=== PATIENT | female | born 1970 | race Caucasian/White ===

== ENCOUNTER 2017-09-15 10:36 | Emergency (ER) | payer OTHER, SELFPAY ==
[2017-09-15 10:50] VITALS: BP 186/92; PULSE 70; RESP 20; TEMP 37.1; O2SAT 97; BMI 45.1
--- NOTE | 2017-09-15 11:01 | HMH.EDUTC ---
[facility] [place] Disposition Clinical Impression: General medical exam Disposition: Home, Self-Care Condition on Discharge: Good Additional Instructions: Follow up with physician on the list that accepts your insurance to have them evaluate and prescribe medication Return if needed If any signs of emergency go straight to ER Time of Disposition: 11:17 Medical Decision Making - Medical Records Medical records reviewed: Yes: I reviewed the patient's medical records. Vital Signs: 09/15/17 10:50 Temperature 98.7 F Temperature Source Temporal Artery Scan Pulse Rate [Right Radial] 70 Respiratory Rate 20 Blood Pressure [Right Arm] 186/92 Blood Pressure Mean [Right Arm] 123 Blood Pressure Source [Right Arm] Automatic Cuff Blood Pressure Position [Right Arm] Sitting 02 Sat by Pulse Oximetry 97 Oxygen Delivery Method Room Air - Donte Inquiry Pt receiving controlled substance: No Donte was queried for this patient: No - Reevaluation(s) Time: 11:12 Reevaluation #1: Patient educated and informed that she would have to find a family doctor to prescribe her medication and continue with refills, Patient educated that where she has not seen a physician in several months and been without her medication that she would need a complete evaluation and monitoring Patient assisted to get copy of card and given list of physicians that is accepting patients at this time [facility] [place] HPI - General Stated complaint: needs meds Mode of Arrival: Family Vehicle Source of Information: Patient Limitations: No Limitations Description of Symptoms (Recalled from Triage Doc. by RN): pt states she needs refills on her medication. naproxen, albuterol,dulera, combivent,zantac,amlodipine,and lisinopril. pcp is . HEENT Symptoms (Recalled from RN notes): No Resp Symptoms (Recalled from RN notes): No Skin Symptoms (Recalled from RN notes): No MS Symptoms (Recalled from RN notes): No Functional Status (Recalled from RN notes): na - History of Present Illness Provider Complaint: Patient state that she use to see Dr Avendaño but she had a change of insurance and she hasn't seen him since March and she thought she may be able to come here to get refills on her medication that was previously prescribed to her that she has not been taking - Related Data Home Medications Medication Instructions Recorded Confirmed Albuterol Sulfate [Albuterol HFA 1 puff INHALATION DAILY 09/15/17 09/15/17 Inhaler] Ipratropium/Albuterol Sulfate 1 puff INHALATION DAILY 09/15/17 09/15/17 [Combivent Respimat Inh] Mometasone/Formoterol [Dulera 100 1 puff INHALATION DAILY 09/15/17 09/15/17 Mcg/5 Mcg Inhaler] Naproxen [Naproxen] 500 mg PO DAILY 09/15/17 09/15/17 Allergies Allergy/AdvReac Type Severity Reaction Status Date / Time Penicillins [PENICILLINS] Allergy Intermediate I-HIVES Verified 09/15/17 10:55 VANILLA Allergy Unknown Uncoded 07/07/17 14:27 - Worker's Comp Is this a Worker's Comp case?: No [facility] History I have reviewed the patient's past medical history: Yes Medical History: Denies:: Cancer, Diabetes Mellitus Type 1, Diabetes Mellitus Type 2, MRSA Amputation: No Fractures: No - Social History Smoking Status: Current every day smoker Tobacco Type: cigarettes Alcohol Intake: never - Psychiatric History Expresses thoughts of harming self/others: None Suicide Plan Description: No Plan ROS Obtained: Yes All systems reviewed & no additional complaints Physical Exam - General General appearance: alert, in no apparent distress - Respiratory Respiratory exam: Present: normal lung sounds bilaterally. Absent: respiratory distress, wheezes - Cardiovascular Cardiovascular exam: Present: regular rate, normal rhythm. Absent: JVD - Neurological Exam Neurological exam: Present: alert, oriented X3
--- NOTE | 2017-09-15 11:08 | ED_ITS ---
[facility] [place] Disposition Clinical Impression: General medical exam Disposition: Home, Self-Care Condition on Discharge: Good Additional Instructions: Follow up with physician on the list that accepts your insurance to have them evaluate and prescribe medication Return if needed If any signs of emergency go straight to ER Time of Disposition: 11:17 Medical Decision Making - Medical Records Medical records reviewed: Yes: I reviewed the patient's medical records. Vital Signs: 09/15/17 10:50 Temperature 98.7 F Temperature Source Temporal Artery Scan Pulse Rate [Right Radial] 70 Respiratory Rate 20 Blood Pressure [Right Arm] 186/92 Blood Pressure Mean [Right Arm] 123 Blood Pressure Source [Right Arm] Automatic Cuff Blood Pressure Position [Right Arm] Sitting 02 Sat by Pulse Oximetry 97 Oxygen Delivery Method Room Air - Donte Inquiry Pt receiving controlled substance: No Donte was queried for this patient: No - Reevaluation(s) Time: 11:12 Reevaluation #1: Patient educated and informed that she would have to find a family doctor to prescribe her medication and continue with refills, Patient educated that where she has not seen a physician in several months and been without her medication that she would need a complete evaluation and monitoring Patient assisted to get copy of card and given list of physicians that is accepting patients at this time [facility] [place] HPI - General Stated complaint: needs meds Mode of Arrival: Family Vehicle Source of Information: Patient Limitations: No Limitations Description of Symptoms (Recalled from Triage Doc. by RN): pt states she needs refills on her medication. naproxen, albuterol,dulera, combivent,zantac, amlodipine,and lisinopril. pcp is . HEENT Symptoms (Recalled from RN notes): No Resp Symptoms (Recalled from RN notes): No Skin Symptoms (Recalled from RN notes): No MS Symptoms (Recalled from RN notes): No Functional Status (Recalled from RN notes): na - History of Present Illness Provider Complaint: Patient state that she use to see Dr Avendaño but she had a change of insurance and she hasn't seen him since March and she thought she may be able to come here to get refills on her medication that was previously prescribed to her that she has not been taking - Related Data Home Medications Medication Instructions Recorded Confirmed Albuterol Sulfate [Albuterol HFA 1 puff INHALATION DAILY 09/15/17 09/15/17 Inhaler] Ipratropium/Albuterol Sulfate 1 puff INHALATION DAILY 09/15/17 09/15/17 [Combivent Respimat Inh] Mometasone/Formoterol [Dulera 100 1 puff INHALATION DAILY 09/15/17 09/15/17 Mcg/5 Mcg Inhaler] Naproxen [Naproxen] 500 mg PO DAILY 09/15/17 09/15/17 Allergies Allergy/AdvReac Type Severity Reaction Status Date / Time Penicillins [PENICILLINS] Allergy Intermediate I-HIVES Verified 09/15/17 10:55 VANILLA Allergy Unknown Uncoded 07/07/17 14:27 - Worker's Comp Is this a Worker's Comp case?: No [facility] History I have reviewed the patient's past medical history: Yes Medical History: Denies:: Cancer, Diabetes Mellitus Type 1, Diabetes Mellitus Type 2, MRSA Amputation: No Fractures: No - Social History Smoking Status: Current every day smoker Tobacco Type: cigarettes Alcohol Intake: never - Psychiatric History
[2017-09-15 11:19] VITALS: BP 136/78; PULSE 90; RESP 20; TEMP 36.7; O2SAT 99
== END 2017-09-15 11:20 | disposition home or self-care (01) ==
PROVIDERS: Emergency Provider Nurse Practitioner; PCP Emergency Medicine
DX: Z76.0 Encounter for issue of repeat prescription (principal)
CPT/HCPCS: 99202

== ENCOUNTER → 2017-10-02 15:04 | Outpatient (CLI) | payer OTHER, SELFPAY ==
[2017-10-02 18:49] LABS: Basophils # 0.1 K/mm3 (0-0.2); Basophils % 0.8 % (0.1-2.0); Eosinophils # 0.2 K/mm3 (0.0-0.4); Eosinophils % 2.4 % (0.1-12.0); Hematocrit 41.3 % (37.0-47.0); Hemoglobin 12.8 g/dL (12.2-16.2); Lymphocytes # 2.1 K/mm3 (0.7-4.5); Lymphocytes % 20.4 K/mm3 (10-50); Mean Corpuscular HGB Conc 30.9 g/dL (31.8-35.4); Mean Corpuscular Hemoglobin 27.3 pg (27.0-31.2); Mean Corpuscular Volume 88.3 fl (81-99); Mean Platelet Volume 10.2 fl (7.4-10.4); Monocytes # 0.5 K/mm3 (0.1-1.0); Monocytes % 4.5 % (1.7-9.3); Neutrophils # 7.4 K/mm3 (1.8-7.8); Platelet Count 284 K/mm3 (142-424); Red Blood Count 4.67 M/mm3 (4.20-5.40); Red Cell Distribution Width 15.4 % (11.5-17.5); White Blood Count 10.3 K/mm3 (4.8-10.8)
[2017-10-02 19:04] LABS: Alanine Aminotransferase 27 U/L (12-78); Albumin Level 3.7 gm/dL (3.4-5.0); Albumin/Globulin Ratio 1.1 (1.1-1.8); Alkaline Phosphatase 74 U/L (46-116); Anion Gap 12.3 mEq/L (5-15); Aspartate Amino Transferase 14 U/L (15-37); Bilirubin,Total 0.1 mg/dL (0.2-1.0); Blood Urea Nitrogen 19 mg/dL (7-18); Calcium 8.9 mg/dL (8.5-10.1); Carbon Dioxide 29 mmol/L (21.0-32.0); Chloride 107 mmol/L (98-107); Chol/HDL Ratio 4.5 (1-3.5); Cholesterol 193 mg/dL (140-200); Creatinine,Serum 1.04 mg/dL (0.55-1.02); Estimated Glomerular Filt Rate 57 ml/min (>60); GFR (African American) 69 ML/MIN (>60); Globulin 3.4 gm/dl (1.3-3.2); Glucose 107 mg/dL (74-106); HDL Cholesterol 43 mg/dL (29-89); LDL Cholesterol 100 mg/dL (0-130); Potassium 4.3 mmoL/L (3.5-5.1); Sodium 144 mmol/L (136-145); Thyroid Stimulating Hormone 2.89 uIU/ml (0.358-3.740); Total Protein,Serum 7.1 gm/dL (6.4-8.2); Triglycerides 251 mg/dL (30-200); VLDL Cholesterol 50 mg/dL (0-40)
== END ==
PROVIDERS: Visit Provider Emergency Medicine
DX: R53.83 Other fatigue (principal); J40 Bronchitis, not specified as acute or chronic
CPT/HCPCS: 80053; 80061; 84439; 84443; 85025

== ENCOUNTER → 2017-10-06 08:36 | Outpatient (CLI) | payer OTHER, SELFPAY ==
--- NOTE | 2017-10-06 08:40 | XR_ITS ---
XR chest 2V HISTORY: ITS.REASON: Cough ORDERING PHYSICIAN: Elias Washington MD PATIENT AGE: 47 years COMPARISON: None available FINDINGS: The cardiomediastinal silhouette and pulmonary vascularity are within normal limits. There is patchy density right lung base laterally consistent with an area of atelectasis or infiltrate. Remaining lungs are clear. IMPRESSION: Atelectasis or infiltrate in the right lung base laterally
== END ==
PROVIDERS: PCP Emergency Medicine; Visit Provider Emergency Medicine
DX: R05 Cough (principal)
CPT/HCPCS: 71046

== ENCOUNTER → 2018-10-13 13:35 | Outpatient (CLI) | payer MEDICAID, SELFPAY ==
--- NOTE | 2018-10-13 13:37 | CA_ITS ---
PROCEDURE: 2-D M-mode and color Doppler study INDICATIONS FOR THE TEST: Chest pain COPD+ Heart Murmur Tobacco Smoking+ Palpitations Fatigue Syncope Edema+ Hypertension+Diabetes Mellitus Rheumatic Fever SOB+GREEN Obesity+Hyperlipidemia Family History HD Additional History hx pneumonia Limited windows r/t pt unable to lay on left side and pt body habitus PATIENT INFORMATION HEIGHT:64 WEIGHT:285 GENDER: Female B/P:174/74 2-D/M-MODE INTERPRETATION: 2-D MEASUREMENTS OBSERVED VALUES IN CMS Right Ventricular Dimension (RVDd) 3.1 Interventricular Septum (Thickness)(IVsd) 1.0 Left Ventricular Internal Dimensions(LVIDd) 5.7 Left Ventricular Posterior Wall (Thickness)(LVPWd) 0.8 Aortic Root 2.2 Aortic Cusp Separation 2.1 Left Atrial Dimensions (LAD) 3.8 2D 1. Left atrium is mildly enlarged, left ventricle is normal size, mild concentric left ventricular hypertrophy, visually estimated ejection fraction 55% with no regional wall motion abnormality. 2. The right atrium and right ventricle are mildly enlarged with normal contractility. 3. The aortic valve is minimally thickened and fibrosed. 4. The mitral and tricuspid valve leaflets are minimally thickened 5. The pulmonic valve is poorly visualized. 6. No significant pericardial effusion noted. DOPPLER INTERROGATION: Doppler interrogation of the aortic, mitral and tricuspid valvular presence of mild mitral and tricuspid regurgitation, tricuspid regurgitation jet velocity is inadequate for calculation of the right ventricular systolic pressure, grade 1 diastolic dysfunction seen with tissue Doppler evidence of raised left atrial pressure, inferior vena cava is mildly dilated with mild inspiratory collapse. CONCLUSION: 1. Mild biatrial enlargement, normal left ventricular size, mild concentric left ventricular hypertrophy, visually estimated ejection fraction 55% with no regional wall motion abnormality, grade 1 diastolic dysfunction seen with tissue Doppler evidence of raised left atrial pressure. 2. Mildly enlarged right ventricle with normal contractility. 3. Mild mitral and tricuspid regurgitation, tricuspid regurgitation jet velocity is inadequate for calculation of the right ventricular systolic pressure, inferior vena cava is mildly dilated with mild inspiratory collapse. 4. No significant pericardial effusion noted.
== END ==
PROVIDERS: PCP Family Medicine; Visit Provider Family Medicine
DX: R01.1 Cardiac murmur, unspecified (principal); I10 Essential (primary) hypertension
CPT/HCPCS: 93306

== ENCOUNTER 2019-08-27 03:09 | Inpatient (IN) ==
--- NOTE | 2019-08-27 03:20 | Emergency Department Note ---
ED Disposition Clinical Impression: New onset atrial fibrillation, COPD exacerbation Pneumonia, community acquired Qualifiers: Laterality: right Lung location: unspecified part of lung Qualified Code(s): J18.9 - Pneumonia, unspecified organism Disposition: Admitted as Observation Condition on Discharge: Fair Referrals: Siva Wan MD [Primary Care Provider] - - Critical Care Critical Care Time: No Attestation: On , the high probability of a clinically significant, sudden or life thre atening deterioration of the following system(s) required my full and direct attention, intervention and personal management. The time I documented below is in addition to time spent performing reported procedures but includes the following listed in this critical care notation. Medical Decision Making - Donte Inquiry Pt receiving controlled substance: No Vital Signs: 08/27/19 03:22 08/27/19 04:07 08/27/19 04:10 Temperature 98.0 F Temperature Source Oral Pulse Rate 116 H Pulse Rate [Right] 113 H 98 H Respiratory Rate 28 H 20 Blood Pressure [Right Arm] 182/118 H 179/108 H Blood Pressure Mean [Right Arm] 139 131 Blood Pressure Source [Right Arm] Automatic Cuff Blood Pressure Position [Right Arm] Sitting Sitting 02 Sat by Pulse Oximetry 94 L 96 Oxygen Delivery Method Room Air Nasal Cannula Oxygen Flow Rate (LPM) 2 - Lab Data Lab Results 08/27/19 03:29: Specimen Source Left radial, O2 % Room air, ABG pH 7.39, ABG pCO2 39.6, ABG pO2 67.2 L, ABG HCO3 23.4, ABG Total CO2 24.6, ABG O2 Saturation 93, ABG Base Excess -1.6, Raman Test Acceptable 08/27/19 03:30: WBC 10.8, RBC 4.74, Hgb 12.8, Hct 40.9, MCV 86.4, MCH 27.1, MCHC 31.3 L, RDW 16.6, Plt Count 264, MPV 9.8, Neut % (Auto) 80.6 H, Lymph % (Auto) 13.5, Davidson % (Auto) 3.3, Eos % (Auto) 1.9, Baso % (Auto) 0.7, Neut # (Auto) 8.7 H, Lymph # (Auto) 1.5, Davidson # (Auto) 0.4, Eos # (Auto) 0.2, Baso # (Auto) 0.1 08/27/19 03:30: D-Dimer 875 H* 08/27/19 03:30: Sodium 143, Potassium 4.0, Chloride 105, Carbon Dioxide 26, Anion Gap 16.0 H, BUN 22 H, Creatinine 1.48 H, Estimated Creat Clear 40, Estimated GFR 38 L, Est GFR ( Amer) 46 L, Glucose 281 H, Calcium 9.0, Total Bilirubin 0.3, AST 18, ALT 35, Alkaline Phosphatase 99, Troponin I 0.10 H, Total Protein 7.3, Albumin 3.4, Globulin 3.9 H, Albumin/Globulin Ratio 0.9 L 08/27/19 03:30: B-Natriuretic Peptide 213 H Result diagrams: 08/27/19 03:30 08/27/19 03:30 Orders (Tests/Meds): ED MEDICATIONS Generic Name Dose Route Start Last Admin Trade Name Freq PRN Reason Stop Dose Admin Sodium Chloride 250 mls @ 999 mls/hr 08/27/19 05:00 08/27/19 05:23 Sod Chlor 0.9% 1000ml Bag IV 08/27/19 05:15 999 mls/hr .Q16M THAD Administration Ceftriaxone Sodium 1 gm/ 50 mls @ 100 mls/hr 08/27/19 07:15 Sodium Chloride IV 09/10/19 07:14 Q24H THAD Protocol Azithromycin 500 mg/ Sodium 250 mls @ 250 mls/hr 08/27/19 07:15 Chloride IV 09/10/19 07:14 Q24H THAD Protocol Discontinued Medications Generic Name Dose Route Start Last Admin Trade Name Freq PRN Reason Stop Dose Admin Albuterol/Ipratropium 3 ml 08/27/19 03:43 08/27/19 04:04 Duoneb 3ml Neb IH 08/27/19 03:44 3 ml ONCE ONE Administration Ioversol 70 ml 08/27/19 06:22 08/27/19 06:23 Rad-Optiray 350 100ml Vial IV 08/27/19 06:23 70 ml ONCE ONE Administration Protocol Methylprednisolone Sodium Succinate 125 mg 08/27/19 03:43 08/27/19 04:11 Solu-Medrol 125mg/2ml Vial IV 08/27/19 03:44 125 mg ONCE ONE Administration Sodium Chloride 40 ml 08/27/19 06:22 08/27/19 06:23 Rad-Ns 50ml Vial IV 08/27/19 06:23 40 ml ONCE ONE Administration Sodium Chloride 10 ml 08/27/19 06:22 08/27/19 06:23 Rad-Saline Flush 10ml Syringe IV 08/27/19 06:23 10 ml ONCE ONE Administration ORDERS Category Date Time Status CTA Chest [CT angio chest] Stat Cat Scan 08/27/19 04:22 Taken Chest XR 2 view (NOT portable) [XR chest 2V] Stat Exams 08/27/19 03:31 Taken Troponin I Q3H Lab 08/27/19 06:30 Ordered Troponin I Q3H Lab 08/27/19 09:30 Ordered - Radiology Data #1 Image(s): Chest Image Reviewed: Yes I reviewed the patient's radiology image blunting/density at R CPA - CT Data CT Scan: Chest Time Received: 07:04 ([facility] fax) ED CT Reviewed: Yes: I have viewed the radiologist's interpretation Findings Narrative: No pulmonary emboli. Small right pleural effusion, patchy infiltrations in the right middle lobe and right lower lobe, groundglass opacity in the left lower lobe which may represent inflammatory/infectious process. Mild emphysematous changes. - ECG Data Tracing #1 EKG interpreted by George Guido MD: Rhythm: Atrial fibrillation Rate: 116 [place]: normal Ectopy: none Conduction: normal ST Segment Changes: none T Wave Changes: Nonspecific Q Waves: Septal No evidence of acute ischemia or injury - Physician Consults Physician Consulted: [facility] Time: 07:15 Reason -: Admission Comment/Response: Agrees to admit the patient to the hospital. We discussed the patient's clinical information, including history, exam, laboratory and radiology results and ED course. Per hospital procedure, I will write temporary bridge inpatient orders on the patient. Specific orders requested by the admitting physician: Continue Rocephin and Zithromax, cardiology consult, echocardiogram, continue nebulizers and steroids. No anticoagulation at this time. General Adult HPI - General Stated complaint: SOA Time Seen by Provider: 08/27/19 03:20 - History of Present Illness HPI narrative: Complains of shortness of breath for 1 week. She has orthopnea and dyspnea on exertion. Denies chest pain. Denies URI symptoms or cough. She has chronic swelling of her legs. She has an abrasion of her right lower leg that she thinks is looking infected and says that her right foot sometimes turns black. Denies fever. She has COPD and has a nebulizer and inhalers. She says the nebulizer is not helping her shortness of breath. She is not on oxygen at home. She feels she needs it. - Related Data Home Medications Medication Instructions Recorded Confirmed Amlodipine Besylate [Norvasc 5mg 5 mg PO DAILY 09/15/17 08/27/19 tablet] Ipratropium/Albuterol Sulfate 1 puff INHALATION DAILY 09/15/17 08/27/19 [Combivent Respimat Inh] Omeprazole [Omeprazole 40mg 40 mg PO DAILY 09/15/17 08/27/19 Capsule] lisinopriL [Lisinopril 40mg Tablet] 40 mg PO DAILY 09/15/17 08/27/19 Fluticasone/Vilanterol [Breo 1 inh INHALATION Q24H 07/15/18 08/27/19 Ellipta] Albuterol Sulfate [Albuterol 2.5 mg IH Q4-6H PRN 08/27/19 08/27/19 Sulfate 2.5mg/0.5ml Neb] Previous Rx's Medication Instructions Recorded albuterol sulfate 90 mcg/actuation 1 puff INHALATION DAILY #18 g 08/14/18 aerosol inhaler naproxen 500 mg tablet 500 mg PO BID 30 Days #60 tab 08/14/18 Allergies Allergy/AdvReac Type Severity Reaction Status Date / Time Penicillins [PENICILLINS] Allergy Intermediate I-HIVES Verified 08/27/19 03:27 VANILLA Allergy Unknown Uncoded 10/13/17 07:53 [facility] History - Hepatitis A Screen Attestation statement:: This patient has been screened for Hepatitis A risk factors. I have reviewed the patient's past medical history: Yes Medical History: Reports:: Chronic Obstructive Pulmonary Disease (COPD), Hypertension Denies:: Cancer, Coronary Artery Disease, Diabetes Mellitus Type 1, Diabetes Mellitus Type 2, MRSA Other Surgeries: Yes: Hysterectomy-Total, Other Amputation: No Fractures: No Comment: Bladder Tuck, Dental work - Social History Smoking Status: Current every day smoker Tobacco Type: cigarettes # Packs/Day (cigarettes): 10 Alcohol Intake: never Substance Use Type: denies use Occupational Status: disabled Housing: house Household Members: spouse, children Family Hx:: Stroke, Heart Attack, Diabetes, Cancer ROS Obtained: Yes All systems reviewed & no additional complaints - Constitutional Constitutional: Denies fever(s) - Cardiovascular Cardiovascular: Denies chest pain - Respiratory Respiratory: No cough, Yes dyspnea - Gastrointestinal Gastrointestingal: Denies: abdominal pain, vomiting - Integumentary/Breasts Skin/Breast: Reports as per HPI Physical Exam - General General appearance: alert Comment: Dyspneic. - Head Head exam: atraumatic, normocephalic - Eye Eye exam: Present: normal appearance, EOMI - ENT ENT exam: Present: mucous membranes moist - Neck Neck exam: Present: normal inspection, trachea midline - Chest Chest inspection: Present: normal inspection, symmetric chest wall rise - Respiratory Respiratory exam: Present: normal lung sounds bilaterally. Absent: respiratory distress - Cardiovascular Cardiovascular exam: Present: tachycardia, irregular rhythm - Abdominal Exam Abdominal exam: Present: soft, normal bowel sounds. Absent: distention - Neurological Exam Neurological exam: Present: alert, oriented X3 - Psychiatric Psychiatric exam: Present: normal affect, normal mood - Skin Skin exam: Present: warm, dry
[2019-08-27 03:54] LABS: Basophils # 0.1 K/mm3 (0-0.2); Basophils % 0.7 % (0.1-2.0); Eosinophils # 0.2 K/mm3 (0.0-0.4); Eosinophils % 1.9 % (0.1-12.0); Hematocrit 40.9 % (37.0-47.0); Hemoglobin 12.8 g/dL (12.2-16.2); Lymphocytes # 1.5 K/mm3 (0.7-4.5); Lymphocytes % 13.5 % (10-50); Mean Corpuscular HGB Conc 31.3 g/dL (31.8-35.4); Mean Corpuscular Volume 86.4 fl (81-99); Mean Platelet Volume 9.8 fl (7.4-10.4); Monocytes # 0.4 K/mm3 (0.1-1.0); Monocytes % 3.3 % (1.7-9.3); Neutrophils # 8.7 K/mm3 (1.8-7.8); Neutrophils % 80.6 % (37.0-80.0); Platelet Count 264 K/mm3 (142-424); Red Blood Count 4.74 M/mm3 (4.20-5.40); Red Cell Distribution Width 16.6 % (11.5-17.5); White Blood Count 10.8 K/mm3 (4.8-10.8)
[2019-08-27 03:56] LABS: ABG Base Excess -1.6 mmol/L (-2.4-2.3); ABG HCO3 23.4 mmhg (22.0-26.0); ABG Oxygen Saturation 93 % (90-100); ABG PCO2 39.6 mmhg (35.0-45.0); ABG PH 7.39 mmol/L (7.35-7.45); ABG PO2 67.2 mmhg (80-100); ABG TCO2 24.6 mmhg (23-27)
[2019-08-27 03:57] LABS: Allen's Test Acceptable; Oxygen ROOM AIR %
[2019-08-27 04:16] LABS: Albumin Level 3.4 gm/dL (3.4-5.0); Albumin/Globulin Ratio 0.9 (1.1-1.8); Bilirubin,Total 0.3 mg/dL (0.2-1.0); Globulin 3.9 gm/dl (1.3-3.2); Total Protein,Serum 7.3 gm/dL (6.4-8.2)
--- NOTE | 2019-08-27 11:50 | Electrocardiograph Report ---
APPROVED REPORT Exam: Resting ECG HR:116 bpm ECG Measurements Heart Rate 116 AXES QRSd 94 QRS 11 QT 268 T216 QTc 372 <Conclusion> Atrial fibrillation with rapid ventricular response Septal infarct, age undetermined Abnormal ECG Electronically signed by : Tej Fenton, 08/27/2019 11:49:48
--- NOTE | 2019-08-27 12:27 | History & Physical Report ---
*Admission Date: 08/27/19 *Chief complaint: Shortness of breath *History of present illness: Ms. Leahy is a very noncompliant 49-year-old white female with a history of severe COPD, tobacco abuse, and hypertension who presented to the emergency room during the night with acute shortness of breath. She states she has not felt well for several months but when questioned more carefully states she started with chest congestion and coughing about 2 weeks ago. 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 She was last seen in the office of [facility] in September 2018 after a 3 year absence at which time her blood pressure medication regimen was changed to lisinopril, Coreg and Lasix. She was given prescriptions for 3 months of medication. She had an echocardiogram at that time showing grade 1 diastolic dysfunction, biatrial enlargement and EF of 55%. She did not follow-up as scheduled but states she has continued taking her medications as prescribed although there is no record of these being filled through the office. She was worked up in the emergency room and found to have new onset of atrial fibrillation with rate running 100-115. She was hypertensive. O2 sats were satisfactory but she was clearly dyspneic at rest. Her d-dimer was elevated. Chest x-ray showed findings of congestive heart failure. CT scan of the lungs revealed no pulmonary embolus but suggestion of bibasilar pneumonia. She has been admitted for treatment of her pneumonia and cardiology consultation. Upon arrival to the floor she was more tachycardic in the range of 140-150. She has been started on Cardizem drip and her rate responded promptly into the 80s and 90s. She remains in atrial fibrillation. Subjectively, at the present time she feels some better with less shortness of breath. She complains of some right posterior pleuritic chest pain. She also states she has been coughing up blood off and on for the past couple of months. She reports ongoing swelling in her feet and legs and states that her feet sometimes turn blue. She complains of numbness below the knees. [facility] History Medical History: Reports:: Atrial Fibrillation, Chronic Obstructive Pulmonary Disease (COPD), Heart Murmur, Hypertension Denies:: Cancer, Coronary Artery Disease, Diabetes Mellitus Type 1, Diabetes Mellitus Type 2, MRSA *Have you ever received a pneumonia vaccine?: No *Have you received a flu vaccine this season?: No Other Medical History: Reports: Arthritis, Hoarseness, Sinus Problems Other Surgeries: Yes: Hysterectomy-Total, Hysterectomy-Partial, Other Amputation: No Fractures: No - *Social History Educational Level: Attended High School Smoking Status: Current every day smoker Tobacco Type: cigarettes # Packs/Day (cigarettes): 10 Alcohol Intake: never Substance Use Type: denies use *Occupational Status:: disabled Housing: house Household Members: significant other *Travel in the last 8 weeks: None Family Hx:: Asthma, Cancer, Coronary Artery Disease, Diabetes, Heart Attack, Hyperlipidemia, Hypertension, Kidney Disease, Stroke, Thyroid Disorder Review of Systems - Constitutional Reports fatigue, Reports lack of energy - Eyes Denies blurry vision, Denies change in vision - ENT Reports dry mouth, Reports headache(s), Denies bleeding gums, Denies facial pain - *Cardiovascular Reports shortness of breath with activity, Reports irregular heart rhythm, Reports leg swelling - *Respiratory Reports chest congestion, Reports cough, Reports shortness of breath, Reports coughing up blood - *Gastrointestinal Reports abdominal pain, Reports vomiting blood, Denies constipation, Denies incontinent of stools - *Genitourinary Denies difficulty urinating, Denies painful urination - *Musculoskeletal Reports joint pain - Integumentary/Breasts Denies hair loss, Denies change in skin color - *Neurologic Reports abnormal walking, Denies dizziness, Denies memory loss - Psychiatric Denies behavioral changes, Denies confusion, Denies depression - Endocrine Denies cold intolerance - Hematologic/Lymphatic Denies easy bruising - Allergic/Immunologic Denies itchy eyes Meds Home Medications Medication Instructions Recorded Confirmed Type Amlodipine Besylate [Norvasc 5mg 5 mg PO DAILY 09/15/17 08/27/19 History tablet] Ipratropium/Albuterol Sulfate 1 puff INHALATION DAILY 09/15/17 08/27/19 History [Combivent Respimat Inh] Omeprazole [Omeprazole 40mg 40 mg PO DAILY 09/15/17 08/27/19 History Capsule] lisinopriL [Lisinopril 40mg Tablet] 40 mg PO DAILY 09/15/17 08/27/19 History Fluticasone/Vilanterol [Breo 1 inh INHALATION Q24H 07/15/18 08/27/19 History Ellipta] albuterol sulfate 90 mcg/actuation 1 puff INHALATION DAILY #18 g 08/14/18 08/27/19 Rx aerosol inhaler naproxen 500 mg tablet 500 mg PO BID 30 Days #60 tab 08/14/18 08/27/19 Rx Albuterol Sulfate [Albuterol 2.5 mg IH Q4-6H PRN 08/27/19 08/27/19 History Sulfate 2.5mg/0.5ml Neb] Allergies Allergy/AdvReac Type Severity Reaction Status Date / Time Penicillins [PENICILLINS] Allergy Intermediate I-HIVES Verified 08/27/19 03:27 VANILLA Allergy Unknown Uncoded 10/13/17 07:53 Exam Vital signs and Labs for Last 24 Hours: Temp Pulse Resp BP Pulse Ox 98.2 F 93 H 20 141/94 H 95 08/27/19 07:41 08/27/19 11:30 08/27/19 11:30 08/27/19 11:30 08/27/19 11:30 Laboratory Results - last 24 hr 08/27/19 03:29: Specimen Source Left radial, O2 % Room air, ABG pH 7.39, ABG pCO2 39.6, ABG pO2 67.2 L, ABG HCO3 23.4, ABG Total CO2 24.6, ABG O2 Saturation 93, ABG Base Excess -1.6, Raman Test Acceptable 08/27/19 03:30: WBC 10.8, RBC 4.74, Hgb 12.8, Hct 40.9, MCV 86.4, MCH 27.1, MCHC 31.3 L, RDW 16.6, Plt Count 264, MPV 9.8, Neut % (Auto) 80.6 H, Lymph % (Auto) 13.5, Crisp % (Auto) 3.3, Eos % (Auto) 1.9, Baso % (Auto) 0.7, Neut # (Auto) 8.7 H, Lymph # (Auto) 1.5, Crisp # (Auto) 0.4, Eos # (Auto) 0.2, Baso # (Auto) 0.1 08/27/19 03:30: D-Dimer 875 H* 08/27/19 03:30: Sodium 143, Potassium 4.0, Chloride 105, Carbon Dioxide 26, Anion Gap 16.0 H, BUN 22 H, Creatinine 1.48 H, Estimated Creat Clear 40, Estimated GFR 38 L, Est GFR ( Amer) 46 L, Glucose 281 H, Calcium 9.0, Total Bilirubin 0.3, AST 18, ALT 35, Alkaline Phosphatase 99, Troponin I 0.10 H, Total Protein 7.3, Albumin 3.4, Globulin 3.9 H, Albumin/Globulin Ratio 0.9 L 08/27/19 03:30: B-Natriuretic Peptide 213 H 08/27/19 07:20: Troponin I 0.09 H 08/27/19 09:12: Troponin I 0.08 H I & O for Last 24 hours: Intake & Output 08/25/19 08/26/19 08/27/19 08/28/19 11:59 11:59 11:59 11:59 Intake Total 780 / 780 Balance 780 / 780 Weight 315 lb Narrative: She is sitting up in the chair eating lunch. She is alert, oriented, conversant. No respiratory distress. Color is normal. HEENT shows a cream to be atraumatic and normocephalic. Sclera conjunctive are clear. Mucous membranes are slightly dry. Neck is stocky and supple with no adenopathy, thyromegaly, or bruits. Chest with generally diminished breath sounds with bibasilar rales. Anterior wheezes. Heart is irregularly irregular with grade 1/6 systolic murmur. Abdomen obese soft and nondistended with no tenderness. Lower extremities show 2-3+ pretibial edema bilaterally. There is a superficial abrasion on the right lower leg with surrounding erythema and warmth. Assessment and Plan (1) Diastolic dysfunction Current visit: Yes Status: Acute Category: Medical Code(s): I51.89 - Other ill-defined heart diseases (2) Cellulitis Current visit: Yes Status: Acute Category: Medical Code(s): L03.90 - Cellulitis, unspecified (3) Obesity Current visit: Yes Status: Acute Category: Medical Code(s): E66.9 - Obesity, unspecified (4) Medical non-compliance Current visit: Yes Status: Acute Category: Medical Code(s): Z91.19 - Patient's noncompliance with other medical treatment and regimen (5) New onset atrial fibrillation Current visit: Yes Status: Acute Category: Medical Code(s): I48.91 - Unspecified atrial fibrillation (6) Pneumonia, community acquired Current visit: Yes Status: Acute Qualifiers: Laterality: right Lung location: unspecified part of lung Qualified Code(s): J18.9 - Pneumonia, unspecified organism Category: Medical Code(s): J18.9 - Pneumonia, unspecified organism (7) COPD (chronic obstructive pulmonary disease) Current visit: No Status: Chronic Qualifiers: COPD type: unspecified COPD Qualified Code(s): J44.9 - Chronic obstructive pulmonary disease, unspecified Category: Medical Code(s): J44.9 - Chronic obstructive pulmonary disease, unspecified - Assessment and plan all Dx Assessment and Plan for all problems:: She has been admitted to the stepdown unit for cardiac monitoring. She is currently on a Cardizem drip with a controlled rate. She remains in atrial fibrillation. Thyroid functions are pending. We will check an echocardiogram and get cardiology consult. Her initial troponin was elevated but successive readings are trending downward. Will diurese with Lasix. She has empirically been started on Rocephin and Zithromax for her pneumonia pending cultures.
[2019-08-27 12:58] LABS: Thyroid Stimulating Hormone 2.18 uIU/ml (0.358-3.740)
--- NOTE | 2019-08-27 13:40 | Pharmacy Consult Notes ---
[facility] Pharmacy VTE Monitoring - Patient Demographics Admission date: 08/27/19 Report Date: 08/27/19 Time: 13:40 Allergies/Adverse Reactions: Patient Allergies Penicillins [PENICILLINS] Allergy (Intermediate, Verified 08/27/19 03:27) I-HIVES VANILLA Allergy (Unknown, Uncoded 10/13/17 07:53) Height: 1.63 m Weight: 142.882 kg Patient Problems: Current Active Problems New onset atrial fibrillation (Acute) Pneumonia, community acquired (Acute) COPD exacerbation (Acute) - VTE Risk Labs: VTE Related Lab Results Hgb 12.8 g/dL (12.2-16.2) 08/27/19 03:30 Hct 40.9 % (37.0-47.0) 08/27/19 03:30 Plt Count 264 K/mm3 (142-424) 08/27/19 03:30 BUN 22 mg/dL (7-18) H 08/27/19 03:30 Creatinine 1.48 mg/dL (0.55-1.02) H 08/27/19 03:30 Estimated Creat Clear 40 mL/min (50-200) 08/27/19 03:30 Was VTE Risk Assessment Performed: Yes VTE Score: 7 VTE Risk Level: Moderate Risk - Prophylaxis VTE Prophylaxis Ordered?: Yes Types of VTE Prophylaxis: TEDS Knee High Location of Applied Device: Bilateral Lower Extremeties
[2019-08-28 06:10] LABS: Basophils % 0.1 % (0.1-2.0); Eosinophils # 0.2 K/mm3 (0.0-0.4); Eosinophils % 1.3 % (0.1-12.0); Hemoglobin 12.3 g/dL (12.2-16.2); Lymphocytes # 0.8 K/mm3 (0.7-4.5); Lymphocytes % 5.6 % (10-50); Mean Corpuscular HGB Conc 31.4 g/dL (31.8-35.4); Mean Corpuscular Volume 86.6 fl (81-99); Mean Platelet Volume 11.1 fl (7.4-10.4); Monocytes # 0.3 K/mm3 (0.1-1.0); Monocytes % 1.7 % (1.7-9.3); Neutrophils # 13.7 K/mm3 (1.8-7.8); Neutrophils % 91.4 % (37.0-80.0); Platelet Count 303 K/mm3 (142-424); Red Blood Count 4.51 M/mm3 (4.20-5.40); Red Cell Distribution Width 16.5 % (11.5-17.5)
[2019-08-28 06:28] LABS: Anion Gap 16.6 mEq/L (5-15); Calcium 8.8 mg/dL (8.5-10.1)
[2019-08-28 06:41] LABS: Hypochromasia 1+; Lymphocytes % 6 % (10-50); Neutrophils % 86 % (42-76); Total Cells Counted 100
--- NOTE | 2019-08-28 08:33 | Progress Note ---
Internal Medicine - PN: Subj *Date: 08/28/19 *Time: 08:32 Interval history: States she slept better last night than she has for several nights. She did however sleep sitting up in the recliner which is how she sleeps at home. Nursing staff did note heavy snoring and episodes of apnea. She has minimal cough. Blood sugar elevated this morning. No history of diabetes. May be related to steroids. Exam Vital signs and Labs for Last 24 Hours: Temp Pulse Resp BP Pulse Ox 97.7 F 89 20 153/81 H 94 L 08/28/19 08:00 08/28/19 06:19 08/28/19 06:00 08/28/19 06:00 08/28/19 06:19 Laboratory Results - last 24 hr 08/27/19 07:20: TSH 2.18, Thyroxine (T4) 10.4 08/27/19 09:12: Troponin I 0.08 H 08/28/19 05:30: WBC 15.0 H D, RBC 4.51, Hgb 12.3, Hct 39.0, MCV 86.6, MCH 27.2, MCHC 31.4 L, RDW 16.5, Plt Count 303, MPV 11.1 H, Neut % (Auto) 91.4 H, Lymph % (Auto) 5.6 L, [place] % (Auto) 1.7, Eos % (Auto) 1.3, Baso % (Auto) 0.1, Neut # (Auto) 13.7 H, Lymph # (Auto) 0.8, [place] # (Auto) 0.3, Eos # (Auto) 0.2, Baso # (Auto) 0.0, Total Counted 100, Neutrophils % (Manual) 86 H, Band Neutrophils % 8.0, Lymphocytes % (Manual) 6 L, Platelet Estimate Normal, Hypochromasia 1+ 08/28/19 05:30: Sodium 139, Potassium 4.6, Chloride 101, Carbon Dioxide 26, Anion Gap 16.6 H, BUN 32 H D, Creatinine 1.64 H, Estimated Creat Clear 36, Estimated GFR 33 L, Est GFR ( Amer) 40 L, Glucose 412 H*, Calcium 8.8 I & O for Last 24 hours: Intake & Output 08/25/19 08/26/19 08/27/19 08/28/19 11:59 11:59 11:59 11:59 Intake Total 780 / 780 2812 / 2812 Output Total 250 / 250 Balance 780 / 780 2562 / 2562 Weight 315 lb 314 lb 8.889 oz Narrative: She is sitting up in the chair, alert and oriented. No respiratory distress. Lungs with bibasilar crackles. No wheezes. Heart is irregularly irregular. Extremities show 2+ edema. Assessment and Plan (1) Diastolic dysfunction Current visit: Yes Status: Acute Category: Medical Code(s): I51.89 - Other ill-defined heart diseases (2) Cellulitis Current visit: Yes Status: Acute Category: Medical Code(s): L03.90 - Cellulitis, unspecified (3) Obesity Current visit: Yes Status: Acute Category: Medical Code(s): E66.9 - O besity, unspecified (4) Medical non-compliance Current visit: Yes Status: Acute Category: Medical Code(s): Z91.19 - Patient's noncompliance with other medical treatment and regimen (5) New onset atrial fibrillation Current visit: Yes Status: Acute Category: Medical Code(s): I48.91 - Unspecified atrial fibrillation (6) Pneumonia, community acquired Current visit: Yes Status: Acute Qualifiers: Laterality: right Lung location: unspecified part of lung Qualified Code(s): J18.9 - Pneumonia, unspecified organism Category: Medical Code(s): J18.9 - Pneumonia, unspecified organism (7) COPD (chronic obstructive pulmonary disease) Current visit: No Status: Chronic Qualifiers: COPD type: unspecified COPD Qualified Code(s): J44.9 - Chronic obstructive pulmonary disease, unspecified Category: Medical Code(s): J44.9 - Chronic obstructive pulmonary disease, unspecified (8) Obstructive sleep apnea Current visit: Yes Status: Acute Category: Medical Code(s): G47.33 - Obstructive sleep apnea (adult) (pediatric) (9) Hyperglycemia Current visit: Yes Status: Acute Category: Medical Code(s): R73.9 - Hyperglycemia, unspecified - Assessment and plan all Dx Assessment and Plan for all problems:: Remains in atrial fib with a controlled rate. Will switch to p.o. Cardizem and discontinue her drip today. She will be placed on sliding scale insulin with before meals and at bedtime blood sugar checks. Hyperglycemia may be related to her steroids which are being discontinued today but will check an A1c. Continue diuresis with IV Lasix. Cardiology consult pending.
[2019-08-29 04:47] LABS: Eosinophils # 0.3 K/mm3 (0.0-0.4); Eosinophils % 1.5 % (0.1-12.0); Hematocrit 37.4 % (37.0-47.0); Hemoglobin 12.1 g/dL (12.2-16.2); Lymphocytes # 1.3 K/mm3 (0.7-4.5); Lymphocytes % 6.6 % (10-50); Mean Corpuscular HGB Conc 32.3 g/dL (31.8-35.4); Mean Corpuscular Volume 85.5 fl (81-99); Mean Platelet Volume 9.3 fl (7.4-10.4); Monocytes # 0.7 K/mm3 (0.1-1.0); Monocytes % 3.3 % (1.7-9.3); Neutrophils # 17.1 K/mm3 (1.8-7.8); Neutrophils % 88.4 % (37.0-80.0); Platelet Count 278 K/mm3 (142-424); Red Blood Count 4.37 M/mm3 (4.20-5.40); Red Cell Distribution Width 16.5 % (11.5-17.5); White Blood Count 19.3 K/mm3 (4.8-10.8)
[2019-08-29 04:57] LABS: Anion Gap 16.5 mEq/L (5-15); Calcium 8.8 mg/dL (8.5-10.1)
[2019-08-29 05:11] LABS: Lymphocytes % 5 % (10-50); Monocytes % 1 % (2-9); Neutrophils % 89 % (42-76); Total Cells Counted 100
[2019-08-29 05:12] LABS: RBC Morphology Normal
--- NOTE | 2019-08-29 07:34 | Consult Report ---
History of Present Illness Consult date: 08/29/19 Requesting physician: Siva Wan Consult reason: shortness of breath Chief complaint: SOA, chest pain Additional Medical History:: 1. Hypertension A. Echo, 09/2018, 1. Mild biatrial enlargement, normal left ventricular size, mild concentric left ventricular hypertrophy, visually estimated ejection fraction 55% with no regional wall motion abnormality, grade 1 diastolic dysfunction seen with tissue Doppler evidence of raised left atrial pressure. 2. Mildly enlarged right ventricle with normal contractility. 3. Mild mitral and tricuspid regurgitation, tricuspid regurgitation jet velocity is inadequate for calculation of the right ventricular systolic pressure, inferior vena cava is mildly dilated with mild inspiratory collapse. 4. No significant pericardial effusion noted 2. Obesity 3. COPD A. Tobacco use starting at age 17 4. CKD, stage III with creatinine 1.3-1.6 and GFR 33-38, 08/2019 5. Chronic leg pain 6. LAINA 7. Hyperglycemia, 08/2019 History of present illness: Ms. Leahy is a very noncompliant 49-year-old white female with a history of severe COPD, tobacco abuse, and hypertension who presented to the emergency room during the night with acute shortness of breath. She states she has not felt well for several months but when questioned more carefully states she started with chest congestion and coughing about 2 weeks ago. 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 She was last seen in the office of [facility] in September 2018 after a 3 year absence at which time her blood pressure medication regimen was changed to lisinopril, Coreg and Lasix. She was given prescriptions for 3 months of medication. She had an echocardiogram at that time showing grade 1 diastolic dysfunction, biatrial enlargement and EF of 55%. She did not follow-up as scheduled but states she has continued taking her medications as prescribed although there is no record of these being filled through the office. She was worked up in the emergency room and found to have new onset of atrial fibrillation with rate running 100-115. She was hypertensive. O2 sats were satisfactory but she was clearly dyspneic at rest. Her d-dimer was elevated. Chest x-ray showed findings of congestive heart failure. CT scan of the lungs revealed no pulmonary embolus but suggestion of bibasilar pneumonia. She has been admitted for treatment of her pneumonia and cardiology consultation. Upon arrival to the floor she was more tachycardic in the range of 140-150. She has been started on Cardizem drip and her rate responded promptly into the 80s and 90s. She remains in atrial fibrillation. Subjectively, at the present time she feels some better with less shortness of breath. She complains of some right posterior pleuritic chest pain. She also states she has been coughing up blood off and on for the past couple of months. She reports ongoing swelling in her feet and legs and states that her feet sometimes turn blue. She complains of numbness below the knees. The above per Dr. Wan Cardiology consulted due to new onset A. fib with RVR and elevated troponins (0.10, 0.09, 0.08, respectively). Denies any history of CAD or workup in the past. Echo performed this AM with results pending at this time. Smoking started at age 17. Still with some SOA and cough but states she is better. Unable to lie flat due to SOA at this time. A. fib continues with rate in the 80-90 bpm range on cardizem. Xarelto has been started. EKG on admission is a. fib with RVR, septal infarct pattern and lateral ST segment depression. [facility] History Medical History: Reports:: Atrial Fibrillation, Chronic Obstructive Pulmonary Disease (COPD), Heart Murmur, Hypertension Denies:: Cancer, Coronary Artery Disease, Diabetes Mellitus Type 1, Diabetes Mellitus Type 2, MRSA *Have you ever received a pneumonia vaccine?: No *Have you received a flu vaccine this season?: No Other Medical History: Reports: Arthritis, Hoarseness, Sinus Problems Other Surgeries: Yes: Hysterectomy-Total, Hysterectomy-Partial, Other Amputation: No Fractures: No - *Social History Educational Level: Attended High School Smoking Status: Current every day smoker Tobacco Type: cigarettes # Packs/Day (cigarettes): 10 Alcohol Intake: never Substance Use Type: denies use *Occupational Status:: disabled Housing: house Household Members: significant other *Travel in the last 8 weeks: None Family Hx:: Asthma, Cancer, Coronary Artery Disease, Diabetes, Heart Attack, Hyperlipidemia, Hypertension, Kidney Disease, Stroke, Thyroid Disorder Meds Home Medications Medication Instructions Recorded Confirmed Type Amlodipine Besylate [Norvasc 5mg 5 mg PO DAILY 09/15/17 08/27/19 History tablet] Ipratropium/Albuterol Sulfate 1 puff INHALATION DAILY 09/15/17 08/27/19 History [Combivent Respimat Inh] Omeprazole [Omeprazole 40mg 40 mg PO DAILY 09/15/17 08/27/19 History Capsule] lisinopriL [Lisinopril 40mg Tablet] 40 mg PO DAILY 09/15/17 08/27/19 History Fluticasone/Vilanterol [Breo 1 inh INHALATION Q24H 07/15/18 08/27/19 History Ellipta] albuterol sulfate 90 mcg/actuation 1 puff INHALATION DAILY #18 g 08/14/18 08/27/19 Rx aerosol inhaler naproxen 500 mg tablet 500 mg PO BID 30 Days #60 tab 08/14/18 08/27/19 Rx Albuterol Sulfate [Albuterol 2.5 mg IH Q4-6H PRN 08/27/19 08/27/19 History Sulfate 2.5mg/0.5ml Neb] Allergies Allergy/AdvReac Type Severity Reaction Status Date / Time Penicillins [PENICILLINS] Allergy Intermediate I-HIVES Verified 08/27/19 03:27 VANILLA Allergy Unknown Uncoded 10/13/17 07:53 Review of Systems - Review of Systems Review of systems:: pertinent systems reviewed and negative unless documented below - *Cardiovascular Reports chest pain, Reports shortness of breath - *Respiratory Reports cough, Reports shortness of breath - *Gastrointestinal Denies abdominal pain, Denies nausea, Denies vomiting - *Genitourinary Denies blood in urine - *Musculoskeletal Reports joint pain, Reports back pain - *Neurologic Reports abnormal walking, Reports headache(s), Denies behavioral changes, Denies confusion, Denies dizziness, Denies memory loss Exam Vital signs and Labs for Last 24 Hours: Temp Pulse Resp BP Pulse Ox 98.6 F 82 16 148/81 H 98 08/29/19 04:00 08/29/19 06:09 08/29/19 06:00 08/29/19 06:00 08/29/19 06:09 Laboratory Results - last 24 hr 08/28/19 05:30: Hemoglobin A1c 7.7 H 08/28/19 11:44: POC Glucose 482 H* 08/28/19 16:39: POC Glucose 416 H* 08/28/19 20:14: POC Glucose 414 H* 08/29/19 04:40: WBC 19.3 H D, RBC 4.37, Hgb 12.1 L, Hct 37.4, MCV 85.5, MCH 27.6, MCHC 32.3, RDW 16.5, Plt Count 278, MPV 9.3, Neut % (Auto) 88.4 H, Lymph % (Auto) 6.6 L, [place] % (Auto) 3.3, Eos % (Auto) 1.5, Baso % (Auto) 0.0 L, Neut # (Auto) 17.1 H, Lymph # (Auto) 1.3, [place] # (Auto) 0.7, Eos # (Auto) 0.3, Baso # (Auto) 0.0, Total Counted 100, Neutrophils % (Manual) 89 H, Band Neutrophils % 5.0, Lymphocytes % (Manual) 5 L, Monocytes % (Manual) 1 L, Hypersegmented Neuts 1+, Platelet Estimate Normal, RBC Morphology Normal 08/29/19 04:40: Sodium 142, Potassium 4.5, Chloride 104, Carbon Dioxide 26, Anion Gap 16.5 H, BUN 39 H, Creatinine 1.66 H, Estimated Creat Clear 36, Estimated GFR 33 L, Est GFR ( Amer) 40 L, Glucose 278 H D, Calcium 8.8 08/29/19 05:24: POC Glucose 260 H I & O for Last 24 hours: Intake & Output 08/26/19 08/27/19 08/28/19 08/29/19 11:59 11:59 11:59 11:59 Intake Total 780 / 780 2812 / 2812 3270 / 3270 Output Total 250 / 250 1100 / 1100 Balance 780 / 780 2562 / 2562 2170 / 2170 Weight 315 lb 314 lb 8.889 oz 319 lb 7 oz Microbiology Reports for the Last 24 Hours: Microbiology 08/28/19 14:00 Sputum - Expectorated Sputum Gram Stain - Final - *Routine Neck Exam Present: supple. Absent: JVD, carotid bruit - *Routine Respiratory Exam Present: decreased breath sounds, wheezes. Absent: accessory muscle use, rales, rhonchi - *Routine Cardiovascular Exam Present: RRR, murmur. Absent: gallop, rubs - *Routine Abdominal Exam Present: soft. Absent: tenderness, distended, guarding - *Routine Extremities Exam Absent: edema, calf tenderness - *Routine Neurological Exam Present: alert, oriented X3, moving all extremities Assessment and Plan (1) Diastolic dysfunction Current visit: Yes Status: Acute Category: Medical Code(s): I51.89 - Other ill-defined heart diseases (2) Cellulitis Current visit: Yes Status: Acute Category: Medical Code(s): L03.90 - Cellulitis, unspecified (3) Obesity Current visit: Yes Status: Acute Category: Medical Code(s): E66.9 - Obesity, unspecified (4) Medical non-compliance Current visit: Yes Status: Acute Category: Medical Code(s): Z91.19 - Patient's noncompliance with other medical treatment and regimen (5) New onset atrial fibrillation Current visit: Yes Status: Acute Category: Medical Code(s): I48.91 - Unspecified atrial fibrillation (6) Pneumonia, community acquired Current visit: Yes Status: Acute Qualifiers: Laterality: right Lung location: unspecified part of lung Qualified Cod e(s): J18.9 - Pneumonia, unspecified organism Category: Medical Code(s): J18.9 - Pneumonia, unspecified organism (7) COPD (chronic obstructive pulmonary disease) Current visit: No Status: Chronic Qualifiers: COPD type: unspecified COPD Qualified Code(s): J44.9 - Chronic obstructive pulmonary disease, unspecified Category: Medical Code(s): J44.9 - Chronic obstructive pulmonary disease, unspecified (8) Obstructive sleep apnea Current visit: Yes Status: Acute Category: Medical Code(s): G47.33 - Obstructive sleep apnea (adult) (pediatric) (9) Hyperglycemia Current visit: Yes Status: Acute Category: Medical Code(s): R73.9 - Hyperglycemia, unspecified - Assessment and plan all Dx Assessment and Plan for all problems:: 1. Elevated troponins in a patient with new onset atrial fibrillation and possible bilateral pneumonia. Patient likely had type II non-ST elevation PR/ischemic strain. Echocardiogram (preliminary reading) shows mildly reduced ejection fraction of approximately 45% which is likely due to atrial fibrillation. Recommend continuing Cardizem and Xarelto therapy. Would not recommend stress testing in this patient with poor exercise capacity and COPD with wheezing on exam. Consider outpatient stress testing and/or cardiac catheterization in the future. 2. Chronic kidney disease, stable at this time. 3. Hyperglycemia with hemoglobin A1c of 7.7, concern for diabetes, further work-up per Dr. Wan 4. New onset atrial fibrillation likely related to COPD and pneumonia. Continue Cardizem but would increase to QID and if tolerated then switch to long-acting 240 mg daily. Based on the patient's kidney functions would reduce Xarelto to 15 mg daily. 5. Elevated d-dimer but CTA of the chest showed no evidence of pulmonary embolus. 6. Hypertension, continue lisinopril 20 mg daily and Cardizem as noted above. 7. ?Bilateral pneumonia, on antibiotic.
--- NOTE | 2019-08-29 08:47 | Progress Note ---
<Edith Sandra - Last Filed: 08/29/19 08:50> Internal Medicine - PN: Subj *Date: 08/29/19 *Time: 08:50 Interval history: Patient states she feels better today. She notes no shortness of breath or chest pain. She did sleep in the bed last night and did well. She is eating without difficulty. She is up to the bedside commode and otherwise stays in the chair or the bed. White blood cell count is elevated to 19.3 probably due to steroids. BUN and creatinine are 39/1.66. Electrolytes are normal. Blood sugars have been elevated. Patient has been seen by cardiology for new onset of atrial fibrillation With assessment of likely type II non-ST elevation SD/ischemic strain. Echocardiogram showing mild reduced ejection fraction of approximately 45% likely due to the atrial fibrillation. Cardiology recommends to continue Cardizem and Xarelto.They do not recommend stress test in this patient due to poor exercise capacity and COPD with wheezing on exam but to consider outpatient stress testing and/or cardiac catheterization in the future. Also recommend i ncreased Cardizem to 4 times daily and due to patient's kidney function to decrease Xarelto to 15 mg daily Exam Vital signs and Labs for Last 24 Hours: Temp Pulse Resp BP Pulse Ox 98.4 F 82 16 148/81 H 98 08/29/19 08:08 08/29/19 06:09 08/29/19 06:00 08/29/19 06:00 08/29/19 06:09 Laboratory Results - last 24 hr 08/28/19 05:30: Hemoglobin A1c 7.7 H 08/28/19 11:44: POC Glucose 482 H* 08/28/19 16:39: POC Glucose 416 H* 08/28/19 20:14: POC Glucose 414 H* 08/29/19 04:40: WBC 19.3 H D, RBC 4.37, Hgb 12.1 L, Hct 37.4, MCV 85.5, MCH 27.6, MCHC 32.3, RDW 16.5, Plt Count 278, MPV 9.3, Neut % (Auto) 88.4 H, Lymph % (Auto) 6.6 L, [place] % (Auto) 3.3, Eos % (Auto) 1.5, Baso % (Auto) 0.0 L, Neut # (Auto) 17.1 H, Lymph # (Auto) 1.3, [place] # (Auto) 0.7, Eos # (Auto) 0.3, Baso # (Auto) 0.0, Total Counted 100, Neutrophils % (Manual) 89 H, Band Neutrophils % 5.0, Lymphocytes % (Manual) 5 L, Monocytes % (Manual) 1 L, Hypersegmented Neuts 1+, Platelet Estimate Normal, RBC Morphology Normal 08/29/19 04:40: Sodium 142, Potassium 4.5, Chloride 104, Carbon Dioxide 26, Anion Gap 16.5 H, BUN 39 H, Creatinine 1.66 H, Estimated Creat Clear 36, Estimated GFR 33 L, Est GFR ( Amer) 40 L, Glucose 278 H D, Calcium 8.8 08/29/19 05:24: POC Glucose 260 H I & O for Last 24 hours: Intake & Output 08/26/19 08/27/19 08/28/19 08/29/19 11:59 11:59 11:59 11:59 Intake Total 780 / 780 2812 / 2812 3270 / 3270 Output Total 250 / 250 1100 / 1100 Balance 780 / 780 2562 / 2562 2170 / 2170 Weight 315 lb 314 lb 8.889 oz 319 lb 7 oz Microbiology Reports for the Last 24 Hours: Microbiology 08/28/19 14:00 Sputum - Expectorated Sputum Gram Stain - Final - Constitutional no acute distress Comments: Sitting in chair at bedside eating her breakfast - *Routine Respiratory Exam Present: CTA bilaterally (Diminished breath sounds posteriorly; no wheezing) - *Routine Cardiovascular Exam Present: irregular rhythm (Monitor showing atrial fib with a controlled ventricular response) - *Routine Abdominal Exam Present: soft, normoactive bowel sounds, obese. Absent: tenderness - *Routine Extremities Exam Present: edema (Bilateral legs are tight.) - *Routine Skin Exam Present: wounds (Right lower leg.) Assessment and Plan (1) Diastolic dysfunction Current visit: Yes Status: Acute Category: Medical Code(s): I51.89 - Other ill-defined heart diseases (2) Cellulitis Current visit: Yes Status: Acute Category: Medical Code(s): L03.90 - Cellulitis, unspecified (3) Obesity Current visit: Yes Status: Acute Category: Medical Code(s): E66.9 - Obesity, unspecified (4) Medical non-compliance Current visit: Yes Status: Acute Category: Medical Code(s): Z91.19 - Patient's noncompliance with other medical treatment and regimen (5) New onset atrial fibrillation Current visit: Yes Status: Acute Category: Medical Code(s): I48.91 - Unspecified atrial fibrillation (6) Pneumonia, community acquired Current visit: Yes Status: Acute Qualifiers: Laterality: right Lung location: unspecified part of lung Qualified Code(s): J18.9 - Pneumonia, unspecified organism Category: Medical Code(s): J18.9 - Pneumonia, unspecified organism (7) COPD (chronic obstructive pulmonary disease) Current visit: No Status: Chronic Qualifiers: COPD type: unspecified COPD Qualified Code(s): J44.9 - Chronic obstructive pulmonary disease, unspecified Category: Medical Code(s): J44.9 - Chronic obstructive pulmonary disease, unsp ecified (8) Obstructive sleep apnea Current visit: Yes Status: Acute Category: Medical Code(s): G47.33 - Obstructive sleep apnea (adult) (pediatric) (9) Hyperglycemia Current visit: Yes Status: Acute Category: Medical Code(s): R73.9 - Hyperglycemia, unspecified (10) Type 2 diabetes mellitus Current visit: Yes Status: Acute Category: Medical Code(s): E11.9 - Type 2 diabetes mellitus without complications - Assessment and plan all Dx Assessment and Plan for all problems:: Patient has been started on Januvia for new diagnosis of diabetes. Xarelto has been decreased to 15 mg daily and Cardizem has been increased to 4 times daily. She will have a repeat chest x-ray today. Otherwise we will continue antibiotics and duo nebs and diuresis. <Siva Wan - Last Filed: 08/29/19 13:52> Internal Medicine - PN: Subj *Date: 08/29/19 *Time: 13:50 Exam Vital signs and Labs for Last 24 Hours: Temp Pulse Resp BP Pulse Ox 97.9 F 102 H 18 137/67 97 08/29/19 12:00 08/29/19 12:00 08/29/19 12:00 08/29/19 12:00 08/29/19 12:00 Laboratory Results - last 24 hr 08/28/19 16:39: POC Glucose 416 H* 08/28/19 20:14: POC Glucose 414 H* 08/29/19 04:40: WBC 19.3 H D, RBC 4.37, Hgb 12.1 L, Hct 37.4, MCV 85.5, MCH 27.6, MCHC 32.3, RDW 16.5, Plt Count 278, MPV 9.3, Neut % (Auto) 88.4 H, Lymph % (Auto) 6.6 L, [place] % (Auto) 3.3, Eos % (Auto) 1.5, Baso % (Auto) 0.0 L, Neut # (Auto) 17.1 H, Lymph # (Auto) 1.3, [place] # (Auto) 0.7, Eos # (Auto) 0.3, Baso # (Auto) 0.0, Total Counted 100, Neutrophils % (Manual) 89 H, Band Neutrophils % 5.0, Lymphocytes % (Manual) 5 L, Monocytes % (Manual) 1 L, Hypersegmented Neuts 1+, Platelet Estimate Normal, RBC Morphology Normal 08/29/19 04:40: Sodium 142, Potassium 4.5, Chloride 104, Carbon Dioxide 26, Anion Gap 16.5 H, BUN 39 H, Creatinine 1.66 H, Estimated Creat Clear 36, Estimated GFR 33 L, Est GFR ( Amer) 40 L, Glucose 278 H D, Calcium 8.8 08/29/19 05:24: POC Glucose 260 H 08/29/19 11:03: POC Glucose 260 H I & O for Last 24 hours: Intake & Output 08/27/19 08/28/19 08/29/19 08/30/19 11:59 11:59 11:59 11:59 Intake Total 780 / 780 2812 / 2812 3750 / 3750 240 / 240 Output Total 250 / 250 1100 / 1100 Balance 780 / 780 2562 / 2562 2650 / 2650 240 / 240 Weight 315 lb 314 lb 8.889 oz 319 lb 7 oz Microbiology Reports for the Last 24 Hours: Microbiology 08/28/19 14:00 Sputum - Expectorated Sputum Gram Stain - Final 08/28/19 14:00 Sputum - Expectorated Sputum Sputum Culture - Preliminary Assessment and Plan (1) Diastolic dysfunction Current visit: Yes Status: Acute Category: Medical Code(s): I51.89 - Other ill-defined heart diseases (2) Cellulitis Current visit: Yes Status: Acute Category: Medical Code(s): L03.90 - Cellulitis, unspecified (3) Obesity Current visit: Yes Status: Acute Category: Medical Code(s): E66.9 - Obesity, unspecified (4) Medical non-compliance Current visit: Yes Status: Acute Category: Medical Code(s): Z91.19 - Patient's noncompliance with other medical treatment and regimen (5) New onset atrial fibrillation Current visit: Yes Status: Acute Category: Medical Code(s): I48.91 - Unspecified atrial fibrillation (6) Pneumonia, community acquired Current visit: Yes Status: Acute Qualifiers: Laterality: right Lung location: unspecified part of lung Qualified Code(s): J18.9 - Pneumonia, unspecified organism Category: Medical Code(s): J18.9 - Pneumonia, unspecified organism (7) COPD (chronic obstructive pulmonary disease) Current visit: No Status: Chronic Qualifiers: COPD type: unspecified COPD Qualified Code(s): J44.9 - Chronic obstructive pulmonary disease, unspecified Category: Medical Code(s): J44.9 - Chronic obstructive pulmonary disease, unspecified (8) Obstructive sleep apnea Current visit: Yes Status: Acute Category: Medical Code(s): G47.33 - Obstructive sleep apnea (adult) (pediatric) (9) Hyperglycemia Current visit: Yes Status: Acute Category: Medical Code(s): R73.9 - Hyperglycemia, unspecified (10) Type 2 diabetes mellitus Current visit: Yes Status: Acute Category: Medical Code(s): E11.9 - Type 2 diabetes mellitus without complications - Assessment and plan all Dx Assessment and Plan for all problems:: Patient seen and examined this morning. She was able to recline his sleep in the bed last night with less shortness of breath. He still has some cough. Wheezing has resolved. White count is further elevated today possibly due to the steroids but will repeat her chest x-ray. A1c is elevated confirming diagnosis of diabetes. She is being started on Januvia as noted. Discontinue IV fluids. Continue Lasix.
--- NOTE | 2019-08-29 16:30 | Electrocardiograph Report ---
APPROVED REPORT Exam: Resting ECG HR:94 bpm ECG Measurements Heart Rate 94 AXES QRSd 98 QRS 60 QT 346 T-83 QTc 432 <Conclusion> Atrial fibrillation Anteroseptal infarct, Old ST & T wave abnormality, consider inferolateral ischemia or digitalis effect Abnormal ECG Electronically signed by : Thang Ramirez, 08/29/2019 16:30:17
--- NOTE | 2019-08-29 21:23 | Cardiology Report ---
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: Lisa Borrego RVT Ht: 5 ft 4 in Wt: 314lbs BSA: 2.37 BP: 170/90 mmHg Indications: COPD, Shortness of Breath, Atrial Fibrillation, Obesity, Hypertension/HDD 2D Dimensions LVOT 1.91 cm (M/F) 1.5-2.5 M-Mode Dimensions RVDd 2.41 cm (0.9-2.6)LVDd 6.57 cm (3.5-5.7) LVDs 5.10 cm (3.5-5.7)IVSd 1.03 cm (0.6-1.1) PWd 0.94 cm (0.6-1.1)EF (Teich) 44.10% FS 22.40% EDV (Teich) 221.30 mL ESV (Teich) 123.80 mL Left Ventricle Left atrium is mildly enlarged, left ventricle is normal size, mild concentric left ventricular hypertrophy, visually estimated ejection fraction 55% with no regional wall motion abnormality, diastolic parameters are inconclusive. Endocardial surfaces are poorly visualized. Right Ventricle Right atrium and right ventricular mildly enlarged with normal contractility. Aortic Valve Aortic valve is minimally thickened and fibrosed, there is no aortic stenosis or aortic insufficiency. Mitral Valve Mitral valve is grossly normal, there is no mitral stenosis, there is mild mitral regurgitation. Tricuspid Valve Tricuspid valve is grossly normal, there is mild tricuspid regurgitation, calculated right ventricular systolic pressure is 60 mmHg. Pulmonic Valve Pulmonic valve is poorly visualized. Great Vessels Aortic root is normal size. Pericardium No significant pericardial effusion noted. Conclusion 1. Biatrial enlargement, normal left ventricular size, visually estimated ejection fraction 55% with no regional wall motion abnormality, diastolic parameters are inconclusive. 2. Mildly enlarged right ventricle with normal contractility. 3. Mild mitral and tricuspid regurgitation, calculated right ventricular systolic pressure is 60 mmHg. 4. No significant pericardial effusion noted. Electronically signed by : Ravi Wayne, 08/29/2019 21:22:38
[2019-08-30 06:13] LABS: Basophils # 0.1 K/mm3 (0-0.2); Basophils % 0.4 % (0.1-2.0); Eosinophils # 0.2 K/mm3 (0.0-0.4); Eosinophils % 1.2 % (0.1-12.0); Hematocrit 39.2 % (37.0-47.0); Hemoglobin 12.9 g/dL (12.2-16.2); Lymphocytes # 3.7 K/mm3 (0.7-4.5); Lymphocytes % 28.1 % (10-50); Mean Corpuscular Volume 86.8 fl (81-99); Mean Platelet Volume 8.6 fl (7.4-10.4); Monocytes # 0.7 K/mm3 (0.1-1.0); Monocytes % 5.1 % (1.7-9.3); Neutrophils # 8.7 K/mm3 (1.8-7.8); Neutrophils % 65.1 % (37.0-80.0); Platelet Count 279 K/mm3 (142-424); Red Blood Count 4.51 M/mm3 (4.20-5.40); Red Cell Distribution Width 16.4 % (11.5-17.5); White Blood Count 13.3 K/mm3 (4.8-10.8)
[2019-08-30 06:20] LABS: Anion Gap 10.3 mEq/L (5-15); Calcium 8.6 mg/dL (8.5-10.1)
--- NOTE | 2019-08-30 08:39 | Progress Note ---
<Edith Sandra - Last Filed: 08/30/19 08:35> Internal Medicine - PN: Subj *Date: 08/30/19 *Time: 08:35 Interval history: Patient states she is feeling better. She wonders when she can go home. She states her breathing is better and the cough is less. She is eating without difficulty. She states she is talk to the dietitian about her changes in diet. Bowels are moving. She is voiding QS. She remains in atrial fib. She denies chest pain. White blood cell count has decreased to 13.3. Blood chemistry show BUN of 38 and creatinine of 1.7. Blood sugars are better controlled. She has been started on Januvia and remains on sliding scale.Chest x-ray revealed improvement in CHF with small bilateral effusions and increasing bibasilar atelectasis. Echocardiogram revealed biatrial enlargement, normal left ventricular size, with Ejection fraction of 55%; mildly enlarged right ventricle with normal contractility; mild mitral and tricuspid regurgitation; No pericardial effusion. Exam Vital signs and Labs for Last 24 Hours: Temp Pulse Resp BP Pulse Ox 97.8 F 99 H 18 158/69 H 97 08/30/19 08:00 08/30/19 08:00 08/30/19 08:00 08/30/19 08:00 08/30/19 08:00 Laboratory Results - last 24 hr 08/29/19 11:03: POC Glucose 260 H 08/29/19 16:14: POC Glucose 335 H* 08/29/19 21:02: POC Glucose 283 H 08/30/19 05:40: WBC 13.3 H D, RBC 4.51, Hgb 12.9, Hct 39.2, MCV 86.8, MCH 28.6, MCHC 33.0, RDW 16.4, Plt Count 279, MPV 8.6, Neut % (Auto) 65.1, Lymph % (Auto) 28.1, [place] % (Auto) 5.1, Eos % (Auto) 1.2, Baso % (Auto) 0.4, Neut # (Auto) 8.7 H, Lymph # (Auto) 3.7, [place] # (Auto) 0.7, Eos # (Auto) 0.2, Baso # (Auto) 0.1 08/30/19 05:40: Sodium 145, Potassium 4.3, Chloride 106, Carbon Dioxide 33 H D, Anion Gap 10.3, BUN 38 H, Creatinine 1.77 H, Estimated Creat Clear 34, Estimated GFR 31 L, Est GFR ( Amer) 37 L, Glucose 161 H, Calcium 8.6 08/30/19 06:05: POC Glucose 152 H I & O for Last 24 hours: Intake & Output 08/27/19 08/28/19 08/29/19 08/30/19 11:59 11:59 11:59 11:59 Intake Total 780 / 780 2812 / 2812 3750 / 3750 1625 / 1625 Output Total 250 / 250 1100 / 1100 2150 / 2150 Balance 780 / 780 2562 / 2562 2650 / 2650 -525 / -525 Weight 315 lb 314 lb 8.889 oz 319 lb 7 oz 319 lb Microbiology Reports for the Last 24 Hours: Microbiology 08/28/19 14:00 Sputum - Expectorated Sputum Gram Stain - Final 08/28/19 14:00 Sputum - Expectorated Sputum Sputum Culture - Final Normal Respiratory Indira - Constitutional no acute distress Comments: Sitting up in recliner in her room and has completed breakfast. - *Routine Respiratory Exam Present: CTA bilaterally (Anteriorly and posteriorly) - *Routine Cardiovascular Exam Present: irregular rhythm (Monitor showing atrial fib with controlled ventricular response) - *Routine Abdominal Exam Present: soft, normoactive bowel sounds, obese. Absent: tenderness - *Routine Extremities Exam Present: edema (Bilateral leg edema. Legs are tight.) - *Routine Skin Exam Present: erythema (Improved of right lower extremity) - *Routine Neurological Exam Present: alert, oriented X3 Assessment and Plan (1) Diastolic dysfunction Status: Acute Category: Medical Code(s): I51.89 - Other ill-defined heart diseases (2) Cellulitis Status: Acute Category: Medical Code(s): L03.90 - Cellulitis, unspecified (3) Obesity Status: Acute Category: Medical Code(s): E66.9 - Obesity, unspecified (4) Medical non-compliance Status: Acute Category: Medical Code(s): Z91.19 - Patient's noncompliance with other medical treatment and regimen (5) New onset atrial fibrillation Status: Acute Category: Medical Code(s): I48.91 - Unspecified atrial fibrillation (6) Pneumonia, community acquired Status: Acute Qualifiers: Laterality: right Lung location: unspecified part of lung Qualified Code(s): J18.9 - Pneumonia, unspecified organism Category: Medical Code(s): J18.9 - Pneumonia, unspecified organism (7) COPD (chronic obstructive pulmonary disease) Status: Chronic Qualifiers: COPD type: unspecified COPD Qualified Code(s): J44.9 - Chronic obstructive pulmonary disease, unspecified Category: Medical Code(s): J44.9 - Chronic obstructive pulmonary disease, unspecified (8) Obstructive sleep apnea Status: Acute Category: Medical Code(s): G47.33 - Obstructive sleep apnea (adult) (pediatric) (9) Hyperglycemia Status: Acute Category: Medical Code(s): R73.9 - Hyperglycemia, unspecified (10) Type 2 diabetes mellitus Status: Acute Category: Medical Code(s): E11.9 - Type 2 diabetes mellitus without complications - Assessment and plan all Dx Assessment and Plan for all problems:: Wean from oxygen. Continue with antibiotics and duo nebs. Possibly home soon. <Siva Wan - Last Filed: 08/30/19 17:09> Internal Medicine - PN: Subj *Date: 08/30/19 *Time: 17:06 Exam Vital signs and Labs for Last 24 Hours: Temp Pulse Resp BP Pulse Ox 97.6 F 70 20 159/88 H 98 08/30/19 12:00 08/30/19 12:00 08/30/19 12:00 08/30/19 12:00 08/30/19 12:00 Laboratory Results - last 24 hr 08/29/19 21:02: POC Glucose 283 H 08/30/19 05:40: WBC 13.3 H D, RBC 4.51, Hgb 12.9, Hct 39.2, MCV 86.8, MCH 28.6, MCHC 33.0, RDW 16.4, Plt Count 279, MPV 8.6, Neut % (Auto) 65.1, Lymph % (Auto) 28.1, [place] % (Auto) 5.1, Eos % (Auto) 1.2, Baso % (Auto) 0.4, Neut # (Auto) 8.7 H, Lymph # (Auto) 3.7, [place] # (Auto) 0.7, Eos # (Auto) 0.2, Baso # (Auto) 0.1 08/30/19 05:40: Sodium 145, Potassium 4.3, Chloride 106, Carbon Dioxide 33 H D, Anion Gap 10.3, BUN 38 H, Creatinine 1.77 H, Estimated Creat Clear 34, Estimated GFR 31 L, Est GFR ( Amer) 37 L, Glucose 161 H, Calcium 8.6 08/30/19 06:05: POC Glucose 152 H 08/30/19 10:57: POC Glucose 209 H I & O for Last 24 hours: Intake & Output 08/28/19 08/29/19 08/30/19 08/31/19 11:59 11:59 11:59 11:59 Intake Total 2812 / 2812 3750 / 3750 1625 / 1625 Output Total 250 / 250 1100 / 1100 2150 / 2150 Balance 2562 / 2562 2650 / 2650 -525 / -525 Weight 314 lb 8.889 oz 319 lb 7 oz 319 lb Microbiology Reports for the Last 24 Hours: Microbiology 08/28/19 14:00 Sputum - Expectorated Sputum Gram Stain - Final 08/28/19 14:00 Sputum - Expectorated Sputum Sputum Culture - Final Normal Respiratory Indira Assessment and Plan (1) Diastolic dysfunction Status: Acute Category: Medical Code(s): I51.89 - Other ill-defined heart diseases (2) Cellulitis Status: Acute Category: Medical Code(s): L03.90 - Cellulitis, unspecified (3) Obesity Status: Acute Category: Medical Code(s): E66.9 - Obesity, unspecified (4) Medical non-compliance Status: Acute Category: Medical Code(s): Z91.19 - Patient's noncompliance with other medical treatment and regimen (5) New onset atrial fibrillation Status: Acute Category: Medical Code(s): I48.91 - Unspecified atrial fibrillation (6) Pneumonia, community acquired Status: Acute Qualifiers: Laterality: right Lung location: unspecified part of lung Qualified Code(s): J18.9 - Pneumonia, unspecified organism Category: Medical Code(s): J18.9 - Pneumonia, unspecified organism (7) COPD (chronic obstructive pulmonary disease) Status: Chronic Qualifiers: COPD type: unspecified COPD Qualified Code(s): J44.9 - Chronic obstructive pulmonary disease, unspecified Category: Medical Code(s): J44.9 - Chronic obstructive pulmonary disease, unspecified (8) Obstructive sleep apnea Status: Acute Category: Medical Code(s): G47.33 - Obstructive sleep apnea (adult) (pediatric) (9) Hyperglycemia Status: Acute Category: Medical Code(s): R73.9 - Hyperglycemia, unspecified (10) Type 2 diabetes mellitus Status: Acute Category: Medical Code(s): E11.9 - Type 2 diabetes mellitus without complications - Assessment and plan all Dx Assessment and Plan for all problems:: Patient seen and examined this morning. She looks and feels much better and is eager to go home. She is still on 1 L of nasal oxygen and maintaining good O2 saturations. Will wean to room air today and if successful, plan to discharge home later today.
--- NOTE | 2019-08-30 09:16 | Progress Note ---
Subjective Date: 08/30/19 Time: 09:13 Principal diagnosis: A. fib, NSTEMI Interval history: 49-year-old white female in bedside chair in no acute distress. States she is breathing better and was able to sleep in the bed last evening without difficulty. Exam Vital signs and Labs for Last 24 Hours: Temp Pulse Resp BP Pulse Ox 97.8 F 99 H 18 158/69 H 97 08/30/19 08:00 08/30/19 08:00 08/30/19 08:00 08/30/19 08:00 08/30/19 08:00 Laboratory Results - last 24 hr 08/29/19 11:03: POC Glucose 260 H 08/29/19 16:14: POC Glucose 335 H* 08/29/19 21:02: POC Glucose 283 H 08/30/19 05:40: WBC 13.3 H D, RBC 4.51, Hgb 12.9, Hct 39.2, MCV 86.8, MCH 28.6, MCHC 33.0, RDW 16.4, Plt Count 279, MPV 8.6, Neut % (Auto) 65.1, Lymph % (Auto) 28.1, [place] % (Auto) 5.1, Eos % (Auto) 1.2, Baso % (Auto) 0.4, Neut # (Auto) 8.7 H, Lymph # (Auto) 3.7, [place] # (Auto) 0.7, Eos # (Auto) 0.2, Baso # (Auto) 0.1 08/30/19 05:40: Sodium 145, Potassium 4.3, Chloride 106, Carbon Dioxide 33 H D, Anion Gap 10.3, BUN 38 H, Creatinine 1.77 H, Estimated Creat Clear 34, Estimated GFR 31 L, Est GFR ( Amer) 37 L, Glucose 161 H, Calcium 8.6 08/30/19 06:05: POC Glucose 152 H I & O for Last 24 hours: Intake & Output 08/27/19 08/28/19 08/29/19 08/30/19 11:59 11:59 11:59 11:59 Intake Total 780 / 780 2812 / 2812 3750 / 3750 1625 / 1625 Output Total 250 / 250 1100 / 1100 2150 / 2150 Balance 780 / 780 2562 / 2562 2650 / 2650 -525 / -525 Weight 315 lb 314 lb 8.889 oz 319 lb 7 oz 319 lb Microbiology Reports for the Last 24 Hours: Microbiology 08/28/19 14:00 Sputum - Expectorated Sputum Gram Stain - Final 08/28/19 14:00 Sputum - Expectorated Sputum Sputum Culture - Final Normal Respiratory Indira - *Routine Respiratory Exam Present: CTA bilaterally. Absent: accessory muscle use, rales, rhonchi, wheezes - *Routine Cardiovascular Exam Present: RRR. Absent: murmur, gallop, rubs - *Routine Extremities Exam Present: edema. Absent: calf tenderness - *Routine Neurological Exam Present: alert, oriented X3, moving all extremities Progress Note: A&P (1) Diastolic dysfunction Status: Acute Current Visit: Yes (2) Cellulitis Status: Acute Current Visit: Yes (3) Obesity Status: Acute Current Visit: Yes (4) Medical non-compliance Status: Acute Current Visit: Yes (5) New onset atrial fibrillation Status: Acute Current Visit: Yes (6) Pneumonia, community acquired Status: Acute Current Visit: Yes (7) COPD (chronic obstructive pulmonary disease) Status: Chronic Current Visit: No (8) Obstructive sleep apnea Status: Acute Current Visit: Yes (9) Hyperglycemia Status: Acute Current Visit: Yes (10) Type 2 diabetes mellitus Status: Acute Current Visit: Yes Assessment and Plan for All Diagnoses:: 1. Switch Cardizem to CD 240 mg daily and continue Xarelto therapy 2. Further work-up of coronary artery disease and out as an outpatient when patient's pulmonary status has improved. 3. Continue diuretic therapy for diastolic dysfunction with elevated right ventricular systolic pressure noted on echocardiogram 4. Patient has obstructive sleep apnea but compliance with therapy will be problematic 5. Okay for discharge from cardiology standpoint with follow-up in our office in 1 to 2 weeks.
--- NOTE | 2019-09-04 20:52 | Discharge Summary ---
General - General Admission date:: 08/27/19 <Siva Wan - 09/16/19 08:56> 08/27/19 <Abby De La Fuente - 09/04/19 21:04> Discharge date: 08/30/19 <SudhakarAbby - 09/04/19 21:04> HPI HPI: Ms. Leahy is a very noncompliant 49-year-old white female with a history of severe COPD, tobacco abuse, and hypertension who presented to the emergency room with acute shortness of breath. She stated she had not felt well for several months but when questioned more carefully stated she started with chest congestion and coughing about 2 weeks prior to admission. For 3 days prior to admission, she had been progressively getting more short of breath until she finally came to the emergency room. She was last seen in the office of [facility] in September 2018 after a 3 year absence at which time her blood pressure medication regimen was changed to lisinopril, Coreg and Lasix. She was given prescriptions for 3 months of medication. She had an echocardiogram at that time showing grade 1 diastolic dysfunction, biatrial enlargement and EF of 55%. She did not follow-up as scheduled but stated she had continued taking her medications as prescribed although there is no record of these being filled through the office. She was worked up in the emergency room and found to have new onset of atrial fibrillation with rate running 100-115. She was hypertensive. O2 sats were satisfactory but she was clearly dyspneic at rest. Her d-dimer was elevated. Chest x-ray showed findings of congestive heart failure. CT scan of the lungs revealed no pulmonary embolus but suggestion of bibasilar pneumonia. She has been admitted for treatment of her pneumonia and cardiology consultation. <Abby De La Fuente - 09/04/19 21:04> Hospital Course Hospital Course: Upon arrival to the floor, she was more tachycardic in the range of 140-150. She was started on a Cardizem drip and her rate responded promptly into the 80s and 90s. She remained in atrial fibrillation. She complained of some right posterior pleuritic chest pain. She also stated she had been coughing up blood off and on for the past couple of months. She had had ongoing swelling in her feet and legs and stated that her feet sometimes turned blue. She complained of numbness below the knees. The patient remained in atrial fib on a Cardizem drip with a controlled rate. An echo was ordered and cardiology was consulted. Her initial troponin was elevated, but successive readings trended downward. She was diuresed with Lasix and empirically started on Rocephin and Zithromax for pneumonia. The patient did begin resting better, but the nursing staff noted heavy snoring and episodes of apnea. Her blood sugar was elevated, therefore she was started on sliding scale insulin. She was able to be switched to p.o. Cardizem and her drip was discontinued. Cardiology did see the patient and felt she likely had a type II non-STEMI/ischemic strain. Her echo showed an ejection fraction of 55. They recommended continuing her on Cardizem and Xarelto. They felt she should have an outpatient cardiac stress test and/or cardiac catheterization in the future. Her shortness of breath and chest pain resolved. She was started on Januvia for new onset of diabetes as she continued to have elevated glucose levels. She was continued on antibiotics, nebs, and Lasix for diuresis. Cardiology felt she could be discharged on Cardizem, Xarelto, and Lasix. They wanted to follow-up with her on an outpatient basis. She was discharged on antibiotics for pneumonia. Of note, her sputum culture did return with normal respiratory richie after discharge. <Abby De La Fuente - 09/04/19 21:04> Objective Vital signs: Temp Pulse Resp BP Pulse Ox 97.6 F 70 20 159/88 H 98 08/30/19 12:00 08/30/19 12:00 08/30/19 12:00 08/30/19 12:00 08/30/19 12:00 <Siva Wan - 09/16/19 08:56> Temp Pulse Resp BP Pulse Ox 97.6 F 70 20 159/88 H 98 08/30/19 12:00 08/30/19 12:00 08/30/19 12:00 08/30/19 12:00 08/30/19 12:00 <Abby De La Fuente - 09/04/19 21:04> Narrative: - Constitutional no acute distress Comments: Sitting up in recliner in her room and has completed breakfast. - *Routine Respiratory Exam Present: CTA bilaterally (Anteriorly and posteriorly) - *Routine Cardiovascular Exam Present: irregular rhythm (Monitor showing atrial fib with controlled ventricular response) - *Routine Abdominal Exam Present: soft, normoactive bowel sounds, obese. Absent: tenderness - *Routine Extremities Exam Present: edema (Bilateral leg edema. Legs are tight.) - *Routine Skin Exam Present: erythema (Improved of right lower extremity) - *Routine Neurological Exam Present: alert, oriented X3 <Abby De La Fuente - 09/04/19 21:04> DS: Diagnosis - Discharge Diagnosis (1) Diastolic dysfunction Status: Acute (2) Cellulitis Status: Acute (3) Obesity Status: Acute (4) Medical non-compliance Status: Acute (5) New onset atrial fibrillation Status: Acute (6) Pneumonia, community acquired Status: Acute (7) COPD (chronic obstructive pulmonary disease) Status: Chronic (8) Obstructive sleep apnea Status: Acute (9) Hyperglycemia Status: Acute (10) Type 2 diabetes mellitus Status: Acute <Abby De La Fuente - 09/04/19 20:48> (1) Diastolic dysfunction Status: Acute (2) Cellulitis Status: Acute (3) Obesity Status: Acute (4) Medical non-compliance Status: Acute (5) New onset atrial fibrillation Status: Acute (6) Pneumonia, community acquired Status: Acute (7) COPD (chronic obstructive pulmonary disease) Status: Chronic (8) Obstructive sleep apnea Status: Acute (9) Hyperglycemia Status: Acute (10) Type 2 diabetes mellitus Status: Acute <Siva Wan - 09/16/19 08:56> Discharge Plan - Patient Discharge Instructions ACTIVITY: Continue current activity <Abby De La Fuente - 09/04/19 21:04> DIET: diabetic diet, low fat, low cholesterol <Abby De La Fuente 09/04/19 21:04> Patient Instructions: DI for Chronic Obstructive Pulmonary Disease, DI for Pneumonia -- Adult, DI for Atrial Fibrillation <Siva Wan - 09/16/19 08:56> Forms: <Siva Wan - 09/16/19 08:56> - Follow up Plan Follow up with: Siva Wan MD [Primary Care Provider] - 1 week Nikolai Childress PA [Physician Hospital Medical Assistant] - 1 week <Siva Wan - 09/16/19 08:56> Disposition: Home, Self-Care <Siva Wan - 09/16/19 08:56> Home Medications: Home Medications Medication Instructions Recorded Confirmed Type Ipratropium/Albuterol Sulfate 1 puff INHALATION DAILY 09/15/17 08/27/19 History [Combivent Respimat Inh] Omeprazole [Omeprazole 40mg 40 mg PO DAILY 09/15/17 08/27/19 History Capsule] lisinopriL [Lisinopril 40mg Tablet] 40 mg PO DAILY 09/15/17 08/27/19 History Fluticasone/Vilanterol [Breo 1 inh INHALATION Q24H 07/15/18 08/27/19 History Ellipta 200-25 Mcg INH] albuterol sulfate 90 mcg/actuation 1 puff INHALATION DAILY #18 g 08/14/18 Rx aerosol inhaler Albuterol Sulfate [Albuterol 2.5 mg IH Q4-6H PRN 08/27/19 08/27/19 History Sulfate 2.5mg/0.5ml Neb] Atorvastatin Calcium [Lipitor 40mg 40 mg PO HS #30 tab 08/30/19 Rx Tablet] Rivaroxaban [Xarelto 15mg tablet] 15 mg PO QPMWM #30 tab 08/30/19 Rx Sitagliptin Phosphate [Januvia 50 mg PO DAILYDM #30 tab 08/30/19 Rx 50mg Tablet] cefUROXime axetil [Ceftin 500mg 500 mg PO BID #10 tab 08/30/19 Rx Tab (GEQ)] dilTIAZem HCL [Cardizem ER 240mg 240 mg PO DAILY #30 cap.er.24h 08/30/19 Rx Capsule] <Siva Wan - 09/16/19 08:56> Prescriptions/Medication Reconciliation: New cefUROXime axetil [Ceftin 500mg Tab (GEQ)] 500 mg PO BID #10 tab Rivaroxaban [Xarelto 15mg tablet] 15 mg PO QPMWM #30 tab dilTIAZem HCL [Cardizem ER 240mg Capsule] 240 mg PO DAILY #30 cap.er.24h Sitagliptin Phosphate [Januvia 50mg Tablet] 50 mg PO DAILYDM #30 tab Atorvastatin Calcium [Lipitor 40mg Tablet] 40 mg PO HS #30 tab Continued albuterol sulfate 90 mcg/actuation aerosol inhaler 1 puff INHALATION DAILY #18 g Ipratropium/Albuterol Sulfate [Combivent Respimat Inh] 1 puff INHALATION DAILY Omeprazole [Omeprazole 40mg Capsule] 40 mg PO DAILY Fluticasone/Vilanterol [Breo Ellipta 200-25 Mcg INH] 1 inh INHALATION Q24H lisinopriL [Lisinopril 40mg Tablet] 40 mg PO DAILY Albuterol Sulfate [Albuterol Sulfate 2.5mg/0.5ml Neb] 2.5 mg IH Q4-6H PRN PRN Reason: Shortness Of Breath Or Wheezing Discontinued naproxen 500 mg tablet 500 mg PO BID 30 Days #60 tab Amlodipine Besylate [Norvasc 5mg tablet] 5 mg PO DAILY <Siva Wan - 09/16/19 08:56> - Problem Reconciliation Problems Reviewed?: Yes <Siva Wan - 09/16/19 08:56> Yes <Abby De La Fuente - 09/04/19 21:04> - Additional Information Additional Information: Patient seen and examined. Concur with assessment and plan for discharge. <Siva Wan - 09/16/19 08:56>
== END 2019-08-30 14:30 | disposition home or self-care (01) | DRG 280 ==
LOC: 2ND 03:09 → ER 03:09 → OBSVTOIN 08:09 → 2ND 08:10
PROVIDERS: ADMIT Internal Medicine Adolescent Medicine; ATTEND Family Medicine
DX: Z79.51 Long term (current) use of inhaled steroids; Z88.8 Allergy status to other drugs, medicaments and biological substances; I50.30 Unspecified diastolic (congestive) heart failure; Z72.0 Tobacco use; Z68.43 Body mass index [BMI] 50.0-59.9, adult; Z79.84 Long term (current) use of oral hypoglycemic drugs; I13.0 Hypertensive heart and chronic kidney disease with heart failure and stage 1 through stage 4 chronic kidney disease, or unspecified chronic kidney disease; I21.A1 Myocardial infarction type 2; J18.9 Pneumonia, unspecified organism; E11.22 Type 2 diabetes mellitus with diabetic chronic kidney disease; J44.9 Chronic obstructive pulmonary disease, unspecified; E66.01 Morbid (severe) obesity due to excess calories; Z79.899 Other long term (current) drug therapy; E11.65 Type 2 diabetes mellitus with hyperglycemia; Z91.14 Patient's other noncompliance with medication regimen; N18.3 Chronic kidney disease, stage 3 (moderate); Z88.0 Allergy status to penicillin; I48.91 Unspecified atrial fibrillation
CPT/HCPCS: 36415; 71020; 71046; 71275; 80048; 80053; 82803; 82962; 83036; 83880; 84436; 84443; 84484; 85007; 85025; 85378; 87070; 87205; 93005; 93306; 94640; 94761; 96365; 96367; 96375; 99284; J0456; Q9967

== ENCOUNTER 2019-11-01 11:27 | Inpatient (IN) | payer OTHER, SELFPAY ==
[2019-11-01 11:41] VITALS: BP 180/110; PULSE 117; RESP 24; TEMP 36.4; O2SAT 97; BMI 52.0
--- NOTE | 2019-11-01 12:13 | PC.NURSE ---
RN aware of elevated manual bp
--- NOTE | 2019-11-01 12:28 | XR_ITS ---
PROCEDURE: XR CHEST 2V CLINICAL HISTORY: CHF Congestive heart failure COMPARISON: CXR1VP XR chest portable from 07/15/2018 XR CHEST 2V from 08/27/2019 CT ANGIO CHEST from 08/27/2019 XR CHEST 2V from 08/29/2019 FINDINGS: There is cardiomegaly with pulmonary venous congestion and bibasilar edema consistent with CHF. There are small bilateral pleural effusions. The CHF and effusions are slightly worse compared to the previous exam No acute bony abnormalities. IMPRESSION: CHF with bilateral effusions and bibasilar airspace disease which may be due to combination of atelectasis and edema versus underlying infiltrate. The findings are slightly worse Dictated by: Raman Guerrier MD 11/01/2019 17:04 Electronically signed by Raman Guerrier MD in [place] 11/01/2019 17:04
--- NOTE | 2019-11-01 12:29 | ECG_ITS ---
APPROVED REPORT Exam: Resting ECG HR:115 bpm ECG Measurements Heart Rate 115 AXES QRSd 96 QRS 62 QT 322 T -79 QTc 445 <Conclusion> Atrial fibrillation with rapid ventricular response Old poor r wave progression NSSTTW changes Abnormal ECG Electronically signed by : Tej Fenton, 11/02/2019 06:30:38
--- NOTE | 2019-11-01 12:36 | P.CONPHA_ITS ---
[facility] Pharmacy VTE Monitoring - Patient Demographics Admission date: 11/01/19 Report Date: 11/01/19 Time: 12:36 Allergies/Adverse Reactions: Patient Allergies Penicillins [PENICILLINS] Allergy (Intermediate, Verified 09/29/19 09:10) I-HIVES VANILLA Allergy (Unknown, Uncoded 09/29/19 09:10) Height: 1.63 m Weight: 137.552 kg - VTE Risk Clinical Trial Participant: No - Prophylaxis VTE Prophylaxis Ordered?: Yes Types of VTE Prophylaxis: TEDS Knee High
[2019-11-01 13:00] LABS: Chloride 103 mmol/L (98-107); Potassium 4.5 mmoL/L (3.5-5.1); Sodium 141 mmol/L (136-145)
[2019-11-01 13:01] LABS: Basophils # 0.1 K/mm3 (0-0.2); Basophils % 0.8 % (0.1-2.0); Eosinophils # 0.2 K/mm3 (0.0-0.4); Hematocrit 42.5 % (37.0-47.0); Hemoglobin 12.8 g/dL (12.2-16.2); Lymphocytes # 1.8 K/mm3 (0.7-4.5); Lymphocytes % 17.3 % (10-50); Mean Corpuscular HGB Conc 30.2 g/dL (31.8-35.4); Mean Corpuscular Volume 86.3 fl (81-99); Mean Platelet Volume 9.5 fl (7.4-10.4); Monocytes # 0.4 K/mm3 (0.1-1.0); Monocytes % 3.6 % (1.7-9.3); Neutrophils # 7.8 K/mm3 (1.8-7.8); Neutrophils % 76.3 % (37.0-80.0); Platelet Count 365 K/mm3 (142-424); Red Blood Count 4.93 M/mm3 (4.20-5.40); Red Cell Distribution Width 16.4 % (11.5-17.5); White Blood Count 10.2 K/mm3 (4.8-10.8)
[2019-11-01 13:02] LABS: Alanine Aminotransferase 26 U/L (12-78); Aspartate Amino Transferase 28 U/L (14-36); Blood Urea Nitrogen 21 mg/dl (7-17); Creatinine Clearance Estimated 54 mL/min (50-200); Estimated Glomerular Filt Rate 53 ml/min (>60); GFR (African American) 64 ML/MIN (>60)
[2019-11-01 13:03] LABS: Albumin/Globulin Ratio 1.2 (1.1-1.8); Alkaline Phosphatase 91 U/L (38-126); Anion Gap 14.5 mEq/L (5-15); Bilirubin,Total 0.6 mg/dl (0.2-1.3); Calcium 9.3 mg/dl (8.4-10.2); Carbon Dioxide 28 mmol/L (22.0-30.0); Creatine Kinase 131 U/L (30-135); Globulin 3.4 g/dL (1.3-3.2); Glucose 170 mg/dl (74-100); Total Protein,Serum 7.4 g/dl (6.3-8.2)
[2019-11-01 13:12] LABS: CKMB Relative Index 2.4 U/L (0-4.0); Creatine Kinase MB 3.1 ng/ml (0.0-2.03)
[2019-11-01 13:13] LABS: NT Pro Brain Natriuretic Pep. 2520 pg/mL (0-125)
--- NOTE | 2019-11-01 13:14 | HMH.CNCARD ---
History of Present Illness Consult date: 11/01/19 Requesting physician: Siva Wan Consult reason: congestive heart failure Chief complaint: SOA Additional Medical History:: 1. Hypertension A. Echo, 08/2019, 1. Biatrial enlargement, normal left ventricular size, visually estimated ejection fraction 55% with no regional wall motion abnormality, diastolic parameters are inconclusive. 2. Mildly enlarged right ventricle with normal contractility. 3. Mild mitral and tricuspid regurgitation, calculated right ventricular systolic pressure is 60 mmHg. 4. No significant pericardial effusion noted. 2. Obesity 3. COPD A. Tobacco use starting at age 17 B. Pneumonia, 08/2019 C. elevated D-dimer, 08/2019, negative CTA for pulmonary embolus 4. CKD, stage III with creatinine 1.3-1.6 and GFR 33-38, 08/2019 5. Chronic leg pain 6. LAINA 7. DM, type 2 8. Medication non-compliance History of present illness: 49-year-old white female admitted by Dr. Wan for congestive heart failure exacerbation. Patient states she stopped taking all of her medications approximately 9 to 10 days ago due to severe agitation and frustration to the point that she did not even want to be around anyone including her grandchildren. The only medicines she continued to take were her arthritis medicine and her loratadine. She relates she has become progressively more short of breath with activity to the point that she feels like she can pass out after walking just a few feet. She does note some worsening lower extremity edema but states overall she has lost weight. She is unable to lay down to sleep due to smothering sensation. Cardiology consulted for further evaluation and recommendations. [facility] History Medical History: Reports:: Atrial Fibrillation, Congestive Heart Failure, Chronic Obstructive Pulmonary Disease (COPD), Diabetes Mellitus Type 2, Gastroesophageal Reflux Disease(GERD), Heart Murmur, Hypertension, Myocardial Infarction Denies:: Cancer, Coronary Artery Disease, Diabetes Mellitus Type 1, MRSA *Have you ever received a pneumonia vaccine?: No *Have you received a flu vaccine this season?: No Other Medical History: Reports: Arthritis, Hoarseness, Sinus Problems Other Surgeries: Yes: Hysterectomy-Total, Hysterectomy-Partial, Other Amputation: No Fractures: No - *Social History Smoking Status: Former smoker Tobacco Type: cigarettes # Packs/Day (cigarettes): 1 #Yrs smoked (if former smoker): 30 Alcohol Intake: never Substance Use Type: denies use *Occupational Status:: disabled Housing: house Household Members: significant other, children *Travel in the last 8 weeks: None Family Hx:: Asthma, Cancer, Coronary Artery Disease, Diabetes, Hyperlipidemia, Hypertension, Kidney Disease, Stroke, Thyroid Disorder Meds Home Medications Medication Instructions Recorded Confirmed Type Ipratropium/Albuterol Sulfate 1 puff INHALATION QID 09/15/17 11/01/19 History [Combivent Respimat Inh] Omeprazole [Omeprazole 40mg 40 mg PO DAILY 09/15/17 11/01/19 History Capsule] lisinopriL [Lisinopril 40mg Tablet] 40 mg PO DAILY 09/15/17 11/01/19 History Fluticasone/Vilanterol [Breo 1 inh INHALATION Q24H 07/15/18 11/01/19 History Ellipta 200-25 Mcg INH] nitroglycerin 0.4 mg sublingual 0.4 mg SUBLINGUAL Q5M 09/29/19 11/01/19 History tablet Acetaminophen [Extra Strength 1,000 mg PO DAILY PRN 11/01/19 11/01/19 History Non-Aspirin] Albuterol Sulfate [Albuterol HFA 2 puff INHALATION QID 11/01/19 11/01/19 History Inhaler] Atorvastatin Calcium [Atorvastatin 40 mg PO HS 11/01/19 11/01/19 History 40mg Tab] Loratadine [Allergy] 10 mg PO DAILY 11/01/19 11/01/19 History Metoprolol Succinate [Metoprolol 50 mg PO DAILY 11/01/19 11/01/19 History Succinate 50mg Tablet*] Naproxen Sodium [Naproxen 220mg 220 mg PO DAILY PRN 11/01/19 11/01/19 History Tab] Rivaroxaban [Xarelto 15mg tablet] 15 mg PO DAILY
[2019-11-01 13:16] LABS: Troponin I 0.04 ng/ml (0.00-0.034)
--- NOTE | 2019-11-01 13:25 | HMH.PHAINT ---
MEDICATION RECONCILIATION COMPLETE. OBTAINED MEDICATION LIST FROM PROVIDER AND CROSS REFERENCED WITH PHARMACY FILL HISTORY. SPOKE WITH PATIENT TO CLARIFY WHAT SHE WAS TAKING. PATIENT STATES SHE STOPPED ZYRTEC DUE TO IT MAKING HER NOT FEEL RIGHT AND SWITCHED TO LORATADINE. PATIENT ALSO STATES SHE TAKES NAPROXEN AND TWO EXTRA STRENGTH TYLENOL DAILY NEEDED. UPDATED MEDICATION LIST TO REFLECT MY RECS.
[2019-11-01 14:12] LABS: D-Dimer 717 ng/mL (0-400)
--- NOTE | 2019-11-01 14:46 | PC.NURSE ---
Pt up to chair. Reports pain at ulceration sites on right leg and right great toe, especially when areas are touched. Reports increased shortness of breath with any exertion.
--- NOTE | 2019-11-01 14:53 | HMH.HP ---
*Admission Date: 11/01/19 <Edith Sandra 11/01/19 15:18> *Chief complaint: Shortness of breath <Liyah Sandrahy 11/01/19 15:18> *History of present illness: Ms. Leahy is a 49-year-old female with a history of Hypertension, COPD, obesity, stage III CKD, chronic leg pain and atrial fibrillation who presented to the office of [facility] to see Dr. Wan this a.m. Patient states she stopped taking her medications approximately 9 to 10 days ago due to severe agitation, frustration, and depression. She states she did not want to be around anyone which included her grandchildren. The only medicines she continued to take were her arthritis medicine and loratadine. She became progressively more short of breath with activity to the point that she felt like she would pass out with just walking a few feet. She was having to wear her oxygen at home at night and intermittently throughout the day. She states her shortness of breath has been ongoing since her release from [facility] 08/2019 at which time she had pneumonia and new onset of atrial fib. She also noted increase in bilateral leg edema. She was having to sleep sitting up. She denied having any chest pain but then describes having occasional tightness in her chest with deep inspiration. She has had a cough that is sometimes productive of yellow sputum. She continues not to smoke. At the time of this exam patient is sitting up in the recliner. She is dyspneic with talking. She continues to deny chest pain. <JocyEdith 11/01/19 15:32> [facility] History Medical History: Reports:: Atrial Fibrillation, Congestive Heart Failure, Chronic Obstructive Pulmonary Disease (COPD), Depression, Diabetes Mellitus Type 2, Gastroesophageal Reflux Disease(GERD), Heart Murmur, Hypertension, Myocardial Infarction Denies:: Cancer, Coronary Artery Disease, Diabetes Mellitus Type 1, MRSA <Edith Sandra 11/01/19 15:18> *Have you ever received a pneumonia vaccine?: No <Edith Sandra 11/01/19 15:18> *Have you received a flu vaccine this season?: No <Edith Sandra 11/01/19 15:18> Other Medical History: Reports: Arthritis, Hoarseness, Sinus Problems <Edith Sandra 11/01/19 15:18> Other Surgeries: Yes: Hysterectomy-Total, Other <SandraEdith 11/01/19 15:18> Amputation: No <SandraEdith 11/01/19 15:18> Fractures: No <SandraEdith 11/01/19 15:18> - *Social History Smoking Status: Former smoker <SandraEdith salazar 11/01/19 15:18> Tobacco Type: cigarettes <SandraEdith 11/01/19 15:18> # Packs/Day (cigarettes): 1 <SandraEdith 11/01/19 15:18> #Yrs smoked (if former smoker): 30 <Sandra,Edith 11/01/19 15:18> Alcohol Intake: never <SandraEdith salazar 11/01/19 15:18> Substance Use Type: denies use <Sandra,Edith 11/01/19 15:18> *Occupational Status:: disabled <Edith Sandra 11/01/19 15:18> Housing: house <Sandra,Edith 11/01/19 15:18> Household Members: significant other, children <SandraEdith 11/01/19 15:18> *Travel in the last 8 weeks: None <SandraEdith salazar 11/01/19 15:18> Family Hx:: Asthma, Cancer, Coronary Artery Disease, Diabetes, Hyperlipidemia, Hypertension, Kidney Disease, Stroke, Thyroid Disorder <Edith Sandra 11/01/19 15:18> Review of Systems - Constitutional Denies chills, Denies headache(s) <Edith Sandra 11/01/19 15:18> - Eyes Denies change in vision <Edith Sandra 11/01/19 15:18> - ENT Reports post nasal drip, Denies ear pain, Denies headache(s), Denies sore throat <Edith Sandra 11/01/19 15:18> - *Cardiovascular Reports chest pain, Reports shortness of breath, Reports irregular heart rhythm, Reports leg swelling, Reports leg sores <Edith Sandra 11/01/19 15:18> - *Respiratory Reports change in phlegm color, Reports chest congestion, Reports cough, Reports shortness of breath, Denies coughing up blood <Edith Sandra - 11/01/19 15:18> - *Gastrointestinal Denies abdominal pain, Denies constipa
[2019-11-01 16:00] VITALS: BP 101/58; PULSE 100; RESP 16; TEMP 37.2; O2SAT 100
[2019-11-01 16:10] LABS: POC Glucose,Bedside 137 (70-110)
[2019-11-01 18:01] VITALS: PULSE 100; PULSE 98; O2SAT 96
[2019-11-01 19:37] VITALS: BP 160/94; PULSE 96; RESP 18; TEMP 36.8; O2SAT 96
[2019-11-01 22:08] LABS: POC Glucose,Bedside 148 (70-110)
[2019-11-01 23:44] VITALS: PULSE 90
[2019-11-01 23:47] VITALS: BP 159/88; PULSE 87; RESP 18; TEMP 36.7; O2SAT 95
[2019-11-02] VITALS (12 sets, daily range): BP systolic 142–157; BP diastolic 72–89; PULSE 75–110; RESP 16–20; TEMP 36.6–37.3; O2SAT 93–96; BMI 49.8; BMI 49.6
[2019-11-02 05:23] LABS: POC Glucose,Bedside 160 (70-110)
--- NOTE | 2019-11-02 05:40 | PC.NURSE ---
A&OX4. PT UP WITH STANDBY ASSIST IN ROOM. PT REPORTS BEING SOA WITH AMBULATION IN ROOM. PT TOLERATING 2LNC THIS SHIFT. THIS NURSE HELPED PT SHOWER, PT TOLERATED WELL. PT TOLERATED SNACK THIS SHIFT. PT HAS REDDENED AREAS UNDER BREASTS AND ABD FOLDS. AREAS KEPT DRY AND POWDER APPLIED. +2 PITTING EDEMA AND REDNESS PRESENT TO BLE. ULCER PRESENT TO FRONT AND BACK OF R LEG, COVERED WITH GAUZE. PT C/O ABD CRAMPING TWICE WHICH SHE REQUESTED TYLENOL. UPON ASSESSMENT, PT RESTING IN BED. PT GOT UP TO SLEEP IN CHAIR MULTIPLE TIMES THIS SHIFT. NO OTHER COMPLAINTS THUS FAR. PT HAS SLEPT MAJORITY OF NIGHT. VSS WILL CONTINUE TO MONITOR.
--- NOTE | 2019-11-02 08:18 | HMH.ACPN2 ---
<Abby De La Fuente - Last Filed: 11/02/19 08:18> Internal Medicine - PN: Subj *Date: 11/02/19 *Time: 08:18 Interval history: Patient states she is feeling quite a bit better today. Her shortness of breath has improved and she was actually able to lay flat and sleep last night. She states her leg edema has improved. She states she is able to cough up some sputum. She is having some upper abdominal cramping this morning. She was able to eat her breakfast. Exam Vital signs and Labs for Last 24 Hours: Temp Pulse Resp BP Pulse Ox 97.8 F 93 H 20 148/85 H 94 L 11/02/19 03:44 11/02/19 06:00 11/02/19 03:44 11/02/19 03:44 11/02/19 06:00 Laboratory Results - last 24 hr 11/01/19 12:08: WBC 10.2, RBC 4.93, Hgb 12.8, Hct 42.5, MCV 86.3, MCH 26.0 L, MCHC 30.2 L, RDW 16.4, Plt Count 365, MPV 9.5, Neut % (Auto) 76.3, Lymph % (Auto) 17.3, [place] % (Auto) 3.6, Eos % (Auto) 2.0, Baso % (Auto) 0.8, Neut # (Auto) 7.8, Lymph # (Auto) 1.8, [place] # (Auto) 0.4, Eos # (Auto) 0.2, Baso # (Auto) 0.1 11/01/19 12:08: D-Dimer 717 H* 11/01/19 12:08: Sodium 141, Potassium 4.5, Chloride 103, Carbon Dioxide 28, Anion Gap 14.5, BUN 21 H, Creatinine 1.10 H, Estimated Creat Clear 54, Estimated GFR 53 L, Est GFR ( Amer) 64, Glucose 170 H, Calcium 9.3, Total Bilirubin 0.6, AST 28, ALT 26, Alkaline Phosphatase 91, Total Creatine Kinase 131, CK-MB (CK-2) 3.1 H, CK-MB (CK-2) Rel Index 2.4, Troponin I 0.04 H, NT-Pro-B Natriuret Pep 2520 H, Total Protein 7.4, Albumin 4.0, Globulin 3.4 H, Albumin/Globulin Ratio 1.2 11/01/19 12:08: Uric Acid 6.0 11/01/19 16:03: POC Glucose 137 H 11/01/19 21:58: POC Glucose 148 H 11/02/19 05:14: POC Glucose 160 H I & O for Last 24 hours: Intake & Output 10/30/19 10/31/19 11/01/19 11/02/19 11:59 11:59 11:59 11:59 Intake Total 480 / 480 Output Total 4400 / 4400 Balance -3920 / -3920 Weight 303 lb 4 oz 292 lb 1 oz - Constitutional no acute distress - *Routine Respiratory Exam Present: decreased breath sounds, CTA bilaterally - *Routine Cardiovascular Exam Present: irregularly irregular - *Routine Abdominal Exam Present: soft, normoactive bowel sounds, tenderness (epigastric area) - *Routine Extremities Exam Present: edema (2+ pretibial edema bilaterally). Absent: cyanosis, clubbing - *Routine Neurological Exam Present: alert, oriented X3 Assessment and Plan (1) CHF (congestive heart failure) Status: Acute Category: Medical Code(s): I50.9 - Heart failure, unspecified (2) Diastolic dysfunction Status: Acute Category: Medical Code(s): I51.89 - Other ill-defined heart diseases (5) Medical non-compliance Status: Acute Category: Medical Code(s): Z91.19 - Patient's noncompliance with other medical treatment and regimen (6) Afib Status: Chronic Qualifiers: Atrial fibrillation type: unspecified chronic Qualified Code(s): I48.20 - Chronic atrial fibrillation, unspecified Category: Medical Code(s): I48.91 - Unspecified atrial fibrillation (7) COPD (chronic obstructive pulmonary disease) Status: Chronic Qualifiers: COPD type: unspecified COPD Qualified Code(s): J44.9 - Chronic obstructive pulmonary disease, unspecified Category: Medical Code(s): J44.9 - Chronic obstructive pulmonary disease, unspecified (8) HTN (hypertension) Status: Chronic Qualifiers: Hypertension type: essential hypertension Qualified Code(s): I10 - Essential (primary) hypertension Category: Medical Code(s): I10 - Essential (primary) hypertension (9) Obesity Status: Chronic Qualifiers: Obesity type: due to excess calories Obesity classification: adult class 3 (BMI >= 40) Serious obesity comorbidity presence: with serious comorbidity Body mass index: BMI 50.0-59.9 Qualified Code(s): E66.01 - Morbid (severe) obesity due to excess calories; Z68.43 - Body mass index (BMI) 50.0-59.9, adult Category: Medical Code(s): E66.9 - Obesity, u
[2019-11-02 09:26] LABS: MANUAL DIFFERENTIAL MANUAL DIFFERENTIAL (MANUAL DIFF)
[2019-11-02 09:31] LABS: Basophils # 0.1 K/mm3 (0-0.2); Eosinophils # 0.3 K/mm3 (0.0-0.4); Eosinophils % 2.8 % (0.1-12.0); Hematocrit 42.1 % (37.0-47.0); Lymphocytes # 1.3 K/mm3 (0.7-4.5); Mean Corpuscular HGB Conc 30.9 g/dL (31.8-35.4); Mean Corpuscular Hemoglobin 26.5 pg (27.0-31.2); Mean Corpuscular Volume 85.7 fl (81-99); Monocytes # 0.4 K/mm3 (0.1-1.0); Monocytes % 4.1 % (1.7-9.3); Neutrophils # 7.2 K/mm3 (1.8-7.8); Neutrophils % 78.1 % (37.0-80.0); Platelet Count 319 K/mm3 (142-424); Red Blood Count 4.91 M/mm3 (4.20-5.40); Red Cell Distribution Width 16.4 % (11.5-17.5); White Blood Count 9.2 K/mm3 (4.8-10.8)
[2019-11-02 09:33] LABS: Chloride 102 mmol/L (98-107); Sodium 140 mmol/L (136-145)
[2019-11-02 09:36] LABS: Alanine Aminotransferase 27 U/L (12-78); Albumin Level 3.8 g/dl (3.5-5.0); Albumin/Globulin Ratio 1.2 (1.1-1.8); Alkaline Phosphatase 81 U/L (38-126); Aspartate Amino Transferase 26 U/L (14-36); Bilirubin,Total 0.5 mg/dl (0.2-1.3); Blood Urea Nitrogen 19 mg/dl (7-17); Calcium 9.1 mg/dl (8.4-10.2); Carbon Dioxide 29 mmol/L (22.0-30.0); Creatinine Clearance Estimated 54 mL/min (50-200); Estimated Glomerular Filt Rate 53 ml/min (>60); GFR (African American) 64 ML/MIN (>60); Globulin 3.1 g/dL (1.3-3.2); Glucose 262 mg/dl (74-100); Total Protein,Serum 6.9 g/dl (6.3-8.2)
[2019-11-02 09:46] LABS: NT Pro Brain Natriuretic Pep. 1500 pg/mL (0-125)
[2019-11-02 09:50] LABS: Eosinophils % 2 % (0-3); Hypochromasia 1+; Lymphocytes % 11 % (10-50); Monocytes % 4 % (2-9); Neutrophils % 83 % (42-76); Total Cells Counted 100
[2019-11-02 09:51] LABS: Platelet Estimate Slight Decrease
--- NOTE | 2019-11-02 10:11 | HMH.PNCARD ---
Subjective Date: 11/02/19 Time: 10:00 Principal diagnosis: chf, afib, nonstemi Interval history: This is a 49-year-old white female who presented to the emergency department with complaints of shortness of breath. The patient states that her shortness of breath started to worsen approximately 9 to 10 days ago. She states that she stopped taking her medications because of severe agitation, frustration and depression. The patient states that her shortness of breath got so severe that she was unable to walk just a few feet. She has been wearing oxygen at night and intermittently throughout the day, but despite her oxygen use her shortness of breath just continued to worsen. She was admitted in August for shortness of breath, pneumonia and new onset atrial fibrillation. At that time she also had an elevated troponin but her ischemic evaluation was put on hold until she improved from her pneumonia. The patient has come back into the hospital again with a bumped troponin and shortness of breath as well as tightness in her chest. The patient states that she feels really tight and full across her entire chest. She states that this does not radiate. It is associated with shortness of breath. She states that she has no nausea or diaphoresis. She states that she does have some abdominal cramping. She states that this occurs intermittently. It can be severe. Nothing worsens or improves the symptoms. She states that this is been ongoing for quite some time. In addition to her shortness of breath she has had severe bilateral lower extremity edema. She states this morning her shortness of breath and bilateral lower extremity edema were much better. They are still present. She also has associated orthopnea. She states the chest tightness is still present. She still is dyspneic when talking. She is down 11 pounds today with diuresis overnight. We will continue diuresis today. Exam Vital signs and Labs for Last 24 Hours: Temp Pulse Resp BP Pulse Ox 98.1 F 95 H 17 154/72 H 94 L 11/02/19 08:00 11/02/19 09:28 11/02/19 08:00 11/02/19 08:00 11/02/19 08:00 Laboratory Results - last 24 hr 11/01/19 12:08: WBC 10.2, RBC 4.93, Hgb 12.8, Hct 42.5, MCV 86.3, MCH 26.0 L, MCHC 30.2 L, RDW 16.4, Plt Count 365, MPV 9.5, Neut % (Auto) 76.3, Lymph % (Auto) 17.3, [place] % (Auto) 3.6, Eos % (Auto) 2.0, Baso % (Auto) 0.8, Neut # (Auto) 7.8, Lymph # (Auto) 1.8, [place] # (Auto) 0.4, Eos # (Auto) 0.2, Baso # (Auto) 0.1 11/01/19 12:08: D-Dimer 717 H* 11/01/19 12:08: Sodium 141, Potassium 4.5, Chloride 103, Carbon Dioxide 28, Anion Gap 14.5, BUN 21 H, Creatinine 1.10 H, Estimated Creat Clear 54, Estimated GFR 53 L, Est GFR ( Amer) 64, Glucose 170 H, Calcium 9.3, Total Bilirubin 0.6, AST 28, ALT 26, Alkaline Phosphatase 91, Total Creatine Kinase 131, CK-MB (CK-2) 3.1 H, CK-MB (CK-2) Rel Index 2.4, Troponin I 0.04 H, NT-Pro-B Natriuret Pep 2520 H, Total Protein 7.4, Albumin 4.0, Globulin 3.4 H, Albumin/Globulin Ratio 1.2 11/01/19 12:08: Uric Acid 6.0 11/01/19 16:03: POC Glucose 137 H 11/01/19 21:58: POC Glucose 148 H 11/02/19 05:14: POC Glucose 160 H 11/02/19 09:18: WBC 9.2, RBC 4.91, Hgb 13.0, Hct 42.1, MCV 85.7, MCH 26.5 L, MCHC 30.9 L, RDW 16.4, Plt Count 319, Neut % (Auto) 78.1, Lymph % (Auto) 14.0, [place] % (Auto) 4.1, Eos % (Auto) 2.8, Baso % (Auto) 1.0, Neut # (Auto) 7.2, Lymph # (Auto) 1.3, [place] # (Auto) 0.4, Eos # (Auto) 0.3, Baso # (Auto) 0.1, Total Counted 100, Neutrophils % (Manual) 83 H, Lymphocytes % (Manual) 11, Monocytes % (Manual) 4, Eosinophils % (Manual) 2, Platelet Estimate Slight decrease, Hypochromasia 1+ 11/02/19 09:18: Sodium 140, Potassium 4.0, Chloride 102, Carbon Dioxide 29, Anion Gap 13.0, BUN 19 H, Creatinine 1.10 H, Estimated Creat Clear 54, Estimated GFR 53 L, Est GFR ( Amer) 64, Glucose 262 H D, Calcium 9.1, Total Bilirubin 0.5, AST 26, ALT 27, Alkaline Phosphatase 81, NT-Pro-B Natriuret Pep 1500 H, Total Protein 6.9, Albumin 3.8, Glob
[2019-11-02 11:06] LABS: POC Glucose,Bedside 262 (70-110)
--- NOTE | 2019-11-02 14:04 | PC.NURSE ---
Spoke with JW Treadwell in re to pt c/o of abd, chest and right kidney area cramping / burning sensation. Denies pain- states its just a cramping feeling and like someone is twisitng insides. Abby did order to increase protonix 40 mg now and then bid. Also ordered a u/a. Pt has been diuresing well this shift and getting up to bsc. Edema noted to BLE 4 t and us taut. Have encouraged elevation of BLE. Lungs cta, afib on tele. CB in reach. Have educated on diabetic diet as pt stated Oh, so they have me down for having diabetes? . Education given on management and diet. VSS.
--- NOTE | 2019-11-02 15:00 | DIET.NUTRFU ---
Nutritional assessment completed. Pt at high nutritional risk dt comorbidities and limited adherence to nutritional related recommendations. In depth diet education given on DM, CHF, CKD, and obesity. Pt also highly encouraged to come to OP counseling upon dc for further counseling.
[2019-11-02 15:17] LABS: Microscopic, Urine URINE MICROSCOPIC (MICROSCOPIC)
[2019-11-02 15:19] LABS: Appearance,Urine CLEAR (Clear); Bilirubin,Urine Negative (Negative); Blood, Urine TRACE-I (Negative); Color,Urine YELLOW (Yellow); Glucose,Urine (UA) Negative (Negative); Ketones,Urine Negative (Negative); Leukocyte Esterase,Urine Negative (Negative); Nitrate,Urine Negative (Negative); Protein,Urine 2+ (Negative); Urobilinogen,Urine 0.2 EU/dl (0.2)
[2019-11-02 15:42] LABS: Bacteria,Urine Trace /lpf; WBC,Urine Occasional #/hpf (0-3)
[2019-11-02 15:51] LABS: POC Glucose,Bedside 151 (70-110)
--- NOTE | 2019-11-02 19:13 | PC.NURSE ---
report given to nicolle
[2019-11-02 19:24] LABS: Chloride 100 mmol/L (98-107); Potassium 3.7 mmoL/L (3.5-5.1); Sodium 140 mmol/L (136-145)
[2019-11-02 19:27] LABS: Anion Gap 11.7 mEq/L (5-15); Blood Urea Nitrogen 19 mg/dl (7-17); Carbon Dioxide 32 mmol/L (22.0-30.0); Creatinine Clearance Estimated 42 mL/min (50-200); Estimated Glomerular Filt Rate 40 ml/min (>60); GFR (African American) 49 ML/MIN (>60)
[2019-11-02 19:28] LABS: Calcium 9.4 mg/dl (8.4-10.2); Glucose 167 mg/dl (74-100)
--- NOTE | 2019-11-02 20:10 | PC.NURSE ---
Pt continued to c/o of cramps in abd, chest, R kidney and R hand and was very anxious stating she wanted to go home where she could take some ibprofen to help her feel better. This nurse explained ibprofen might not be best at this time with underlying conditions. This nurse also educated pt and on scheduled heart cath in am and importance of that. Also, pt stated lasix was making her cramp. Education given as well for need for lasix. Have given prn tylenol and warm blankets this shift and made JW Treadwell aware of pts c/o's. Pt did also stated increasing protonix had helped some. Although, as pt was still c/o I did notify Dr. Dueñas nurse practitioner adult and he ordered 1 mg morphine x 1 IV and serax 15 mg po tid and to give first dose now. He also ordered a BMP. Noted. Meds were given as ordered per sep at 1900. Pt is now calm and resting in bed and states she is sorry for getting so upset earlier. Pt has had output urinary of 2650 ml. VSS, Report given to Kevin Villarreal RN. VSS
[2019-11-02 21:49] LABS: POC Glucose,Bedside 198 (70-110)
[2019-11-03] VITALS (11 sets, daily range): BP systolic 116–156; BP diastolic 78–98; PULSE 70–120; RESP 16–20; TEMP 36.6–36.8; O2SAT 94–98
--- NOTE | 2019-11-03 00:09 | PC.NURSE ---
PT ARRIVED TO FLOOR VIA STRETCHER FROM ED DEPARTMENT @ [phone]
--- NOTE | 2019-11-03 05:18 | PC.NURSE ---
Addendum entered by Lidia Villarreal RN 11/03/19 06:21: TOLERATED 2 LNC WELL WITH NO COMPLAINTS OF SOA. Original Note: A&O X4. NO ACUTE CHANGES NOTED THIS SHIFT. PT RESTED WITH EYES CLOSED THE ENTIRE SHIFT WITH NO COMPLAINTS OF PAIN OR CRAMPING WHEN ASKED BY THIS RN. BILATERAL LUNGS NOTED CLEAR T/O UPON AUSCULTATION. +3 NON-PITTING EDEMA NOTED TO BLE. ADEQUATE URINE OUTPUT NOTED, 700 ML OUT. VSS. REMAINS SAFE. CALL LIGHT WITHIN REACH. WILL CONTINUE TO MONITOR.
[2019-11-03 05:57] LABS: POC Glucose,Bedside 168 (70-110)
[2019-11-03 06:23] LABS: Chol/HDL Ratio 4.5 (1-3.5); Cholesterol 157 mg/dl (140-200); HDL Cholesterol 35 mg/dl (40-60); Triglycerides 175 mg/dl (30-150); VLDL Cholesterol 35 mg/dL (0-40)
[2019-11-03 06:24] LABS: Anion Gap 8.6 mEq/L (5-15); Blood Urea Nitrogen 20 mg/dl (7-17); Carbon Dioxide 33 mmol/L (22.0-30.0); Chloride 101 mmol/L (98-107); Creatinine Clearance Estimated 50 mL/min (50-200); Estimated Glomerular Filt Rate 48 ml/min (>60); GFR (African American) 58 ML/MIN (>60); Glucose 158 mg/dl (74-100); Potassium 3.6 mmoL/L (3.5-5.1); Sodium 139 mmol/L (136-145)
[2019-11-03 06:34] LABS: Direct LDL Cholesterol 98.49 mg/dL (100-129)
--- NOTE | 2019-11-03 08:27 | HMH.ACPN2 ---
<Abby De La Fuente - Last Filed: 11/03/19 08:27> Internal Medicine - PN: Subj *Date: 11/03/19 *Time: 08:27 Interval history: Patient states she is feeling a little bit better this morning. She did start cramping everywhere last night and was given a small dose of morphine and was started on Serax. She has not complained of any cramping this morning and seems to be doing better. She was able to sleep last night laying flat. Cardiology has seen the patient and she is scheduled for a heart cath today. Nursing does states she needs some nystatin ordered for yeast in the skin folds. Exam Vital signs and Labs for Last 24 Hours: Temp Pulse Resp BP Pulse Ox 98.1 F 100 H 17 128/83 96 11/03/19 08:00 11/03/19 08:00 11/03/19 08:00 11/03/19 08:00 11/03/19 08:00 Laboratory Results - last 24 hr 11/02/19 09:18: WBC 9.2, RBC 4.91, Hgb 13.0, Hct 42.1, MCV 85.7, MCH 26.5 L, MCHC 30.9 L, RDW 16.4, Plt Count 319, Neut % (Auto) 78.1, Lymph % (Auto) 14.0, [place] % (Auto) 4.1, Eos % (Auto) 2.8, Baso % (Auto) 1.0, Neut # (Auto) 7.2, Lymph # (Auto) 1.3, [place] # (Auto) 0.4, Eos # (Auto) 0.3, Baso # (Auto) 0.1, Total Counted 100, Neutrophils % (Manual) 83 H, Lymphocytes % (Manual) 11, Monocytes % (Manual) 4, Eosinophils % (Manual) 2, Platelet Estimate Slight decrease, Hypochromasia 1+ 11/02/19 09:18: Sodium 140, Potassium 4.0, Chloride 102, Carbon Dioxide 29, Anion Gap 13.0, BUN 19 H, Creatinine 1.10 H, Estimated Creat Clear 54, Estimated GFR 53 L, Est GFR ( Amer) 64, Glucose 262 H D, Calcium 9.1, Total Bilirubin 0.5, AST 26, ALT 27, Alkaline Phosphatase 81, NT-Pro-B Natriuret Pep 1500 H, Total Protein 6.9, Albumin 3.8, Globulin 3.1, Albumin/Globulin Ratio 1.2 11/02/19 10:53: POC Glucose 262 H 11/02/19 15:00: Urine Color Yellow, Urine Appearance Clear, Urine pH 6.0, Ur Specific [place] 1.020, Urine Protein 2+, Urine Glucose (UA) Negative, Urine Ketones Negative, Urine Blood Trace-i, Urine Nitrate Negative, Urine Bilirubin Negative, Urine Urobilinogen 0.2, Ur Leukocyte Esterase Negative, Urine WBC Occasional, Ur Squamous Epith Cells 3-5, Urine Bacteria Trace 11/02/19 15:28: POC Glucose 151 H 11/02/19 19:05: Sodium 140, Potassium 3.7, Chloride 100, Carbon Dioxide 32 H, Anion Gap 11.7, BUN 19 H, Creatinine 1.40 H D, Estimated Creat Clear 42, Estimated GFR 40 L, Est GFR ( Amer) 49 L D, Glucose 167 H D, Calcium 9.4 11/02/19 20:55: POC Glucose 198 H 11/03/19 05:01: POC Glucose 168 H 11/03/19 06:04: Sodium 139, Potassium 3.6, Chloride 101, Carbon Dioxide 33 H, Anion Gap 8.6, BUN 20 H, Creatinine 1.20 H, Estimated Creat Clear 50, Estimated GFR 48 L, Est GFR ( Amer) 58 L, Glucose 158 H, Calcium 9.0 11/03/19 06:04: Triglycerides 175 H, Cholesterol 157, LDL Cholesterol Direct 98.49 L, VLDL Cholesterol 35, HDL Cholesterol 35 L, Cholesterol/HDL Ratio 4.5 H I & O for Last 24 hours: Intake & Output 10/31/19 11/01/19 11/02/19 11/03/19 11:59 11:59 11:59 11:59 Intake Total 960 / 960 1390 / 1390 Output Total 4950 / 4950 4500 / 4500 Balance -3990 / -3990 -3110 / -3110 Weight 303 lb 4 oz 292 lb 1 oz 291 lb 0.163 oz - Constitutional no acute distress - *Routine Respiratory Exam Present: decreased breath sounds, CTA bilaterally - *Routine Cardiovascular Exam Present: irregularly irregular - *Routine Abdominal Exam Present: soft, normoactive bowel sounds. Absent: tenderness - *Routine Extremities Exam Present: edema (2+ bilateral LE edema). Absent: cyanosis, clubbing - *Routine Skin Exam Present: wounds (two skin abrasions on the RLE with minimal surrounding erythema) - *Routine Neurological Exam Present: alert, oriented X3 Assessment and Plan (1) Elevated troponin Current visit: Yes Status: Acute Category: Medical Code(s): R79.89 - Other specified abnormal findings of blood chemistry (2) Angina pectoris Current visit: Yes Status: Acute Category: Medical Code(s): I20.9 - Angina pectoris, unspecified (3) CH
--- NOTE | 2019-11-03 10:15 | HMH.PNCARD ---
Subjective Date: 11/03/19 Time: 10:05 Principal diagnosis: chf, afib, nonstemi Interval history: This is a 49-year-old white female who was admitted to the hospital for worsening shortness of breath, lower extremity edema and chest tightness. The symptoms started approximately 9 to 10 days prior to her being admitted. The patient had stopped taking all of her medications due to agitation, frustration and depression. She states that her shortness of breath got severe and that is when she decided to come into the hospital. The patient has been being diuresed with IV Lasix. She had a -2980 fluid balance overnight. She states her shortness of breath and bilateral lower extremity edema have improved. She is still having some chest tightness intermittently and she has had a bump troponin on her last 2 hospital admissions. The patient was scheduled to undergo left cardiac catheterization today but this is been postponed until tomorrow due to her Xarelto usage. Her Xarelto is now on hold and she will proceed with her left cardiac catheterization tomorrow. She is also having a right cardiac catheterization at the same time as her left cardiac catheterization to evaluate her intracardial pressures due to suspected pulmonary hypertension and her acute on chronic diastolic congestive heart failure. The patient is still experiencing orthopnea and she is still a little dyspneic when she is talking. The patient's weight is down 12 pounds from the time she was admitted to the hospital. Exam Vital signs and Labs for Last 24 Hours: Temp Pulse Resp BP Pulse Ox 98.1 F 100 H 17 128/83 96 11/03/19 08:00 11/03/19 08:15 11/03/19 08:00 11/03/19 08:00 11/03/19 08:00 Laboratory Results - last 24 hr 11/02/19 10:53: POC Glucose 262 H 11/02/19 15:00: Urine Color Yellow, Urine Appearance Clear, Urine pH 6.0, Ur Specific [place] 1.020, Urine Protein 2+, Urine Glucose (UA) Negative, Urine Ketones Negative, Urine Blood Trace-i, Urine Nitrate Negative, Urine Bilirubin Negative, Urine Urobilinogen 0.2, Ur Leukocyte Esterase Negative, Urine WBC Occasional, Ur Squamous Epith Cells 3-5, Urine Bacteria Trace 11/02/19 15:28: POC Glucose 151 H 11/02/19 19:05: Sodium 140, Potassium 3.7, Chloride 100, Carbon Dioxide 32 H, Anion Gap 11.7, BUN 19 H, Creatinine 1.40 H D, Estimated Creat Clear 42, Estimated GFR 40 L, Est GFR ( Amer) 49 L D, Glucose 167 H D, Calcium 9.4 11/02/19 20:55: POC Glucose 198 H 11/03/19 05:01: POC Glucose 168 H 11/03/19 06:04: Sodium 139, Potassium 3.6, Chloride 101, Carbon Dioxide 33 H, Anion Gap 8.6, BUN 20 H, Creatinine 1.20 H, Estimated Creat Clear 50, Estimated GFR 48 L, Est GFR ( Amer) 58 L, Glucose 158 H, Calcium 9.0 11/03/19 06:04: Triglycerides 175 H, Cholesterol 157, LDL Cholesterol Direct 98.49 L, VLDL Cholesterol 35, HDL Cholesterol 35 L, Cholesterol/HDL Ratio 4.5 H I & O for Last 24 hours: Intake & Output 10/31/19 11/01/19 11/02/19 11/03/19 23:59 23:59 23:59 23:59 Intake Total 480 / 480 1370 / 1850 500 / 500 Output Total 4400 / 4400 4350 / 4350 700 / 700 Balance -3920 / -3920 -2980 / -2500 -200 / -200 Weight 303 lb 4 oz 291 lb 0.163 oz Narrative: Telemetry is A. fib with a rate of 103. - Constitutional no acute distress, morbidly obese - *Routine HEENT Exam Head: Present: normocephalic, atraumatic Eye: Present: EOMI, PERRL ENT: Present: mucous membranes moist - *Routine Neck Exam Present: supple, full ROM, normal carotid upstroke. Absent: JVD, carotid bruit, lymphadenopathy - *Routine Respiratory Exam Present: decreased breath sounds, wheezes - *Routine Cardiovascular Exam Present: Normal S1, Normal S2, tachycardia, irregularly irregular. Absent: murmur - *Routine Abdominal Exam Present: soft, normoactive bowel sounds. Absent: tenderness, distended - *Routine Extremities Exam Present: edema (1+ bilateral lower extremity edema), full ROM, pulses intact, normal capillary refill. Absent: cya
--- NOTE | 2019-11-03 13:03 | PC.NURSE ---
patient has been very drowsy this shift. she is easy to arouse but falls back to sleep. will hold oxazepam this dose unless change noted
--- NOTE | 2019-11-03 17:31 | PC.NURSE ---
patient has done well this shift. it is noted to have some swelling in legs but has started to come down. has responded well to lasix. patient states lasix makes her cramps but with oxazepam on board feels she is doing better. did sleep most of morning so afternoon dose held of oxazepam. patient will get a night time dose. heart rate has been doing well staying under 100s and maintaining mostly 80-90s. has had a good appetite. in better spirits this shift. vitals stable will continue to monitor.
[2019-11-03 20:17] LABS: POC Glucose,Bedside 135 (70-110)
[2019-11-04] VITALS (22 sets, daily range): BP systolic 110–165; BP diastolic 58–93; PULSE 60–94; RESP 16–20; TEMP 36.4–36.8; O2SAT 91–98; BMI 49.1
--- NOTE | 2019-11-04 | IR_ITS ---
APPROVED REPORT Patient Location: Inpatient Workers Compensation Examiner: BABAK May RT (R) PROCEDURES Right heart catheterization Left heart catheterization Left ventriculogram Selective coronary angiogram INDICATION Angina pectoris, Pulmonary hypertension, Congestive heart failure Informed consent was obtained prior to the procedure. COMPLICATIONS none Estimated Blood Loss: less than 10 mls TECHNIQUE One percent lidocaine was used to anesthetize the right anterior aspect of the right wrist. The right radial artery was accessed via the Seldinger technique and a 6 [place]i hydrophilic sheath was placed in the right radial artery. Following this one percent lidocaine was used to anesthetize the right anterior aspect of the right neck. The right internal jugular vein was accessed via the Seldinger technique and a 7 [place] sheath was placed in the right internal jugular vein. Following this an arterial cocktail was administered using 5000U heparin, 2.5 mg verapamil, 1mg Lidocaine and 800mcg nitroglycerin into the right radial sheath. A trap catheter was used to perform left heart catheterization left ventriculogram and selective coronary angiography while a Mikado-Dudley catheter was used to perform right heart catheterization. Saturations were obtained in the pulmonary artery and right atrium. At the end of the procedure the arterial sheath was removed good hemostasis was achieved using Traclet band. Patient was transferred to the postop holding area in stable condition for venous sheath removal. ANGIOGRAPHIC RESULTS The left main artery Normal The left anterior descending artery Is proximally normal and has a mid vessel 30% stenosis The circumflex artery Nondominant normal The right coronary artery Large dominant with mild 10% diffuse luminal irregularities The JOHANSEN ventriculogram reveals Preserved at 50 The left ventricular end-diastolic pressure Severely elevated at 40 mmHg Right atrial pressure 25 mmHg Pulmonary artery pressure 60/40 mmHg Pulmonary occlusion pressure 40 mmHg IMPRESSION Mild qhy-hgtz-wuunerbr coronary artery disease Preserved ejection fraction Severe pulmonary hypertension secondary to severe left-sided diastolic heart failure Biventricular failure as evidenced by severely elevated left-sided and right-sided filling pressures PLAN 1. Loop diuretics combined with Aldactone 2. Fluid restriction 3. Salt restriction 4. Weight loss exercise 5. Consideration for cardio Mem if patient's heart failure becomes difficult to treat 6. Risk factor modification Electronically signed by : Jai Gilmore, 11/04/2019 11:24:59
[2019-11-04 00:56] LABS: POC Glucose,Bedside 221 (70-110)
[2019-11-04 00:56] LABS: POC Glucose,Bedside 129 (70-110)
--- NOTE | 2019-11-04 05:23 | PC.NURSE ---
A&O X4. NO ACUTE CHANGES NOTED THIS SHIFT. PT RESTED WELL WITH EYES CLOSED. NO C/O PAIN OR SOA THIS SHIFT. TOLERATED 2 LNC WELL WITH NO COMPLAINTS. 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 RE-DSG BLE DUE TO DRAINAGE, NOTED CLEAR SEEPING THROUGH SKIN. ADEQUATE URINE OUTPUT NOTED THIS SHIFT. GREATER THAN 2,000 OUT. URINE NOTED CLEAR, BRIGHT YELLOW WITH NORMAL ODOR. PT HAD SHOWER THIS AM, TOLERATED WELL. REFUSED TEDS. VSS. REMAINS SAFE. CALL LIGHT WITHIN REACH. WILL CONTINUE TO MONITOR.
[2019-11-04 06:36] LABS: Chloride 100 mmol/L (98-107)
[2019-11-04 06:37] LABS: Potassium 3.9 mmoL/L (3.5-5.1); Sodium 137 mmol/L (136-145)
[2019-11-04 06:38] LABS: POC Glucose,Bedside 132 (70-110)
[2019-11-04 06:39] LABS: Blood Urea Nitrogen 21 mg/dl (7-17); Creatinine Clearance Estimated 50 mL/min (50-200); Estimated Glomerular Filt Rate 48 ml/min (>60); GFR (African American) 58 ML/MIN (>60)
[2019-11-04 06:40] LABS: Anion Gap 5.9 mEq/L (5-15); Calcium 8.9 mg/dl (8.4-10.2); Carbon Dioxide 35 mmol/L (22.0-30.0); Glucose 140 mg/dl (74-100)
--- NOTE | 2019-11-04 07:26 | HMH.PNCARD ---
Subjective Date: 11/04/19 Time: 07:26 Principal diagnosis: chf, afib, nonstemi Interval history: 49 yo white female in bedside chair in no acute distress. Shortness of breath continues to improve. She has now had a 10-11 L negative urine output. She is scheduled to undergo a right and left heart catheterization today Exam Vital signs and Labs for Last 24 Hours: Temp Pulse Resp BP Pulse Ox 98.1 F 84 18 130/65 96 11/04/19 03:07 11/04/19 06:58 11/04/19 03:07 11/04/19 03:07 11/04/19 06:58 Laboratory Results - last 24 hr 11/03/19 10:46: POC Glucose 221 H 11/03/19 16:30: POC Glucose 129 H 11/03/19 20:08: POC Glucose 135 H 11/04/19 05:50: POC Glucose 132 H 11/04/19 06:18: Sodium 137, Potassium 3.9, Chloride 100, Carbon Dioxide 35 H, Anion Gap 5.9, BUN 21 H, Creatinine 1.20 H, Estimated Creat Clear 50, Estimated GFR 48 L, Est GFR ( Amer) 58 L, Glucose 140 H, Calcium 8.9 I & O for Last 24 hours: Intake & Output 11/01/19 11/02/19 11/03/19 11/04/19 11:59 11:59 11:59 11:59 Intake Total 960 / 960 1390 / 1390 1010 / 1010 Output Total 4950 / 4950 4500 / 4500 4850 / 4850 Balance -3990 / -3990 -3110 / -3110 -3840 / -3840 Weight 303 lb 4 oz 292 lb 1 oz 291 lb 0.163 oz 288 lb 1 oz - *Routine Respiratory Exam Present: CTA bilaterally. Absent: accessory muscle use, rales, rhonchi, wheezes - *Routine Cardiovascular Exam Present: RRR, irregularly irregular. Absent: murmur, gallop, rubs - *Routine Abdominal Exam Present: soft. Absent: tenderness, distended, guarding - *Routine Extremities Exam Absent: calf tenderness - *Routine Neurological Exam Present: alert, oriented X3, moving all extremities Progress Note: A&P (1) CHF (congestive heart failure) Status: Acute Current Visit: Yes (2) Diastolic dysfunction Status: Acute Current Visit: No (3) Elevated troponin Status: Acute Current Visit: Yes (4) Angina pectoris Status: Acute Current Visit: Yes (5) Medical non-compliance Status: Acute Current Visit: No (6) Afib Status: Chronic Current Visit: No (7) COPD (chronic obstructive pulmonary disease) Status: Chronic Current Visit: No (8) HTN (hypertension) Status: Chronic Current Visit: No (9) Obesity Status: Chronic Current Visit: No (10) Type 2 diabetes mellitus Status: Chronic Current Visit: No (11) Acute paronychia of toe Status: Acute Current Visit: Yes (12) Cellulitis Status: Acute Current Visit: No (13) Pulmonary hypertension Status: Suspected Current Visit: Yes (14) Intertrigo Status: Acute Current Visit: Yes Assessment and Plan for All Diagnoses:: 1. Suspected coronary artery disease, plans for left heart catheterization today 2. Pulmonary hypertension, plans for right heart catheterization today 3. Hypertension, improved on reinstituting medical therapy 4. Tachycardia improved with the addition of beta-lay. We will continue to monitor for depression 5. Atrial fibrillation, anticoagulation held in anticipation of cardiac catheterization today 6. Congestive heart failure, patient has responded well to IV diuretics plus Aldactone. Medication compliance has been stressed with the patient. Further recommendations to follow pending above results
--- NOTE | 2019-11-04 08:33 | HMH.ACPN2 ---
<Abby De La Fuente - Last Filed: 11/04/19 08:33> Internal Medicine - PN: Subj *Date: 11/04/19 *Time: 08:33 Interval history: Patient states she is feeling better today. Her shortness of breath continues to improve. She slept well last night and is n.p.o. this morning for heart cath. She did not have this yesterday due to the need to hold her Xarelto. Exam Vital signs and Labs for Last 24 Hours: Temp Pulse Resp BP Pulse Ox 98.2 F 75 18 114/64 98 11/04/19 07:30 11/04/19 07:30 11/04/19 07:30 11/04/19 07:30 11/04/19 07:30 Laboratory Results - last 24 hr 11/03/19 10:46: POC Glucose 221 H 11/03/19 16:30: POC Glucose 129 H 11/03/19 20:08: POC Glucose 135 H 11/04/19 05:50: POC Glucose 132 H 11/04/19 06:18: Sodium 137, Potassium 3.9, Chloride 100, Carbon Dioxide 35 H, Anion Gap 5.9, BUN 21 H, Creatinine 1.20 H, Estimated Creat Clear 50, Estimated GFR 48 L, Est GFR ( Amer) 58 L, Glucose 140 H, Calcium 8.9 I & O for Last 24 hours: Intake & Output 11/01/19 11/02/19 11/03/19 11/04/19 11:59 11:59 11:59 11:59 Intake Total 960 / 960 1390 / 1390 1010 / 1010 Output Total 4950 / 4950 4500 / 4500 5150 / 5150 Balance -3990 / -3990 -3110 / -3110 -4140 / -4140 Weight 303 lb 4 oz 292 lb 1 oz 291 lb 0.163 oz 288 lb 1 oz - Constitutional no acute distress - *Routine Respiratory Exam Present: CTA bilaterally - *Routine Cardiovascular Exam Present: irregularly irregular - *Routine Abdominal Exam Present: soft, normoactive bowel sounds. Absent: tenderness - *Routine Extremities Exam Present: edema (bilateral lower extremity edema, improving slightly) - *Routine Neurological Exam Present: alert, oriented X3 Assessment and Plan (1) CHF (congestive heart failure) Current visit: Yes Status: Acute Category: Medical Code(s): I50.9 - Heart failure, unspecified (2) Diastolic dysfunction Current visit: No Status: Acute Category: Medical Code(s): I51.89 - Other ill-defined heart diseases (3) Elevated troponin Current visit: Yes Status: Acute Category: Medical Code(s): R79.89 - Other specified abnormal findings of blood chemistry (4) Angina pectoris Current visit: Yes Status: Acute Category: Medical Code(s): I20.9 - Angina pectoris, unspecified (5) Medical non-compliance Current visit: No Status: Acute Category: Medical Code(s): Z91.19 - Patient's noncompliance with other medical treatment and regimen (6) Afib Current visit: No Status: Chronic Qualifiers: Atrial fibrillation type: unspecified chronic Qualified Code(s): I48.20 - Chronic atrial fibrillation, unspecified Category: Medical Code(s): I48.91 - Unspecified atrial fibrillation (7) COPD (chronic obstructive pulmonary disease) Current visit: No Status: Chronic Qualifiers: COPD type: unspecified COPD Qualified Code(s): J44.9 - Chronic obstructive pulmonary disease, unspecified Category: Medical Code(s): J44.9 - Chronic obstructive pulmonary disease, unspecified (8) HTN (hypertension) Current visit: No Status: Chronic Qualifiers: Hypertension type: essential hypertension Qualified Code(s): I10 - Essential (primary) hypertension Category: Medical Code(s): I10 - Essential (primary) hypertension (9) Obesity Current visit: No Status: Chronic Qualifiers: Obesity type: due to excess calories Obesity classification: adult class 3 (BMI >= 40) Serious obesity comorbidity presence: with serious comorbidity Body mass index: BMI 50.0-59.9 Qualified Code(s): E66.01 - Morbid (severe) obesity due to excess calories; Z68.43 - Body mass index (BMI) 50.0-59.9, adult Category: Medical Code(s): E66.9 - Obesity, unspecified (10) Type 2 diabetes mellitus Current visit: No Status: Chronic Qualifiers: Diabetes mellitus assisted insulin use: with rn long term care use Diabetes mellitus complication status: without complication Qualified Code
--- NOTE | 2019-11-04 09:24 | HMH.ACPN ---
Internal Medicine - PN: Subj *Date: 11/04/19 *Time: 09:24 Exam Vital signs and Labs for Last 24 Hours: Temp Pulse Resp BP Pulse Ox 98.2 F 75 18 114/64 98 11/04/19 07:30 11/04/19 07:30 11/04/19 07:30 11/04/19 07:30 11/04/19 07:30 Laboratory Results - last 24 hr 11/03/19 10:46: POC Glucose 221 H 11/03/19 16:30: POC Glucose 129 H 11/03/19 20:08: POC Glucose 135 H 11/04/19 05:50: POC Glucose 132 H 11/04/19 06:18: Sodium 137, Potassium 3.9, Chloride 100, Carbon Dioxide 35 H, Anion Gap 5.9, BUN 21 H, Creatinine 1.20 H, Estimated Creat Clear 50, Estimated GFR 48 L, Est GFR ( Amer) 58 L, Glucose 140 H, Calcium 8.9 I & O for Last 24 hours: Intake & Output 11/01/19 11/02/19 11/03/19 11/04/19 23:59 23:59 23:59 23:59 Intake Total 480 / 480 1370 / 1850 1270 / 1510 240 / 240 Output Total 4400 / 4400 4350 / 4350 4750 / 5250 1100 / 1100 Balance -3920 / -3920 -2980 / -2500 -3480 / -3740 -860 / -860 Weight 137.552 kg 132 kg 130.663 kg Assessment and Plan (1) CHF (congestive heart failure) Current visit: Yes Status: Acute Category: Medical Code(s): I50.9 - Heart failure, unspecified (2) Diastolic dysfunction Current visit: No Status: Acute Category: Medical Code(s): I51.89 - Other ill-defined heart diseases (3) Elevated troponin Current visit: Yes Status: Acute Category: Medical Code(s): R79.89 - Other specified abnormal findings of blood chemistry (4) Angina pectoris Current visit: Yes Status: Acute Category: Medical Code(s): I20.9 - Angina pectoris, unspecified (5) Medical non-compliance Current visit: No Status: Acute Category: Medical Code(s): Z91.19 - Patient's noncompliance with other medical treatment and regimen (6) Afib Current visit: No Status: Chronic Qualifiers: Atrial fibrillation type: unspecified chronic Qualified Code(s): I48.20 - Chronic atrial fibrillation, unspecified Category: Medical Code(s): I48.91 - Unspecified atrial fibrillation (7) COPD (chronic obstructive pulmonary disease) Current visit: No Status: Chronic Qualifiers: COPD type: unspecified COPD Qualified Code(s): J44.9 - Chronic obstructive pulmonary disease, unspecified Category: Medical Code(s): J44.9 - Chronic obstructive pulmonary disease, unspecified (8) HTN (hypertension) Current visit: No Status: Chronic Qualifiers: Hypertension type: essential hypertension Qualified Code(s): I10 - Essential (primary) hypertension Category: Medical Code(s): I10 - Essential (primary) hypertension (9) Obesity Current visit: No Status: Chronic Qualifiers: Obesity type: due to excess calories Obesity classification: adult class 3 (BMI >= 40) Serious obesity comorbidity presence: with serious comorbidity Body mass index: BMI 50.0-59.9 Qualified Code(s): E66.01 - Morbid (severe) obesity due to excess calories; Z68.43 - Body mass index (BMI) 50.0-59.9, adult Category: Medical Code(s): E66.9 - Obesity, unspecified (10) Type 2 diabetes mellitus Current visit: No Status: Chronic Qualifiers: Diabetes mellitus long term care administrator insulin use: with long term care administrator use Diabetes mellitus complication status: without complication Qualified Code(s): E11.9 - Type 2 diabetes mellitus without complications; Z79.4 - salvage determiner (current) use of insulin Category: Medical Code(s): E11.9 - Type 2 diabetes mellitus without complications (11) Acute paronychia of toe Current visit: Yes Status: Acute Category: Medical Code(s): L03.039 - Cellulitis of unspecified toe (12) Cellulitis Current visit: No Status: Acute Category: Medical Code(s): L03.90 - Cellulitis, unspecified (13) Pulmonary hypertension Current visit: Yes Status: Suspected Category: Medical Code(s): I27.20 - Pulmonary hypertension, unspecified (14) Intertrigo Current visit: Yes Status: Acute Category: Medical Code(s): L30.4 - Erythe
[2019-11-04 12:38] LABS: CATHL Arterial O2 SAT 66.5 % (90-100); CATHL Venous O2 SAT 68.4 % (75-80)
--- NOTE | 2019-11-04 16:03 | DIET.NUTRFU ---
BG and renal labs both show mild improvement, edema 3+ continues, weight down 7kg/14# t/o stay.
--- NOTE | 2019-11-04 16:16 | HMH.DCSUM ---
General - General Admission date:: 11/01/19 <Siva Wan - 11/17/19 16:52> 11/01/19 <Abby De La Fuente - 11/04/19 16:25> Discharge date: 11/04/19 <Abby De La Fuente - 11/04/19 16:25> HPI HPI: Ms. Leahy is a 49-year-old female with a history of Hypertension, COPD, obesity, stage III CKD, chronic leg pain and atrial fibrillation who presented to the office of [facility] to see Dr. Wan this a.m. Patient states she stopped taking her medications approximately 9 to 10 days ago due to severe agitation, frustration, and depression. She states she did not want to be around anyone which included her grandchildren. The only medicines she continued to take were her arthritis medicine and loratadine. She became progressively more short of breath with activity to the point that she felt like she would pass out with just walking a few feet. She was having to wear her oxygen at home at night and intermittently throughout the day. She states her shortness of breath has been ongoing since her release from [facility] 08/2019 at which time she had pneumonia and new onset of atrial fib. She also noted increase in bilateral leg edema. She was having to sleep sitting up. She denied having any chest pain but then describes having occasional tightness in her chest with deep inspiration. She has had a cough that is sometimes productive of yellow sputum. She continues not to smoke. <Abby De La Fuente - 11/04/19 16:25> Hospital Course Hospital Course: The patient had a chest x-ray showing CHF with bilateral effusions she was admitted and started on duo nebs and Lasix. Cardiology was consulted and they resumed her calcium channel lay and DARIA therapy. She also had a paronychia of the right great toe and was started on Rocephin for cellulitis. She was placed on telemetry as well. The patient's troponin was elevated as was her BNP. Cardiology felt she would need a stress test versus a heart cath once her CHF and A. fib were controlled. The patient felt much better after diuresis and her shortness of breath improved. She was actually able to lay flat to sleep. She continued with some lower extremity edema. She lost almost 10 pounds in the first day. Cardiology felt she would need a heart cath. They did suspect pulmonary hypertension with an elevated right ventricular systolic pressure and continued acute exacerbations of her diastolic congestive heart failure. They therefore wanted to perform a right heart catheterization as well. The patient was in agreement, but her Xarelto had to be held before she could be cathed. The patient began having some abdominal cramping and cramping up into her chest. She was given a small dose of morphine and started on some Serax and this seemed to help. The patient was continued on Lasix and Aldactone was added as well. She continued to lose weight and her shortness of breath improved. She was able to have a heart cath on 11/04/2019 and it showed mild [id number]-ayapnnvp coronary artery disease with a preserved ejection fraction. She did have severe pulmonary hypertension secondary to severe left-sided diastolic heart failure. She had biventricular failure as evidenced by severely elevated left-sided and right-sided filling pressures. Cardiology recommended loop diuretics combined with Aldactone, fluid restriction, salt restriction, and weight loss exercise. They felt she was ready to be discharged home and would need to follow-up in their office in 1 week. <Abby De La Fuente - 11/04/19 16:25> Objective Vital signs: Temp Pulse Resp BP Pulse Ox 97.8 F 94 H 20 127/77 94 L 11/04/19 16:00 11/04/19 16:00 11/04/19 16:00 11/04/19 16:00 11/04/19 16:00 <Siva Wan - 11/17/19 16:52> Temp Pulse Resp BP Pulse Ox 97.8 F 94 H 20 127/77 94 L 11/04/19 16:00 11/04/19 16:00 11/04/19 16:00 11/04/19 16:00 11/04/19 16:00 <Cr
[2019-11-05 07:57] LABS: POC Glucose,Bedside 191 (70-110)
--- NOTE | 2019-11-07 09:10 | SW/DCPLANNER ---
Addendum entered by Sarai Moore 11/07/19 11:37: Madeline from [facility] has called back and stated that patient information has been received and reviewed. Madeline stated that services will begin this week for this patient. Original Note: I have received a order for home health services: nursing home, medication management and compliance monitoring. I spoke with patient via phone this morning and she is agreeable to services. Patient information and order has been faxed to [facility]. I will follow up with Arnold once patient information is reviewed.
== END 2019-11-04 18:15 | disposition home health service (06) | DRG 286 ==
PROVIDERS: Family Medicine; Internal Medicine; Nurse Practitioner Family; Physician Assistant; Admitting Provider Family Medicine; PCP Family Medicine; Visit Provider Family Medicine
PROC: 4A023N8 Measurement of Cardiac Sampling and Pressure, Bilateral, Percutaneous Approach (ICD-10-PCS; principal; 2019-11-04 09:00)
DX: I13.0 Hypertensive heart and chronic kidney disease with heart failure and stage 1 through stage 4 chronic kidney disease, or unspecified chronic kidney disease (principal); I50.33 Acute on chronic diastolic (congestive) heart failure; I48.20 Chronic atrial fibrillation, unspecified; Z68.41 Body mass index [BMI] 40.0-44.9, adult; L30.4 Erythema intertrigo; E11.22 Type 2 diabetes mellitus with diabetic chronic kidney disease; N18.3 Chronic kidney disease, stage 3 (moderate); Z87.891 Personal history of nicotine dependence; Z79.4 Long term (current) use of insulin; E66.01 Morbid (severe) obesity due to excess calories; J44.9 Chronic obstructive pulmonary disease, unspecified; Z91.128 Patient's intentional underdosing of medication regimen for other reason; I25.2 Old myocardial infarction; I27.29 Other secondary pulmonary hypertension; Z88.8 Allergy status to other drugs, medicaments and biological substances; Z88.0 Allergy status to penicillin
CPT/HCPCS: 36415; 71046; 80048; 80053; 80061; 81001; 82550; 82553; 82810; 82962; 83880; 84484; 84550; 85007; 85014; 85018; 85025; 85048; 85049; 85378; 93005; 93460; 94640; 94761; 99152; C1725; C1760; C1769; C1894; J1644; Q9967

== ENCOUNTER 2019-12-23 19:38 | Emergency (ER) | payer OTHER, SELFPAY ==
[2019-12-23 19:58] VITALS: BP 155/81; PULSE 122; RESP 22; TEMP 36.6; O2SAT 96; BMI 48.9
[2019-12-23 20:11] LABS: UTC Strep Screen (Rapid) Negative (Negative)
--- NOTE | 2019-12-23 20:22 | HMH.EDUTC ---
[facility] [place] Clinical Impression: Sore throat Pharyngitis Qualifiers: Pharyngitis/tonsillitis etiology: unspecified etiology Qualified Code(s): J02.9 - Acute pharyngitis, unspecified Disposition: Home, Self-Care Condition on Discharge: Good Instructions: Sore Throat Additional Instructions: Drink plenty of fluids. Take tylenol or ibuprofen for pain or fever. Take the medications as directed. Follow up with your regular doctor. GO TO THE ER FOR ANY WORSENING SYMPTOMS Prescriptions: predniSONE [Deltasone 10mg tablet] 10 mg PO BID 3 Days #6 tab Transmission Status: Received by Kanari Azithromycin [Z-Wade 250mg Tab*] 250 mg PO UD DOSE PK #6 tab Transmission Status: Received by Kanari Referrals: Siva Wan MD [Primary Care Provider] - Time of Disposition: 20:41 Medical Decision Making - Medical Records Medical records reviewed: No: I reviewed the patient's medical records. - Donte Inquiry Pt receiving controlled substance: No Vital Signs: 12/23/19 19:58 12/23/19 20:35 Temperature 97.9 F 97.9 F Temperature Source Oral Pulse Rate 122 H Pulse Rate [Right Brachial] 122 H Respiratory Rate 22 22 Blood Pressure 155/81 H Blood Pressure [Right Arm] 155/81 H Blood Pressure Mean [Right Arm] 105 Blood Pressure Source [Right Arm] Automatic Cuff Blood Pressure Position [Right Arm] Sitting 02 Sat by Pulse Oximetry 96 Oxygen Delivery Method Room Air - Lab Data Lab Results 12/23/19 19:55: Strep Scn Rapid Clinic Negative Orders (Tests/Meds): ORDERS Category Date Time Status Strep Screen Confirmation Stat Micro 12/23/19 19:55 Received [facility] [place] - General Stated complaint: Throat swelling Time Seen by Provider: 12/23/19 20:23 Mode of Arrival: Ambulatory Source of Information: Patient Limitations: No Limitations Description of Symptoms (Recalled from Triage Doc. by RN): PATIENT C/O THROAT PAIN WITH SWALLOWING X 2 WEEKS. NO SOA OR DISTRESS NOTED. NO OTHER SYMPTOMS NOTED HEENT Symptoms (Recalled from RN notes): Yes Resp Symptoms (Recalled from RN notes): No Skin Symptoms (Recalled from RN notes): No MS Symptoms (Recalled from RN notes): No Functional Status (Recalled from RN notes): WNL - History of Present Illness Provider Complaint: She c/o sore throat and throat irritation. She states that her throat has been sore for about a week, but it got worse 2 days ago. She denies any fever or chills or cough. - Related Data Home Medications Medication Instructions Recorded Confirmed Ipratropium/Albuterol Sulfate 1 puff INHALATION QID 09/15/17 11/01/19 [Combivent Respimat Inh] Omeprazole [Omeprazole 40mg 40 mg PO DAILY 09/15/17 11/01/19 Capsule] Fluticasone/Vilanterol [Breo 1 inh INHALATION Q24H 07/15/18 11/01/19 Ellipta 200-25 Mcg INH] nitroglycerin 0.4 mg sublingual 0.4 mg SUBLINGUAL Q5M 09/29/19 11/01/19 tablet Acetaminophen [Extra Strength 1,000 mg PO DAILY PRN 11/01/19 11/01/19 Non-Aspirin] Albuterol Sulfate [Ventolin HFA 2 puff INHALATION QID 11/01/19 11/01/19 Inhaler] Atorvastatin Calcium [Atorvastatin 40 mg PO HS 11/01/19 11/01/19 40mg Tab] Loratadine [Allergy] 10 mg PO DAILY 11/01/19 11/01/19 Sitagliptin Phosphate [Januvia 50 mg PO DAILY 11/01/19 11/01/19 50mg Tablet] Previous Rx's Medication Instructions Recorded Cyclobenzaprine HCl 5 mg PO TIDP PRN #30 tab 11/04/19 [Cyclobenzaprine 5mg Tab] Furosemide [Lasix 40mg tab] 40 mg PO BID #60 tab 11/04/19 Metoprolol Succinate [Metoprolol 50 mg PO DAILY #30 tab 11/04/19 Succinate 50mg Tablet*] Rivaroxaban [Xarelto 15mg tablet] 15 mg PO DAILY #30 tab 11/04/19 Spironolactone [Aldactone 25mg 25 mg PO BID #60 tab 11/04/19 Tab] dilTIAZem HCl [Diltiazem 240mg 240 mg PO DAILY #30 c24 11/04/19 24Hr ER Cap] lisinopriL [Lisinopril 40mg Tablet] 40 mg PO DAILY #30 tab 11/04/19 Azithromycin [Z-Wade 250mg Tab*] 250 mg PO UD DO
[2019-12-23 20:35] VITALS: BP 155/81; PULSE 122; RESP 22; TEMP 36.6; O2SAT 96
== END 2019-12-23 20:45 | disposition home or self-care (01) ==
PROVIDERS: Emergency Provider Nurse Practitioner Family; PCP Family Medicine
DX: J02.9 Acute pharyngitis, unspecified (principal); K21.9 Gastro-esophageal reflux disease without esophagitis; E11.9 Type 2 diabetes mellitus without complications; J44.9 Chronic obstructive pulmonary disease, unspecified; F33.1 Major depressive disorder, recurrent, moderate; I48.91 Unspecified atrial fibrillation; I25.2 Old myocardial infarction; I10 Essential (primary) hypertension; F17.210 Nicotine dependence, cigarettes, uncomplicated; Z88.0 Allergy status to penicillin; Z79.899 Other long term (current) drug therapy
CPT/HCPCS: 87880; 99201

== ENCOUNTER 2019-12-25 16:55 | Emergency (ER) | payer OTHER, SELFPAY ==
[2019-12-25 17:09] VITALS: BP 132/66; PULSE 79; RESP 20; TEMP 36.8; O2SAT 97; BMI 48.9
--- NOTE | 2019-12-25 17:37 | HMH.EDGENADL ---
ED Disposition Clinical Impression: Pharyngitis Qualifiers: Pharyngitis/tonsillitis etiology: unspecified etiology Qualified Code(s): J02.9 - Acute pharyngitis, unspecified Disposition: Home, Self-Care Condition on Discharge: Good Instructions: DI for Viral Pharyngitis Referrals: Siva Wan MD [Primary Care Provider] - 3 days - Critical Care Critical Care Time: No Attestation: On 12/25/19, the high probability of a clinically significant, sudden or life threatening deterioration of the following system(s) required my full and direct attention, intervention and personal management. The time I documented below is in addition to time spent performing reported procedures but includes the following listed in this critical care notation. Medical Decision Making - Medical Records Medical records reviewed: Yes: I reviewed the patient's medical records. - Donte Inquiry Pt receiving controlled substance: No Vital Signs: 12/25/19 17:09 Temperature 98.3 F Temperature Source Oral Pulse Rate [Right Radial] 79 Respiratory Rate 20 Blood Pressure [Right Arm] 132/66 Blood Pressure Mean [Right Arm] 88 Blood Pressure Source [Right Arm] Automatic Cuff Blood Pressure Position [Right Arm] Sitting 02 Sat by Pulse Oximetry 97 Oxygen Delivery Method Room Air Medical Decision Narrative: Patient with pharyngitis. Strep was negative. Currently receiving steroids. There are no signs of peritonsillar abscess. Her lung exam is clear and she has appropriate oxygen saturations on room air. She denies any shortness of breath and is PERC negative. Because she is afebrile, appropriate oxygenation and has a clear lung exam, I have low suspicion for emergently significant pneumonia. No signs of acute CHF exacerbation. No neck masses. Appropriate for outpatient follow-up with her primary care provider within the next several days. Encouraged good hydration. Patient states she is tolerating water well. I encouraged smooth liquids such as Ensure shakes as well. General Adult HPI - General Chief complaint: Weakness Stated complaint: Sore throat, wants to sleep all the time Time Seen by Provider: 12/25/19 17:37 Mode of Arrival: Wheelchair Source of Information: Patient Limitations: No Limitations Description of Symptoms (Recalled from ER Triage Doc. by RN): Pt c/o generalized weakness, dizziness, sore throat and cough for approx 7-8 days. Pt denies fevers or SOA. - History of Present Illness HPI narrative: This is a 49-year-old female with a past medical history significant for hypertension, CHF, afib, morbid obesity who presents to the emergency department for 7 to 8 days of dry cough and sore throat. She had a negative strep test 2 days ago, was prescribed a Z-Wade and steroids. She has been taking these with no relief of symptoms. She is tolerating water without difficulty. No vomiting, chest pain, abdominal pain, SOA. - Related Data Home Medications Medication Instructions Recorded Confirmed Ipratropium/Albuterol Sulfate 1 puff INHALATION QID 09/15/17 11/01/19 [Combivent Respimat Inh] Omeprazole [Omeprazole 40mg 40 mg PO DAILY 09/15/17 11/01/19 Capsule] Fluticasone/Vilanterol [Breo 1 inh INHALATION Q24H 07/15/18 11/01/19 Ellipta 200-25 Mcg INH] nitroglycerin 0.4 mg sublingual 0.4 mg SUBLINGUAL Q5M 09/29/19 11/01/19 tablet Acetaminophen [Extra Strength 1,000 mg PO DAILY PRN 11/01/19 11/01/19 Non-Aspirin] Albuterol Sulfate [Ventolin HFA 2 puff INHALATION QID 11/01/19 11/01/19 Inhaler] Atorvastatin Calcium [Atorvastatin 40 mg PO HS 11/01/19 11/01/19 40mg Tab] Loratadine [Allergy] 10 mg PO DAILY 11/01/19 11/01/19 Sitagliptin Phosphate [Januvia 50 mg PO DAILY 11/01/19 11/01/19 50mg Tablet] Previous Rx's Medication Instructions Recorded Cyclobenzaprine HCl 5 mg PO TIDP PRN #30 tab 11/04/19 [Cyclobenzaprine 5mg Tab] Furosemide [Lasix 40mg tab] 40 mg PO BID
[2019-12-25 18:00] VITALS: BP 102/76; PULSE 91; RESP 20; TEMP 36.8; O2SAT 96
== END 2019-12-25 18:03 | disposition home or self-care (01) ==
PROVIDERS: Emergency Provider Emergency Medicine; PCP Family Medicine
DX: J02.9 Acute pharyngitis, unspecified (principal); I48.91 Unspecified atrial fibrillation; E66.01 Morbid (severe) obesity due to excess calories; Z68.42 Body mass index [BMI] 45.0-49.9, adult; E11.9 Type 2 diabetes mellitus without complications; K21.9 Gastro-esophageal reflux disease without esophagitis; I10 Essential (primary) hypertension; F17.210 Nicotine dependence, cigarettes, uncomplicated; Z90.79 Acquired absence of other genital organ(s); Z88.0 Allergy status to penicillin
CPT/HCPCS: 99281

== ENCOUNTER 2019-12-29 14:55 | Observation (INO) | payer OTHER, SELFPAY ==
[2019-12-29 15:18] VITALS: BP 129/65; PULSE 70; RESP 18; TEMP 36.8; O2SAT 95; BMI 46.5
[2019-12-29 15:52] LABS: Basophils # 0.1 K/mm3 (0-0.2); Basophils % 0.8 % (0.1-2.0); Eosinophils # 0.3 K/mm3 (0.0-0.4); Eosinophils % 1.9 % (0.1-12.0); Hematocrit 42.3 % (37.0-47.0); Hemoglobin 14.4 g/dL (12.2-16.2); Lymphocytes # 2.5 K/mm3 (0.7-4.5); Lymphocytes % 19.8 % (10-50); Mean Corpuscular HGB Conc 34.1 g/dL (31.8-35.4); Mean Corpuscular Hemoglobin 27.9 pg (27.0-31.2); Mean Corpuscular Volume 81.8 fl (81-99); Monocytes # 0.4 K/mm3 (0.1-1.0); Neutrophils # 9.5 K/mm3 (1.8-7.8); Neutrophils % 74.4 % (37.0-80.0); Platelet Count 345 K/mm3 (142-424); Red Blood Count 5.18 M/mm3 (4.20-5.40); Red Cell Distribution Width 17.1 % (11.5-17.5); White Blood Count 12.7 K/mm3 (4.8-10.8)
[2019-12-29 15:56] LABS: Chloride 94 mmol/L (98-107); Sodium 126 mmol/L (136-145)
[2019-12-29 15:59] LABS: Alanine Aminotransferase 21 U/L (12-78); Albumin Level 4.2 g/dl (3.5-5.0); Albumin/Globulin Ratio 1.1 (1.1-1.8); Alkaline Phosphatase 151 U/L (38-126); Aspartate Amino Transferase 29 U/L (14-36); Bilirubin,Total 0.7 mg/dl (0.2-1.3); Blood Urea Nitrogen 38 mg/dl (7-17); Carbon Dioxide 20 mmol/L (22.0-30.0); Creatinine Clearance Estimated 31 mL/min (50-200); Estimated Glomerular Filt Rate 28 ml/min (>60); GFR (African American) 34 ML/MIN (>60); Globulin 3.8 g/dL (1.3-3.2)
[2019-12-29 16:00] LABS: Calcium 10.1 mg/dl (8.4-10.2)
[2019-12-29 16:03] LABS: Glucose 572 mg/dl (74-100)
--- NOTE | 2019-12-29 16:05 | P.CONPHA_ITS ---
[facility] Pharmacy VTE Monitoring - Patient Demographics Admission date: 12/29/19 Report Date: 12/29/19 Time: 16:05 Allergies/Adverse Reactions: Patient Allergies Penicillins [PENICILLINS] Allergy (Intermediate, Verified 09/29/19 09:10) I-HIVES VANILLA Allergy (Unknown, Uncoded 09/29/19 09:10) Height: 1.63 m Weight: 123.094 kg - VTE Risk Labs: VTE Related Lab Results Hgb 14.4 g/dL (12.2-16.2) 12/29/19 15:30 Hct 42.3 % (37.0-47.0) 12/29/19 15:30 Plt Count 345 K/mm3 (142-424) 12/29/19 15:30 BUN 38 mg/dl (7-17) H 12/29/19 15:30 Creatinine 1.90 mg/dl (0.52-1.04) H 12/29/19 15:30 Estimated Creat Clear 31 mL/min (50-200) 12/29/19 15:30 VTE Score: 9 VTE Risk Level: Moderate Risk - Prophylaxis VTE Prophylaxis Ordered?: Yes Types of VTE Prophylaxis: TEDS Knee High Location of Applied Device: Bilateral Lower Extremeties
[2019-12-29 16:06] LABS: Acetone, Serum (Rapid) Small (None Detect)
[2019-12-29 16:20] LABS: ABG Base Excess -6.7 mmol/L (-2.4-2.3); ABG HCO3 18.3 mmhg (22.0-26.0); ABG Oxygen Saturation 96 % (90-100); ABG PCO2 31.2 mmhg (35.0-45.0); ABG PH 7.39 mmol/L (7.35-7.45); ABG PO2 79.5 mmhg (80-100); ABG TCO2 19.3 mmhg (23-27)
[2019-12-29 16:31] LABS: Allen's Test ACCEPTABLE; Oxygen RA %; Source Right Radial
--- NOTE | 2019-12-29 16:47 | HMH.HP ---
*Admission Date: 12/29/19 <Abby De La Fuente - 12/29/19 17:03> *Chief complaint: paresthesias, sore throat, polydipsia, rash <Abby De La Fuente 12/29/19 17:03> *History of present illness: Ms. Leahy is a 49-year-old female with a history of ASCVD, diabetes, hypertension, CHF, and atrial fibrillation who was just recently discharged from [facility] after an admission for CHF. She states when she was discharged home she had no diabetes medication. Over the last few weeks she has had excessive thirst and has had numbness and tingling in her head and her face. Her vision has been blurry. She states she has had a very sore throat and was seen in the urgent care center. She had a rapid strep test as well as a throat culture and both were negative. She states she was told she probably had strep and was started on Zithromax and prednisone. After she began taking these medications, her symptoms worsened and she also began getting a rash in her vaginal area that spread down onto her legs. She was then seen in the emergency room a few days later and she states she was told she probably scratched her throat on a [place] from [employer] and would need to follow-up with her primary care physician. No labs were done at that visit. The patient presented to the office today and her sugar was found to be over 500. She has a severe yeast infection and has had blood in her stool for the past 3 days. She was admitted for further evaluation and treatment to rule out DKA. <Abby De La Fuente - 12/29/19 17:03> [facility] History I have reviewed the patient's past medical history: Yes <Abby De La Fuente 12/29/19 17:03> Medical History: Reports:: Arrhythmia, Atrial Fibrillation, Congestive Heart Failure, Chronic Obstructive Pulmonary Disease (COPD), Depression, Diabetes Mellitus Type 1, Diabetes Mellitus Type 2, Gastroesophageal Reflux Disease(GERD), Heart Murmur, Hyperlipidemia, Hypertension, Myocardial Infarction Denies:: Cancer, Coronary Artery Disease, MRSA <Abby De La Fuente 12/29/19 17:03> *Have you ever received a pneumonia vaccine?: No <Abby De La Fuente 12/29/19 17:03> *Have you received a flu vaccine this season?: No <Abby De La Fuente 12/29/19 17:03> Other Medical History: Reports: Arthritis, Hoarseness, Sinus Problems <Hima De La Fuentea 12/29/19 17:03> Other Surgeries: Yes: Cardiac Catheterization, Hysterectomy-Total, Hysterectomy-Partial, Other <Abby De La Fuente 12/29/19 17:03> Amputation: No <SudhakarAbby 12/29/19 17:03> Fractures: No [facility]03> - *Social History Smoking Status: Current every day smoker <Hima De La Fuentea 12/29/19 17:03> Tobacco Type: cigarettes <[facility] 12/29/19 17:03> # Packs/Day (cigarettes): 1 <[facility] 12/29/19 17:03> #Yrs smoked (if former smoker): 30 <SduhakarAbby 12/29/19 17:03> Alcohol Intake: never <[facility] 12/29/19 17:03> Substance Use Type: denies use <[facility] 12/29/19 17:03> *Occupational Status:: other <[facility] 12/29/19 17:03> Housing: house <[facility] 12/29/19 17:03> Household Members: significant other, children <SudhakarAbby 12/29/19 17:03> *Travel in the last 8 weeks: None <Hima De La Fuentea 12/29/19 17:03> - Psychiatric History Pschychiatric History:: Reports:: Depression <[facility] 12/29/19 17:03> Family Hx:: Diabetes, Hyperlipidemia, Hypertension <[facility] 12/29/19 17:03> Review of Systems - Constitutional Reports weakness, Denies chills, Denies fever(s) <Hima De La Fuentea 12/29/19 17:03> - Eyes Reports blurry vision, Denies double vision <Abby De La Fuente 12/29/19 17:03> - ENT Reports pain with swallowing, Reports sore throat, Denies nasal congestion <Abby De La Fuente 12/29/19 17:03> - *Cardiovascular Reports shortness of breath, Reports lightheadedness, Denies chest pain, Denies rapid, pounding, or irregular heartbeat <Abby De La Fuente - 12/29/19 17:03> - *Respiratory Denies chest congestion, Den
--- NOTE | 2019-12-29 16:54 | XR_ITS ---
PROCEDURE: XR CHEST 2V CLINICAL HISTORY: copd,chf COPD, CHF, cough, smoker COMPARISON: XR CHEST 2V from 08/27/2019 CT ANGIO CHEST from 08/27/2019 XR CHEST 2V from 08/29/2019 XR CHEST 2V from 11/01/2019 FINDINGS: Normal heart size. There is prominence of the superior mediastinum in the right paratracheal region. This however has a similar appearance compared to previous exams. There was some mild adenopathy in this region on previous CT scan. Pulmonary arteries are also somewhat prominent. The lungs are clear without infiltrates, suspicious nodules, or pleural effusions. No acute bony abnormalities. IMPRESSION: Mild prominence of the mediastinum as before. Previously noted pleural effusions and bibasilar airspace disease has resolved. Dictated by: Raman Guerrier MD 12/29/2019 18:43 Electronically signed by Raman Guerrier MD in [place] 12/29/2019 18:43
--- NOTE | 2019-12-29 16:56 | PC.NURSE ---
pharmacy paged at this time
--- NOTE | 2019-12-29 17:10 | PC.NURSE ---
spoke with isaac ceron, stated ok to give 400mg iv first dose but our omni only carries 200mg/100ml bag. he stated it was ok to hang on bag after the other for pt to receive appropriate dosing. he stated to run each bag over an hour. read back for verification and verified with md Wan as well. order faxed to pharmacy.
--- NOTE | 2019-12-29 17:22 | PC.NURSE ---
received a critical notification of glucose of 572 at 1600. called [facility] and spoke with Abby De La Fuente. also notified that pt had a small amount of serum acetone detected at 1608. order for UA was obtained as well. no other new orders at this time
--- NOTE | 2019-12-29 18:00 | PC.NURSE ---
spoke with isaac ceron, stated ok to give 400mg iv first dose but our omni only carries 200mg/100ml bag. he stated it was ok to hang on bag after the other for pt to receive appropriate dosing. read back for verification and verified with md Wan as well. order faxed to pharmacy
--- NOTE | 2019-12-29 18:18 | PC.NURSE ---
isaac ceron paged in regarding to rate of diflucan. he called back and stated to run it at 100ml/hr for an hour each bag. NOT 200ml/hr.
[2019-12-29 18:33] LABS: Microscopic, Urine URINE MICROSCOPIC (MICROSCOPIC)
[2019-12-29 18:40] LABS: Appearance,Urine CLEAR (Clear); Bilirubin,Urine Negative (Negative); Blood, Urine 1+ (Negative); Color,Urine YELLOW (Yellow); Glucose,Urine (UA) 3+ (Negative); Ketones,Urine TRACE (Negative); Leukocyte Esterase,Urine Negative (Negative); Nitrate,Urine Negative (Negative); PH,Urine 5.5 (5.0-8.5); Protein,Urine 2+ (Negative); Specific Gravity, Urine 1.015 (1.005-1.030); Urobilinogen,Urine 0.2 EU/dl (0.2)
[2019-12-29 19:11] LABS: Bacteria,Urine Trace /lpf; RBC,Urine Occasional #/hpf (0-3)
[2019-12-29 19:20] VITALS: BP 122/56; PULSE 98; RESP 18; TEMP 37.1; O2SAT 97
[2019-12-29 19:34] LABS: Occult Blood,Stool Positive (Negative)
[2019-12-29 21:34] LABS: Glucose,Random 707 mg/dL (74-100)
[2019-12-30] VITALS (18 sets, daily range): BP systolic 80–135; BP diastolic 40–86; PULSE 69–90; RESP 16–20; TEMP 36.6–37.2; O2SAT 94–100; BMI 47.1; BMI 47.0
[2019-12-30 01:04] LABS: Glucose,Random 439 mg/dL (74-100)
--- NOTE | 2019-12-30 02:14 | PC.NURSE ---
Pt up to chair at this time, stating she is having cramps in several muscles, warm blankets applied to legs and torso. Blood sugars have decreased with good response to insulin. 2100 glucose 707 per lab, humalog 20units and lantus 20units given per Dr. Gonzalez. 0100 glucose 439 per lab, humalog [address] Gonzalez.
[2019-12-30 06:10] LABS: POC Glucose,Bedside 278 (70-110)
[2019-12-30 06:33] LABS: Basophils # 0.1 K/mm3 (0-0.2); Basophils % 1.1 % (0.1-2.0); Eosinophils # 0.3 K/mm3 (0.0-0.4); Eosinophils % 2.9 % (0.1-12.0); Hematocrit 39.4 % (37.0-47.0); Hemoglobin 13.6 g/dL (12.2-16.2); Lymphocytes # 2.8 K/mm3 (0.7-4.5); Mean Corpuscular HGB Conc 34.5 g/dL (31.8-35.4); Mean Corpuscular Volume 81.1 fl (81-99); Mean Platelet Volume 8.8 fl (7.4-10.4); Monocytes # 0.5 K/mm3 (0.1-1.0); Monocytes % 4.6 % (1.7-9.3); Neutrophils # 6.3 K/mm3 (1.8-7.8); Neutrophils % 63.3 % (37.0-80.0); Platelet Count 261 K/mm3 (142-424); Red Blood Count 4.86 M/mm3 (4.20-5.40); Red Cell Distribution Width 16.9 % (11.5-17.5); White Blood Count 9.9 K/mm3 (4.8-10.8)
[2019-12-30 06:35] LABS: Chloride 102 mmol/L (98-107); Sodium 131 mmol/L (136-145)
[2019-12-30 06:36] LABS: Potassium 4.1 mmoL/L (3.5-5.1)
[2019-12-30 06:38] LABS: Alanine Aminotransferase 18 U/L (12-78); Albumin Level 3.7 g/dl (3.5-5.0); Albumin/Globulin Ratio 1.1 (1.1-1.8); Alkaline Phosphatase 112 U/L (38-126); Anion Gap 12.1 mEq/L (5-15); Aspartate Amino Transferase 30 U/L (14-36); Bilirubin,Total 0.5 mg/dl (0.2-1.3); Blood Urea Nitrogen 35 mg/dl (7-17); Carbon Dioxide 21 mmol/L (22.0-30.0); Creatinine Clearance Estimated 37 mL/min (50-200); Estimated Glomerular Filt Rate 34 ml/min (>60); GFR (African American) 42 ML/MIN (>60); Globulin 3.4 g/dL (1.3-3.2); Glucose 271 mg/dl (74-100); Total Protein,Serum 7.1 g/dl (6.3-8.2)
[2019-12-30 06:52] LABS: Calcium 8.8 mg/dl (8.4-10.2)
--- NOTE | 2019-12-30 08:07 | HMH.ACPN2 ---
<Abby De La Fuente - Last Filed: 12/30/19 08:07> Internal Medicine - PN: Subj *Date: 12/30/19 *Time: 08:07 Interval history: Patient states she is feeling much better this morning. Her glucose is down in the 200s. Her abdominal pain has improved. Her yeast infection has improved as well. She is still having blood in her stool. She states her throat does feel better today. She has not had her swallowing eval as of yet. Exam Vital signs and Labs for Last 24 Hours: Temp Pulse Resp BP Pulse Ox 97.8 F 79 18 125/67 94 L 12/30/19 04:00 12/30/19 04:00 12/30/19 04:00 12/30/19 04:00 12/30/19 04:00 Laboratory Results - last 24 hr 12/29/19 15:09: Specimen Source Right radial, O2 % Ra, ABG pH 7.39, ABG pCO2 31.2 L, ABG pO2 79.5 L, ABG HCO3 18.3 L, ABG Total CO2 19.3 L, ABG O2 Saturation 96, ABG Base Excess -6.7 L, Raman Test Acceptable 12/29/19 15:30: WBC 12.7 H, RBC 5.18, Hgb 14.4, Hct 42.3, MCV 81.8, MCH 27.9, MCHC 34.1, RDW 17.1, Plt Count 345, MPV 10.0, Neut % (Auto) 74.4, Lymph % (Auto) 19.8, [place] % (Auto) 3.0, Eos % (Auto) 1.9, Baso % (Auto) 0.8, Neut # (Auto) 9.5 H, Lymph # (Auto) 2.5, [place] # (Auto) 0.4, Eos # (Auto) 0.3, Baso # (Auto) 0.1 12/29/19 15:30: Sodium 126 L, Potassium 5.0, Chloride 94 L, Carbon Dioxide 20 L, Anion Gap 17.0 H, BUN 38 H, Creatinine 1.90 H, Estimated Creat Clear 31, Estimated GFR 28 L, Est GFR ( Amer) 34 L, Glucose 572 H*, Calcium 10.1, Total Bilirubin 0.7, AST 29, ALT 21, Alkaline Phosphatase 151 H, Total Protein 8.0, Albumin 4.2, Globulin 3.8 H, Albumin/Globulin Ratio 1.1 12/29/19 15:30: Acetone Level Small 12/29/19 18:29: Stool Occult Blood Positive A 12/29/19 18:29: Urine Color Yellow, Urine Appearance Clear, Urine pH 5.5, Ur Specific [place] 1.015, Urine Protein 2+, Urine Glucose (UA) 3+, Urine Ketones Trace, Urine Blood 1+, Urine Nitrate Negative, Urine Bilirubin Negative, Urine Urobilinogen 0.2, Ur Leukocyte Esterase Negative, Urine RBC Occasional, Urine WBC 3-5, Ur Squamous Epith Cells 5-10, Urine Bacteria Trace 12/29/19 21:04: Random Glucose 707 H* 12/30/19 00:40: Random Glucose 439 H* D 12/30/19 05:50: WBC 9.9, RBC 4.86, Hgb 13.6, Hct 39.4, MCV 81.1, MCH 28.0, MCHC 34.5, RDW 16.9, Plt Count 261, MPV 8.8, Neut % (Auto) 63.3, Lymph % (Auto) 28.0, [place] % (Auto) 4.6, Eos % (Auto) 2.9, Baso % (Auto) 1.1, Neut # (Auto) 6.3, Lymph # (Auto) 2.8, [place] # (Auto) 0.5, Eos # (Auto) 0.3, Baso # (Auto) 0.1 12/30/19 05:50: Sodium 131 L, Potassium 4.1, Chloride 102, Carbon Dioxide 21 L, Anion Gap 12.1, BUN 35 H, Creatinine 1.60 H, Estimated Creat Clear 37, Estimated GFR 34 L, Est GFR ( Amer) 42 L D, Glucose 271 H D, Calcium 8.8 D, Total Bilirubin 0.5, AST 30, ALT 18, Alkaline Phosphatase 112, Total Protein 7.1, Albumin 3.7 D, Globulin 3.4 H, Albumin/Globulin Ratio 1.1 12/30/19 06:01: POC Glucose 278 H I & O for Last 24 hours: Intake & Output 12/27/19 12/28/19 12/29/19 12/30/19 11:59 11:59 11:59 11:59 Intake Total 949 / 949 Output Total 2099 / 2100 Balance -1151 / -1151 Weight 276 lb - Constitutional no acute distress - *Routine Respiratory Exam Present: CTA bilaterally - *Routine Cardiovascular Exam Present: RRR - *Routine Abdominal Exam Present: soft, normoactive bowel sounds. Absent: tenderness - *Routine Extremities Exam Present: edema (trace pretibial edema bilaterally). Absent: cyanosis, clubbing - *Routine Skin Exam Present: warm. Absent: rash Comments: yeast infection is much improved - *Routine Neurological Exam Present: alert, oriented X3 Assessment and Plan (1) Uncontrolled type 2 DM with hyperosmolar nonketotic hyperglycemia Current visit: Yes Status: Acute Category: Medical Code(s): E11.00 - Type 2 diabetes mellitus with hyperosmolarity without nonketotic hyperglycemic-hyperosmolar coma ([facility]) (2) Diabetic acetonemia Current visit: Yes Status: Acute Category: Medical Code(s): E10.10 - Type 1 diabetes mellitus with ketoaci
[2019-12-30 08:55] LABS: POC Glucose,Bedside 526 (70-110)
[2019-12-30 08:55] LABS: POC Glucose,Bedside > 600 (70-110)
--- NOTE | 2019-12-30 09:48 | DIET.NUTRFU ---
Nutritional assessment and diet education completed. Pt with limited adherence to nutrition related recommendations, limited ability to manage self care, and altered GI function of unknown etiology at this time- GI consult today. BG has stabilized with insulin. Will continue to monitor and provide further diet education as needed.
[2019-12-30 11:21] LABS: POC Glucose,Bedside 356 (70-110)
--- NOTE | 2019-12-30 13:40 | HMH.ANESCL ---
[facility] Anesthesia Checklist - Patient Identification Patient Identification: Arm Band - Structural Data Admitted From: Inpatient Planned Operative Procedure/s: egd Consent for Planned Operative Procedure(s) Verified: Yes Verified Documents: Surgical Consent, History and Physical - NPO Status Verified Time NPO: 00:00 - Additional verifications Anesthesia Reactions: No - Airway Assessment C-Spine Mobility Assessed: Yes (mp3) TMJ Mobility Assessed: Yes Dentition: Edentulous - Neurological Assessment Level of Consciousness: Awake, Alert - Anesthesia Plan Anesthesia Risk discussed: Yes Anesthesia Plan: Verified ASA Class: III Anesthesia Type: [facility] History I have reviewed the patient's past medical history: Yes Medical History: Reports:: Arrhythmia, Atrial Fibrillation, Congestive Heart Failure, Chronic Obstructive Pulmonary Disease (COPD), Depression, Diabetes Mellitus Type 1, Diabetes Mellitus Type 2, Gastroesophageal Reflux Disease(GERD), Heart Murmur, Hyperlipidemia, Hypertension, Myocardial Infarction Denies:: Cancer, Coronary Artery Disease, MRSA *Have you ever received a pneumonia vaccine?: No *Have you received a flu vaccine this season?: No Other Medical History: Reports: Arthritis, Hoarseness, Sinus Problems Anesthesia experience/problems:: nac Other Surgeries: Yes: Cardiac Catheterization, Hysterectomy-Total, Hysterectomy-Partial, Other Amputation: No Fractures: No - *Social History Smoking Status: Current every day smoker Tobacco Type: cigarettes # Packs/Day (cigarettes): 1 #Yrs smoked (if former smoker): 30 Alcohol Intake: never Substance Use Type: denies use *Occupational Status:: other Housing: house Household Members: significant other, children *Travel in the last 8 weeks: None - Psychiatric History Pschychiatric History:: Reports:: Depression Family Hx:: Diabetes, Hyperlipidemia, Hypertension
[2019-12-30 13:41] LABS: POC Glucose,Bedside 292 (70-110)
--- NOTE | 2019-12-30 14:32 | HMH.PROC ---
[facility] Procedure Note Procedure Note:: Upper Endoscopy Procedure Report: Esophagogastroduodenoscopy with cold biopsies and TTS balloon dilation Endoscopost: Kaleb Cyr II, MD Referring Physician: Lopez Wan MD Date of Procedure: December 30, 2019 Equipment: Olympus GIF 180 standard upper endoscope Sedation: MAC sedation Indications: Mrs. Leahy is a 49-year-old female who has had dysphagia over the last 3 or 4 days after eating at [employer] She had a very spicy meal that was also served very hot temperature. She felt this may have injured her throat and she was having some globus sensation but this has gradually resolved. She reports no heartburn, bloating or belching. The patient also has had some bright red rectal bleeding of clots. She has not had any prior EGD or colonoscopy. The patient was admitted with hyperglycemia, hyponatremia and is an insulin requiring diabetic. She was acetone positive. Her hemoglobin 14.4 and hematocrit 42.3 were normal. She had a mildly elevated alkaline phosphatase of 151. Procedure: Prior to the procedure, a history and physical exam was performed, and patient's medications and allergies were reviewed. The risks, benefits and alternatives of the sedation and procedure were discussed with the patient. All questions were answered and informed consent was obtained. The patient was brought to the procedure room. Patient identification and proposed procedure were verified by the physician and the nurse. The patient was placed in a left lateral decubitus position and the scope was passed under direct vision. Throughout the procedure, the patient's blood pressure, pulse, and oxygen saturations were monitored continuously. The upper GI endoscopy was accomplished without difficulty. The patient tolerated the procedure well. Findings: The scope was passed directly into the upper esophagus and advanced to the third portion of the duodenum. The post bulbar duodenum and duodenal bulb were normal with normal mucosa and conniventes. The scope was withdrawn through a normal duodenal bulb and pylorus into the stomach. There was bile reflux and some retained digested food content suggestive of gastric dysmotility. There was some linear reactive gastropathy of the antrum and body of the stomach. The remainder of the antrum, body and fundus of the stomach were grossly normal. Upon retroflexion there was no hiatal hernia. 2 biopsies were taken in the antrum and along the lesser curvature for histology to rule out gastritis and/or H pylori. The scope was then withdrawn into the esophagus. There was a serrated Z line but no evidence of reflux esophagitis or Marmolejo's. There was no evidence of a Schatzki's ring. There were tertiary contractions and evidence of moderate esophageal dysmotility. The entire esophagus was dilated to 60 Syriac/20 mm with a TTS hydrostatic balloon. There was some resistance at the cricopharyngeus. The remainder of the esophageal mucosa was normal. Impression: 1. Nonerosive GERD with mild esophageal dysmotility and mild cricopharyngeal spasm status post dilation to 20 mm 2. Mild gastric dysmotility with bile reflux and mild linear reactive gastropathy Plan: The patient is fairly asymptomatic at this point. She has been on omeprazole. I would not add anything further. I will follow-up the biopsies. Based upon her age and rectal bleeding, I would recommend outpatient diagnostic colonoscopy. My office will arrange this with her.
--- NOTE | 2019-12-30 19:11 | PC.NURSE ---
report given to chepe
--- NOTE | 2019-12-30 19:35 | PC.NURSE ---
PT IS SITTING UP IN CHAIR. NO COMPLAINTS OF DISCOMFORT. PT HAS NOT HAD ANY ISSUES WITH SWALLOWING THIS SHIFT. PT WAS ABLE TO TAKE ALL OF HER MEDICATIONS W/O DIFFICULTY. REDNESS NOTED TO ABDOMINAL FOLD. PT HAS AMBULATED TO THE BATHROOM WITH 1 ASSIST. LUNG SOUNDS DIMINISHED. BOWEL SOUNDS NORMAL. EATING AND DRINKING WELL. VSS. WILL CONTINUE TO MONITOR.
[2019-12-30 20:39] LABS: POC Glucose,Bedside 278 (70-110)
[2019-12-30 20:39] LABS: POC Glucose,Bedside 346 (70-110)
[2019-12-31] VITALS: BP 115/57; PULSE 76; RESP 18; TEMP 36.8; O2SAT 98
--- NOTE | 2019-12-31 02:27 | PC.NURSE ---
Pt was sitting up to chair at the beginning of the shift and took herself to bed and has rested well t/o the night. Pt BS at 2100 was 346, 12 units of Humalog and 24 units of Lantus were given per SEP. Bedtime snack was given at 2129. IV site on left AC was leaking, Brendon Mei RN inserted a 20 in the Right AC and d/c the previous one. Bilateral lung sounds are clear, but diminished. Bowel sounds are active in all 4 quadrants. Redness noted at abdominal folds. VSS. Call light within reach, along with all other safety measures. No complaints at this time, will continue to monitor for any changes.
[2019-12-31 04:00] VITALS: BP 102/54; PULSE 71; RESP 20; TEMP 36.5; O2SAT 96
[2019-12-31 05:00] VITALS: BMI 47.6
[2019-12-31 05:59] LABS: Anion Gap 12.6 mEq/L (5-15); Blood Urea Nitrogen 26 mg/dl (7-17); Calcium 8.5 mg/dl (8.4-10.2); Carbon Dioxide 24 mmol/L (22.0-30.0); Chloride 102 mmol/L (98-107); Creatinine Clearance Estimated 35 mL/min (50-200); Estimated Glomerular Filt Rate 32 ml/min (>60); GFR (African American) 39 ML/MIN (>60); Glucose 325 mg/dl (74-100); Potassium 4.6 mmoL/L (3.5-5.1); Sodium 134 mmol/L (136-145)
[2019-12-31 06:11] LABS: POC Glucose,Bedside 348 (70-110)
[2019-12-31 08:00] VITALS: BP 125/54; PULSE 66; RESP 18; TEMP 36.6; O2SAT 98
--- NOTE | 2019-12-31 08:35 | HMH.ACPN2 ---
Internal Medicine - PN: Subj *Date: 12/31/19 *Time: 09:39 Interval history: States she is feeling better this morning. She denies sore throat. She states she is swallowing easier after the EGD and dilatation yesterday. Please refer to Dr. Cyr note for details. She reports no further rectal bleeding. Denies abdominal pain. Nurses have instructed her on giving her insulin injections. She feels comfortable with this. Blood sugars have improved but not well controlled. Exam Vital signs and Labs for Last 24 Hours: Temp Pulse Resp BP Pulse Ox 97.7 F 71 20 102/54 L 96 12/31/19 04:00 12/31/19 04:00 12/31/19 04:00 12/31/19 04:00 12/31/19 04:00 Laboratory Results - last 24 hr 12/29/19 20:51: POC Glucose > 600 H* 12/30/19 00:23: POC Glucose 526 H* 12/30/19 10:59: POC Glucose 356 H* 12/30/19 13:32: POC Glucose 292 H 12/30/19 15:54: POC Glucose 278 H 12/30/19 20:28: POC Glucose 346 H* 12/31/19 05:30: Sodium 134 L, Potassium 4.6, Chloride 102, Carbon Dioxide 24, Anion Gap 12.6, BUN 26 H D, Creatinine 1.70 H, Estimated Creat Clear 35, Estimated GFR 32 L, Est GFR ( Amer) 39 L, Glucose 325 H, Calcium 8.5 12/31/19 06:01: POC Glucose 348 H* I & O for Last 24 hours: Intake & Output 12/28/19 12/29/19 12/30/19 12/31/19 11:59 11:59 11:59 11:59 Intake Total 1429 / 1429 1220 / 1220 Output Total 2300 / 2300 2600 / 2600 Balance -871 / -871 -1380 / -1380 Weight 275 lb 9.245 oz 279 lb 2 oz Narrative: She is sitting up in the chair, alert and oriented. No respiratory distress. Lungs are clear to auscultation. Heart tones are distant but regular. Abdomen is obese, soft, nondistended with no tenderness. Extremities no edema. Assessment and Plan (1) Uncontrolled type 2 DM with hyperosmolar nonketotic hyperglycemia Current visit: Yes Status: Acute Category: Medical Code(s): E11.00 - Type 2 diabetes mellitus with hyperosmolarity without nonketotic hyperglycemic-hyperosmolar coma (NKHHC) (2) Diabetic acetonemia Current visit: Yes Status: Acute Category: Medical Code(s): E10.10 - Type 1 diabetes mellitus with ketoacidosis without coma (3) Yeast infection Current visit: Yes Status: Acute Category: Medical Code(s): B37.9 - Candidiasis, unspecified (4) Dysphagia Current visit: Yes Status: Acute Category: Medical Code(s): R13.10 - Dysphagia, unspecified (5) Hyponatremia Current visit: Yes Status: Acute Category: Medical Code(s): E87.1 - Hypo-osmolality and hyponatremia (6) Blood in stool Current visit: Yes Status: Acute Category: Medical Code(s): K92.1 - Melena (7) CHF (congestive heart failure) Current visit: No Status: Chronic Category: Medical Code(s): I50.9 - Heart failure, unspecified (8) Diastolic dysfunction Current visit: No Status: Chronic Category: Medical Code(s): I51.89 - Other ill-defined heart diseases (9) Obstructive sleep apnea Current visit: No Status: Chronic Category: Medical Code(s): G47.33 - Obstructive sleep apnea (adult) (pediatric) (10) COPD (chronic obstructive pulmonary disease) Current visit: No Status: Chronic Qualifiers: COPD type: unspecified COPD Qualified Code(s): J44.9 - Chronic obstructive pulmonary disease, unspecified Category: Medical Code(s): J44.9 - Chronic obstructive pulmonary disease, unspecified (11) HTN (hypertension) Current visit: No Status: Chronic Qualifiers: Hypertension type: essential hypertension Qualified Code(s): I10 - Essential (primary) hypertension Category: Medical Code(s): I10 - Essential (primary) hypertension (12) Obesity Current visit: No Status: Chronic Qualifiers: Obesity type: due to excess calories Obesity classification: adult class 3 (BMI >= 40) Serious obesity comorbidity presence: with serious comorbidity Body mass index: BMI 50.0-59.9 Qualified Code(s): E66.01 - Morbid (severe) obesity due to
--- NOTE | 2020-01-04 14:40 | HMH.DCSUM ---
General - General Admission date:: 12/29/19 <Siva Wan - 01/10/20 08:09> 12/29/19 <Abby De La Fuente - 01/04/20 14:47> Discharge date: 12/31/19 <Abby De La Fuente - 01/04/20 14:47> HPI HPI: Ms. Leahy is a 49-year-old female with a history of ASCVD, diabetes, hypertension, CHF, and atrial fibrillation who was just recently discharged from [facility] after an admission for CHF. She states when she was discharged home she had no diabetes medication. Over the last few weeks she has had excessive thirst and has had numbness and tingling in her head and her face. Her vision has been blurry. She states she has had a very sore throat and was seen in the urgent care center. She had a rapid strep test as well as a throat culture and both were negative. She states she was told she probably had strep and was started on Zithromax and prednisone. After she began taking these medications, her symptoms worsened and she also began getting a rash in her vaginal area that spread down onto her legs. She was then seen in the emergency room a few days later and she states she was told she probably scratched her throat on a [employer] from [employer] and would need to follow-up with her primary care physician. No labs were done at that visit. The patient presented to the office today and her sugar was found to be over 500. She has a severe yeast infection and has had blood in her stool for the past 3 days. She was admitted for further evaluation and treatment to rule out DKA. <Abby De La Fuente - 01/04/20 14:47> Hospital Course Hospital Course: Patient was admitted to rule out DKA. She was not acidotic, but her blood was positive for acetone and her glucose was 572. She was hyponatremic and had renal insufficiency and her white blood cell count was slightly elevated. She was started on sliding scale insulin and IV fluids. Dr. Cyr was consulted for the dysphagia and blood in her stool and a swallowing evaluation was ordered. She was given 400 mg of IV Diflucan for her yeast infection and 200 mg IV daily was ordered thereafter. She had a chest x-ray showing some mild prominence of the mediastinum, but it was otherwise negative. She was also started on Lantus as her blood sugars continue to elevate. By 12/30/2019, her glucose was down in the 200s. Her abdominal pain had improved as had the yeast infection. She continued to have blood in her stool. She stated her throat pain had completely resolved, therefore she did not require swallowing evaluation. Her white blood cell count normalized. She did have a stool that was positive for blood. Dr. Cyr saw the patient and performed an EGD with cold biopsies and TTS balloon dilation. He found nonerosive GERD with mild esophageal dysmotility and mild cricopharyngeal spasm. This was dilated to 20 mm. She also had mild gastric dysmotility with bile reflux and mild linear reactive gastropathy. He felt since she was already on omeprazole, he would not add anything further, but would follow-up with the patient on her biopsies. Based on her age and rectal bleeding, he recommended an outpatient diagnostic colonoscopy. The patient was kept overnight and was swallowing much easier after the EGD and dilatation. She had no further rectal bleeding and her abdominal pain completely resolved. She was instructed on giving herself insulin injections and felt comfortable with this. She was stable to be discharged home and was advised to check her blood sugar at least twice a day and bring a diary with her to her follow-up visit. Her H&H was stable but she will follow-up with Dr. Cyr on an outpatient basis for a colonoscopy. <Abby De La Fuente - 01/04/20 14:47> Objective Vital signs: Temp Pulse Resp BP Pulse Ox 97.9 F 66 18 125/54 L 98 12/31/19 08:00 12/31/19 08:00 12/31/19 08:00 12/31/19 08:00 12/31/19 08:00 <Siva Wan - 01/10/20 08:09> T
== END 2019-12-31 09:35 | disposition home or self-care (01) ==
PROVIDERS: Internal Medicine Gastroenterology; Physician Assistant; Admitting Provider Family Medicine; PCP Family Medicine; Visit Provider Family Medicine
PROC: 0DJ08ZZ Inspection of Upper Intestinal Tract, Via Natural or Artificial Opening Endoscopic (ICD-10-PCS; CPT 43235; principal; 2019-12-30 12:30)
DX: K21.9 Gastro-esophageal reflux disease without esophagitis (principal); R13.10 Dysphagia, unspecified; E11.00 Type 2 diabetes mellitus with hyperosmolarity without nonketotic hyperglycemic-hyperosmolar coma (NKHHC); Z79.4 Long term (current) use of insulin; Z79.899 Other long term (current) drug therapy; Z88.0 Allergy status to penicillin; E66.01 Morbid (severe) obesity due to excess calories; Z68.42 Body mass index [BMI] 45.0-49.9, adult; I11.0 Hypertensive heart disease with heart failure; I50.30 Unspecified diastolic (congestive) heart failure; I48.20 Chronic atrial fibrillation, unspecified; K44.9 Diaphragmatic hernia without obstruction or gangrene; K22.2 Esophageal obstruction
CPT/HCPCS: 43239; 43249; 36415; 71046; 80048; 80053; 81001; 82009; 82272; 82803; 82947; 82962; 85025; 87040; 87086; 88305; 88342; C1726; G0328; G0378; J2704

== ENCOUNTER 2020-04-30 14:49 | Emergency (ER) | payer OTHER, SELFPAY ==
[2020-04-30 16:28] LABS: UTC Strep Screen (Rapid) Negative (Negative)
[2020-04-30 16:34] VITALS: BP 105/72; PULSE 81; RESP 20; TEMP 36.9; O2SAT 99; BMI 42.5
--- NOTE | 2020-04-30 16:45 | HMH.EDUTC ---
[facility] Clinical Impression: URI (upper respiratory infection) Qualifiers: URI type: unspecified URI Qualified Code(s): J06.9 - Acute upper respiratory infection, unspecified Sinusitis Qualifiers: Sinusitis location: unspecified location Chronicity: unspecified Qualified Code(s): J32.9 - Chronic sinusitis, unspecified Disposition: Home, Self-Care Condition on Discharge: Good Instructions: Sinusitis, Sinus Headache, DI for Sinusitis, Sore Throat, DI for Cough -- Adult Additional Instructions: *Monitor Temp, Over the counter Motrin or Tylenol as directed/as needed Tylenol every 4 hours and Motrin every 6 hours (as long as your family doctor has told you that you can take it) for fever or pain. and straight to ER if unable to lower temp less than 101.0 after medication given *Warm salt water gargles may help to soothe the throat *Throat Lozenges *Warm fluids like tea with honey may help to soothe the throat *Sleep elevated *Humidifier/Vaporizer *Flonase 2 sprays in each nostril daily but be aware that it may take 2-3 days before you notice improvement Your throat swab was sent for culture. Those results are typically sent to your primary care. Be sure to follow up in 2-3 days with your family doctor/primary care physician if no improvement so they can review those result and treat if necessary. If you don?t have a primary care doctor, I recommend you get one but in the mean time, you will have to return to a walk in clinic Follow up IMMEDIATELY for new or worsening symptoms or no Noticeable improvement over the next 48-72 hours. 911 for difficulty breathing or swallowing Prescriptions: predniSONE [Deltasone 10mg tablet] 10 mg PO BID 5 Days #10 tab Transmission Status: Pending to Clinic [facility] Azithromycin [Z-Wade 250mg Tab] 250 mg PO DIRECTED #6 tab Transmission Status: Pending to Clinic [facility] Referrals: Siva Wan MD [Primary Care Provider] - As needed Time of Disposition: 16:52 Medical Decision Making - Donte Inquiry Pt receiving controlled substance: No Donte was queried for this patient: No Vital Signs: 04/30/20 16:34 Temperature 98.4 F Temperature Source Oral Pulse Rate [Right Brachial] 81 Respiratory Rate 20 Blood Pressure [Right Arm] 105/72 L Blood Pressure Mean [Right Arm] 83 Blood Pressure Source [Right Arm] Automatic Cuff Blood Pressure Position [Right Arm] Sitting 02 Sat by Pulse Oximetry 99 Oxygen Delivery Method Room Air - Lab Data Lab results reviewed: Yes: I reviewed the patient's lab results. Lab Results 04/30/20 16:21: Strep Scn Rapid Clinic Negative Orders (Tests/Meds): ORDERS Category Date Time Status Strep Screen Confirmation Stat Micro 04/30/20 16:21 Received Medical Decision Narrative: Patient states that she has taken azithromycin and prednisone in the past without reactions or complicatioins [facility] [place] - General Stated complaint: cough,SOA Time Seen by Provider: 04/30/20 16:45 Mode of Arrival: Ambulatory Source of Information: Patient Limitations: No Limitations Description of Symptoms (Recalled from Triage Doc. by RN): PATIENT C/O SORE THROAT AND COUGH X2 DAYS HEENT Symptoms (Recalled from RN notes): Yes Resp Symptoms (Recalled from RN notes): Yes Skin Symptoms (Recalled from RN notes): No MS Symptoms (Recalled from RN notes): No Functional Status (Recalled from RN notes): WNL - History of Present Illness Provider Complaint: Patient states that she has been having sore throat and cough for 2 days and feels like it is trying to move into her chest States that she noticed today it was feeling worse and she gets pneumonia and wanted to come in and get checked before it got too bad - Related Data Home Medications Medication Instructions Recorded Confirmed Ipratropium/Albuterol Sulfate 1 puff INHALATION QID 09/15/17 12/29/19 [Combivent Respimat Inh] Omeprazole [Omeprazole 40mg 40 mg PO DAILY
[2020-04-30 16:53] VITALS: BP 105/72; PULSE 81; RESP 20; TEMP 36.9; O2SAT 99
== END 2020-04-30 17:00 | disposition home or self-care (01) ==
PROVIDERS: Emergency Provider Nurse Practitioner; PCP Family Medicine
DX: J06.9 Acute upper respiratory infection, unspecified (principal); J32.9 Chronic sinusitis, unspecified; Z88.0 Allergy status to penicillin; I48.20 Chronic atrial fibrillation, unspecified; J44.9 Chronic obstructive pulmonary disease, unspecified; F33.1 Major depressive disorder, recurrent, moderate; E11.9 Type 2 diabetes mellitus without complications; K21.9 Gastro-esophageal reflux disease without esophagitis; I10 Essential (primary) hypertension; E78.5 Hyperlipidemia, unspecified; I25.2 Old myocardial infarction; F17.210 Nicotine dependence, cigarettes, uncomplicated; Z79.899 Other long term (current) drug therapy
CPT/HCPCS: 87880; 99201

== ENCOUNTER → 2020-07-30 12:46 | Outpatient (CLI) | payer OTHER, SELFPAY ==
--- NOTE | 2020-07-30 13:02 | XR_ITS ---
PROCEDURE: XR CHEST PORTABLE CLINICAL HISTORY: COVID TESTING Cough and shortness of breath COMPARISON: CT CT ANGIO CHEST from 08/27/2019 DX XR CHEST 2V from 08/29/2019 CR XR CHEST 2V from 11/01/2019 CR XR CHEST 2V from 12/29/2019 FINDINGS: The cardiomediastinal silhouette and pulmonary vascularity are within normal limits. The lungs are clear without infiltrates, suspicious nodules, or pleural effusions. No acute bony abnormalities. IMPRESSION: No acute findings. Dictated by: Raman Guerrier MD 07/30/2020 14:26 Raman Guerrier MD in [place] 07/30/2020 14:26
[2020-07-30 14:38] LABS: Basophils # 0.1 K/mm3 (0-0.2); Basophils % 1.2 % (0.1-2.0); Eosinophils # 0.2 K/mm3 (0.0-0.4); Eosinophils % 2.2 % (0.1-12.0); Hematocrit 48.2 % (37.0-47.0); Hemoglobin 15.1 g/dL (12.2-16.2); Lymphocytes # 1.9 K/mm3 (0.7-4.5); Lymphocytes % 24.1 % (10-50); Mean Corpuscular HGB Conc 31.4 g/dL (31.8-35.4); Mean Corpuscular Hemoglobin 29.8 pg (27.0-31.2); Mean Corpuscular Volume 95.1 fl (81-99); Mean Platelet Volume 10.8 fl (7.4-10.4); Monocytes # 0.4 K/mm3 (0.1-1.0); Monocytes % 4.8 % (1.7-9.3); Neutrophils # 5.4 K/mm3 (1.8-7.8); Neutrophils % 67.6 % (37.0-80.0); Platelet Count 334 K/mm3 (142-424); Red Blood Count 5.07 M/mm3 (4.20-5.40)
== END ==
PROVIDERS: PCP Family Medicine; Visit Provider Nurse Practitioner
DX: Z11.52 Encounter for screening for COVID-19 (principal)
CPT/HCPCS: 36415; 71045; 85025; 87275; 87276; U0003

== ENCOUNTER 2020-08-10 15:12 | Inpatient (IN) | payer OTHER, SELFPAY ==
[2020-08-10] VITALS (10 sets, daily range): BP systolic 130–190; BP diastolic 74–107; PULSE 62–120; RESP 16–22; TEMP 36.8–37.1; O2SAT 90–98; BMI 43.6; BMI 41.3
--- NOTE | 2020-08-10 15:21 | HMH.EDGENADL ---
ED Disposition Clinical Impression: Hyperosmolar hyperglycemic state (HHS) Disposition: Admitted As Inpatient Condition on Discharge: Good Referrals: Siva Wan MD [Primary Care Provider] - - Critical Care Critical Care Time: No Attestation: On , the high probability of a clinically significant, sudden or life threatening deterioration of the following system(s) required my full and direct attention, intervention and personal management. The time I documented below is in addition to time spent performing reported procedures but includes the following listed in this critical care notation. Medical Decision Making - Medical Records Medical records reviewed: Yes: I reviewed the patient's medical records. - Donte Inquiry Pt receiving controlled substance: No Vital Signs: 08/10/20 15:14 08/10/20 16:27 Temperature 98.7 F Temperature Source Oral Pulse Rate [Left Radial] 62 92 H Respiratory Rate 18 22 Blood Pressure [Right Arm] 162/96 H 155/102 H Blood Pressure Mean [Right Arm] 118 119 Blood Pressure Source [Right Arm] Automatic Cuff Blood Pressure Position [Right Arm] Sitting 02 Sat by Pulse Oximetry 95 95 Oxygen Delivery Method Room Air - Lab Data Lab Results 08/10/20 15:45: WBC 13.3 H, RBC 5.76 H, Hgb 16.9 H, Hct 51.7 H, MCV 89.7, MCH 29.4, MCHC 32.8, RDW 14.7, Plt Count 421, MPV 9.5, Neut % (Auto) 84.7 H, Lymph % (Auto) 11.1, Gordon % (Auto) 3.2, Eos % (Auto) 0.8, Baso % (Auto) 0.3, Neut # (Auto) 11.3 H, Lymph # (Auto) 1.5, Gordon # (Auto) 0.4, Eos # (Auto) 0.1, Baso # (Auto) 0.0 08/10/20 15:45: Sodium 123 L, Potassium 4.4, Chloride 85 L, Carbon Dioxide 24, Anion Gap 18.4 H, BUN 44 H, Creatinine 1.50 H, Estimated Creat Clear 39, Estimated GFR 37 L, Est GFR ( Amer) 45 L, Glucose , Calcium 10.2, Total Bilirubin 0.7, AST 21, ALT 28, Alkaline Phosphatase 190 H, Troponin I < 0.01, Total Protein 8.2, Albumin 4.4, Globulin 3.8 H, Albumin/Globulin Ratio 1.2 08/10/20 15:45: Urine Color Yellow, Urine Appearance Clear, Urine pH 6.0, Ur Specific [place] <= 1.005, Urine Protein 1+, Urine Glucose (UA) 3+, Urine Ketones Negative, Urine Blood 1+, Urine Nitrate Negative, Urine Bilirubin Negative, Urine Urobilinogen 0.2, Ur Leukocyte Esterase Negative, Urine RBC 10-20, Urine WBC Occasional, Ur Squamous Epith Cells 10-20, Urine Bacteria Trace, Urine Yeast 1+ 08/10/20 15:45: Urine HCG, Qual Negative 08/10/20 15:45: Phosphorus 5.3 H, Magnesium 2.5 H 08/10/20 15:45: Lactate 2.5 H 08/10/20 16:35: VBG pH 7.37, VBG pCO2 35.5, VBG pO2 64.0 H, VBG HCO3 20.2 L, VBG Total CO2 21.3 L, VBG O2 Saturation 92.5 H, VBG Base Excess -5.0 L Result diagrams: 08/10/20 15:45 08/10/20 15:45 Orders (Tests/Meds): ED MEDICATIONS Generic Name Dose Route Start Last Admin Trade Name Freq PRN Reason Stop Dose Admin Azithromycin 500 mg/ Sodium 250 mls @ 250 mls/hr 08/10/20 16:45 Chloride IV 08/24/20 16:44 Q24H THAD Protocol Ceftriaxone Sodium 1 gm/ 50 mls @ 100 mls/hr 08/10/20 16:45 08/10/20 18:02 Sodium Chloride IV 08/24/20 16:44 100 mls/hr Q24H THAD Administration Protocol Sodium Chloride 1,000 mls @ 999 mls/hr 08/10/20 16:45 08/10/20 18:02 Sod Chlor 0.9% 1000ml Bag IV 08/10/20 17:45 999 mls/hr .Q1H1M THAD Administration Sodium Chloride 1,000 mls @ 150 mls/hr 08/10/20 17:30 Sod Chlor 0.9% 1000ml Bag IV 09/09/20 17:29 .Q6H40M THAD Insulin Human Regular 100 unit 101 mls @ 11.636 mls/hr 08/10/20 17:30 / Sodium Chloride IV 09/09/20 17:29 .Q8H41M THAD Protocol 0.1 UNITS/KG/HR Discontinued Medications Generic Name Dose Route Start Last Admin Trade Name Freq PRN Reason Stop Dose Admin Lactated Ringer's 1,000 mls @ 999 mls/hr 08/10/20 16:15 08/10/20 16:07 Lactated Ringer's 1000 Ml Bag IV 08/10/20 17:15 999 mls/hr .Q1H1M THAD Administration ORDERS Category Date Time Status Basic Metabolic Panel Q12H Lab 08/11/20 06:00 Ordered Basic Metab
--- NOTE | 2020-08-10 15:26 | XR_ITS ---
PROCEDURE: XR CHEST PORTABLE CLINICAL HISTORY: cough COMPARISON: CT CT ANGIO CHEST from 08/27/2019 CR XR CHEST 2V from 11/01/2019 CR XR CHEST 2V from 12/29/2019 CR XR CHEST PORTABLE from 07/30/2020 FINDINGS: The cardiomediastinal silhouette and pulmonary vascularity are within normal limits. The lungs are clear without infiltrates, suspicious nodules, or pleural effusions. No acute bony abnormalities. IMPRESSION: No acute findings. Dictated by: Raman Guerrier MD 08/10/2020 16:02 Raman Guerrier MD in [facility] 08/10/2020 16:02
[2020-08-10 16:01] LABS: Microscopic, Urine URINE MICROSCOPIC (MICROSCOPIC)
[2020-08-10 16:02] LABS: Appearance,Urine CLEAR (Clear); Bilirubin,Urine Negative (Negative); Blood, Urine 1+ (Negative); Color,Urine YELLOW (Yellow); Glucose,Urine (UA) 3+ (Negative); Ketones,Urine Negative (Negative); Leukocyte Esterase,Urine Negative (Negative); Nitrate,Urine Negative (Negative); Protein,Urine 1+ (Negative); Specific Gravity, Urine <= 1.005 (1.005-1.030); Urobilinogen,Urine 0.2 EU/dl (0.2)
[2020-08-10 16:04] LABS: Urine Pregnancy, HCG Qual. Negative (Negative)
[2020-08-10 16:08] LABS: Basophils % 0.3 % (0.1-2.0); Eosinophils # 0.1 K/mm3 (0.0-0.4); Eosinophils % 0.8 % (0.1-12.0); Hematocrit 51.7 % (37.0-47.0); Hemoglobin 16.9 g/dL (12.2-16.2); Lymphocytes # 1.5 K/mm3 (0.7-4.5); Lymphocytes % 11.1 % (10-50); Mean Corpuscular HGB Conc 32.8 g/dL (31.8-35.4); Mean Corpuscular Hemoglobin 29.4 pg (27.0-31.2); Mean Corpuscular Volume 89.7 fl (81-99); Mean Platelet Volume 9.5 fl (7.4-10.4); Monocytes # 0.4 K/mm3 (0.1-1.0); Monocytes % 3.2 % (1.7-9.3); Neutrophils # 11.3 K/mm3 (1.8-7.8); Neutrophils % 84.7 % (37.0-80.0); Platelet Count 421 K/mm3 (142-424); Red Blood Count 5.76 M/mm3 (4.20-5.40); Red Cell Distribution Width 14.7 % (11.5-17.5); White Blood Count 13.3 K/mm3 (4.8-10.8)
[2020-08-10 16:16] LABS: Bacteria,Urine Trace /lpf; Chloride 85 mmol/L (98-107); Potassium 4.4 mmoL/L (3.5-5.1); Sodium 123 mmol/L (136-145); WBC,Urine Occasional #/hpf (0-3); Yeast,Urine 1+ /lpf
[2020-08-10 16:19] LABS: Alanine Aminotransferase 28 U/L (12-78); Albumin Level 4.4 g/dl (3.5-5.0); Albumin/Globulin Ratio 1.2 (1.1-1.8); Alkaline Phosphatase 190 U/L (38-126); Anion Gap 18.4 mEq/L (5-15); Aspartate Amino Transferase 21 U/L (14-36); Bilirubin,Total 0.7 mg/dl (0.2-1.3); Blood Urea Nitrogen 44 mg/dl (7-17); Calcium 10.2 mg/dl (8.4-10.2); Carbon Dioxide 24 mmol/L (22.0-30.0); Creatinine Clearance Estimated 39 mL/min (50-200); Estimated Glomerular Filt Rate 37 ml/min (>60); GFR (African American) 45 ML/MIN (>60); Globulin 3.8 g/dL (1.3-3.2); Total Protein,Serum 8.2 g/dl (6.3-8.2)
[2020-08-10 16:36] LABS: Troponin I < 0.01 ng/ml (0.00-0.034)
--- NOTE | 2020-08-10 16:37 | PC.NURSE ---
MD aware of BS of 850.
[2020-08-10 16:51] LABS: Magnesium 2.5 mg/dl (1.6-2.3); Phosphorous 5.3 mg/dl (2.5-4.5)
[2020-08-10 16:54] LABS: Adenovirus,PCR Not Detected (NotDetected); Bordetella Pertussis Not Detected (NotDetected); Chlamydophila Pneumoniae, PCR Not Detected (NotDetected); Coronavirus 19, PCR Not Detected (NotDetected); Coronavirus 229E Not Detected (NotDetected); Coronavirus NL63 Not Detected (NotDetected); Coronavirus OC43 Not Detected (NotDetected); Coronovirus HKU1,PCR Not Detected (NotDetected); Human Metapneumovirus Not Detected (NotDetected); Influenza A, PCR Not Detected (NotDetected); Influenza AH1, 2009 Not Detected (NotDetected); Influenza AH1, PCR Not Detected (NotDetected); Influenza AH3,PCR Not Detected (NotDetected); Influenza B, PCR Not Detected (NotDetected); Mycoplasma Pneumoniae, PCR Not Detected (NotDetected); Parainfluenza 1, PCR Not Detected (NotDetected); Parainfluenza 2, PCR Not Detected (NotDetected); Parainfluenza 3, PCR Not Detected (NotDetected); Parainfluenza 4, PCR Not Detected (NotDetected); Respiratory Syncytial Virus Not Detected (NotDetected); Rhinovirus/Enterovirus Not Detected (NotDetected)
[2020-08-10 17:08] LABS: VBG HCO3 20.2 mmol/L (23-30); VBG Oxygen Saturation 92.5 % (50-70); VBG PCO2 35.5 mmol/L (35-51); VBG PH 7.37 mmol/L (7.31-7.41); VBG Total CO2 21.3 mmol/L (23-27)
[2020-08-10 17:16] LABS: Lactic Acid 2.5 mmol/L (0.7-2.1)
[2020-08-10 18:55] LABS: Chloride 90 mmol/L (98-107)
[2020-08-10 18:56] LABS: Potassium 4.2 mmoL/L (3.5-5.1); Sodium 126 mmol/L (136-145)
--- NOTE | 2020-08-10 18:56 | PC.NURSE ---
report given to Dieter Aguilar RN
[2020-08-10 18:59] LABS: Anion Gap 17.2 mEq/L (5-15); Blood Urea Nitrogen 41 mg/dl (7-17); Calcium 9.7 mg/dl (8.4-10.2); Carbon Dioxide 23 mmol/L (22.0-30.0); Creatinine Clearance Estimated 45 mL/min (50-200); Estimated Glomerular Filt Rate 44 ml/min (>60); GFR (African American) 53 ML/MIN (>60)
[2020-08-10 19:07] LABS: Glucose 659 mg/dl (74-100)
--- NOTE | 2020-08-10 19:10 | PC.NURSE ---
Critical glucose order called from lab and reported to physician
--- NOTE | 2020-08-10 19:12 | PC.NURSE ---
Pt's room air sat at rest = 95%.
[2020-08-10 19:19] LABS: Troponin I < 0.01 ng/ml (0.00-0.034)
--- NOTE | 2020-08-10 19:44 | PC.NURSE ---
Called Tyler in Pharmacy and insulin gtt to be reduced to 5 units/hr and use NS w/ 20 MEQ of K+ for maintenance fluid
--- NOTE | 2020-08-10 20:17 | PC.NURSE ---
patient to floor via wheelchair/
[2020-08-10 21:07] LABS: Reflex Lactic Add Lactic Reflex
[2020-08-10 21:30] LABS: Anion Gap 12.4 mEq/L (5-15); Blood Urea Nitrogen 36 mg/dl (7-17); Calcium 9.5 mg/dl (8.4-10.2); Carbon Dioxide 25 mmol/L (22.0-30.0); Chloride 96 mmol/L (98-107); Creatinine Clearance Estimated 45 mL/min (50-200); Estimated Glomerular Filt Rate 44 ml/min (>60); GFR (African American) 53 ML/MIN (>60); Potassium 3.4 mmoL/L (3.5-5.1); Sodium 130 mmol/L (136-145)
[2020-08-10 21:40] LABS: Glucose 359 mg/dl (74-100); Lactic Acid Follow Up (RFLX 1) 2.2 mmol/L (0.7-2.1)
[2020-08-10 23:00] LABS: POC Glucose,Bedside 368 (70-110)
[2020-08-10 23:00] LABS: POC Glucose,Bedside 323 (70-110)
[2020-08-10 23:00] LABS: POC Glucose,Bedside 273 (70-110)
[2020-08-10 23:06] LABS: Reflex Lactic (2 hrs) Add Lactic Reflex
[2020-08-10 23:26] LABS: Lactic Acid Follow up (RFLX 2) 1.3 mmol/L (0.7-2.1)
[2020-08-11] VITALS (8 sets, daily range): BP systolic 116–179; BP diastolic 58–105; PULSE 68–110; RESP 18–21; TEMP 36.8–36.9; O2SAT 92–98
--- NOTE | 2020-08-11 00:34 | PC.NURSE ---
notified @ 0 that pt HR was maintaining 110s. Pt stated she hadn't taken PO diltiazem today> pt takes 240 mg Diltiazem. also notified of current glucose of 273. Insulin gtt infusing @ 2 units/hr. New orders plced and carried out. Diltiazem 90 mg PO Q 8 hrs. DC insulin gtt. Lantus solostar 40 units HS. ACHS humalog medium intensity SS. Diabetic 1800 calorie diet. Pt Fingerstick was obtained again prior to administration of lantus resulting 323. Pt has had soup, crackers, water and diet soda. She is currently resting in bed at this time. Will continue to monitor.
[2020-08-11 00:48] LABS: POC Glucose,Bedside 323 (70-110)
[2020-08-11 06:24] LABS: POC Glucose,Bedside 304 (70-110)
[2020-08-11 06:32] LABS: POC Glucose,Bedside 544 (70-110)
--- NOTE | 2020-08-11 09:26 | HMH.HP ---
*Admission Date: 08/10/20 *Chief complaint: cough and high sugar *History of present illness: Angeles is a 50-year-old white female with a history of insulin-dependent diabetes, hypertension, hyperlipidemia, chronic atrial fibrillation, and COPD. She was assessed via telehealth visit on 07/30/2020 and treated for acute bronchitis with Zithromax and dexamethasone. Her Covid test was negative. I had a follow-up telehealth visit with her yesterday with persistent complaints of cough and fatigue. Additionally she complained of no taste or smell and reported that her blood sugars were too high for her meter to read at home and she was having excessive thirst and polyuria. I directed her to the emergency room. She was evaluated in the ER and found to have hyperglycemia but was not acidotic. Her chest x-ray was unremarkable. She did have an elevated white blood cell count. Covid serologies were negative. She was admitted last evening and initially started on an insulin drip which has since been discontinued. Her blood sugars have improved but still running high. At the time of my exam this morning she is feeling somewhat better and asks about going home. She is tolerating her diet. She still has some cough and shortness of breath at baseline. [facility] History Medical History: Reports:: Atrial Fibrillation, Congestive Heart Failure, Chronic Obstructive Pulmonary Disease (COPD), Depression, Diabetes Mellitus Type 2, Gastroesophageal Reflux Disease(GERD), Heart Murmur, Hyperlipidemia, Hypertension, Myocardial Infarction Denies:: Cancer, Coronary Artery Disease, MRSA *Have you ever received a pneumonia vaccine?: No *Have you received a flu vaccine this season?: No Other Medical History: Reports: Arthritis, Hoarseness, Sinus Problems, Other (Severe pulmonary hypertension) Other Surgeries: Yes: Cardiac Catheterization, Hysterectomy-Partial Amputation: No Fractures: No - *Social History Smoking Status: Current every day smoker Tobacco Type: cigarettes # Packs/Day (cigarettes): 1 #Yrs smoked (if former smoker): 30 Alcohol Intake: never Substance Use Type: denies use *Occupational Status:: disabled Housing: house Household Members: significant other, children *Travel in the last 8 weeks: None - Psychiatric History Pschychiatric History:: Reports:: Depression Family Hx:: Diabetes, Heart Attack, Hyperlipidemia, Hypertension, Kidney Disease, Stroke Review of Systems - Constitutional Reports fatigue, Reports malaise, Denies weight loss - Eyes Reports blurry vision - ENT Reports dizziness, Reports dry mouth, Reports hoarseness - *Cardiovascular Reports shortness of breath, Denies chest pain, Denies rapid, pounding, or irregular heartbeat, Denies fainting - *Respiratory Reports cough - *Gastrointestinal Denies abdominal pain, Denies change in bowel habits, Denies vomiting - *Genitourinary Reports urinary incontinence, Denies abnormal vaginal bleeding - *Musculoskeletal Reports joint pain - Integumentary/Breasts Denies hair loss, Denies unusual bruising - *Neurologic Denies confusion, Denies seizure-like activity - Psychiatric Reports depression - Endocrine Denies excessive sweating - Hematologic/Lymphatic Denies easy bruising - Allergic/Immunologic Reports seasonal runny nose Meds Home Medications Medication Instructions Recorded Confirmed Type Ipratropium/Albuterol Sulfate 1 puff INHALATION QID 09/15/17 08/10/20 History [Combivent Respimat Inh] Omeprazole [Omeprazole 40mg 40 mg PO DAILY 09/15/17 08/10/20 History Capsule] Fluticasone/Vilanterol [Breo 1 inh INHALATION DAILY 07/15/18 08/10/20 History Ellipta 200-25 Mcg INH] Acetaminophen [Extra Strength 1,000 mg PO DAILY PRN 11/01/19 08/10/20 History Non-Aspirin] Albuterol Sulfate [Ventolin HFA 2 puff INHALATION QID 11/01/19 08/10/20 History Inhaler] Loratadine [Allergy] 10 mg PO DAILY 11/01/19 08/10/20 History Cyclobenzaprine HC
[2020-08-11 11:24] LABS: POC Glucose,Bedside 361 (70-110)
--- NOTE | 2020-08-11 12:27 | HMH.PHAINT ---
MEDICATION RECONCILIATION COMPLETED ON PATIENT USING EXTERNAL FILL HISTORY FROM PHARMACY. -MONICA SANTOS, YORDAND
--- NOTE | 2020-08-11 12:27 | HMH.PHAVTE ---
[facility] Pharmacy VTE Monitoring - Patient Demographics Admission date: 08/10/20 Report Date: 08/11/20 Time: 12:27 Allergies/Adverse Reactions: Patient Allergies Penicillins [PENICILLINS] Allergy (Intermediate, Verified 09/29/19 09:10) I-HIVES VANILLA Allergy (Unknown, Uncoded 09/29/19 09:10) Height: 1.63 m Weight: 109.372 kg Patient Problems: Current Active Problems Diastolic dysfunction (Chronic) Obstructive sleep apnea (Chronic) Pulmonary hypertension (Chronic) Hyponatremia (Acute) Uncontrolled type 2 DM with hyperosmolar nonketotic hyperglycemia (Acute) Chronic renal insufficiency, stage III (moderate) (Acute) Chronic atrial fibrillation (Acute) Hyperosmolar hyperglycemic state (HHS) (Acute) Acute bronchitis (Acute) Hypokalemia (Acute) Tobacco user (Chronic) HTN (hypertension) (Chronic) - VTE Risk Labs: VTE Related Lab Results Hgb 16.9 g/dL (12.2-16.2) H 08/10/20 15:45 Hct 51.7 % (37.0-47.0) H 08/10/20 15:45 Plt Count 421 K/mm3 (142-424) 08/10/20 15:45 BUN 36 mg/dl (7-17) H 08/10/20 21:00 Creatinine 1.30 mg/dl (0.52-1.04) H 08/10/20 21:00 Estimated Creat Clear 45 mL/min (50-200) 08/10/20 21:00 Was VTE Risk Assessment Performed: Yes VTE Risk Level: Moderate Risk - Prophylaxis VTE Prophylaxis Ordered?: Yes Types of VTE Prophylaxis: Pharmacological Pharmacologic Type: Other (XARELTO)
[2020-08-11 16:57] LABS: POC Glucose,Bedside 366 (70-110)
--- NOTE | 2020-08-11 18:30 | PC.NURSE ---
no acute changes. pt has sat in chair most of shift. no complaints voiced. vss. will cont. to monitor.
[2020-08-11 22:40] LABS: POC Glucose,Bedside 327 (70-110)
[2020-08-12] VITALS: BP 127/69; PULSE 70; PULSE 87; RESP 17; TEMP 36.8; O2SAT 98
[2020-08-12 04:00] VITALS: BP 146/74; PULSE 80; PULSE 87; RESP 21; TEMP 36.7; O2SAT 97
[2020-08-12 04:56] VITALS: BMI 42.2
[2020-08-12 06:17] LABS: Basophils # 0.1 K/mm3 (0-0.2); Basophils % 0.7 % (0.1-2.0); Eosinophils # 0.3 K/mm3 (0.0-0.4); Eosinophils % 2.3 % (0.1-12.0); Hematocrit 47.4 % (37.0-47.0); Hemoglobin 15.6 g/dL (12.2-16.2); Lymphocytes # 3.4 K/mm3 (0.7-4.5); Lymphocytes % 29.1 % (10-50); Mean Corpuscular HGB Conc 32.9 g/dL (31.8-35.4); Mean Corpuscular Hemoglobin 28.9 pg (27.0-31.2); Mean Corpuscular Volume 87.8 fl (81-99); Mean Platelet Volume 8.8 fl (7.4-10.4); Monocytes # 0.4 K/mm3 (0.1-1.0); Monocytes % 3.4 % (1.7-9.3); Neutrophils # 7.5 K/mm3 (1.8-7.8); Neutrophils % 64.5 % (37.0-80.0); Platelet Count 256 K/mm3 (142-424); Red Cell Distribution Width 14.8 % (11.5-17.5); White Blood Count 11.6 K/mm3 (4.8-10.8)
[2020-08-12 06:34] LABS: Chloride 106 mmol/L (98-107); Potassium 4.1 mmoL/L (3.5-5.1); Sodium 134 mmol/L (136-145)
[2020-08-12 06:37] LABS: Anion Gap 9.1 mEq/L (5-15); Blood Urea Nitrogen 21 mg/dl (7-17); Carbon Dioxide 23 mmol/L (22.0-30.0); Creatinine Clearance Estimated 53 mL/min (50-200); Estimated Glomerular Filt Rate 53 ml/min (>60); GFR (African American) 64 ML/MIN (>60); Glucose 239 mg/dl (74-100)
[2020-08-12 06:38] LABS: Calcium 8.3 mg/dl (8.4-10.2)
[2020-08-12 07:06] LABS: POC Glucose,Bedside 223 (70-110)
[2020-08-12 08:00] VITALS: BP 141/79; PULSE 81; RESP 20; TEMP 36.8; O2SAT 98
--- NOTE | 2020-08-12 08:35 | HMH.ACPN2 ---
Internal Medicine - PN: Subj *Date: 08/12/20 *Time: 08:35 Interval history: She rested well last night and feels good this morning. She is eager to go home. She denies shortness of breath or cough. Blood sugars have improved but still running a bit high. Exam Vital signs and Labs for Last 24 Hours: Temp Pulse Resp BP Pulse Ox 98.1 F 87 21 146/74 H 97 08/12/20 04:00 08/12/20 04:00 08/12/20 04:00 08/12/20 04:00 08/12/20 04:00 Laboratory Results - last 24 hr 08/11/20 11:18: POC Glucose 361 H* 08/11/20 16:50: POC Glucose 366 H* 08/11/20 21:09: POC Glucose 327 H* 08/12/20 05:40: WBC 11.6 H, RBC 5.40, Hgb 15.6, Hct 47.4 H, MCV 87.8, MCH 28.9, MCHC 32.9, RDW 14.8, Plt Count 256 D, MPV 8.8, Neut % (Auto) 64.5, Lymph % (Auto) 29.1, [place] % (Auto) 3.4, Eos % (Auto) 2.3, Baso % (Auto) 0.7, Neut # (Auto) 7.5, Lymph # (Auto) 3.4, [place] # (Auto) 0.4, Eos # (Auto) 0.3, Baso # (Auto) 0.1 08/12/20 05:40: Sodium 134 L, Potassium 4.1 D, Chloride 106, Carbon Dioxide 23, Anion Gap 9.1, BUN 21 H D, Creatinine 1.10 H, Estimated Creat Clear 53, Estimated GFR 53 L, Est GFR ( Amer) 64 D, Glucose 239 H, Calcium 8.3 L D 08/12/20 06:54: POC Glucose 223 H I & O for Last 24 hours: Intake & Output 08/09/20 08/10/20 08/11/20 08/12/20 11:59 11:59 11:59 11:59 Intake Total 2780 / 2780 1560 / 1560 Output Total 602 / 602 Balance 2780 / 2780 958 / 958 Weight 241 lb 2 oz 247 lb 5 oz Microbiology Reports for the Last 24 Hours: Microbiology 08/10/20 15:45 Urine,Clean Catch Urine Culture - Final Multiple organisms, suggests contamination. Narrative: She is up in the chair. Alert and in no distress. Color is normal. Chest with coarse breath sounds but no rales or wheezes. Heart is irregularly irregular. Abdomen is soft, obese, nondistended and nontender. Extremities with no edema. Assessment and Plan (1) Uncontrolled type 2 DM with hyperosmolar nonketotic hyperglycemia Status: Acute Category: Medical Code(s): E11.00 - Type 2 diabetes mellitus with hyperosmolarity without nonketotic hyperglycemic-hyperosmolar coma (NKHHC) (2) Acute bronchitis Status: Acute Category: Medical Code(s): J20.9 - Acute bronchitis, unspecified (3) Hyponatremia Status: Acute Category: Medical Code(s): E87.1 - Hypo-osmolality and hyponatremia (4) Chronic atrial fibrillation Status: Acute Category: Medical Code(s): I48.20 - Chronic atrial fibrillation, unspecified (5) Diastolic dysfunction Status: Chronic Category: Medical Code(s): I51.89 - Other ill-defined heart diseases (6) HTN (hypertension) Status: Chronic Qualifiers: Hypertension type: essential hypertension Qualified Code(s): I10 - Essential (primary) hypertension Category: Medical Code(s): I10 - Essential (primary) hypertension (7) Obstructive sleep apnea Status: Chronic Category: Medical Code(s): G47.33 - Obstructive sleep apnea (adult) (pediatric) (8) Pulmonary hypertension Status: Chronic Category: Medical Code(s): I27.20 - Pulmonary hypertension, unspecified (9) Tobacco user Status: Chronic Category: Social Hx Code(s): Z72.0 - Tobacco use (10) Chronic renal insufficiency, stage III (moderate) Status: Acute Category: Medical Code(s): N18.3 - Chronic kidney disease, stage 3 (moderate) (11) Hypokalemia Status: Acute Category: Medical Code(s): E87.6 - Hypokalemia - Assessment and plan all Dx Assessment and Plan for all problems:: She is improved and stable for discharge. She will be switched to Novolin 70/30, 30 units twice daily at discharge. Continue Ceftin 500 twice daily for an additional week. Monitor blood sugar at home and follow-up in office in 2 weeks for recheck.
[2020-08-13 08:55] LABS: POC Glucose,Bedside > 600 (70-110)
--- NOTE | 2020-08-13 11:51 | HMH.DCSUM ---
General - General Admission date:: 08/10/20 <Siva Wan - 08/20/20 16:26> 08/10/20 <SudhakarAbby - 08/13/20 11:54> Discharge date: 08/12/20 <SudhakarAbby - 08/13/20 11:54> HPI HPI: Angeles is a 50-year-old white female with a history of insulin-dependent diabetes, hypertension, hyperlipidemia, chronic atrial fibrillation, and COPD. She was assessed via telehealth visit on 07/30/2020 and treated for acute bronchitis with Zithromax and dexamethasone. Her Covid test was negative. I had a follow-up telehealth visit with her yesterday with persistent complaints of cough and fatigue. Additionally she complained of no taste or smell and reported that her blood sugars were too high for her meter to read at home and she was having excessive thirst and polyuria. I directed her to the emergency room. She was evaluated in the ER and found to have hyperglycemia but was not acidotic. Her chest x-ray was unremarkable. She did have an elevated white blood cell count. Covid serologies were negative. She was admitted last evening and initially started on an insulin drip which has since been discontinued. Her blood sugars have improved but still running high. At the time of my exam this morning she is feeling somewhat better and asks about going home. She is tolerating her diet. She still has some cough and shortness of breath at baseline. <Abby De La Fuente - 08/13/20 11:54> Hospital Course Hospital Course: The patient was admitted and started on an IV insulin drip. Her sugars improved and her drip was discontinued. Her electrolytes improved with replacement. She was started on sliding scale insulin and empirically started on IV antibiotics for treatment of her bronchitis. Her white blood cell count improved. By 08/12/2020, she felt good and was eager to go home. She denied any shortness of breath or cough and her blood sugars had improved. Her urine culture showed mixed organisms suggesting contamination. She was switched to Novolin 70/30, 30 units twice daily at discharge and a prescription was sent for Ceftin 500 mg twice daily to take for an additional week. She will monitor her blood sugar at home and follow-up in the office in 2 weeks for recheck. <Abby De La Fuente - 08/13/20 11:54> Objective Vital signs: Temp Pulse Resp BP Pulse Ox 98.2 F 81 20 141/79 H 98 08/12/20 08:00 08/12/20 08:00 08/12/20 08:00 08/12/20 08:00 08/12/20 08:00 <Siva Wan - 08/20/20 16:26> Temp Pulse Resp BP Pulse Ox 98.2 F 81 20 141/79 H 98 08/12/20 08:00 08/12/20 08:00 08/12/20 08:00 08/12/20 08:00 08/12/20 08:00 <Abby De La Fuente - 08/13/20 11:54> Narrative: She is up in the chair. Alert and in no distress. Color is normal. Chest with coarse breath sounds but no rales or wheezes. Heart is irregularly irregular. Abdomen is soft, obese, nondistended and nontender. Extremities with no edema. <Abby De La Fuente - 08/13/20 11:54> Results Labs on day of discharge: Labs from last 24 hours 08/10/20 15:41 POC Glucose > 600 H* Preliminary micro results at discharge 08/10/20 15:45 Blood Culture - Preliminary Blood NO GROWTH AFTER 48 HOURS 08/10/20 15:45 Blood Culture - Preliminary Blood NO GROWTH AFTER 48 HOURS <Abby De La Fuente - 08/13/20 11:54> DS: Diagnosis - Discharge Diagnosis (1) Uncontrolled type 2 DM with hyperosmolar nonketotic hyperglycemia Status: Acute (2) Acute bronchitis Status: Acute (3) Hyponatremia Status: Acute (4) Chronic atrial fibrillation Status: Acute (5) Diastolic dysfunction Status: Chronic (6) HTN (hypertension) Status: Chronic (7) Obstructive sleep apnea Status: Chronic (8) Pulmonary hypertension Status: Chronic (9) Tobacco user Status: Chronic (10) Chronic renal insufficiency, stage III (moderate) Status: Acute (11) Hypokalemia Status: Acute <Ольга De La Fuente
[2020-08-13 13:03] LABS: Glucose 850 mg/dl (74-100)
== END 2020-08-12 10:35 | disposition home or self-care (01) | DRG 638 ==
LOC: ER 18:09 → 2ND 19:37
PROVIDERS: Admitting Provider Family Medicine; Emergency Provider Emergency Medicine; PCP Family Medicine; Visit Provider Family Medicine
DX: E11.00 Type 2 diabetes mellitus with hyperosmolarity without nonketotic hyperglycemic-hyperosmolar coma (NKHHC) (principal); I48.20 Chronic atrial fibrillation, unspecified; I13.0 Hypertensive heart and chronic kidney disease with heart failure and stage 1 through stage 4 chronic kidney disease, or unspecified chronic kidney disease; I50.30 Unspecified diastolic (congestive) heart failure; N18.30 Chronic kidney disease, stage 3 unspecified; I25.2 Old myocardial infarction; I27.20 Pulmonary hypertension, unspecified; Z72.0 Tobacco use; J20.9 Acute bronchitis, unspecified; E87.6 Hypokalemia; G47.33 Obstructive sleep apnea (adult) (pediatric); Z88.0 Allergy status to penicillin; Z88.8 Allergy status to other drugs, medicaments and biological substances; Z79.01 Long term (current) use of anticoagulants; Z79.51 Long term (current) use of inhaled steroids; Z79.4 Long term (current) use of insulin; Z79.899 Other long term (current) drug therapy
CPT/HCPCS: 36415; 71045; 80048; 80053; 81001; 81025; 82803; 82962; 83605; 83735; 83930; 84100; 84484; 85025; 87040; 87086; 87581; 87633; 87798; 96366; 96367; 96374; 99284; J0456; U0003

== ENCOUNTER 2021-04-17 11:21 | Emergency (ER) | payer OTHER, SELFPAY ==
[2021-04-17] VITALS (8 sets, daily range): BP systolic 100–122; BP diastolic 49–70; PULSE 74–127; RESP 16–26; TEMP 36.7–36.8; O2SAT 95–98; BMI 41.1; BMI 49.9; BMI 32.8
[2021-04-17 12:00] LABS: POC Glucose,Bedside 485 (70-110)
--- NOTE | 2021-04-17 12:03 | ECG_ITS ---
APPROVED REPORT Exam: Resting ECG HR:122 bpm ECG Measurements Heart Rate 122 AXES QRSd 98 QRS 9 QT 318 T 236 QTc 453 Conclusion Atrial fibrillation with rapid ventricular response with premature ventricular or aberrantly conducted complexes Septal infarct, age undetermined ST & T wave abnormality, consider inferolateral ischemia or digitalis effect Abnormal ECG Electronically signed by : Tej Fenton MD 04/17/2021 21:08:09
--- NOTE | 2021-04-17 12:06 | XR_ITS ---
PROCEDURE: XR CHEST PORTABLE CLINICAL HISTORY: soa Shortness of air and chest tightness COMPARISON: CT CT ANGIO CHEST from 08/27/2019 CR XR CHEST 2V from 12/29/2019 CR XR CHEST PORTABLE from 07/30/2020 CR XR CHEST PORTABLE from 08/10/2020 FINDINGS: The cardiomediastinal silhouette and pulmonary vascularity are within normal limits. There is increased density in the left lower lung zone which persists on 2 different images. This may be due to soft tissue overlap from the breast. Cannot exclude underlying pneumonia. Upright PA and lateral chest may provide further evaluation. No acute bony abnormalities. IMPRESSION: Increased density left lower lobe possibly due to overlying breast tissue. Cannot exclude pneumonia in this region. Follow-up suggested Dictated by: Raman Guerrier MD 04/17/2021 12:35 Raman Guerrier MD in [place] 04/17/2021 12:35
[2021-04-17 12:32] LABS: Basophils # 0.1 K/mm3 (0-0.2); Basophils % 0.6 % (0.1-2.0); Eosinophils # 0.1 K/mm3 (0.0-0.4); Eosinophils % 0.8 % (0.1-12.0); Hematocrit 44.8 % (37.0-47.0); Hemoglobin 14.5 g/dL (12.2-16.2); Lymphocytes # 1.3 K/mm3 (0.7-4.5); Lymphocytes % 7.8 % (10-50); Mean Corpuscular HGB Conc 32.3 g/dL (31.8-35.4); Mean Corpuscular Hemoglobin 28.9 pg (27.0-31.2); Mean Corpuscular Volume 89.6 fl (81-99); Mean Platelet Volume 8.8 fl (7.4-10.4); Monocytes # 0.6 K/mm3 (0.1-1.0); Monocytes % 3.6 % (1.7-9.3); Neutrophils # 15.1 K/mm3 (1.8-7.8); Neutrophils % 87.3 % (37.0-80.0); Platelet Count 307 K/mm3 (142-424); Red Cell Distribution Width 13.9 % (11.5-17.5); White Blood Count 17.3 K/mm3 (4.8-10.8)
[2021-04-17 12:36] LABS: MANUAL DIFFERENTIAL MANUAL DIFFERENTIAL (MANUAL DIFF)
[2021-04-17 12:38] LABS: Alanine Aminotransferase 17 U/L (12-78); Albumin Level 3.9 g/dl (3.5-5.0); Albumin/Globulin Ratio 1.1 (1.1-1.8); Alkaline Phosphatase 128 U/L (38-126); Anion Gap 16.4 mEq/L (5-15); Aspartate Amino Transferase 18 U/L (14-36); Bilirubin,Total 0.8 mg/dl (0.2-1.3); Blood Urea Nitrogen 15 mg/dl (7-17); Calcium 9.4 mg/dl (8.4-10.2); Carbon Dioxide 21 mmol/L (22.0-30.0); Chloride 97 mmol/L (98-107); Creatinine Clearance Estimated 92 mL/min (50-200); Estimated Glomerular Filt Rate 53 ml/min (>60); GFR (African American) 64 ML/MIN (>60); Globulin 3.6 g/dL (1.3-3.2); Magnesium 1.9 mg/dl (1.6-2.3); Potassium 4.4 mmoL/L (3.5-5.1); Sodium 130 mmol/L (136-145); Total Protein,Serum 7.5 g/dl (6.3-8.2)
[2021-04-17 12:51] LABS: Glucose 516 mg/dl (74-100); Troponin I < 0.01 ng/ml (0.00-0.034)
--- NOTE | 2021-04-17 13:04 | PC.NURSE ---
MARY Silverio took critical BS. Reported to MD. Repeated and verified it with lab personnel
[2021-04-17 13:07] LABS: Lymphocytes % 9 % (10-50); Monocytes % 6 % (2-9); Neutrophils % 85 % (42-76); Platelet Estimate Normal; RBC Morphology Normal; Total Cells Counted 100
[2021-04-17 13:09] LABS: Thyroid Stimulating Hormone 1.19 uIU/mL (0.465-4.68)
--- NOTE | 2021-04-17 13:14 | HMH.EDGENADL ---
ED Disposition Clinical Impression: Abscess, Chronic atrial fibrillation Disposition: Home, Self-Care Condition on Discharge: Good Additional Instructions: Return the emergency department for worsening difficulty breathing or any other concerns within 8 hours otherwise follow-up with your primary care physician. If the abscessed area continues to worsen take antibiotics by return to emergency room for possible repeat drainage Referrals: Siva Wan MD [Primary Care Provider] - - Critical Care Critical Care Time: No Attestation: On 04/17/21, the high probability of a clinically significant, sudden or life threatening deterioration of the following system(s) required my full and direct attention, intervention and personal management. The time I documented below is in addition to time spent performing reported procedures but includes the following listed in this critical care notation. Medical Decision Making - Medical Records Medical records reviewed: Yes: I reviewed the patient's medical records. - Donte Inquiry Pt receiving controlled substance: No Vital Signs: 04/17/21 11:22 04/17/21 11:29 04/17/21 11:43 Temperature 98.2 F 98.1 F 98.1 F Temperature Source Oral Oral Oral Pulse Rate Pulse Rate [Right] 127 H 74 118 H Respiratory Rate 16 16 20 Blood Pressure Blood Pressure [Right Arm] 120/70 105/70 L Blood Pressure Mean Blood Pressure Mean [Right Arm] 86 81 Blood Pressure Source [Right Arm] Automatic Cuff Automatic Cuff Blood Pressure Position [Right Arm] Sitting Supine 02 Sat by Pulse Oximetry 98 98 98 Oxygen Delivery Method Room Air Room Air Room Air Oxygen Flow Rate (LPM) 04/17/21 12:44 04/17/21 13:00 04/17/21 13:30 Temperature Temperature Source Pulse Rate 105 H 103 H 103 H Pulse Rate [Right] Respiratory Rate 26 H 16 18 Blood Pressure 120/63 117/54 L 100/49 L Blood Pressure [Right Arm] Blood Pressure Mean 70 63 66 Blood Pressure Mean [Right Arm] Blood Pressure Source [Right Arm] Blood Pressure Position [Right Arm] 02 Sat by Pulse Oximetry 96 95 96 Oxygen Delivery Method Nasal Cannula Nasal Cannula Oxygen Flow Rate (LPM) 2 2 04/17/21 13:45 Temperature Temperature Source Pulse Rate 102 H Pulse Rate [Right] Respiratory Rate Blood Pressure Blood Pressure [Right Arm] Blood Pressure Mean Blood Pressure Mean [Right Arm] Blood Pressure Source [Right Arm] Blood Pressure Position [Right Arm] 02 Sat by Pulse Oximetry Oxygen Delivery Method Oxygen Flow Rate (LPM) - Lab Data Lab Results 04/17/21 11:53: POC Glucose 485 H* 04/17/21 12:23: WBC 17.3 H, RBC 5.00, Hgb 14.5, Hct 44.8, MCV 89.6, MCH 28.9, MCHC 32.3, RDW 13.9, Plt Count 307, MPV 8.8, Neut % (Auto) 87.3 H, Lymph % (Auto) 7.8 L, [place] % (Auto) 3.6, Eos % (Auto) 0.8, Baso % (Auto) 0.6, Neut # (Auto) 15.1 H, Lymph # (Auto) 1.3, [place] # (Auto) 0.6, Eos # (Auto) 0.1, Baso # (Auto) 0.1, Total Counted 100, Neutrophils % (Manual) 85 H, Lymphocytes % (Manual) 9 L, Monocytes % (Manual) 6, Platelet Estimate Normal, RBC Morphology Normal 04/17/21 12:23: Sodium 130 L, Potassium 4.4, Chloride 97 L, Carbon Dioxide 21 L, Anion Gap 16.4 H, BUN 15, Creatinine 1.10 H, Estimated Creat Clear 92, Estimated GFR 53 L, Est GFR ( Amer) 64, Glucose 516 H*, Calcium 9.4, Magnesium 1.9, Total Bilirubin 0.8, AST 18, ALT 17, Alkaline Phosphatase 128 H, Troponin I < 0.01, Total Protein 7.5, Albumin 3.9, Globulin 3.6 H, Albumin/Globulin Ratio 1.1, TSH 1.19 Result diagrams: 04/17/21 12:23 04/17/21 12:23 Orders (Tests/Meds): ED MEDICATIONS Generic Name Dose Route Start Last Admin Trade Name Freq PRN Reason Stop Dose Admin Albuterol/Ipratropium 3 ml 04/17/21 13:30 04/17/21 13:45 Ipratropium/Albuterol 3 Ml Neb IH 05/17/21 13:29 3 ml Q1H THAD Administration Discontinued Medications Generic Name Dose Route Start Last Admin Trade Name Freq PRN Reason Stop Dose Admin Acetaminophen
--- NOTE | 2021-04-17 14:05 | PC.NURSE ---
pt up to restroom
== END 2021-04-17 15:10 | disposition home or self-care (01) ==
LOC: UTC 11:35 → ER 12:02
PROVIDERS: Nurse Practitioner Family; Emergency Provider Emergency Medicine; PCP Family Medicine
DX: L02.31 Cutaneous abscess of buttock (principal); I48.20 Chronic atrial fibrillation, unspecified; N76.0 Acute vaginitis; K21.9 Gastro-esophageal reflux disease without esophagitis; J44.9 Chronic obstructive pulmonary disease, unspecified; I25.2 Old myocardial infarction; F17.210 Nicotine dependence, cigarettes, uncomplicated; Z88.0 Allergy status to penicillin; Z79.899 Other long term (current) drug therapy
CPT/HCPCS: 10060; 71045; 80053; 82962; 83735; 84443; 84484; 85007; 85025; 93005; 96374; 99283

== ENCOUNTER 2021-04-19 22:59 | Inpatient (IN) | payer OTHER, SELFPAY ==
[2021-04-19 23:00] VITALS: BP 107/65; PULSE 85; RESP 16; TEMP 37.5; O2SAT 96; BMI 39.1
[2021-04-19 23:50] LABS: Basophils # 0.1 K/mm3 (0-0.2); Basophils % 0.8 % (0.1-2.0); Eosinophils # 0.1 K/mm3 (0.0-0.4); Eosinophils % 0.6 % (0.1-12.0); Hematocrit 45.5 % (37.0-47.0); Hemoglobin 14.7 g/dL (12.2-16.2); Lymphocytes # 1.6 K/mm3 (0.7-4.5); Lymphocytes % 11.3 % (10-50); Mean Corpuscular HGB Conc 32.3 g/dL (31.8-35.4); Mean Corpuscular Hemoglobin 29.4 pg (27.0-31.2); Mean Platelet Volume 8.8 fl (7.4-10.4); Monocytes # 0.8 K/mm3 (0.1-1.0); Monocytes % 5.4 % (1.7-9.3); Neutrophils # 11.3 K/mm3 (1.8-7.8); Neutrophils % 81.8 % (37.0-80.0); Platelet Count 368 K/mm3 (142-424); Red Cell Distribution Width 14.3 % (11.5-17.5); White Blood Count 13.9 K/mm3 (4.8-10.8)
[2021-04-19 23:59] LABS: Alanine Aminotransferase 16 U/L (12-78); Albumin Level 3.8 g/dl (3.5-5.0); Alkaline Phosphatase 137 U/L (38-126); Anion Gap 18.2 mEq/L (5-15); Aspartate Amino Transferase 17 U/L (14-36); Bilirubin,Total 0.5 mg/dl (0.2-1.3); Blood Urea Nitrogen 15 mg/dl (7-17); Calcium 9.5 mg/dl (8.4-10.2); Carbon Dioxide 20 mmol/L (22.0-30.0); Chloride 96 mmol/L (98-107); Creatinine Clearance Estimated 100 mL/min (50-200); Estimated Glomerular Filt Rate 53 ml/min (>60); GFR (African American) 64 ML/MIN (>60); Globulin 3.9 g/dL (1.3-3.2); Potassium 4.2 mmoL/L (3.5-5.1); Sodium 130 mmol/L (136-145); Total Protein,Serum 7.7 g/dl (6.3-8.2)
[2021-04-20] VITALS (24 sets, daily range): BP systolic 96–157; BP diastolic 54–82; PULSE 76–131; RESP 12–20; TEMP 36.8–38.1; O2SAT 92–100; BMI 393034.6
[2021-04-20] LABS: Lactic Acid 1.3 mmol/L (0.7-2.1)
[2021-04-20 00:01] LABS: Glucose 494 mg/dl (74-100)
[2021-04-20 00:18] LABS: Procalcitonin 0.267 ng/mL (0.0-2.0)
[2021-04-20 00:23] LABS: Erythrocyte Sedimentation Rate 34 mm/hr (0-20)
--- NOTE | 2021-04-20 00:40 | HMH.EDSKAF ---
ED Disposition Clinical Impression: Diastolic dysfunction, SIRS (systemic inflammatory response syndrome) Abscess of skin or subcutaneous tissue Qualifiers: Site of cutaneous abscess: buttock Qualified Code(s): L02.31 - Cutaneous abscess of buttock Diabetes mellitus Qualifiers: Diabetes mellitus type: type 1 Diabetes mellitus complication status: with other specified complication Qualified Code(s): E10.69 - Type 1 diabetes mellitus with other specified complication Disposition: Admitted As Inpatient Condition on Discharge: Good - Critical Care Critical Care Time: No Attestation: On 04/19/21, the high probability of a clinically significant, sudden or life threatening deterioration of the following system(s) required my full and direct attention, intervention and personal management. The time I documented below is in addition to time spent performing reported procedures but includes the following listed in this critical care notation. Medical Decision Making - Medical Records Medical records reviewed: Yes: I reviewed the patient's medical records. - Donte Inquiry Pt receiving controlled substance: No Vital Signs: 04/19/21 23:00 Temperature 99.5 F Temperature Source Oral Pulse Rate [Right] 85 Respiratory Rate 16 Blood Pressure [Right Arm] 107/65 L Blood Pressure Mean [Right Arm] 79 02 Sat by Pulse Oximetry 96 - Lab Data Lab results reviewed: Yes: I reviewed the patient's lab results. Lab Results 04/19/21 23:40: WBC 13.9 H, RBC 5.00, Hgb 14.7, Hct 45.5, MCV 91.0, MCH 29.4, MCHC 32.3, RDW 14.3, Plt Count 368, MPV 8.8, Neut % (Auto) 81.8 H, Lymph % (Auto) 11.3, [place] % (Auto) 5.4, Eos % (Auto) 0.6, Baso % (Auto) 0.8, Neut # (Auto) 11.3 H, Lymph # (Auto) 1.6, [place] # (Auto) 0.8, Eos # (Auto) 0.1, Baso # (Auto) 0.1, ESR 34 H 04/19/21 23:40: Sodium 130 L, Potassium 4.2, Chloride 96 L, Carbon Dioxide 20 L, Anion Gap 18.2 H, BUN 15, Creatinine 1.10 H, Estimated Creat Clear 100, Estimated GFR 53 L, Est GFR ( Amer) 64, Glucose 494 H*, Calcium 9.5, Total Bilirubin 0.5, AST 17, ALT 16, Alkaline Phosphatase 137 H, C-Reactive Protein 239.0 H, Total Protein 7.7, Albumin 3.8, Globulin 3.9 H, Albumin/Globulin Ratio 1.0 L, Procalcitonin 0.267 04/19/21 23:40: Lactate 1.3 04/19/21 23:40: Acetone Level None detected 04/20/21 01:03: SARS-CoV-2 (PCR) Not detected, Influenza A Untype (PCR) Not detected, Influenza Type B (PCR) Not detected Result diagrams: 04/19/21 23:40 04/19/21 23:40 Orders (Tests/Meds): ED MEDICATIONS Generic Name Dose Route Start Last Admin Trade Name Freq PRN Reason Stop Dose Admin Sodium Chloride 1,000 mls @ 999 mls/hr 04/19/21 23:45 04/19/21 23:57 Sod Chlor 0.9% 1000ml Bag IV 04/20/21 00:45 999 mls/hr .Q1H1M THAD Administration Vancomycin HCl 2,000 mg/ 250 mls @ 125 mls/hr 04/20/21 01:15 04/20/21 01:14 Sodium Chloride IV 04/20/21 03:14 125 mls/hr ONCE ONE Administration Discontinued Medications Generic Name Dose Route Start Last Admin Trade Name Freq PRN Reason Stop Dose Admin Ketorolac Tromethamine 30 mg 04/19/21 23:51 04/19/21 23:57 Ketorolac 30mg/Ml Vial IV 04/19/21 23:52 30 mg ONCE ONE Administration ORDERS Category Date Time Status Blood Culture Stat Micro 04/19/21 23:40 Received - Physician Consults Physician Consulted: shalom Reason -: Admission Medical Decision Narrative: has abscess and sirs and failed outpt treatment and will need to be admitted and surg consult Skin/Abscess/FB HPI - General Chief complaint: Skin/Abscess/Foreign Body Stated complaint: Bug on butt Time Seen by Provider: 04/20/21 00:00 Mode of Arrival: Ambulatory Source of Information: Patient, Medical Record Limitations: No Limitations Description of Symptoms (Recalled from ER Triage Doc. by RN): pt c/o left buttock abcess that showed up 4 days ago - History of Present Illness HPI narrative: pt with pain and drainage from gluteal area - was se
[2021-04-20 00:56] LABS: Acetone, Serum (Rapid) None Detected (None Detect)
--- NOTE | 2021-04-20 01:01 | PC.NURSE ---
[place] on phone with dr rausch
[2021-04-20 01:19] LABS: Coronavirus 19, PCR Not Detected (NotDetected); Influenza A, PCR Not Detected (NotDetected); Influenza B, PCR Not Detected (NotDetected)
--- NOTE | 2021-04-20 02:12 | PC.NURSE ---
pt currently boarding in ER due to no beds available. pt resting voiced no c/o, call light within reach
--- NOTE | 2021-04-20 03:24 | PC.NURSE ---
pt resting. call light within reach
--- NOTE | 2021-04-20 04:20 | PC.NURSE ---
pt sleeping VSS normal, call light withong reach
--- NOTE | 2021-04-20 05:20 | PC.NURSE ---
pt ambulated to BR @ this time. pt voiced no c/o call light within reach
[2021-04-20 06:13] LABS: POC Glucose,Bedside 334 (70-110)
--- NOTE | 2021-04-20 06:15 | PC.NURSE ---
AM labs obtained @ this time. med surg [employer] freight [employer] notified of senior management consultant surgery consult
[2021-04-20 06:18] LABS: Basophils # 0.1 K/mm3 (0-0.2); Basophils % 0.9 % (0.1-2.0); Eosinophils # 0.2 K/mm3 (0.0-0.4); Eosinophils % 1.3 % (0.1-12.0); Hematocrit 42.3 % (37.0-47.0); Hemoglobin 13.8 g/dL (12.2-16.2); Lymphocytes % 15.2 % (10-50); Mean Corpuscular HGB Conc 32.5 g/dL (31.8-35.4); Mean Corpuscular Volume 89.3 fl (81-99); Mean Platelet Volume 8.5 fl (7.4-10.4); Monocytes # 0.8 K/mm3 (0.1-1.0); Monocytes % 6.2 % (1.7-9.3); Neutrophils # 10.2 K/mm3 (1.8-7.8); Neutrophils % 76.5 % (37.0-80.0); Platelet Count 321 K/mm3 (142-424); Red Blood Count 4.74 M/mm3 (4.20-5.40); Red Cell Distribution Width 14.4 % (11.5-17.5); White Blood Count 13.4 K/mm3 (4.8-10.8)
[2021-04-20 06:31] LABS: Anion Gap 11.6 mEq/L (5-15); Blood Urea Nitrogen 16 mg/dl (7-17); Calcium 8.8 mg/dl (8.4-10.2); Carbon Dioxide 23 mmol/L (22.0-30.0); Chloride 102 mmol/L (98-107); Creatinine Clearance Estimated 110 mL/min (50-200); Estimated Glomerular Filt Rate 59 ml/min (>60); GFR (African American) 71 ML/MIN (>60); Glucose 340 mg/dl (74-100); Potassium 3.6 mmoL/L (3.5-5.1); Sodium 133 mmol/L (136-145)
--- NOTE | 2021-04-20 07:40 | PC.NURSE ---
Dr. Bennett notified on consult
--- NOTE | 2021-04-20 07:56 | PC.NURSE ---
Notified resp need for duoneb
--- NOTE | 2021-04-20 08:00 | PC.NURSE ---
Received report from MARY Cifuentes. Pt remains NPO at this due to surgery consult. No needs at this time.
--- NOTE | 2021-04-20 08:05 | HMH.PHACONS ---
- Pharmacy Consult Date: 04/20/21 Time: 08:05 Referring provider: ALFONSO Reason for Consult:: VANCOMYCIN DOSING CONSULT Allergies and ADEs:: Allergies Allergy/AdvReac Type Severity Reaction Status Date / Time Penicillins [PENICILLINS] Allergy Intermediate I-HIVES Verified 09/29/19 09:10 VANILLA Allergy Unknown Uncoded 09/29/19 09:10 Home Medications:: Home Medications Medication Instructions Recorded Confirmed Type Ipratropium/Albuterol Sulfate 1 puff IH QID 09/15/17 04/20/21 History [Combivent Respimat Inh] Omeprazole [Omeprazole 40mg 40 mg PO DAILY 09/15/17 04/20/21 History Capsule] Fluticasone/Vilanterol [Breo 1 puff IH DAILY 07/15/18 04/20/21 History Ellipta 200-25 Mcg INH] Acetaminophen [Extra Strength 1,000 mg PO DAILYP PRN 11/01/19 04/20/21 History Non-Aspirin] Albuterol Sulfate [Ventolin HFA 2 puff IH Q6HP PRN 11/01/19 04/20/21 History Inhaler] Furosemide [Lasix 40mg tablet] 40 mg PO BID 12/29/19 04/20/21 History Metoprolol Succinate [Metoprolol 50 mg PO DAILY 12/29/19 04/20/21 History Succinate 50mg Tablet*] Rivaroxaban [Xarelto 15mg tablet] 15 mg PO QPMWM 12/29/19 04/20/21 History Spironolactone [Aldactone 25mg 25 mg PO BID 12/29/19 04/20/21 History Tab] dilTIAZem HCl [Diltiazem 240mg 240 mg PO DAILY 12/29/19 04/20/21 History 24Hr ER Cap] Insulin Glargine,Hum.rec.anlog 40 unit SQ HS 08/10/20 04/20/21 History [Lantus Solostar 100 Units/mL 3mL flexpen] Cetirizine HCl 10 mg PO DAILY 08/11/20 04/20/21 History Cyclobenzaprine HCl 5 mg PO HS 08/11/20 04/20/21 History [Cyclobenzaprine 5mg Tab*] Losartan Potassium [Cozaar 100mg 100 mg PO DAILY 08/11/20 04/20/21 History Tablets] Doxycycline Monohydrate 100 mg PO BID 04/20/21 04/20/21 History Insulin NPH Hum/Reg Insulin Hm 30 unit SQ BID 04/20/21 04/20/21 History [Novolin 70-30 Flexpen] Height: 1.63 m Weight: 103.419 kg Laboratory Results:: Laboratory Results - last 24 hr 04/19/21 23:40: WBC 13.9 H, RBC 5.00, Hgb 14.7, Hct 45.5, MCV 91.0, MCH 29.4, MCHC 32.3, RDW 14.3, Plt Count 368, MPV 8.8, Neut % (Auto) 81.8 H, Lymph % (Auto) 11.3, Potter % (Auto) 5.4, Eos % (Auto) 0.6, Baso % (Auto) 0.8, Neut # (Auto) 11.3 H, Lymph # (Auto) 1.6, Potter # (Auto) 0.8, Eos # (Auto) 0.1, Baso # (Auto) 0.1, ESR 34 H 04/19/21 23:40: Sodium 130 L, Potassium 4.2, Chloride 96 L, Carbon Dioxide 20 L, Anion Gap 18.2 H, BUN 15, Creatinine 1.10 H, Estimated Creat Clear 100, Estimated GFR 53 L, Est GFR ( Amer) 64, Glucose 494 H*, Calcium 9.5, Total Bilirubin 0.5, AST 17, ALT 16, Alkaline Phosphatase 137 H, C-Reactive Protein 239.0 H, Total Protein 7.7, Albumin 3.8, Globulin 3.9 H, Albumin/Globulin Ratio 1.0 L, Procalcitonin 0.267 04/19/21 23:40: Lactate 1.3 04/19/21 23:40: Acetone Level None detected 04/20/21 01:03: SARS-CoV-2 (PCR) Not detected, Influenza A Untype (PCR) Not detected, Influenza Type B (PCR) Not detected 04/20/21 06:07: POC Glucose 334 H* 04/20/21 06:08: WBC 13.4 H, RBC 4.74, Hgb 13.8, Hct 42.3, MCV 89.3, MCH 29.0, MCHC 32.5, RDW 14.4, Plt Count 321, MPV 8.5, Neut % (Auto) 76.5, Lymph % (Auto) 15.2, Potter % (Auto) 6.2, Eos % (Auto) 1.3, Baso % (Auto) 0.9, Neut # (Auto) 10.2 H, Lymph # (Auto) 2.0, Potter # (Auto) 0.8, Eos # (Auto) 0.2, Baso # (Auto) 0.1 04/20/21 06:08: Sodium 133 L, Potassium 3.6, Chloride 102, Carbon Dioxide 23, Anion Gap 11.6, BUN 16, Creatinine 1.00, Estimated Creat Clear 110, Estimated GFR 59, Est GFR ( Amer) 71, Glucose 340 H D, Calcium 8.8, Magnesium 2.0 Medical History: Reports:: Arrhythmia, Atrial Fibrillation, Congestive Heart Failure, Chronic Obstructive Pulmonary Disease (COPD), Depression, Diabetes Mellitus Type 1, Diabetes Mellitus Type 2, Gastroesophageal Reflux Disease(GERD), Heart Murmur, Hyperlipidemia, Hypertension, Myocardial Infarction Denies:: Cancer, Coronary Artery Disease, MRSA Assessment and Plan - Assessment and plan all Dx Assessment and Plan for all problems::
--- NOTE | 2021-04-20 08:55 | HMH.GSCON ---
*Admission Date: 04/19/21 *Reason for consult:: Gluteal abscess *History of present illness: Patient is a 51-year-old female with history of insulin-dependent diabetes, hypertension, hyperlipidemia, chronic atrial fibrillation on Xarelto, COPD. She had developed a skin abscess on the buttock several days ago. This progressed and she presented to the emergency department on Thursday04/17/2021. Evaluation at that time included blood work and chest x-ray. She was found to have elevated white blood cell count (17,000) and blood sugar (516). There was a question of left lower lobe pneumonia on chest x-ray. She did undergo limited incision and drainage of the area on the right by the ER physician and managed as an outpatient. However she had progression of soft tissue infection and presented back to the emergency department yesterday evening on 04/19/2021. She states that she has tenderness in the left. She was admitted for inpatient management. Review of Systems - Review of Systems Review of systems:: pertinent systems reviewed and negative unless documented below - *Neurologic Denies headache(s), Denies seizure-like activity [facility] History Medical History: Reports:: Arrhythmia, Atrial Fibrillation, Congestive Heart Failure, Chronic Obstructive Pulmonary Disease (COPD), Depression, Diabetes Mellitus Type 1, Diabetes Mellitus Type 2, Gastroesophageal Reflux Disease(GERD), Heart Murmur, Hyperlipidemia, Hypertension, Myocardial Infarction Denies:: Cancer, Coronary Artery Disease, MRSA *Have you ever received a pneumonia vaccine?: No *Have you received a flu vaccine this season?: No Other Medical History: Reports: Arthritis, Hoarseness, Sinus Problems, Other (Severe pulmonary hypertension) Other Surgeries: Yes: Cardiac Catheterization, Coronary Stent, Hysterectomy-Total, Hysterectomy-Partial, Other Amputation: No Fractures: No - *Social History Smoking Status: Current every day smoker Tobacco Type: cigarettes # Packs/Day (cigarettes): 1 #Yrs smoked (if former smoker): 30 Alcohol Intake: never Substance Use Type: denies use *Occupational Status:: unemployed Housing: house Household Members: significant other, children *Travel in the last 8 weeks: None - Psychiatric History Pschychiatric History:: Reports:: Depression Family Hx:: Diabetes, Heart Attack, Hyperlipidemia, Hypertension, Kidney Disease, Stroke Meds Home Medications Medication Instructions Recorded Confirmed Type Ipratropium/Albuterol Sulfate 1 puff IH QID 09/15/17 04/20/21 History [Combivent Respimat Inh] Omeprazole [Omeprazole 40mg 40 mg PO DAILY 09/15/17 04/20/21 History Capsule] Fluticasone/Vilanterol [Breo 1 puff IH DAILY 07/15/18 04/20/21 History Ellipta 200-25 Mcg INH] Acetaminophen [Extra Strength 1,000 mg PO DAILYP PRN 11/01/19 04/20/21 History Non-Aspirin] Albuterol Sulfate [Ventolin HFA 2 puff IH Q6HP PRN 11/01/19 04/20/21 History Inhaler] Furosemide [Lasix 40mg tablet] 40 mg PO BID 12/29/19 04/20/21 History Metoprolol Succinate [Metoprolol 50 mg PO DAILY 12/29/19 04/20/21 History Succinate 50mg Tablet*] Rivaroxaban [Xarelto 15mg tablet] 15 mg PO QPMWM 12/29/19 04/20/21 History Spironolactone [Aldactone 25mg 25 mg PO BID 12/29/19 04/20/21 History Tab] dilTIAZem HCl [Diltiazem 240mg 240 mg PO DAILY 12/29/19 04/20/21 History 24Hr ER Cap] Insulin Glargine,Hum.rec.anlog 40 unit SQ HS 08/10/20 04/20/21 History [Lantus Solostar 100 Units/mL 3mL flexpen] Cetirizine HCl 10 mg PO DAILY 08/11/20 04/20/21 History Cyclobenzaprine HCl 5 mg PO HS 08/11/20 04/20/21 History [Cyclobenzaprine 5mg Tab*] Losartan Potassium [Cozaar 100mg 100 mg PO DAILY 08/11/20 04/20/21 History Tablets] Doxycycline Monohydrate 100 mg PO BID 04/20/21 04/20/21 History Insulin NPH Hum/Reg Insulin Hm 30 unit SQ BID 04/20/21 04/20/21 History [Novolin 70-30 Flexpen] Allergies Allergy/AdvReac Type Severity Reaction Status D
--- NOTE | 2021-04-20 09:01 | PC.NURSE ---
Called report to [facility]. Advises someone would be down to get pt.
--- NOTE | 2021-04-20 09:17 | PC.NURSE ---
pt arrived to the floor at this time
--- NOTE | 2021-04-20 10:10 | PC.NURSE ---
Pt leaving floor at this time for surgery
--- NOTE | 2021-04-20 10:46 | HMH.OPNOTE ---
Date of procedure: 04/20/21 Pre-op Diagnosis:: Perirectal abscess Post-op Diagnosis:: Same Procedure performed:: Incision and drainage of complex perirectal abscess Surgeon:: Enrique Bennett MD FORM GRADER OPERATOR:: Andrade Magana Anesthesia: LMA Estimated blood loss (mL): 10 Clinical Note:: Patient is a 51-year-old female with history of insulin-dependent diabetes, hypertension, hyperlipidemia, chronic atrial fibrillation on Xarelto, COPD, nonflow limiting coronary artery disease with preserved ejection fraction, pulmonary hypertension. She had developed a skin abscess on the buttock several days ago. She attributes this to purchasing a couple of used wheelchairs and she states that when she sat in 1 she fell to pinch and wonders if she was bitten by something. This progressed and she presented to the emergency department on Thursday04/17/2021. Evaluation at that time included blood work and chest x-ray. She was found to have elevated white blood cell count (17,000) and blood sugar (516). There was a question of left lower lobe pneumonia on chest x-ray. She did undergo limited incision and drainage of the area on the right by the ER physician and managed as an outpatient. However she had progression of soft tissue infection and presented back to the emergency department yesterday evening on 04/19/2021. She states that she has tenderness in the left. She was admitted for inpatient management. Surgical consultation was obtained this morning. Patient was seen and examined. She had what appeared to be perirectal abscess. Plan was made for incision and drainage. Operative findings:: Consistent with complex left anterior lateral perirectal abscess. There was a large amount of thick brown-greenish pus Operative note:: Patient was taken to the operating room. She was positioned supine position. General anesthesia was induced via LMA. She was then repositioned in lithotomy position. The area was prepped and draped in the standard surgical fashion. She had an area of induration and mild fluctuance in the left anterior lateral perianal location. Limited incision was made. There was some bloody pus which exuded from the wound. It was opened somewhat more and a very large amount of thick brown-greenish pus exuded from the wound. Aerobic and anaerobic cultures were sent. The wound was probed. There was some tracking and undermining posteriorly towards the gluteal area. The incision was opened somewhat more to allow for complete evacuation of the large abscess cavity. Any loculations were broken free and necrotic material within the abscess cavity was removed. Wound was thoroughly irrigated with saline. Hemostasis was achieved with electrocautery. Local anesthetic was infiltrated. Wound was packed with a saline moistened Kerlix gauze and covered with clean dry sterile dressing. Condition: stable Disposition: PACU Specimens:: Culture sent Complications:: None immediately apparent
--- NOTE | 2021-04-20 11:01 | HMH.ANESCL ---
[facility] Anesthesia Checklist - Structural Data Admitted From: Inpatient Planned Operative Procedure/s: i/d francesca rectal abcess Consent for Planned Operative Procedure(s) Verified: Yes - Additional verifications Anesthesia Reactions: No - Airway Assessment C-Spine Mobility Assessed: Yes TMJ Mobility Assessed: Yes Dentition: Edentulous - Neurological Assessment Level of Consciousness: Awake, Alert, Appropriate - Anesthesia Plan Anesthesia Risk discussed: Yes Anesthesia Plan: Verified ASA Class: III Anesthesia Type: General [facility] History I have reviewed the patient's past medical history: Yes Medical History: Reports:: Arrhythmia, Atrial Fibrillation, Congestive Heart Failure, Chronic Obstructive Pulmonary Disease (COPD), Depression, Diabetes Mellitus Type 1, Diabetes Mellitus Type 2, Gastroesophageal Reflux Disease(GERD), Heart Murmur, Hyperlipidemia, Hypertension, Myocardial Infarction Denies:: Cancer, Coronary Artery Disease, MRSA *Have you ever received a pneumonia vaccine?: No *Have you received a flu vaccine this season?: No Other Medical History: Reports: Arthritis, Hoarseness, Sinus Problems, Other (Severe pulmonary hypertension) Anesthesia experience/problems:: none Other Surgeries: Yes: Cardiac Catheterization, Coronary Stent, Hysterectomy-Total, Hysterectomy-Partial, Other Amputation: No Fractures: No - *Social History Smoking Status: Current every day smoker Tobacco Type: cigarettes # Packs/Day (cigarettes): 1 #Yrs smoked (if former smoker): 30 Alcohol Intake: never Substance Use Type: denies use *Occupational Status:: unemployed Housing: house Household Members: significant other, children *Travel in the last 8 weeks: None - Psychiatric History Pschychiatric History:: Reports:: Depression Family Hx:: Diabetes, Heart Attack, Hyperlipidemia, Hypertension, Kidney Disease, Stroke
--- NOTE | 2021-04-20 11:03 | P.PN_ITS ---
[facility] Anesthesia Record Part I Intake, IV Amount: 900 Estimated blood loss (mL): 0 Urine output (mL): 0 Blood Pressure: 96/56 SaO2: 94 Pulse Rate: 120 Respiratory Rate: 12 Temperature: 99.1 F Patient is:: Drowsy, Stable Stable to PACU at:: 10:55
--- NOTE | 2021-04-20 13:26 | HMH.HP ---
*Admission Date: 04/19/21 *Chief complaint: Perirectal abscess *History of present illness: Cassie is a 51-year-old white female with poorly controlled diabetes, hypertension, hyperlipidemia, severe pulmonary hypertension, congestive heart failure, chronic atrial fibrillation. States she was bitten on the buttocks by an insect 4-5 days ago and this became infected. She presented to the emergency room on 04/17/2021 and underwent incision and drainage of the lesion on the right buttock. At that time a chest x-ray also suggested possible early lower lobe infiltrate and she was discharged home on doxycycline. She returned to the emergency room last evening because of increasing pain in the left buttock area. She was reevaluated and found to have a large abscess of the buttock. She has been admitted for surgical consultation. Dr. Bennett saw the patient early this morning and took her directly from the ER to the OR and she has undergone incision and drainage of a large perirectal abscess. I am now seeing her postoperatively after she has arrived on the floor. She is awake and alert and states she feels better. There is less discomfort in the buttock area now. On reviewing her ER notes, her blood sugar is elevated. She does admit to noncompliance with her medication and diet. [facility] History Medical History: Reports:: Arrhythmia, Atrial Fibrillation, Congestive Heart Failure, Chronic Obstructive Pulmonary Disease (COPD), Depression, Diabetes Mellitus Type 2, Gastroesophageal Reflux Disease(GERD), Heart Murmur, Hyperlipidemia, Hypertension Denies:: Cancer, Coronary Artery Disease, MRSA *Have you ever received a pneumonia vaccine?: No *Have you received a flu vaccine this season?: No Other Medical History: Reports: Arthritis, Hoarseness, Sinus Problems, Other (Severe pulmonary hypertension) Anesthesia experience/problems:: none Other Surgeries: Yes: Cardiac Catheterization, Hysterectomy-Partial, Other (EGD with esophageal dilatation) Amputation: No Fractures: No - *Social History Smoking Status: Current every day smoker Tobacco Type: cigarettes # Packs/Day (cigarettes): 1 #Yrs smoked (if former smoker): 30 Alcohol Intake: never Substance Use Type: denies use *Occupational Status:: disabled Housing: house Household Members: significant other, children *Travel in the last 8 weeks: None - Psychiatric History Pschychiatric History:: Reports:: Depression Family Hx:: Cancer, Diabetes, Heart Attack Review of Systems - Constitutional Reports fatigue, Reports lack of energy, Reports weight loss - Eyes Reports blurry vision - ENT Reports dry mouth, Reports hoarseness, Denies difficulty swallowing, Denies nasal congestion, Denies sinus pressure, Denies sore throat - *Cardiovascular Reports chest pain, Reports shortness of breath with activity, Denies leg swelling - *Respiratory Reports cough, Reports shortness of breath with activity, Denies chest congestion, Denies coughing up blood - *Gastrointestinal Reports loose stools, Denies abdominal pain, Denies coffee ground vomit, Denies constipation, Denies difficulty swallowing, Denies heartburn, Denies pain with swallowing - *Genitourinary Denies abnormal vaginal bleeding, Denies painful urination - *Musculoskeletal Reports joint pain, Reports stiffness - Integumentary/Breasts Reports wounds, Denies change in skin color - *Neurologic Denies dizziness, Denies headache(s) - Psychiatric Reports abnormal sleep pattern, Denies confusion, Denies hopelessness, Denies panic attacks - Endocrine Reports increased thirst - Hematologic/Lymphatic Denies easy bruising - Allergic/Immunologic Denies throat swelling Meds Home Medications Medication Instructions Recorded Confirmed Type Ipratropium/Albuterol Sulfate 1 puff IH QID 09/15/17 04/20/21 History [Combivent Respimat Inh] Omeprazole [Omeprazole 40mg 40 mg PO DAILY 09/15/17 04/20/21 History Capsule] Fluticason
--- NOTE | 2021-04-20 16:31 | P.CONPHA_ITS ---
[facility] Pharmacy VTE Monitoring - Patient Demographics Admission date: 04/20/21 Report Date: 04/20/21 Time: 16:32 Allergies/Adverse Reactions: Patient Allergies Penicillins [PENICILLINS] Allergy (Intermediate, Verified 09/29/19 09:10) I-HIVES VANILLA Allergy (Unknown, Uncoded 09/29/19 09:10) Height: 1.63 cm Weight: 103.873 kg Patient Problems: Current Active Problems Diastolic dysfunction (Chronic) Medical non-compliance (Acute) Pulmonary hypertension (Chronic) Chronic renal insufficiency, stage III (moderate) (Acute) Chronic atrial fibrillation (Acute) Abscess of skin or subcutaneous tissue (Acute) Diabetes mellitus (Acute) SIRS (systemic inflammatory response syndrome) (Acute) Perirectal abscess (Acute) Type 2 diabetes mellitus (Chronic) HTN (hypertension) (Chronic) COPD (chronic obstructive pulmonary disease) (Chronic) - VTE Risk Labs: VTE Related Lab Results Hgb 13.8 g/dL (12.2-16.2) 04/20/21 06:08 Hct 42.3 % (37.0-47.0) 04/20/21 06:08 Plt Count 321 K/mm3 (142-424) 04/20/21 06:08 BUN 16 mg/dl (7-17) 04/20/21 06:08 Creatinine 1.00 mg/dl (0.52-1.04) 04/20/21 06:08 Estimated Creat Clear 110 mL/min (50-200) 04/20/21 06:08 VTE Score: 9 VTE Risk Level: Moderate Risk Clinical Trial Participant: No - Prophylaxis VTE Prophylaxis Ordered?: Yes Types of VTE Prophylaxis: TEDS Knee High
[2021-04-20 19:03] LABS: POC Glucose,Bedside 234 (70-110)
[2021-04-20 19:03] LABS: POC Glucose,Bedside 369 (70-110)
[2021-04-21] VITALS (8 sets, daily range): BP systolic 100–143; BP diastolic 57–82; PULSE 60–110; RESP 18–20; TEMP 36.7–37.2; O2SAT 85–100; BMI 40.3
--- NOTE | 2021-04-21 07:43 | PC.NURSE ---
Pain medication administered approximately 40 minutes prior to dressing change. Patient laid on stomach for dressing change; tolerated well, educated on dressing changes BID, keeping area clean and dry and continue antibiotics until completion. Patient able to get up to bedside toilet on her own. But does ask for assistance when needed. No s/s of acute distress noted, call light within reach, bed at lowest level for safety; will continue to monitor.
--- NOTE | 2021-04-21 08:13 | HMH.ACPN2 ---
Internal Medicine - PN: Subj *Date: 04/21/21 *Time: 08:57 Interval history: Having pain at surgical site but states she rested fairly well last night. Exam Vital signs and Labs for Last 24 Hours: Temp Pulse Resp BP Pulse Ox 98.5 F 94 H 20 139/74 98 04/21/21 03:54 04/21/21 03:54 04/21/21 03:54 04/21/21 03:54 04/21/21 03:54 Laboratory Results - last 24 hr 04/20/21 12:49: POC Glucose 369 H* 04/20/21 17:43: POC Glucose 234 H I & O for Last 24 hours: Intake & Output 04/18/21 04/19/21 04/20/21 04/21/21 11:59 11:59 11:59 11:59 Intake Total 900 / 900 600 / 600 Balance 900 / 900 600 / 600 Weight 229 lb 236 lb 1 oz Microbiology Reports for the Last 24 Hours: Microbiology 04/20/21 10:30 Rectum Gram Stain - Final 04/20/21 10:30 Rectum Abscess Culture - Preliminary 04/20/21 00:50 Buttock Gram Stain - Final 04/20/21 00:50 Buttock Wound Culture - Preliminary Narrative: She appears comfortable. No respiratory distress. Chest with generally diminished breath sounds but otherwise clear. Heart is regular. Extremities no edema. Assessment and Plan (1) Perirectal abscess Status: Acute Category: Medical Code(s): K61.1 - Rectal abscess (2) Chronic atrial fibrillation Status: Acute Category: Medical Code(s): I48.20 - Chronic atrial fibrillation, unspecified (3) Chronic renal insufficiency, stage III (moderate) Status: Acute Category: Medical Code(s): N18.3 - Chronic kidney disease, stage 3 (moderate) (4) Medical non-compliance Status: Acute Category: Medical Code(s): Z91.19 - Patient's noncompliance with other medical treatment and regimen (5) COPD (chronic obstructive pulmonary disease) Status: Chronic Qualifiers: COPD type: unspecified COPD Qualified Code(s): J44.9 - Chronic obstructive pulmonary disease, unspecified Category: Medical Code(s): J44.9 - Chronic obstructive pulmonary disease, unspecified (6) Pulmonary hypertension Status: Chronic Category: Medical Code(s): I27.20 - Pulmonary hypertension, unspecified (7) Type 2 diabetes mellitus Status: Chronic Qualifiers: Diabetes mellitus nursing home insulin use: with nursing home use Diabetes mellitus complication status: without complication Qualified Code(s): E11.9 - Type 2 diabetes mellitus without complications; Z79.4 - shelter (current) use of insulin Category: Medical Code(s): E11.9 - Type 2 diabetes mellitus without complications (8) HTN (hypertension) Status: Chronic Qualifiers: Hypertension type: essential hypertension Category: Medical Code(s): I10 - Essential (primary) hypertension - Assessment and plan all Dx Assessment and Plan for all problems:: Continue per orders. Gram stain is showing gram-positive cocci. Culture is still pending. Start back on her yulissa prasad.
[2021-04-21 08:15] LABS: Basophils # 0.1 K/mm3 (0-0.2); Basophils % 0.8 % (0.1-2.0); Eosinophils # 0.2 K/mm3 (0.0-0.4); Hematocrit 39.2 % (37.0-47.0); Hemoglobin 12.7 g/dL (12.2-16.2); Lymphocytes # 2.1 K/mm3 (0.7-4.5); Lymphocytes % 14.3 % (10-50); Mean Corpuscular HGB Conc 32.4 g/dL (31.8-35.4); Mean Corpuscular Hemoglobin 29.1 pg (27.0-31.2); Mean Corpuscular Volume 89.9 fl (81-99); Mean Platelet Volume 8.7 fl (7.4-10.4); Monocytes # 0.8 K/mm3 (0.1-1.0); Monocytes % 5.6 % (1.7-9.3); Neutrophils # 11.5 K/mm3 (1.8-7.8); Neutrophils % 78.3 % (37.0-80.0); Platelet Count 312 K/mm3 (142-424); Red Blood Count 4.36 M/mm3 (4.20-5.40); Red Cell Distribution Width 14.4 % (11.5-17.5); White Blood Count 14.7 K/mm3 (4.8-10.8)
[2021-04-21 08:25] LABS: Anion Gap 7.9 mEq/L (5-15); Blood Urea Nitrogen 13 mg/dl (7-17); Calcium 8.7 mg/dl (8.4-10.2); Carbon Dioxide 23 mmol/L (22.0-30.0); Chloride 106 mmol/L (98-107); Creatinine Clearance Estimated 142 mL/min (50-200); Estimated Glomerular Filt Rate 76 ml/min (>60); GFR (African American) 92 ML/MIN (>60); Glucose 235 mg/dl (74-100); Potassium 3.9 mmoL/L (3.5-5.1); Sodium 133 mmol/L (136-145)
--- NOTE | 2021-04-21 10:03 | HMH.GSPN ---
Subjective Narrative: Patient does state that she feels better. Had a dressing change early this morning. Cultures showing gram-positive bacilli and gram-positive cocci in pairs. Progress Note: A&P (1) Perirectal abscess Status: Acute (2) Chronic atrial fibrillation Status: Acute (3) Chronic renal insufficiency, stage III (moderate) Status: Acute (4) Medical non-compliance Status: Acute (5) COPD (chronic obstructive pulmonary disease) Status: Chronic (6) Pulmonary hypertension Status: Chronic (7) Type 2 diabetes mellitus Status: Chronic (8) HTN (hypertension) Status: Chronic Assessment and Plan for All Diagnoses:: Continue wound care with packing twice daily for now. Continue broad-spectrum antibiotics of vancomycin and Invanz cultures pending. Hopefully does not require additional debridement. Exam Vital signs and Labs for Last 24 Hours: Temp Pulse Resp BP Pulse Ox 98.3 F 110 H 18 143/68 H 95 04/21/21 08:00 04/21/21 09:15 04/21/21 08:00 04/21/21 08:00 04/21/21 08:00 Laboratory Results - last 24 hr 04/20/21 12:49: POC Glucose 369 H* 04/20/21 17:43: POC Glucose 234 H 04/21/21 08:00: WBC 14.7 H, RBC 4.36, Hgb 12.7, Hct 39.2, MCV 89.9, MCH 29.1, MCHC 32.4, RDW 14.4, Plt Count 312, MPV 8.7, Neut % (Auto) 78.3, Lymph % (Auto) 14.3, [place] % (Auto) 5.6, Eos % (Auto) 1.0, Baso % (Auto) 0.8, Neut # (Auto) 11.5 H, Lymph # (Auto) 2.1, [place] # (Auto) 0.8, Eos # (Auto) 0.2, Baso # (Auto) 0.1 04/21/21 08:00: Sodium 133 L, Potassium 3.9, Chloride 106, Carbon Dioxide 23, Anion Gap 7.9, BUN 13, Creatinine 0.80, Estimated Creat Clear 142, Estimated GFR 76, Est GFR ( Amer) 92 D, Glucose 235 H, Calcium 8.7, Magnesium 2.0 I & O for Last 24 hours: Intake & Output 04/18/21 04/19/21 04/20/21 04/21/21 11:59 11:59 11:59 11:59 Intake Total 900 / 900 1560 / 1560 Balance 900 / 900 1560 / 1560 Weight 229 lb 236 lb 1 oz Microbiology Reports for the Last 24 Hours: Microbiology 04/20/21 10:30 Rectum Gram Stain - Final 04/20/21 10:30 Rectum Abscess Culture - Preliminary 04/20/21 00:50 Buttock Gram Stain - Final 04/20/21 00:50 Buttock Wound Culture - Preliminary - *Routine Skin Exam Comments: Wound packed and clean without significant erythema. However, she does have some noticeable induration of the gluteal area
[2021-04-21 12:34] LABS: POC Glucose,Bedside 308 (70-110)
[2021-04-21 12:34] LABS: POC Glucose,Bedside 259 (70-110)
[2021-04-21 12:34] LABS: POC Glucose,Bedside 233 (70-110)
[2021-04-21 17:32] LABS: POC Glucose,Bedside 288 (70-110)
--- NOTE | 2021-04-21 17:43 | PC.NURSE ---
pt has done well this shift. Pt has slept for the greater portion of the afternoon. Pt has c/o buttocks pain x2 and has been medicated per SEP. Dressing change this shift, pt tolerated well and pre medicated prior to doing so. No other acute changes or complaints, will continue to monitor.
[2021-04-21 21:53] LABS: POC Glucose,Bedside 217 (70-110)
[2021-04-22] VITALS (8 sets, daily range): BP systolic 99–130; BP diastolic 53–88; PULSE 66–106; RESP 16–22; TEMP 36.6–37.7; O2SAT 94–100; BMI 40.2
[2021-04-22 06:45] LABS: Basophils # 0.1 K/mm3 (0-0.2); Eosinophils # 0.1 K/mm3 (0.0-0.4); Hematocrit 37.5 % (37.0-47.0); Hemoglobin 12.2 g/dL (12.2-16.2); Lymphocytes # 2.3 K/mm3 (0.7-4.5); Lymphocytes % 16.6 % (10-50); Mean Corpuscular HGB Conc 32.5 g/dL (31.8-35.4); Mean Corpuscular Hemoglobin 29.5 pg (27.0-31.2); Mean Corpuscular Volume 90.5 fl (81-99); Mean Platelet Volume 10.9 fl (7.4-10.4); Monocytes # 0.7 K/mm3 (0.1-1.0); Monocytes % 5.3 % (1.7-9.3); Neutrophils # 10.4 K/mm3 (1.8-7.8); Neutrophils % 76.1 % (37.0-80.0); Platelet Count 346 K/mm3 (142-424); Red Blood Count 4.14 M/mm3 (4.20-5.40); Red Cell Distribution Width 14.2 % (11.5-17.5); White Blood Count 13.7 K/mm3 (4.8-10.8)
[2021-04-22 06:47] LABS: Chloride 103 mmol/L (98-107); Sodium 135 mmol/L (136-145)
[2021-04-22 06:49] LABS: Blood Urea Nitrogen 12 mg/dl (7-17); Creatinine Clearance Estimated 142 mL/min (50-200); Estimated Glomerular Filt Rate 76 ml/min (>60); GFR (African American) 92 ML/MIN (>60)
[2021-04-22 06:50] LABS: Calcium 8.7 mg/dl (8.4-10.2); Carbon Dioxide 22 mmol/L (22.0-30.0); Glucose 292 mg/dl (74-100)
--- NOTE | 2021-04-22 06:58 | PC.NURSE ---
Patient has had an uneventful night this shift. No s/s of acute distress noted this shift, call light within reach, bed at lowest level for safety; will continue to monitor.
--- NOTE | 2021-04-22 07:54 | HMH.PHAINT ---
medication reconciliation complete using previous discharge paperwork and pharmacy list
--- NOTE | 2021-04-22 08:41 | HMH.GSPN ---
Subjective Narrative: Patient is without complaints. Reportedly tolerating dressing changes. Cultures showing gram-positive cocci and gram-positive bacilli with heavy fecal contamination . Progress Note: A&P (1) Perirectal abscess Status: Acute (2) Chronic atrial fibrillation Status: Acute (3) Chronic renal insufficiency, stage III (moderate) Status: Acute (4) Medical non-compliance Status: Acute (5) COPD (chronic obstructive pulmonary disease) Status: Chronic (6) Pulmonary hypertension Status: Chronic (7) Type 2 diabetes mellitus Status: Chronic (8) HTN (hypertension) Status: Chronic Assessment and Plan for All Diagnoses:: She does have some evidence of advancing soft tissue infection. This may be complex perirectal abscess. However, given the operative findings as well as culture findings may be more concerning underlying pathology. I will see about obtaining a CT scan of her pelvis today to rule out deep abscess or even perforated rectal cancer although this seems unlikely. May need to return to the operating room tomorrow for wound exploration and possibly additional debridement. Exam Vital signs and Labs for Last 24 Hours: Temp Pulse Resp BP Pulse Ox 98.8 F 105 H 18 120/77 94 L 04/22/21 04:00 04/22/21 06:58 04/22/21 04:00 04/22/21 04:00 04/22/21 06:58 Laboratory Results - last 24 hr 04/20/21 22:12: POC Glucose 233 H 04/21/21 05:19: POC Glucose 259 H 04/21/21 12:08: POC Glucose 308 H* 04/21/21 17:21: POC Glucose 288 H 04/21/21 21:44: POC Glucose 217 H 04/22/21 05:56: WBC 13.7 H, RBC 4.14 L, Hgb 12.2, Hct 37.5, MCV 90.5, MCH 29.5, MCHC 32.5, RDW 14.2, Plt Count 346, MPV 10.9 H, Neut % (Auto) 76.1, Lymph % (Auto) 16.6, [place] % (Auto) 5.3, Eos % (Auto) 1.0, Baso % (Auto) 1.0, Neut # (Auto) 10.4 H, Lymph # (Auto) 2.3, [place] # (Auto) 0.7, Eos # (Auto) 0.1, Baso # (Auto) 0.1 04/22/21 05:56: Sodium 135 L, Potassium 4.0, Chloride 103, Carbon Dioxide 22, Anion Gap 14.0, BUN 12, Creatinine 0.80, Estimated Creat Clear 142, Estimated GFR 76, Est GFR ( Amer) 92, Glucose 292 H D, Calcium 8.7 I & O for Last 24 hours: Intake & Output 04/19/21 04/20/21 04/21/21 04/22/21 11:59 11:59 11:59 11:59 Intake Total 900 / 900 1560 / 1560 2190 / 2190 Balance 900 / 900 1560 / 1560 2190 / 2190 Weight 229 lb 236 lb 1 oz Microbiology Reports for the Last 24 Hours: Microbiology 04/20/21 10:30 Rectum Gram Stain - Final 04/20/21 10:30 Rectum Abscess Culture - Preliminary 04/20/21 00:50 Buttock Gram Stain - Final 04/20/21 00:50 Buttock Wound Culture - Preliminary Gram Positive Cocci Gram Positive Cocci#2 04/19/21 23:40 Blood Blood Culture - Preliminary NO GROWTH AFTER 48 HOURS 04/19/21 23:40 Blood Blood Culture - Preliminary NO GROWTH AFTER 48 HOURS - *Routine Skin Exam Comments: She has some appreciable induration with advancing cellulitis at the area of the wound. It is tender.
--- NOTE | 2021-04-22 08:44 | CT_ITS ---
PROCEDURE: CT PELVIS W CON CLINICAL INDICATION: COMPLEX PERIRECTAL ABSCESS the COMPARISON: No exams were available for comparison TECHNIQUE: Axial images obtained with sagittal and coronal reformats. All CT scans at the facility use one or the dose reduction, viz: automated exposure control, ma/kV adjustment per patient size (including targeted exams where dose is matched to indication, i.e. head), or iterative reconstruction technique. FINDINGS: There are no previous exams available for comparison. Images are obtained from the mid abdomen through the pelvis. There is a septated cystic left adnexal mass containing a small focus of calcification. This measures 7 x 6 cm. Pelvic ultrasound suggested for more thorough evaluation. The appendix has an unremarkable appearance. There is a small umbilical hernia containing fat. There is stranding of the subcutaneous fat in the left labia and in the left perirectal region and buttock area consistent with inflammatory changes. There is a minimal amount of soft tissue gas present in the left buttock region posterior and left lateral to the anus. This may be postsurgical. Bandage artifact is present just medial to this region. There is some mild thickening of the subcutaneous soft tissues in the left perirectal area. IMPRESSION: 1. No obvious perirectal abscess. 2. Postsurgical changes in the left perirectal region. There is some stranding of the fat in the left perineal area and left buttock region suggesting underlying inflammatory changes. 3. 6 cm by 7 cm cystic left adnexal mass. Further characterization with ultrasound is suggested. Dictated by: Raman Guerrier MD 04/22/2021 14:05 Raman Guerrier MD in [facility] 04/22/2021 14:05
--- NOTE | 2021-04-22 09:03 | HMH.ACPN2 ---
<Edith Sandra - Last Filed: 04/22/21 09:03> Internal Medicine - PN: Subj *Date: 04/22/21 *Time: 09:03 Interval history: Patient thinks she is doing well. She states she needs something for her bowels because they have not moved since before admission. She is eating without difficulty. She denies chest pain or shortness of breath. She states the pain medicine is helped with the wound discomfort. Dressing was changed this a.m. Dr. Bennett has seen the patient and will do a CT of the area this morning. He feels she may need additional surgery. CBC reveals white blood cell count of 13,700 with a hemoglobin of 12.2 hematocrit of 37.5. Chemistries show sodium of 135 and potassium of 4. BUN is 12 and creatinine 0.8. Exam Vital signs and Labs for Last 24 Hours: Temp Pulse Resp BP Pulse Ox 98.8 F 105 H 18 120/77 94 L 04/22/21 04:00 04/22/21 06:58 04/22/21 04:00 04/22/21 04:00 04/22/21 06:58 Laboratory Results - last 24 hr 04/20/21 22:12: POC Glucose 233 H 04/21/21 05:19: POC Glucose 259 H 04/21/21 12:08: POC Glucose 308 H* 04/21/21 17:21: POC Glucose 288 H 04/21/21 21:44: POC Glucose 217 H 04/22/21 05:56: WBC 13.7 H, RBC 4.14 L, Hgb 12.2, Hct 37.5, MCV 90.5, MCH 29.5, MCHC 32.5, RDW 14.2, Plt Count 346, MPV 10.9 H, Neut % (Auto) 76.1, Lymph % (Auto) 16.6, [place] % (Auto) 5.3, Eos % (Auto) 1.0, Baso % (Auto) 1.0, Neut # (Auto) 10.4 H, Lymph # (Auto) 2.3, [place] # (Auto) 0.7, Eos # (Auto) 0.1, Baso # (Auto) 0.1 04/22/21 05:56: Sodium 135 L, Potassium 4.0, Chloride 103, Carbon Dioxide 22, Anion Gap 14.0, BUN 12, Creatinine 0.80, Estimated Creat Clear 142, Estimated GFR 76, Est GFR ( Amer) 92, Glucose 292 H D, Calcium 8.7 I & O for Last 24 hours: Intake & Output 04/19/21 04/20/21 04/21/21 04/22/21 11:59 11:59 11:59 11:59 Intake Total 900 / 900 1560 / 1560 2190 / 2190 Balance 900 / 900 1560 / 1560 2190 / 2190 Weight 229 lb 236 lb 1 oz Microbiology Reports for the Last 24 Hours: Microbiology 04/20/21 10:30 Rectum Gram Stain - Final 04/20/21 10:30 Rectum Abscess Culture - Preliminary 04/20/21 00:50 Buttock Gram Stain - Final 04/20/21 00:50 Buttock Wound Culture - Preliminary Gram Positive Cocci Gram Positive Cocci#2 04/19/21 23:40 Blood Blood Culture - Preliminary NO GROWTH AFTER 48 HOURS 04/19/21 23:40 Blood Blood Culture - Preliminary NO GROWTH AFTER 48 HOURS - Constitutional no acute distress - *Routine Respiratory Exam Present: CTA bilaterally - *Routine Cardiovascular Exam Present: irregular rhythm - *Routine Abdominal Exam Present: normoactive bowel sounds, obese. Absent: tenderness - *Routine Extremities Exam Absent: edema - *Routine Skin Exam Comments: Left posterior buttock dressing clean and dry Assessment and Plan (1) Perirectal abscess Status: Acute Category: Medical Code(s): K61.1 - Rectal abscess (2) Chronic atrial fibrillation Status: Acute Category: Medical Code(s): I48.20 - Chronic atrial fibrillation, unspecified (3) Chronic renal insufficiency, stage III (moderate) Status: Acute Category: Medical Code(s): N18.3 - Chronic kidney disease, stage 3 (moderate) (4) Medical non-compliance Status: Acute Category: Medical Code(s): Z91.19 - Patient's noncompliance with other medical treatment and regimen (5) COPD (chronic obstructive pulmonary disease) Status: Chronic Qualifiers: COPD type: unspecified COPD Qualified Code(s): J44.9 - Chronic obstructive pulmonary disease, unspecified Category: Medical Code(s): J44.9 - Chronic obstructive pulmonary disease, unspecified (6) Pulmonary hypertension Status: Chronic Category: Medical Code(s): I27.20 - Pulmonary hypertension, unspecified (7) Type 2 diabetes mellitus Status: Chronic Qualifiers: Diabetes mellitus lo
--- NOTE | 2021-04-22 09:14 | HMH.ITSTN ---
dosed wi gastroview for ct per ,,will scan in 2+ hours
[2021-04-22 17:33] LABS: POC Glucose,Bedside 237 (70-110)
--- NOTE | 2021-04-22 19:33 | PC.NURSE ---
Patient is non tele and on room air. Patient is up ad-mejia. Patient NPO for possible surgery on 04/23. Perirectal abscess wound packed and dressing changed. Patient has had several large loose bowel movements. Patient had perirectal CT with contrast. Bed in lowest position and call light inr each.
[2021-04-22 19:57] LABS: POC Glucose,Bedside 291 (70-110)
[2021-04-22 19:57] LABS: POC Glucose,Bedside 339 (70-110)
[2021-04-22 22:47] LABS: POC Glucose,Bedside 198 (70-110)
[2021-04-23] VITALS (29 sets, daily range): BP systolic 93–138; BP diastolic 52–86; PULSE 52–100; RESP 12–24; TEMP 36.4–43; O2SAT 93–98; BMI 39.4
[2021-04-23 01:13] LABS: Vancomycin,Trough 28.3 ug/mL (5.0-10.0)
[2021-04-23 05:44] LABS: POC Glucose,Bedside 230 (70-110)
[2021-04-23 06:32] LABS: Basophils # 0.1 K/mm3 (0-0.2); Basophils % 0.8 % (0.1-2.0); Eosinophils # 0.2 K/mm3 (0.0-0.4); Eosinophils % 1.5 % (0.1-12.0); Hematocrit 35.1 % (37.0-47.0); Hemoglobin 11.4 g/dL (12.2-16.2); Lymphocytes # 2.4 K/mm3 (0.7-4.5); Lymphocytes % 20.8 % (10-50); Mean Corpuscular HGB Conc 32.4 g/dL (31.8-35.4); Mean Corpuscular Volume 89.5 fl (81-99); Mean Platelet Volume 10.6 fl (7.4-10.4); Monocytes # 0.6 K/mm3 (0.1-1.0); Neutrophils # 8.4 K/mm3 (1.8-7.8); Neutrophils % 71.9 % (37.0-80.0); Platelet Count 358 K/mm3 (142-424); Red Blood Count 3.92 M/mm3 (4.20-5.40); Red Cell Distribution Width 14.1 % (11.5-17.5); White Blood Count 11.7 K/mm3 (4.8-10.8)
--- NOTE | 2021-04-23 06:39 | HMH.GSPN ---
Subjective Narrative: Patient states that the area feels less sore . Has had low-grade fever. Progress Note: A&P (1) Perirectal abscess Status: Acute (2) Chronic atrial fibrillation Status: Acute (3) Chronic renal insufficiency, stage III (moderate) Status: Acute (4) Medical non-compliance Status: Acute (5) COPD (chronic obstructive pulmonary disease) Status: Chronic (6) Pulmonary hypertension Status: Chronic (7) Type 2 diabetes mellitus Status: Chronic (8) HTN (hypertension) Status: Chronic Assessment and Plan for All Diagnoses:: Evidence of progressive soft tissue infection. No dressing in place this morning. Pus is pouring from the wound. Plan for wound washout and possible more extensive debridement. Exam Vital signs and Labs for Last 24 Hours: Temp Pulse Resp BP Pulse Ox 100 F H 97 H 17 106/52 L 98 04/23/21 03:55 04/23/21 06:14 04/23/21 03:55 04/23/21 03:55 04/23/21 06:14 Laboratory Results - last 24 hr 04/22/21 05:35: POC Glucose 291 H 04/22/21 05:56: WBC 13.7 H, RBC 4.14 L, Hgb 12.2, Hct 37.5, MCV 90.5, MCH 29.5, MCHC 32.5, RDW 14.2, Plt Count 346, MPV 10.9 H, Neut % (Auto) 76.1, Lymph % (Auto) 16.6, [place] % (Auto) 5.3, Eos % (Auto) 1.0, Baso % (Auto) 1.0, Neut # (Auto) 10.4 H, Lymph # (Auto) 2.3, [place] # (Auto) 0.7, Eos # (Auto) 0.1, Baso # (Auto) 0.1 04/22/21 05:56: Sodium 135 L, Potassium 4.0, Chloride 103, Carbon Dioxide 22, Anion Gap 14.0, BUN 12, Creatinine 0.80, Estimated Creat Clear 142, Estimated GFR 76, Est GFR ( Amer) 92, Glucose 292 H D, Calcium 8.7 04/22/21 11:35: POC Glucose 339 H* 04/22/21 17:20: POC Glucose 237 H 04/22/21 20:16: POC Glucose 198 H 04/23/21 00:29: Vancomycin Trough 28.3 H 04/23/21 05:33: POC Glucose 230 H I & O for Last 24 hours: Intake & Output 04/20/21 04/21/21 04/22/21 04/23/21 11:59 11:59 11:59 11:59 Intake Total 900 / 900 1560 / 1560 2430 / 2430 1300 / 1300 Balance 900 / 900 1560 / 1560 2430 / 2430 1300 / 1300 Weight 229 lb 236 lb 1 oz 231 lb Microbiology Reports for the Last 24 Hours: Microbiology 04/20/21 10:30 Rectum Gram Stain - Final 04/20/21 10:30 Rectum Abscess Culture - Preliminary 04/20/21 00:50 Buttock Gram Stain - Final 04/20/21 00:50 Buttock Wound Culture - Preliminary Gram Positive Cocci Gram Positive Cocci#2 - *Routine Skin Exam Comments: No dressing in place. Significant induration and erythema with minor edema. Pus pouring from the wound.
[2021-04-23 08:05] LABS: Anion Gap 10.9 mEq/L (5-15); Blood Urea Nitrogen 7 mg/dl (7-17); Calcium 8.8 mg/dl (8.4-10.2); Carbon Dioxide 24 mmol/L (22.0-30.0); Chloride 106 mmol/L (98-107); Creatinine Clearance Estimated 159 mL/min (50-200); Estimated Glomerular Filt Rate 89 ml/min (>60); GFR (African American) 107 ML/MIN (>60); Glucose 225 mg/dl (74-100); Potassium 3.9 mmoL/L (3.5-5.1); Sodium 137 mmol/L (136-145)
--- NOTE | 2021-04-23 08:28 | HMH.ACPN2 ---
<Edith Sandra - Last Filed: 04/23/21 08:28> Internal Medicine - PN: Subj *Date: 04/23/21 *Time: 08:28 Interval history: Per Dr. Bennett: Evidence of progressive soft tissue infection. No dressing in place this morning. Pus is pouring from the wound. Plan for wound washout and possible more extensive debridement. Patient states that she did sleep. She says she had nothing to eat all day yesterday. Her bowels did move which made her feel better. Her buttock is sore. She knows she is going back to surgery for further wound management. She denies chest pain and shortness of breath. Blood chemistries are normal today. CBC with a white blood cell count of 11,700 and hemoglobin of 11. 4 and hematocrit of 35.1. Exam Vital signs and Labs for Last 24 Hours: Temp Pulse Resp BP Pulse Ox 98.3 F 84 18 93/60 L 95 04/23/21 07:26 04/23/21 07:26 04/23/21 07:26 04/23/21 07:26 04/23/21 07:26 Laboratory Results - last 24 hr 04/22/21 05:35: POC Glucose 291 H 04/22/21 11:35: POC Glucose 339 H* 04/22/21 17:20: POC Glucose 237 H 04/22/21 20:16: POC Glucose 198 H 04/23/21 00:29: Vancomycin Trough 28.3 H 04/23/21 05:27: WBC 11.7 H, RBC 3.92 L, Hgb 11.4 L, Hct 35.1 L, MCV 89.5, MCH 29.0, MCHC 32.4, RDW 14.1, Plt Count 358, MPV 10.6 H, Neut % (Auto) 71.9, Lymph % (Auto) 20.8, [place] % (Auto) 5.0, Eos % (Auto) 1.5, Baso % (Auto) 0.8, Neut # (Auto) 8.4 H, Lymph # (Auto) 2.4, [place] # (Auto) 0.6, Eos # (Auto) 0.2, Baso # (Auto) 0.1 04/23/21 05:27: Sodium 137, Potassium 3.9, Chloride 106, Carbon Dioxide 24, Anion Gap 10.9, BUN 7 D, Creatinine 0.70, Estimated Creat Clear 159, Estimated GFR 89, Est GFR ( Amer) 107, Glucose 225 H D, Calcium 8.8 04/23/21 05:33: POC Glucose 230 H I & O for Last 24 hours: Intake & Output 04/20/21 04/21/21 04/22/21 04/23/21 11:59 11:59 11:59 11:59 Intake Total 900 / 900 1560 / 1560 2430 / 2430 1300 / 1300 Output Total 0 / 0 Balance 900 / 900 1560 / 1560 2430 / 2430 1300 / 1300 Weight 229 lb 236 lb 1 oz 231 lb Microbiology Reports for the Last 24 Hours: Microbiology 04/20/21 10:30 Rectum Gram Stain - Final 04/20/21 10:30 Rectum Abscess Culture - Preliminary 04/20/21 00:50 Buttock Gram Stain - Final 04/20/21 00:50 Buttock Wound Culture - Preliminary Gram Positive Cocci Gram Positive Cocci#2 - Constitutional no acute distress Comments: Lying on her right side and trying to sleep. - *Routine Respiratory Exam Present: CTA bilaterally (Anteriorly and posteriorly) - *Routine Cardiovascular Exam Present: irregular rhythm - *Routine Abdominal Exam Present: soft, normoactive bowel sounds, obese. Absent: tenderness - *Routine Extremities Exam Absent: edema, calf tenderness - *Routine Skin Exam Comments: Buttock wound erythematous and edematous. Very tender with light touch. - *Routine Neurological Exam Present: alert, oriented X3 Assessment and Plan (1) Perirectal abscess Status: Acute Category: Medical Code(s): K61.1 - Rectal abscess (2) Chronic atrial fibrillation Status: Acute Category: Medical Code(s): I48.20 - Chronic atrial fibrillation, unspecified (3) Chronic renal insufficiency, stage III (moderate) Status: Acute Category: Medical Code(s): N18.3 - Chronic kidney disease, stage 3 (moderate) (4) Medical non-compliance Status: Acute Category: Medical Code(s): Z91.19 - Patient's noncompliance with other medical treatment and regimen (5) COPD (chronic obstructive pulmonary disease) Status: Chronic Qualifiers: COPD type: unspecified COPD Qualified Code(s): J44.9 - Chronic obstructive pulmonary disease, unspecified Category: Medical Code(s): J44.9 - Chronic obstructive pulmonary disease, unspecified (6) Pulmonary hypertension Status: Chronic Category: Medical Code(s): I27.20 - Pulmonary hypertension, unspecified (7) Type 2 diabete
--- NOTE | 2021-04-23 09:24 | HMH.ACPN ---
Internal Medicine - PN: Subj *Date: 04/23/21 *Time: 09:24 Exam Vital signs and Labs for Last 24 Hours: Temp Pulse Resp BP Pulse Ox 98.3 F 100 H 18 93/60 L 95 04/23/21 07:26 04/23/21 09:14 04/23/21 07:26 04/23/21 07:26 04/23/21 07:26 Laboratory Results - last 24 hr 04/22/21 05:35: POC Glucose 291 H 04/22/21 11:35: POC Glucose 339 H* 04/22/21 17:20: POC Glucose 237 H 04/22/21 20:16: POC Glucose 198 H 04/23/21 00:29: Vancomycin Trough 28.3 H 04/23/21 05:27: WBC 11.7 H, RBC 3.92 L, Hgb 11.4 L, Hct 35.1 L, MCV 89.5, MCH 29.0, MCHC 32.4, RDW 14.1, Plt Count 358, MPV 10.6 H, Neut % (Auto) 71.9, Lymph % (Auto) 20.8, [place] % (Auto) 5.0, Eos % (Auto) 1.5, Baso % (Auto) 0.8, Neut # (Auto) 8.4 H, Lymph # (Auto) 2.4, [place] # (Auto) 0.6, Eos # (Auto) 0.2, Baso # (Auto) 0.1 04/23/21 05:27: Sodium 137, Potassium 3.9, Chloride 106, Carbon Dioxide 24, Anion Gap 10.9, BUN 7 D, Creatinine 0.70, Estimated Creat Clear 159, Estimated GFR 89, Est GFR ( Amer) 107, Glucose 225 H D, Calcium 8.8 04/23/21 05:33: POC Glucose 230 H I & O for Last 24 hours: Intake & Output 04/20/21 04/21/21 04/22/21 04/23/21 23:59 23:59 23:59 23:59 Intake Total 1500 / 1500 2400 / 2400 990 / 990 1300 / 1300 Output Total 0 / 0 Balance 1500 / 1500 2400 / 2400 990 / 990 1300 / 1300 Weight 103.873 kg 107.076 kg 107 kg 104.78 kg Microbiology Reports for the Last 24 Hours: Microbiology 04/20/21 10:30 Rectum Gram Stain - Final 04/20/21 10:30 Rectum Abscess Culture - Preliminary 04/20/21 00:50 Buttock Gram Stain - Final 04/20/21 00:50 Buttock Wound Culture - Preliminary Gram Positive Cocci Gram Positive Cocci#2 Assessment and Plan (1) Perirectal abscess Status: Acute Category: Medical Code(s): K61.1 - Rectal abscess (2) Chronic atrial fibrillation Status: Acute Category: Medical Code(s): I48.20 - Chronic atrial fibrillation, unspecified (3) Chronic renal insufficiency, stage III (moderate) Status: Acute Category: Medical Code(s): N18.3 - Chronic kidney disease, stage 3 (moderate) (4) Medical non-compliance Status: Acute Category: Medical Code(s): Z91.19 - Patient's noncompliance with other medical treatment and regimen (5) COPD (chronic obstructive pulmonary disease) Status: Chronic Qualifiers: COPD type: unspecified COPD Qualified Code(s): J44.9 - Chronic obstructive pulmonary disease, unspecified Category: Medical Code(s): J44.9 - Chronic obstructive pulmonary disease, unspecified (6) Pulmonary hypertension Status: Chronic Category: Medical Code(s): I27.20 - Pulmonary hypertension, unspecified (7) Type 2 diabetes mellitus Status: Chronic Qualifiers: Diabetes mellitus fpc insulin use: with fpc use Diabetes mellitus complication status: without complication Qualified Code(s): E11.9 - Type 2 diabetes mellitus without complications; Z79.4 - MCFP (current) use of insulin Category: Medical Code(s): E11.9 - Type 2 diabetes mellitus without complications (8) HTN (hypertension) Status: Chronic Qualifiers: Hypertension type: essential hypertension Category: Medical Code(s): I10 - Essential (primary) hypertension The patient's infection will respond to the chosen ABx?: Yes Is the patient receiving the right drug, dose, and route?: Yes Could a more targeted ABx be ordered?: No (GRAM + COCCI IN WOUND CULTURE)
[2021-04-23 09:42] LABS: Vancomycin,Peak 19.1 ug/ml (11-39)
--- NOTE | 2021-04-23 12:17 | HMH.OPNOTE ---
Date of procedure: 04/23/21 Pre-op Diagnosis:: Perirectal abscess Post-op Diagnosis:: Same with necrotizing soft tissue infection Procedure performed:: Incision and drainage of perirectal abscess, complex, with debridement of skin, subcutaneous tissue, and minimal muscle Surgeon:: Enrique Bennett MD POSTDOCTORAL SCIENTIST:: Andrade Magana Anesthesia: GETA Estimated blood loss (mL): 50 Clinical Note:: vamshi is a 51-year-old female with history of insulin-dependent diabetes, hypertension, hyperlipidemia, chronic atrial fibrillation on Xarelto, COPD, nonflow limiting coronary artery disease with preserved ejection fraction, pulmonary hypertension. She had developed a skin abscess on the buttock . She attributes this to purchasing a couple of used wheelchairs and she states that when she sat in 1 she fell to pinch and wonders if she was bitten by something. This progressed and she presented to the emergency department on Thursday04/17/2021. Evaluation at that time included blood work and chest x-ray. She was found to have elevated white blood cell count (17,000) and blood sugar (516). There was a question of left lower lobe pneumonia on chest x-ray. She did undergo limited incision and drainage of the area on the RIGHT by the ER physician and managed as an outpatient. However she had progression of soft tissue infection and presented back to the emergency department in the evening on 04/19/2021. She states that she has tenderness in the LEFT. She was admitted for inpatient management. Surgical consultation was obtained the morning of 04/20/21. Patient was seen and examined. She had what appeared to be perirectal abscess. She was taken to the operating room on 04/20/2021. She underwent incision and drainage of perirectal abscess in the left. There was foul feculent material exuding from the wound. This was opened and debrided. It was packed with gauze. Ultimately the cultures returned as showing a heavy fecal contaminant and growing oxacillin sensitive Staph aureus. She has continued to show some signs of progressive infection with increasing erythema and induration. She underwent a CT scan of the pelvis yesterday to rule out deep abscess or possibility of perforated rectal cancer. This was negative for any evidence of undrained abscess or rectal mass. On the morning of 04/23/2021 she was found to have foul-smelling drainage from the wound without a dressing in place with a significant amount of induration and cellulitis and erythema. Plan was made for wound washout and possible additional debridement. Operative findings:: She had evidence of appreciable cellulitis. There is tunneling of the wound posterior to the labia for at least 10 cm. She did have some undrained pus deep to the muscle, levator, with some necrotic tissue. Operative note:: Patient was taken to the operating room. General anesthesia was induced. She was positioned in lithotomy position. The area was prepped and draped in the standard surgical fashion. Wound was probed. There was some purulent drainage. Was noted that the wound tracked anteriorly with tunneling posterior to the labia almost to the suprapubic location. The wound was opened somewhat anteriorly with electrocautery. There was some minimal necrotic superficial skin and subcutaneous tissue which was debrided. Deep probing of the wound revealed some purulent drainage deep to the muscles. This was evacuated. There was some necrotic debris which was evacuated as well. Once it appeared as though all pus was drained and necrotic material debrided the wound was thoroughly irrigated with 6 L of pulsatile saline using the Interpulse device. Adequate hemostasis was achieved. Wound was packed with a saline moistened Kerlix gauze and covered with clean dry sterile dressing. Note wound dimensions measured 4 cm in width and 7 cm longitudinally with 4 cm in depth. There was 6 cm undermining posteriorly and 10 cm tunneling anteriorl
--- NOTE | 2021-04-23 12:24 | HMH.ANESI ---
[facility] Anesthesia Record Part I Intake, IV Amount: 800 Estimated blood loss (mL): 50 Urine output (mL): 0 Blood Pressure: 123/86 SaO2: 95 Pulse Rate: 87 Respiratory Rate: 12 Temperature: 98.1 F Patient is:: Awake, Stable Stable to PACU at:: 12:20
--- NOTE | 2021-04-23 13:20 | SUR.PHASEI ---
1309- detailed report called to dash rojas on [id number] at this time.
--- NOTE | 2021-04-23 17:26 | PC.NURSE ---
Patient is non tele and on room air. Patient off the floor to OR at 0955 and returned at 1305. Post op vitals in progress and charted up to date. Patient is weak, now up with assist times one. Plan of care; possible OR on 04/24 for more debridement. Patient c/o of pain, see mar. Bed in lowest position and call light and phone in reach.
[2021-04-24] VITALS (23 sets, daily range): BP systolic 87–136; BP diastolic 51–81; PULSE 61–114; RESP 13–20; TEMP 36.4–37.3; O2SAT 92–98; BMI 39.3
[2021-04-24 03:28] LABS: POC Glucose,Bedside 439 (70-110)
[2021-04-24 06:13] LABS: POC Glucose,Bedside 314 (70-110)
--- NOTE | 2021-04-24 06:34 | PC.NURSE ---
Shift summary. pt has c/o pain x1 t/o shift. Medicated per MAR with favorable results. Slept well t/o night. VSS. CB in reach. Will continue to monitor.
[2021-04-24 06:57] LABS: Basophils # 0.1 K/mm3 (0-0.2); Basophils % 0.6 % (0.1-2.0); Eosinophils # 0.1 K/mm3 (0.0-0.4); Eosinophils % 0.9 % (0.1-12.0); Hematocrit 34.9 % (37.0-47.0); Hemoglobin 11.5 g/dL (12.2-16.2); Lymphocytes # 1.9 K/mm3 (0.7-4.5); Lymphocytes % 15.4 % (10-50); Mean Corpuscular Hemoglobin 29.3 pg (27.0-31.2); Mean Corpuscular Volume 88.7 fl (81-99); Monocytes # 0.7 K/mm3 (0.1-1.0); Monocytes % 5.4 % (1.7-9.3); Neutrophils # 9.5 K/mm3 (1.8-7.8); Neutrophils % 77.8 % (37.0-80.0); Platelet Count 406 K/mm3 (142-424); Red Blood Count 3.93 M/mm3 (4.20-5.40); White Blood Count 12.3 K/mm3 (4.8-10.8)
[2021-04-24 06:59] LABS: Chloride 103 mmol/L (98-107); Potassium 3.8 mmoL/L (3.5-5.1); Sodium 137 mmol/L (136-145)
[2021-04-24 07:02] LABS: Anion Gap 11.8 mEq/L (5-15); Blood Urea Nitrogen 6 mg/dl (7-17); Calcium 9.2 mg/dl (8.4-10.2); Carbon Dioxide 26 mmol/L (22.0-30.0); Creatinine Clearance Estimated 159 mL/min (50-200); Estimated Glomerular Filt Rate 89 ml/min (>60); GFR (African American) 107 ML/MIN (>60); Glucose 296 mg/dl (74-100)
--- NOTE | 2021-04-24 07:53 | HMH.ACPN2 ---
<Edith Sandra - Last Filed: 04/24/21 07:53> Internal Medicine - PN: Subj *Date: 04/24/21 *Time: 07:53 Interval history: patient had additional I&D yesterday per Dr. Bennett following are his notes: Operative findings:: She had evidence of appreciable cellulitis. There is tunneling of the wound posterior to the labia for at least 10 cm. She did have some undrained pus deep to the muscle, levator, with some necrotic tissue. Operative note:: Patient was taken to the operating room. General anesthesia was induced. She was positioned in lithotomy position. The area was prepped and draped in the standard surgical fashion. Wound was probed. There was some purulent drainage. Was noted that the wound tracked anteriorly with tunneling posterior to the labia almost to the suprapubic location. The wound was opened somewhat anteriorly with electrocautery. There was some minimal necrotic superficial skin and subcutaneous tissue which was debrided. Deep probing of the wound revealed some purulent drainage deep to the muscles. This was evacuated. There was some necrotic debris which was evacuated as well. Once it appeared as though all pus was drained and necrotic material debrided the wound was thoroughly irrigated with 6 L of pulsatile saline using the Interpulse device. Adequate hemostasis was achieved. Wound was packed with a saline moistened Kerlix gauze and covered with clean dry sterile dressing. Note wound dimensions measured 4 cm in width and 7 cm longitudinally with 4 cm in depth. There was 6 cm undermining posteriorly and 10 cm tunneling anteriorly posterior to the left labia. Plan will tentatively be for repeat washout tomorrow and possible VAC dressing. The above per Dr. Bennett Patient awakened from sleep and states she is doing well. Less Discomfort at wound site. She denies chest pain and is breathing well. She did eat a little bit yesterday. She now has diarrhea. As above -may go back for another washout today.CBC shows a white blood cell count of 12,300 with a hemoglobin of 11.5 and hematocrit of 44.9. Electrolytes are normal. Renal function is good. Exam Vital signs and Labs for Last 24 Hours: Temp Pulse Resp BP Pulse Ox 98.2 F 108 H 17 136/72 94 L 04/24/21 04:00 04/24/21 06:04 04/24/21 04:00 04/24/21 04:00 04/24/21 06:04 Laboratory Results - last 24 hr 04/23/21 05:27: Vancomycin Peak 19.1 04/23/21 05:27: Sodium 137, Potassium 3.9, Chloride 106, Carbon Dioxide 24, Anion Gap 10.9, BUN 7 D, Creatinine 0.70, Estimated Creat Clear 159, Estimated GFR 89, Est GFR ( Amer) 107, Glucose 225 H D, Calcium 8.8 04/23/21 22:25: POC Glucose 439 H* 04/24/21 06:01: POC Glucose 314 H* 04/24/21 06:23: WBC 12.3 H, RBC 3.93 L, Hgb 11.5 L, Hct 34.9 L, MCV 88.7, MCH 29.3, MCHC 33.0, RDW 14.0, Plt Count 406, MPV 10.0, Neut % (Auto) 77.8, Lymph % (Auto) 15.4, [place] % (Auto) 5.4, Eos % (Auto) 0.9, Baso % (Auto) 0.6, Neut # (Auto) 9.5 H, Lymph # (Auto) 1.9, [place] # (Auto) 0.7, Eos # (Auto) 0.1, Baso # (Auto) 0.1 04/24/21 06:23: Sodium 137, Potassium 3.8, Chloride 103, Carbon Dioxide 26, Anion Gap 11.8, BUN 6 L, Creatinine 0.70, Estimated Creat Clear 159, Estimated GFR 89, Est GFR ( Amer) 107, Glucose 296 H, Calcium 9.2 I & O for Last 24 hours: Intake & Output 04/21/21 04/22/21 04/23/21 04/24/21 11:59 11:59 11:59 11:59 Intake Total 1560 / 1560 2430 / 2430 1300 / 1300 1160 / 1160 Output Total 0 / 0 0 / 0 Balance 1560 / 1560 2430 / 2430 1300 / 1300 1160 / 1160 Weight 236 lb 1 oz 231 lb 230 lb 8 oz Microbiology Reports for the Last 24 Hours: Microbiology 04/20/21 10:30 Rectum Gram Stain - Final 04/20/21 10:30 Rectum Abscess Culture - Preliminary 04/20/21 00:50 Buttock Gram Stain - Final 04/20/21 00:50 Buttock Wound Culture - Preliminary Staphylococcus aureus Gram Positive Cocci - Constitutional no acute distress Comments:
--- NOTE | 2021-04-24 08:24 | HMH.ANESII ---
[facility] Anesthesia Record Part II Discharge Time: 12:50 Destination: floor PACU nurse assessment reviewed?: Yes Patient Condition:: Good Anesthesia Complications:: None Swallowing reflex intact?: Yes Cyanosis?: No Blood Pressure: 97/58 Pulse Rate: 72 Temperature: 97.6 F Mental Status: Alert & Oriented Pain level:: 3 Nausea and/or vomitting:: None Intake, IV Amount: 800
--- NOTE | 2021-04-24 14:00 | DIET.NUTRFU ---
Addendum entered by Leslie Kebede 04/26/21 16:44: PO intakes 75%, BG moderate avg. 240, weight stable Original Note: Pt remains NPO s/p I&D, 75% PO intakes prior. BG high avg. 290.
--- NOTE | 2021-04-24 15:39 | HMH.OPNOTE ---
Date of procedure: 04/24/21 Pre-op Diagnosis:: Soft tissue infection with complex perirectal abscess Post-op Diagnosis:: Same Procedure performed:: Incision and drainage of deep complex perirectal abscess with debridement of skin and subcutaneous tissue Surgeon:: Enrique Bennett MD SURVEYOR GEOPHYSICAL PROSPECTING:: Darien Kennedy Anesthesia: LMA Estimated blood loss (mL): 30 Clinical Note:: Patient is a 51-year-old female with history of insulin-dependent diabetes, hypertension, hyperlipidemia, chronic atrial fibrillation on Xarelto, COPD, nonflow limiting coronary artery disease with preserved ejection fraction, pulmonary hypertension. She had developed a skin abscess on the buttock . She presented to the emergency department on Thursday04/17/2021. Evaluation at that time included blood work and chest x-ray. She was found to have elevated white blood cell count (17,000) and blood sugar (516). There was a question of left lower lobe pneumonia on chest x-ray. She did undergo limited incision and drainage of the area on the RIGHT by the ER physician and managed as an outpatient. She presented back to the emergency department in the evening on 04/19/2021. She had tenderness in the LEFT. She was admitted for inpatient management. Surgical consultation was obtained the morning of 04/20/21. She was taken to the operating room on 04/20/2021. She underwent incision and drainage of perirectal abscess in the left. There was foul feculent material exuding from the wound. This was opened and debrided. It was packed with gauze. Ultimately the cultures returned as showing a heavy fecal contaminant. She has continued to show some signs of progressive infection with increasing erythema and induration. She underwent a CT scan of the pelvis on 04/22/21 to rule out deep abscess or possibility of perforated rectal cancer. This was negative for any evidence of undrained abscess or rectal mass. On the morning of 04/23/2021 she was found to have foul-smelling drainage from the wound and she was taken back to the operating room at which time she underwent incision and drainage with debridement and unroofing of deep muscle abscess. Tentative plan was for washout and possible placement of negative pressure wound therapy dressing the following day. She has had a persistent leukocytosis. She was noted to have persistent induration and erythema posteriorly on the gluteal region. Operative findings:: Some undrained deep pus. Appreciable induration and erythema tracking posteriorly to the gluteal region. Additional debridement of skin and subcutaneous tissue carried out. Operative note:: Patient was taken to the operating room. She was positioned in supine position. General anesthesia was induced. She was positioned in lithotomy position. Packing was removed. She was prepped and draped in the standard surgical fashion. Inspection of the wound revealed significant induration and erythema posteriorly. Vigorous probing of the wound revealed some deep pus. This was evacuated. Some debridement was carried out of skin and subcutaneous tissues. Additional subcutaneous tissue which was markedly indurated was debrided. Wound was thoroughly irrigated with approximately 6 L of pulsatile saline irrigation using the InterPulse device. Hemostasis was achieved with electrocautery. At the completion of the procedure negative pressure wound therapy dressing was secured. Condition: stable Disposition: PACU Specimens:: Debrided tissue Complications:: None immediately apparent
--- NOTE | 2021-04-24 15:40 | HMH.ANESI ---
[facility] Anesthesia Record Part I Intake, IV Amount: 600 Estimated blood loss (mL): 10 Urine output (mL): 0 Blood Pressure: 106/63 SaO2: 93 Pulse Rate: 89 Respiratory Rate: 13 Temperature: 97.5 F Patient is:: Awake Stable to PACU at:: 15:38
[2021-04-24 17:04] LABS: POC Glucose,Bedside 216 (70-110)
[2021-04-24 17:04] LABS: POC Glucose,Bedside 216 (70-110)
--- NOTE | 2021-04-24 18:18 | PC.NURSE ---
PT IS RESTING IN BED. EATING DINNER AT THIS TIME. ALERT AND ORIENTED X4. LUNG SOUNDS DIMINISHED. ABDOMEN SOFT/NON TENDER WITH ACTIVE BOWEL SOUNDS. PT TOLERATED PROCEDURE WELL. PT NOW HAS A WOUND VAC, DRESSING TO THE LEFT GLUTEAL C/D/I. REDNESS NOTED TO THE BUTTOCKS. SWELLING NOTED TO THE LEFT LABIA. WILL CONTINUE TO MONITOR.
--- NOTE | 2021-04-24 18:38 | HMH.ANESII ---
[facility] Anesthesia Record Part II Discharge Time: 16:08 Destination: Medical Surgical Department PACU nurse assessment reviewed?: Yes Patient Condition:: Good Anesthesia Complications:: None Swallowing reflex intact?: Yes Cyanosis?: No Blood Pressure: 109/51 Pulse Rate: 74 Temperature: 97.9 F Mental Status: Alert & Oriented Pain level:: 5 Nausea and/or vomitting:: None Intake, IV Amount: 0
[2021-04-24 21:30] LABS: POC Glucose,Bedside 295 (70-110)
[2021-04-25] VITALS (9 sets, daily range): BP systolic 103–125; BP diastolic 43–66; PULSE 67–106; RESP 16–18; TEMP 36.4–36.9; O2SAT 91–97; BMI 39.2
--- NOTE | 2021-04-25 05:05 | PC.NURSE ---
Pt has c/o pain 2x this rating pain 10/10. Medicated per MAR with favorable results. No other complaints voiced to staff. Wound vac/dressing in place on left gluteal. VSS. CB in reach. Will continue to monitor.
[2021-04-25 06:09] LABS: POC Glucose,Bedside 256 (70-110)
[2021-04-25 07:36] LABS: Basophils # 0.1 K/mm3 (0-0.2); Chloride 104 mmol/L (98-107); Eosinophils # 0.2 K/mm3 (0.0-0.4); Eosinophils % 1.8 % (0.1-12.0); Hematocrit 33.7 % (37.0-47.0); Hemoglobin 10.7 g/dL (12.2-16.2); Lymphocytes # 2.4 K/mm3 (0.7-4.5); Lymphocytes % 22.3 % (10-50); Mean Corpuscular HGB Conc 31.7 g/dL (31.8-35.4); Mean Corpuscular Hemoglobin 28.9 pg (27.0-31.2); Mean Corpuscular Volume 91.2 fl (81-99); Mean Platelet Volume 10.3 fl (7.4-10.4); Monocytes # 0.5 K/mm3 (0.1-1.0); Monocytes % 4.8 % (1.7-9.3); Neutrophils # 7.5 K/mm3 (1.8-7.8); Neutrophils % 70.1 % (37.0-80.0); Platelet Count 413 K/mm3 (142-424); Red Cell Distribution Width 14.8 % (11.5-17.5); Sodium 139 mmol/L (136-145); White Blood Count 10.7 K/mm3 (4.8-10.8)
[2021-04-25 07:37] LABS: Potassium 3.4 mmoL/L (3.5-5.1)
[2021-04-25 07:39] LABS: Blood Urea Nitrogen 6 mg/dl (7-17); Creatinine Clearance Estimated 139 mL/min (50-200); Estimated Glomerular Filt Rate 76 ml/min (>60); GFR (African American) 92 ML/MIN (>60)
[2021-04-25 07:40] LABS: Anion Gap 9.4 mEq/L (5-15); Calcium 8.7 mg/dl (8.4-10.2); Carbon Dioxide 29 mmol/L (22.0-30.0); Glucose 240 mg/dl (74-100)
--- NOTE | 2021-04-25 08:20 | HMH.ACPN2 ---
<Abby De La Fuente - Last Filed: 04/25/21 08:20> Internal Medicine - PN: Subj *Date: 04/25/21 *Time: 08:20 Interval history: Patient went to the OR again yesterday and had a wound VAC placed. She says she is very sore this morning. She states she had difficulty sleeping throughout the night due to pain. She has to lay on her right side. She was able to eat some breakfast this morning. Exam Vital signs and Labs for Last 24 Hours: Temp Pulse Resp BP Pulse Ox 98.5 F 106 H 16 125/66 97 04/25/21 07:37 04/25/21 07:37 04/25/21 07:37 04/25/21 07:37 04/25/21 07:37 Laboratory Results - last 24 hr 04/24/21 11:40: POC Glucose 216 H 04/24/21 16:38: POC Glucose 216 H 04/24/21 21:22: POC Glucose 295 H 04/25/21 05:56: POC Glucose 256 H 04/25/21 06:42: WBC 10.7, RBC 3.70 L, Hgb 10.7 L, Hct 33.7 L, MCV 91.2, MCH 28.9, MCHC 31.7 L, RDW 14.8, Plt Count 413, MPV 10.3, Neut % (Auto) 70.1, Lymph % (Auto) 22.3, [place] % (Auto) 4.8, Eos % (Auto) 1.8, Baso % (Auto) 1.0, Neut # (Auto) 7.5, Lymph # (Auto) 2.4, [place] # (Auto) 0.5, Eos # (Auto) 0.2, Baso # (Auto) 0.1 04/25/21 06:42: Sodium 139, Potassium 3.4 L, Chloride 104, Carbon Dioxide 29, Anion Gap 9.4, BUN 6 L, Creatinine 0.80, Estimated Creat Clear 139, Estimated GFR 76, Est GFR ( Amer) 92, Glucose 240 H, Calcium 8.7 I & O for Last 24 hours: Intake & Output 04/22/21 04/23/21 04/24/21 04/25/21 11:59 11:59 11:59 11:59 Intake Total 2430 / 2430 1300 / 1300 1960 / 1960 1200 / 1200 Output Total 0 / 0 0 / 0 Balance 2430 / 2430 1300 / 1300 1959 / 1959 1200 / 1200 Weight 231 lb 230 lb 8 oz 230 lb Microbiology Reports for the Last 24 Hours: Microbiology 04/19/21 23:40 Blood Blood Culture - Final 04/19/21 23:40 Blood Blood Culture - Final NO GROWTH AFTER 5 DAYS 04/20/21 10:30 Rectum Gram Stain - Final 04/20/21 10:30 Rectum Abscess Culture - Preliminary Gram Positive Cocci 04/20/21 00:50 Buttock Gram Stain - Final 04/20/21 00:50 Buttock Wound Culture - Final Staphylococcus aureus Strep agalactiae - (group b) - Constitutional no acute distress - *Routine Respiratory Exam Present: CTA bilaterally - *Routine Cardiovascular Exam Present: RRR - *Routine Abdominal Exam Present: soft, normoactive bowel sounds. Absent: tenderness - *Routine Extremities Exam Absent: cyanosis, clubbing, edema - *Routine Skin Exam Present: warm. Absent: rash Comments: wound vac in place - *Routine Neurological Exam Present: alert, oriented X3 Assessment and Plan (1) Perirectal abscess Status: Acute Category: Medical Code(s): K61.1 - Rectal abscess (2) Chronic atrial fibrillation Status: Acute Category: Medical Code(s): I48.20 - Chronic atrial fibrillation, unspecified (3) Chronic renal insufficiency, stage III (moderate) Status: Acute Category: Medical Code(s): N18.3 - Chronic kidney disease, stage 3 (moderate) (4) Medical non-compliance Status: Acute Category: Medical Code(s): Z91.19 - Patient's noncompliance with other medical treatment and regimen (5) COPD (chronic obstructive pulmonary disease) Status: Chronic Qualifiers: COPD type: unspecified COPD Qualified Code(s): J44.9 - Chronic obstructive pulmonary disease, unspecified Category: Medical Code(s): J44.9 - Chronic obstructive pulmonary disease, unspecified (6) Pulmonary hypertension Status: Chronic Category: Medical Code(s): I27.20 - Pulmonary hypertension, unspecified (7) Type 2 diabetes mellitus Status: Chronic Qualifiers: Diabetes mellitus half-way insulin use: with termination clerk use Diabetes mellitus complication status: without complication Qualified Code(s): E11.9 - Type 2 diabetes mellitus without complications; Z79.4 - intermodal customer service (current) use of insulin Category: Medical Code(s): E11.9 - Type 2 diabe
--- NOTE | 2021-04-25 08:23 | XR_ITS ---
PROCEDURE: CLINICAL INDICATION: PICC line placement COMPARISON: Portable upright chest 04/17/2021 FINDINGS: The lung isaacs are well expanded. The PICC line is seen ascending the left axillary vein with the tip in the SVC just beyond the junction with the innominate vein. There is no pneumothorax. There is right basilar discoid atelectasis noted. Otherwise the lung isaacs are clear. IMPRESSION: PICC line is in the upper portion of the SVC as described Dictated by: Dr. Sanket Henry MD 04/26/2021 13:49 Dr. Sanket Henry MD in OV 04/26/2021 13:49
--- NOTE | 2021-04-25 11:42 | HMH.GSPN ---
Subjective Patient reports: no new complaints Progress Note: A&P (1) Perirectal abscess Status: Acute Assessment and plan: Overall, doing well status post complex incision and drainage/debridement on 3 separate occasions. Continue VAC dressing for now NPO p MN in preparation for possible need for repeat debridement VAC dressing change early tomorrow (to coordinate with Dr. Bennett) Continue antibiotics (2) Chronic atrial fibrillation Status: Acute (3) Chronic renal insufficiency, stage III (moderate) Status: Acute (4) Medical non-compliance Status: Acute (5) COPD (chronic obstructive pulmonary disease) Status: Chronic (6) Pulmonary hypertension Status: Chronic (7) Type 2 diabetes mellitus Status: Chronic (8) HTN (hypertension) Status: Chronic (9) Status post incision and drainage Status: Acute Exam Vital signs and Labs for Last 24 Hours: Temp Pulse Resp BP Pulse Ox 98.5 F 97 H 16 125/66 97 04/25/21 07:37 04/25/21 10:50 04/25/21 07:37 04/25/21 07:37 04/25/21 07:37 Laboratory Results - last 24 hr 04/24/21 11:40: POC Glucose 216 H 04/24/21 16:38: POC Glucose 216 H 04/24/21 21:22: POC Glucose 295 H 04/25/21 05:56: POC Glucose 256 H 04/25/21 06:42: WBC 10.7, RBC 3.70 L, Hgb 10.7 L, Hct 33.7 L, MCV 91.2, MCH 28.9, MCHC 31.7 L, RDW 14.8, Plt Count 413, MPV 10.3, Neut % (Auto) 70.1, Lymph % (Auto) 22.3, [place] % (Auto) 4.8, Eos % (Auto) 1.8, Baso % (Auto) 1.0, Neut # (Auto) 7.5, Lymph # (Auto) 2.4, [place] # (Auto) 0.5, Eos # (Auto) 0.2, Baso # (Auto) 0.1 04/25/21 06:42: Sodium 139, Potassium 3.4 L, Chloride 104, Carbon Dioxide 29, Anion Gap 9.4, BUN 6 L, Creatinine 0.80, Estimated Creat Clear 139, Estimated GFR 76, Est GFR ( Amer) 92, Glucose 240 H, Calcium 8.7 I & O for Last 24 hours: Intake & Output 04/22/21 04/23/21 04/24/21 04/25/21 11:59 11:59 11:59 11:59 Intake Total 2430 / 2430 1300 / 1300 1960 / 1960 1200 / 1200 Output Total 0 / 0 0 / 0 Balance 2430 / 2430 1300 / 1300 1960 / 1960 1200 / 1200 Weight 231 lb 230 lb 8 oz 230 lb Microbiology Reports for the Last 24 Hours: Microbiology 04/20/21 10:30 Rectum Gram Stain - Final 04/20/21 10:30 Rectum Abscess Culture - Preliminary Gram Positive Cocci 04/19/21 23:40 Blood Blood Culture - Preliminary 04/19/21 23:40 Blood Blood Culture - Final NO GROWTH AFTER 5 DAYS 04/20/21 00:50 Buttock Gram Stain - Final 04/20/21 00:50 Buttock Wound Culture - Final Staphylococcus aureus Strep agalactiae - (group b) - Constitutional no acute distress - *Routine Respiratory Exam Absent: respiratory distress - *Routine Cardiovascular Exam Absent: tachycardia - *Routine Skin Exam Comments: Perianal VAC in place. No spreading cellulitis.
--- NOTE | 2021-04-25 12:30 | PC.NURSE ---
Patient refused PICC line placement nurse notified
[2021-04-25 16:25] LABS: POC Glucose,Bedside 238 (70-110)
--- NOTE | 2021-04-25 20:16 | PC.NURSE ---
PT IS RESTING IN BED ON HER RT SIDE. ALERT AND ORIENTED X4. PT WAS CONSENTED FOR PICC LINE PLACEMENT AND THEN REFUSED. PT LATER EDUCATED ON WHY SHE NEEDED THE PICC LINE AND IF SHE WAS WANTING TO DO HER INFUSIONS AND DRESSING CHANGES WITH HOME HEALTH THEN FAMILY WAS NOT GOING TO BE ABLE TO GIVE HER PERIPHERAL IV ACCESS. IT WAS EXPLAINED TO PT THE PICC COULD STAY IN FOR SEVERAL WEEKS AND SHE COULD EVEN HAVE HER BLOOD DRAWN FROM IT. AFTER CONVINCING PT SHE DID EVENTUALLY AGREE HOWEVER IT WAS LATE IN THE AFTERNOON AND THE PICC NURSE STATED SHE WOULD CHECK WITH PT AGAIN IN THE MORNING. DR. HEARD ROUNDED ON PT AND STATED FOR PT TO BE NPO AFTER MIDNIGHT JUST IN CASE HAS TO TAKE PT BACK TO THE OR TOMORROW. WOUND VAC DRESSING NOTED TO WOUND. PT HAS BEEN GETTING UP TO THE BSC. MEDICATED FOR PAIN NEEDED. LUNG SOUNDS DIMINISHED. ABDOMEN SOFT/NON TENDER WITH ACTIVE BOWEL SOUNDS. WILL CONTINUE TO MONITOR.
[2021-04-25 21:04] LABS: POC Glucose,Bedside 225 (70-110)
[2021-04-25 22:05] LABS: POC Glucose,Bedside 251 (70-110)
--- NOTE | 2021-04-25 22:38 | PC.NURSE ---
DAUGHTER UPDATED ON PT STATUS AT THIS TIME.
[2021-04-26] VITALS: BP 117/69; PULSE 85; RESP 16; TEMP 36.9; O2SAT 96
[2021-04-26 04:00] VITALS: BP 116/58; PULSE 91; RESP 16; TEMP 37; O2SAT 96
--- NOTE | 2021-04-26 06:33 | PC.NURSE ---
Shift summary. Pt has c/o pain 2x t/o shift. Medicated per MAR with favorable results. Wound vac in place. VSS. CB in reach. Will continue to monitor.
[2021-04-26 06:41] LABS: POC Glucose,Bedside 269 (70-110)
[2021-04-26 06:42] VITALS: PULSE 63; O2SAT 97
[2021-04-26 07:47] VITALS: BP 126/69; PULSE 90; RESP 12; TEMP 37.1; O2SAT 97
--- NOTE | 2021-04-26 08:08 | HMH.ACPN2 ---
<Abby De La Fuente - Last Filed: 04/26/21 08:08> Internal Medicine - PN: Subj *Date: 04/26/21 *Time: 08:08 Interval history: Patient states she wants to go home today. She is n.p.o. this morning as per Dr. Mcintosh. She refused her PICC line yesterday, but does agree to PICC line placement today. She states her pain is controlled with oral pain medication. Exam Vital signs and Labs for Last 24 Hours: Temp Pulse Resp BP Pulse Ox 98.8 F 90 12 126/69 97 04/26/21 07:47 04/26/21 07:47 04/26/21 07:47 04/26/21 07:47 04/26/21 07:47 Laboratory Results - last 24 hr 04/25/21 11:30: POC Glucose 238 H 04/25/21 17:01: POC Glucose 251 H 04/25/21 20:56: POC Glucose 225 H 04/26/21 06:16: POC Glucose 269 H I & O for Last 24 hours: Intake & Output 04/23/21 04/24/21 04/25/21 04/26/21 11:59 11:59 11:59 11:59 Intake Total 1300 / 1300 1960 / 1960 1200 / 1200 1676 / 1676 Output Total 0 / 0 0 / 0 Balance 1300 / 1300 1960 / 1960 1200 / 1200 1676 / 1676 Weight 231 lb 230 lb 8 oz 230 lb Microbiology Reports for the Last 24 Hours: Microbiology 04/19/21 23:40 Blood Blood Culture - Preliminary 04/20/21 10:30 Rectum Gram Stain - Final 04/20/21 10:30 Rectum Abscess Culture - Preliminary Gram Positive Cocci - Constitutional no acute distress - *Routine Respiratory Exam Present: CTA bilaterally - *Routine Cardiovascular Exam Present: RRR - *Routine Abdominal Exam Present: soft, normoactive bowel sounds. Absent: tenderness - *Routine Extremities Exam Present: edema. Absent: cyanosis, clubbing - *Routine Skin Exam Present: warm. Absent: rash - *Routine Neurological Exam Present: alert, oriented X3 Assessment and Plan (1) Perirectal abscess Status: Acute Category: Medical Code(s): K61.1 - Rectal abscess (2) Chronic atrial fibrillation Status: Acute Category: Medical Code(s): I48.20 - Chronic atrial fibrillation, unspecified (3) Chronic renal insufficiency, stage III (moderate) Status: Acute Category: Medical Code(s): N18.3 - Chronic kidney disease, stage 3 (moderate) (4) Medical non-compliance Status: Acute Category: Medical Code(s): Z91.19 - Patient's noncompliance with other medical treatment and regimen (5) COPD (chronic obstructive pulmonary disease) Status: Chronic Qualifiers: COPD type: unspecified COPD Qualified Code(s): J44.9 - Chronic obstructive pulmonary disease, unspecified Category: Medical Code(s): J44.9 - Chronic obstructive pulmonary disease, unspecified (6) Pulmonary hypertension Status: Chronic Category: Medical Code(s): I27.20 - Pulmonary hypertension, unspecified (7) Type 2 diabetes mellitus Status: Chronic Qualifiers: Diabetes mellitus terminal clerk insulin use: with assisted use Diabetes mellitus complication status: without complication Qualified Code(s): E11.9 - Type 2 diabetes mellitus without complications; Z79.4 - manager terminal (current) use of insulin Category: Medical Code(s): E11.9 - Type 2 diabetes mellitus without complications (8) HTN (hypertension) Status: Chronic Qualifiers: Hypertension type: essential hypertension Category: Medical Code(s): I10 - Essential (primary) hypertension (9) Status post incision and drainage Status: Acute Category: Surgical Code(s): Z98.890 - Other specified postprocedural states - Assessment and plan all Dx Assessment and Plan for all problems:: Further as per surgery. We will try to place PICC line today. <Siva Wan - Last Filed: 04/26/21 08:58> Internal Medicine - PN: Subj *Date: 04/26/21 *Time: 08:56 Exam Vital signs and Labs for Last 24 Hours: Temp Pulse Resp BP Pulse Ox 98.8 F 90 12 126/69 97 04/26/21 07:47 04/26/21 07:47 04/26/21 07:47 04/26/21 07:47 04/26/21 07:47 Laboratory Results - last 24 hr 04/25/21 11:30: POC Glucose 238 H 04/25/21 17:01: POC G
--- NOTE | 2021-04-26 08:46 | HMH.GSPN ---
Subjective Patient reports: feels better Progress Note: A&P (1) Perirectal abscess Status: Acute (2) Chronic atrial fibrillation Status: Acute (3) Chronic renal insufficiency, stage III (moderate) Status: Acute (4) Medical non-compliance Status: Acute (5) COPD (chronic obstructive pulmonary disease) Status: Chronic (6) Pulmonary hypertension Status: Chronic (7) Type 2 diabetes mellitus Status: Chronic (8) HTN (hypertension) Status: Chronic (9) Status post incision and drainage Status: Acute Assessment and Plan for All Diagnoses:: VAC change today. PICC line today. Possible discharge home later on outpatient IV antibiotics and wound care. Exam Vital signs and Labs for Last 24 Hours: Temp Pulse Resp BP Pulse Ox 98.8 F 90 12 126/69 97 04/26/21 07:47 04/26/21 07:47 04/26/21 07:47 04/26/21 07:47 04/26/21 07:47 Laboratory Results - last 24 hr 04/25/21 11:30: POC Glucose 238 H 04/25/21 17:01: POC Glucose 251 H 04/25/21 20:56: POC Glucose 225 H 04/26/21 06:16: POC Glucose 269 H I & O for Last 24 hours: Intake & Output 04/23/21 04/24/21 04/25/21 04/26/21 11:59 11:59 11:59 11:59 Intake Total 1300 / 1300 1960 / 1960 1200 / 1200 1676 / 1676 Output Total 0 / 0 0 / 0 Balance 1300 / 1300 1960 / 1960 1200 / 1200 1676 / 1676 Weight 231 lb 230 lb 8 oz 230 lb Microbiology Reports for the Last 24 Hours: Microbiology 04/19/21 23:40 Blood Blood Culture - Preliminary 04/20/21 10:30 Rectum Gram Stain - Final 04/20/21 10:30 Rectum Abscess Culture - Preliminary Gram Positive Cocci - *Routine Skin Exam Comments: VAC intact and functioning well. Decreased induration and erythema.
--- NOTE | 2021-04-26 09:31 | SW/DCPLANNER ---
Addendum entered by Sarai Moore 04/29/21 14:45: Amy Dalton has stated that medication is covered at 100% and will be delivered this evening. Mai has stated that home health services will begin tomorrow. I have called and informed this patient and she concurs with plan and understands that services will begin tomorrow. Addendum entered by Sarai Moore 04/29/21 13:26: Mai with [facility] has stated that services can start tomorrow for this patient. I am currently waiting to hear back from Amy Dalton regarding out of pocket expense. Addendum entered by Sarai Moore 04/29/21 11:49: Patient arrived to outpatient dept and stated that she would prefer to use home health services. Patient information/order will be faxed to [facility] and [facility]. I will follow up with both once patient information/order is reviewed. Original Note: I spoke with this patient today regarding discharge plans. Patient stated that she resides in [place] with her family. I explained to patient that she will need residential IV antibiotics and wound vac dressing changes. I explained different discharge options: placement, home with home health/family assistance and to return to [facility] daily for outpatient services. After a lengthy discussion about different options patient has decided she would prefer to return back to [facility] daily. Patient assured me several times during the conversation that she would have daily transportation. I will continue to follow up with this patient until medically stable for discharge regarding discharge plans.
[2021-04-26 11:14] VITALS: BP 122/60; PULSE 78; RESP 14; TEMP 36.9; O2SAT 95
[2021-04-26 11:33] LABS: POC Glucose,Bedside 152 (70-110)
--- NOTE | 2021-04-26 17:03 | PC.NURSE ---
Patient ready for discharge to home. Wound Vac dressing changed. Discharge instructions provided to patient.
--- NOTE | 2021-04-28 22:11 | HMH.DCSUM ---
General - General Admission date:: 04/20/21 <Siva Wan - 06/15/21 23:13> 04/20/21 <Abby De La Fuente - 04/28/21 22:24> Discharge date: 04/26/21 <Abby De La Fuente - 04/28/21 22:24> HPI HPI: Angeles is a 51-year-old white female with poorly controlled diabetes, hypertension, hyperlipidemia, severe pulmonary hypertension, congestive heart failure, chronic atrial fibrillation. States she was bitten on the buttocks by an insect 4-5 days ago and this became infected. She presented to the emergency room on 04/17/2021 and underwent incision and drainage of the lesion on the right buttock. At that time a chest x-ray also suggested possible early lower lobe infiltrate and she was discharged home on doxycycline. She returned to the emergency room last evening because of increasing pain in the left buttock area. She was reevaluated and found to have a large abscess of the buttock. She has been admitted for surgical consultation. Dr. Bennett saw the patient early this morning and took her directly from the ER to the OR and she has undergone incision and drainage of a large perirectal abscess. I am now seeing her postoperatively after she has arrived on the floor. She is awake and alert and states she feels better. There is less discomfort in the buttock area now. On reviewing her ER notes, her blood sugar is elevated. She does admit to noncompliance with her medication and diet. <Abby De La Fuente - 04/28/21 22:24> Hospital Course Hospital Course: Patient was taken directly to the OR by Dr. Bennett for I&D of the perirectal abscess. Packing and surgical dressing were placed and he added ertapenem to the vancomycin that was started in the emergency room pending results of her operative culture. She was continued on maintenance medications from home and her blood sugar was monitored. She continued with pain at the surgical site. She did have some noticeable induration of the gluteal area. She had some evidence of advancing soft tissue infection. Dr. Bennett ordered a CT of the pelvis to rule out any deep abscess. The pelvic CT showed no obvious perirectal abscess. There was some stranding of the fat in the left perianal area and left buttock suggesting underlying inflammatory changes. There was also a 6 x 7 cm cystic left adnexal mass and an ultrasound was recommended. She developed a low-grade fever and there was pus pouring from the wound. Dr. Bennett took her back to the OR for incision and drainage with debridement of the skin, subcutaneous tissue, and minimal muscle. There was tunneling of the wound posterior to the labia for at least 10 cm. She did have some undrained pus deep to the muscle with some necrotic tissue. Dr. Bennett wanted to repeat a washout the next day and place a VAC dressing. Wound cultures revealed staph aureus which was resistant to vancomycin but sensitive to daptomycin. This was initiated. The patient was taken back to the OR again on 04/24/2021 for additional debridement of skin and subcutaneous tissue and placement of a wound VAC. She was very sore the next morning and had difficulty sleeping due to the pain. She was able to eat a small amount. A PICC line was ordered for continued IV antibiotics. She was switched to oral pain medication and this did help with pain control. Dr. Bennett felt the patient was stable to be discharged home on continued IV antibiotics. She will return to the hospital for the IV antibiotics and wound VAC changes. <Abby De La Fuente - 04/28/21 22:24> Objective Vital signs: Temp Pulse Resp BP Pulse Ox 98.5 F 78 14 122/60 95 04/26/21 11:14 04/26/21 11:14 04/26/21 11:14 04/26/21 11:14 04/26/21 11:14 <Siva Wan - 06/15/21 23:13> Temp Pulse Resp BP Pulse Ox 98.5 F 78 14 122/60 95 04/26/21 11:14 04/26/21 11:14 04/26/21 11:14 04/26/21 11:14 04/26/21 11:14 <Abby De La Fuente - 04/28/21 22:24> Narrative: - Constit
== END 2021-04-26 17:00 | disposition home or self-care (01) | DRG 345 ==
LOC: ER 23:04 → 2ND 04-20 02:06
PROVIDERS: Surgery; Admitting Provider Family Medicine; Emergency Provider Emergency Medicine; PCP Family Medicine; Visit Provider Family Medicine
PROC: 0D9P0ZZ Drainage of Rectum, Open Approach (ICD-10-PCS; principal; 2021-04-20 10:00)
PROC: 0KBM0ZZ Excision of Perineum Muscle, Open Approach (ICD-10-PCS; principal; 2021-04-24 12:30)
DX: K61.1 Rectal abscess (principal); I48.20 Chronic atrial fibrillation, unspecified; N18.30 Chronic kidney disease, stage 3 unspecified; Z20.822 Contact with and (suspected) exposure to COVID-19; I11.0 Hypertensive heart disease with heart failure; I50.9 Heart failure, unspecified; J44.9 Chronic obstructive pulmonary disease, unspecified; F17.210 Nicotine dependence, cigarettes, uncomplicated; Z79.4 Long term (current) use of insulin; E11.9 Type 2 diabetes mellitus without complications; Z79.899 Other long term (current) drug therapy; Z91.19 Patient's noncompliance with other medical treatment and regimen; I27.20 Pulmonary hypertension, unspecified; Z79.02 Long term (current) use of antithrombotics/antiplatelets; E78.5 Hyperlipidemia, unspecified; I25.2 Old myocardial infarction
CPT/HCPCS: 46040 ×3; 11043; 11000; 36415; 36569; 71045; 72193; 80048; 80053; 80202; 82009; 82962; 83605; 83735; 84145; 84443; 84484; 85007; 85025; 85651; 86140; 87040; 87070; 87077; 87186; 87205; 88304; 93005; 94640; 96365; 96367; 96374; 96375; 99283; 99284; C1751; C9803; J0131; J0878; J1335; J2405; J3370; Q9967; U0003; U0005

== ENCOUNTER 2021-04-29 11:01 | Outpatient (CLI) | payer OTHER, SELFPAY ==
[2021-04-29 11:43] LABS: Anion Gap 9.9 mEq/L (5-15); Blood Urea Nitrogen 9 mg/dl (7-17); Calcium 8.9 mg/dl (8.4-10.2); Carbon Dioxide 26 mmol/L (22.0-30.0); Chloride 104 mmol/L (98-107); Creatine Kinase 67 U/L (30-135); Estimated Glomerular Filt Rate 48 ml/min (>60); GFR (African American) 58 ML/MIN (>60); Glucose 305 mg/dl (74-100); Potassium 3.9 mmoL/L (3.5-5.1); Sodium 136 mmol/L (136-145)
--- NOTE | 2021-04-29 12:00 | PC.NURSE ---
PT ARRIVED TODAY AT 1110 FROM THE WOUND CARE CLINIC TO GET HER INFUSION; PT DID NOT SHOW UP THIS WEEKEND FOR THE IV MEDICATION; AFTER ARRIVING AND SITTING IN THE CHAIR FOR A FEW MINS THE PATIENT WAS VERY ADIMAMT TO LEAVE WITHOUT THE MEDICATION. THE INVANZ WAS SPIKED AND HUNG WHEN THE PATIENT DECIDED SHE WAS LEAVING;CARE MANAGEMENT WAS NOTIFIED AND PT DID AGREE TO ALLOW HOME HEALTH TO COME TO THE HOUSE AND NOT COME IN EVERY DAY; LABS WERE DRAWN AND PICC WAS FLUSHED; PT LEFT WITH SIGNIFICANT OTHER
== END 2021-04-29 12:00 | disposition home or self-care (01) ==
LOC: INF 11:02
PROVIDERS: PCP Family Medicine; Visit Provider Surgery
DX: L02.31 Cutaneous abscess of buttock (principal)
CPT/HCPCS: 80048; 82550; J1335

== ENCOUNTER 2021-05-06 13:34 | Outpatient (CLI) | payer OTHER, SELFPAY ==
[2021-05-06 13:40] VITALS: BMI 31.6
[2021-05-06 14:08] LABS: Basophils # 0.2 K/mm3 (0-0.2); Basophils % 1.5 % (0.1-2.0); Chloride 104 mmol/L (98-107); Eosinophils # 0.2 K/mm3 (0.0-0.4); Eosinophils % 1.9 % (0.1-12.0); Hematocrit 37.8 % (37.0-47.0); Hemoglobin 12.1 g/dL (12.2-16.2); Lymphocytes # 2.8 K/mm3 (0.7-4.5); Lymphocytes % 21.8 % (10-50); Mean Corpuscular HGB Conc 31.9 g/dL (31.8-35.4); Mean Corpuscular Volume 90.8 fl (81-99); Mean Platelet Volume 8.3 fl (7.4-10.4); Monocytes # 0.5 K/mm3 (0.1-1.0); Neutrophils % 70.8 % (37.0-80.0); Platelet Count 527 K/mm3 (142-424); Red Blood Count 4.17 M/mm3 (4.20-5.40); Red Cell Distribution Width 15.4 % (11.5-17.5); Sodium 140 mmol/L (136-145); White Blood Count 12.7 K/mm3 (4.8-10.8)
[2021-05-06 14:10] LABS: Blood Urea Nitrogen 16 mg/dl (7-17); Creatine Kinase 1201 U/L (30-135); Creatinine Clearance Estimated 81 mL/min (50-200); Estimated Glomerular Filt Rate 53 ml/min (>60); GFR (African American) 64 ML/MIN (>60)
[2021-05-06 14:11] LABS: Alanine Aminotransferase 31 U/L (12-78); Albumin Level 3.7 g/dl (3.5-5.0); Alkaline Phosphatase 97 U/L (38-126); Aspartate Amino Transferase 64 U/L (14-36); Bilirubin,Total 0.3 mg/dl (0.2-1.3); Calcium 9.3 mg/dl (8.4-10.2); Carbon Dioxide 28 mmol/L (22.0-30.0); Globulin 3.8 g/dL (1.3-3.2); Glucose 171 mg/dl (74-100); Total Protein,Serum 7.5 g/dl (6.3-8.2)
[2021-05-06 14:17] LABS: C-Reactive Protein 16.9 mg/L (0-4)
[2021-05-06 15:06] LABS: Erythrocyte Sedimentation Rate 50 mm/hr (0-20)
== END 2021-05-06 14:19 | disposition home or self-care (01) ==
LOC: INF 13:35
PROVIDERS: PCP Family Medicine; Visit Provider Surgery
DX: K61.1 Rectal abscess (principal)
CPT/HCPCS: 80053; 82550; 85025; 85651; 86140

== ENCOUNTER 2021-05-10 11:48 | Outpatient (CLI) | payer OTHER, SELFPAY | END 2021-05-10 12:00 | disposition home or self-care (01) | LOC: INF 11:50 | PROVIDERS: PCP Family Medicine; Visit Provider Surgery | DX: K61.1 Rectal abscess (principal); Z48.01 Encounter for change or removal of surgical wound dressing | CPT/HCPCS: G0463 ==

== ENCOUNTER 2021-06-07 13:00 | Outpatient (RCR) | payer OTHER, SELFPAY ==
--- NOTE | 2021-04-29 11:01 | HMH.PTOPWND ---
Rehab Outpt Wound Evaluation Rehab OP Wound Evaluation Start: 04/29/21 09:21 Freq: Status: Active Protocol: Document 04/29/21 10:51 SHAY (Rec: 04/29/21 11:00 SHAY [id number]) Electronically Signed By Jm Adamson, PT 04/29/21 10:51 Subjective/History History History Pt is 51 yowf who presents with L buttock francesca-rectal wound x ~ 2 wks due to abcess requiring debridement. She had I&D performed 04/17, 04/20, and 04/23 with application of wound VAC post surgery. She reports, I got bit by something and that started it all. She c/o increased pain throughout the francesca-wound area and presents with Wound VAC dressing on, but not completely sealed. She has PMH of a-fib, CHF, COPD, depression, DM-II ( uncontrolled), GERD, HL, HTN, partial hysterectomy. Subjective Subjective Pt c/o 04/28 pain with dresing changes. Wound is so close to the rectum that a complete seal to VAC dressing is not possible. Dressing was apploed as well as can be maintained in the area. Francesca-wound skin highly irritated, most likely due to leakage of drainage. Wound Eval Wound Left Perianal Wound Type Incision Is This a Chronic Wound No Wound Length (cm) 4.5 Wound Width (cm) 6.0 Wound Depth (cm) 3.3 Wound Bed Appearance Beefy Red Percentage Granulated (%) 100 Wound Margins Description Well Defined Tunneling Position 6-7 0'clock Tunneling Depth (cm) 4.0 Surrounding Tissue Appearance [place],Bright Red Drainage Description Serosanguineous Drainage Amount Moderate Wound Topical Solution/Irrigant Saline Irrigant Packing Type Woundvac Sponge Primary Dressing Transparent Drape Wound Debridement Amount of Tissue None Removed Dressing Change Patient Tolerance Tolerated Poorly Wound Problems/Impairments Impairments Problems/Impairmments Palpation Tenderness,Impaired Gait Pattern,Impaired Walking,
--- NOTE | 2021-05-27 13:24 | HMH.RHREAS ---
Rehab Reassessment Rehab OP Re-assessment Start: 05/27/21 13:18 Freq: Status: Active Protocol: Document 05/27/21 13:22 SHAY (Rec: 05/27/21 13:23 SHAY [id number]) Electronically Signed By Jm Adamson, PT 05/27/21 13:22 Rehab Re-assessment Subjective Subjective Pt reports she is still a little tender, but much better overall. Objective Objective Notes L buttock perianal wound: L= 2 .2 cm, W= 2.2 cm, D= 3.0 cm Assessment Progress Assessment Progressing as Expected Assessment Notes Wound size is closing steadily , less drainage noted, increased granulation tissue. Less depth overall. Less induration on the superior lateral wound border. Patient goals met ST Goals Not Met LTG; 1,2 Revised Goals none Plan Plan Continue per initial POC. Frequency of Therapy 3 x/wk Duration of therapy 8 wks Time and Billing Re-Eval Time 15 Re-Eval Billing Units 1 PHYSICIAN CERTIFICATION: I certify the specified therapy services for Angeles Leahy are required, authorized, and reviewed every 30 days.
== END 2021-06-07 13:05 | disposition home or self-care (01) ==
LOC: PT 13:00
PROVIDERS: PCP Family Medicine; Visit Provider Surgery
DX: K61.1 Rectal abscess (principal)
CPT/HCPCS: 97163; 97164; 97597; 97605

== ENCOUNTER → 2021-08-21 13:17 | Outpatient (CLI) | payer OTHER, SELFPAY | PROVIDERS: PCP Family Medicine; Visit Provider Nurse Practitioner | DX: Z20.822 Contact with and (suspected) exposure to COVID-19 (principal) | CPT/HCPCS: C9803; U0003; U0005 ==

== ENCOUNTER 2021-11-23 02:52 | Observation (INO) | payer OTHER, SELFPAY ==
[2021-11-23] VITALS (21 sets, daily range): BP systolic 104–149; BP diastolic 63–94; PULSE 61–110; RESP 16–22; TEMP 36.7–37.2; O2SAT 92–98; BMI 36.8; BMI 36.7
--- NOTE | 2021-11-23 03:00 | ECG_ITS ---
APPROVED REPORT Exam: Resting ECG HR:100 bpm ECG Measurements Heart Rate 100 AXES QRSd 101 QRS -23 QT 362 T -80 QTc 419 Conclusion ATRIAL FIBRILLATION WITH RAPID VENTRICULAR RESPONSE Old anteroseptal changes and Twave morphology changes ABNORMAL ECG UNCONFIRMED REPORT Electronically signed by : Tej Fenton MD 11/23/2021 09:01:24
--- NOTE | 2021-11-23 03:02 | XR_ITS ---
PROCEDURE INFORMATION: Exam: XR Chest Exam date and time: 11/23/2021 3:55 AM Age: 51 years old Clinical indication: Shortness of breath; Additional info: SOA TECHNIQUE: Imaging protocol: XR of the chest. Views: 2 views. COMPARISON: CR XR CHEST PORTABLE PICC PLAC 04/26/2021 1:28 PM FINDINGS: Lungs: Mild right basilar atelectasis. Pleural spaces: Small right pleural effusion. No pneumothorax. Heart/Mediastinum: Unremarkable. No cardiomegaly. Bones/joints: Unremarkable. IMPRESSION: Small right pleural effusion with mild right basilar atelectasis.
--- NOTE | 2021-11-23 03:02 | CT_ITS ---
PROCEDURE INFORMATION: Exam: CTA Chest With Contrast Exam date and time: 11/23/2021 4:06 AM Age: 51 years old Clinical indication: Shortness of breath; Additional info: SOA TECHNIQUE: Imaging protocol: Computed tomographic angiography of the chest with contrast. 3D rendering (Not supervised by radiologist): MIP and/or 3D reconstructed images were created by the technologist. Radiation optimization: All CT scans at this facility use at least one of these dose optimization techniques: automated exposure control; mA and/or kV adjustment per patient size (includes targeted exams where dose is matched to clinical indication); or iterative reconstruction. Contrast material: ISOVUE 370; Contrast volume: 70 ml; Contrast route: INTRAVENOUS (IV); COMPARISON: CT ANGIO CHEST 08/27/2019 6:07 AM FINDINGS: Pulmonary arteries: Normal. No pulmonary emboli. Aorta: Unremarkable. No aortic aneurysm. No aortic dissection. Lungs: Mild paraseptal emphysema. Right basilar atelectasis. There is a 1 cm subsolid right upper lobe pulmonary nodule on series 5, image 24, new from 2020. There is some tree-in-bud nodularity in the anterior aspect of the left upper lobe. Pleural spaces: Small right pleural effusion. No pneumothorax. Heart: Unremarkable. No cardiomegaly. No pericardial effusion. Lymph nodes: Calcified mediastinal lymph nodes. Bones/joints: Unremarkable. No acute fracture. Soft tissues: Unremarkable. IMPRESSION: 1. No pulmonary emboli identified. 2. Small right pleural effusion with right basilar atelectasis. 3. Small area of nodularity in the left upper lobe as well as a 1 cm subsolid right upper lobe pulmonary nodule, potentially infectious or inflammatory. Recommend CT Chest at 3-6 months. Subsequent management based on the most suspicious nodule(s). (Reference: Sonya) REFERENCES: Sonya Burton et al. Guidelines for Management of Incidental Pulmonary Nodules Detected on CT Images: From the Fleischner Society 2017. Radiology. 2017;284(1):228-243.
[2021-11-23 03:15] LABS: ABG Base Excess -2.7 mmol/L (-2.4-2.3); ABG HCO3 21.4 mmhg (22.0-26.0); ABG Oxygen Saturation 95 % (90-100); ABG PCO2 32.1 mmhg (35.0-45.0); ABG PH 7.44 mmol/L (7.35-7.45); ABG PO2 64.4 mmhg (80-100); ABG TCO2 22.4 mmhg (23-27); Allen's Test Acceptable; Oxygen 21 %; Source Right Radial
[2021-11-23 03:47] LABS: Basophils # 0.2 K/mm3 (0-0.2); Basophils % 1.6 % (0.1-2.0); Eosinophils # 0.5 K/mm3 (0.0-0.4); Eosinophils % 4.2 % (0.1-12.0); Hematocrit 45.3 % (37.0-47.0); Hemoglobin 14.6 g/dL (12.2-16.2); Lymphocytes # 1.9 K/mm3 (0.7-4.5); Lymphocytes % 18.3 % (10-50); Mean Corpuscular HGB Conc 32.2 g/dL (31.8-35.4); Mean Corpuscular Hemoglobin 28.6 pg (27.0-31.2); Mean Corpuscular Volume 88.8 fl (81-99); Mean Platelet Volume 10.7 fl (7.4-10.4); Monocytes # 0.5 K/mm3 (0.1-1.0); Monocytes % 4.5 % (1.7-9.3); Neutrophils # 7.6 K/mm3 (1.8-7.8); Neutrophils % 71.4 % (37.0-80.0); Platelet Count 316 K/mm3 (142-424); Red Cell Distribution Width 14.8 % (11.5-17.5); White Blood Count 10.6 K/mm3 (4.8-10.8)
[2021-11-23 03:52] LABS: Alanine Aminotransferase 30 U/L (12-78); Albumin Level 3.7 g/dl (3.5-5.0); Albumin/Globulin Ratio 1.3 (1.1-1.8); Alkaline Phosphatase 116 U/L (38-126); Aspartate Amino Transferase 27 U/L (14-36); Bilirubin,Total 0.5 mg/dl (0.2-1.3); Blood Urea Nitrogen 11 mg/dl (7-17); Calcium 8.8 mg/dl (8.4-10.2); Carbon Dioxide 23 mmol/L (22.0-30.0); Chloride 102 mmol/L (98-107); Creatinine Clearance Estimated 115 mL/min (50-200); Estimated Glomerular Filt Rate 66 ml/min (>60); GFR (African American) 80 ML/MIN (>60); Globulin 2.9 g/dL (1.3-3.2); Sodium 134 mmol/L (136-145); Total Protein,Serum 6.6 g/dl (6.3-8.2)
[2021-11-23 03:57] LABS: C-Reactive Protein 22.9 mg/L (0-4)
[2021-11-23 03:59] LABS: Glucose 462 mg/dl (74-100)
[2021-11-23 04:00] LABS: NT Pro Brain Natriuretic Pep. 2080 pg/mL (0-125)
--- NOTE | 2021-11-23 04:00 | PC.NURSE ---
critical bg of [id number] called by Panchito in lab. notified.
--- NOTE | 2021-11-23 04:02 | HMH.EDSOB ---
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 The time I documented below is in addition to time spent performing reported procedures but includes the following listed in this critical care notation. Medical Decision Making - Medical Records Medical records reviewed: Yes: I reviewed the patient's medical records. - Donte Inquiry Pt receiving controlled substance: No Vital Signs: 11/23/21 02:54 Temperature 98.1 F Temperature Source Oral Pulse Rate [Right] 95 H Respiratory Rate 22 Blood Pressure [Right Arm] 136/80 Blood Pressure Mean [Right Arm] 98 02 Sat by Pulse Oximetry 94 L - Lab Data Lab results reviewed: Yes: I reviewed the patient's lab results. Lab Results 11/23/21 03:02: Specimen Source Right radial, O2 % 21, ABG pH 7.44, ABG pCO2 32.1 L, ABG pO2 64.4 L, ABG HCO3 21.4 L, ABG Total CO2 22.4 L, ABG O2 Saturation 95, ABG Base Excess -2.7 L, Raman Test Acceptable 11/23/21 03:25: WBC 10.6, RBC 5.10, Hgb 14.6, Hct 45.3, MCV 88.8, MCH 28.6, MCHC 32.2, RDW 14.8, Plt Count 316, MPV 10.7 H, Neut % (Auto) 71.4, Lymph % (Auto) 18.3, Pitkin % (Auto) 4.5, Eos % (Auto) 4.2, Baso % (Auto) 1.6, Neut # (Auto) 7.6, Lymph # (Auto) 1.9, Pitkin # (Auto) 0.5, Eos # (Auto) 0.5 H, Baso # (Auto) 0.2, ESR 19 11/23/21 03:25: Sodium 134 L, Potassium 4.0, Chloride 102, Carbon Dioxide 23, Anion Gap 13.0, BUN 11, Creatinine 0.90, Estimated Creat Clear 115, Estimated GFR 66, Est GFR ( Amer) 80, Glucose 462 H*, Calcium 8.8, Total Bilirubin 0.5, AST 27, ALT 30, Alkaline Phosphatase 116, Troponin I 0.02, C-Reactive Protein 22.9 H, Total Protein 6.6, Albumin 3.7, Globulin 2.9, Albumin/Globulin Ratio 1.3, Procalcitonin 0.064 11/23/21 03:25: NT-Pro-B Natriuret Pep 2080 H 11/23/21 03:25: Hemoglobin A1c > 14.0 H 11/23/21 05:00: SARS-CoV-2 (PCR) Not detected, Influenza A Untype (PCR) Not detected, Influenza Type B (PCR) Not detected Result diagrams: 11/23/21 03:25 11/23/21 03:25 Orders (Tests/Meds): ED MEDICATIONS Discontinued Medications Generic Name Dose Route Start Last Admin Trade Name Freq PRN Reason Stop Dose Admin Furosemide 40 mg 11/23/21 04:11 11/23/21 04:12 Furosemide 40mg/4ml Vial IV 11/23/21 04:12 40 mg ONCE ONE Administration Insulin Human Regular 10 unit 11/23/21 04:03 11/23/21 04:12 Insulin Human Regular 100 Units/Ml 10ml Vial IVP 11/23/21 04:04 Not Given ONCE ONE Insulin Human Regular 5 unit 11/23/21 04:13 11/23/21 04:13 Insulin Human Regular 100 Units/Ml 10ml Vial IVP 11/23/21 04:14 5 unit ONCE ONE Administration Iopamidol 70 ml 11/23/21 04:16 11/23/21 04:18 Iopamidol-370 (76%);100ml Bottle IV 11/23/21 04:17 70 ml ONCE ONE Administration Methylprednisolone Sodium Succinate 125 mg 11/23/21 03:25 11/23/21 03:32 Methylprednisolone Sod Succ 125mg Vial IV 11/23/21 03:26 125 mg ONCE ONE Administration Orphenadrine Citrate 30 mg 11/23/21 05:38 11/23/21 05:40 Orphenadrine Citrate 60mg/2ml V
[2021-11-23 04:06] LABS: Troponin I 0.02 ng/ml (0.00-0.034)
[2021-11-23 04:11] LABS: Procalcitonin 0.064 ng/mL (0.0-2.0)
[2021-11-23 04:16] LABS: Erythrocyte Sedimentation Rate 19 mm/hr (0-20)
[2021-11-23 04:31] LABS: Hemoglobin A1C > 14.0 % (4.0-6.0)
[2021-11-23 05:03] LABS: Coronavirus 19, PCR Not Detected (NotDetected); Influenza A, PCR Not Detected (NotDetected); Influenza B, PCR Not Detected (NotDetected)
--- NOTE | 2021-11-23 05:43 | PC.NURSE ---
paged dr saba
--- NOTE | 2021-11-23 05:46 | PC.NURSE ---
VIVEK garcía speaking with dr saba
--- NOTE | 2021-11-23 05:49 | PC.NURSE ---
peyton on phone with dr saba @ this time
--- NOTE | 2021-11-23 06:12 | PC.NURSE ---
Attempted to call report at [phone].
[2021-11-23 06:22] LABS: POC Glucose,Bedside 246 (70-110)
[2021-11-23 06:22] LABS: Troponin I 0.02 ng/ml (0.00-0.034)
[2021-11-23 06:25] LABS: T4 (Thyroxine) 11.1 ug/dl (5.53-11.0)
--- NOTE | 2021-11-23 06:30 | PC.NURSE ---
PT ARRIVED TO FLOOR VIA W/C FROM ED W/STAFF @ 0725
[2021-11-23 06:39] LABS: Thyroid Stimulating Hormone 2.11 uIU/mL (0.465-4.68)
[2021-11-23 06:49] LABS: POC Glucose,Bedside 290 (70-110)
--- NOTE | 2021-11-23 08:57 | HMH.HP ---
*Admission Date: 11/22/21 *Chief complaint: I can't breath *History of present illness: Angeles is a 51-year-old white female with a history of COPD, tobacco addiction, hypertension, hyperlipidemia, poorly controlled diabetes, CAD and pulmonary hypertension who presented to the ER earlier this morning with a 4 to 5-day history of gradually increasing shortness of breath and pain in her left lung. Denies congestion, fever, hemoptysis. Blood sugar was 462 in the ER. She was not acidotic. BNP elevated >2000. Chest x-ray was negative for pneumonia. Treatment was initiated for exacerbation of COPD and hyperglycemia and she has now been admitted for further evaluation and treatment. At the time of my exam she is breathing more comfortably. She admits to noncompliance with diet and medication. She has not been taking any insulin at home. [facility] History Medical History: Reports:: Atrial Fibrillation, Congestive Heart Failure, Chronic Obstructive Pulmonary Disease (COPD), Coronary Artery Disease, Depression, Diabetes Mellitus Type 2, Gastroesophageal Reflux Disease(GERD), Heart Murmur, Hyperlipidemia, Hypertension, Myocardial Infarction, Renal Insufficiency Denies:: Cancer, Diabetes Mellitus Type 1, MRSA *Have you ever received a pneumonia vaccine?: No *Have you received a flu vaccine this season?: No Other Medical History: Reports: Arthritis, Hoarseness, Sinus Problems, Other (Severe pulmonary hypertension) Other Surgeries: Yes: Cardiac Catheterization, Coronary Stent, EGD, Hysterectomy-Total, Hysterectomy-Partial, Other (EGD with esophageal dilatation) Amputation: No Fractures: No - *Social History Last grade of school completed: 9th or 10th Smoking Status: Current every day smoker Tobacco Type: cigarettes (1 PPD) # Packs/Day (cigarettes): 34 #Yrs smoked (if former smoker): 30 Alcohol Intake: never Substance Use Type: denies use *Occupational Status:: disabled Housing: house Household Members: spouse, children *Travel in the last 8 weeks: None - Psychiatric History Pschychiatric History:: Reports:: Depression Family Hx:: Cancer, Coronary Artery Disease, Diabetes, Heart Attack, Hyperlipidemia, Hypertension Review of Systems - Constitutional Reports fatigue, Reports lack of energy, Reports weakness, Denies fever(s) - Eyes Reports blurry vision, Denies itchy eyes - ENT Reports difficulty swallowing, Reports hoarseness (chronic), Denies bleeding gums, Denies nasal congestion, Denies sore throat - *Cardiovascular Reports shortness of breath, Reports irregular heart rhythm, Denies chest pain, Denies rapid, pounding, or irregular heartbeat - *Respiratory Reports cough, Reports shortness of breath, Denies chest congestion, Denies coughing up blood - *Gastrointestinal Denies abdominal pain, Denies constipation, Denies nausea - *Genitourinary Denies difficulty urinating - *Musculoskeletal Reports back pain - Integumentary/Breasts Denies hair loss, Denies yellowing of the skin - *Neurologic Denies dizziness, Denies headache(s) - Psychiatric Denies confusion, Denies depression - Endocrine Denies cold intolerance, Denies excessive sweating - Hematologic/Lymphatic Denies easy bruising - Allergic/Immunologic Reports wheezing, Denies itchy eyes Meds Home Medications Medication Instructions Recorded Confirmed Type Ipratropium/Albuterol Sulfate 1 puff IH QID 09/15/17 11/23/21 History [Combivent Respimat Inh] Omeprazole [Omeprazole 40mg 40 mg PO DAILY 09/15/17 11/23/21 History Capsule] Fluticasone/Vilanterol [Breo 1 puff IH DAILY 07/15/18 11/23/21 History Ellipta 200-25 Mcg INH] Albuterol Sulfate [Ventolin HFA 2 puff IH Q6HP PRN 11/01/19 11/23/21 History Inhaler] Metoprolol Succinate [Metoprolol 50 mg PO DAILY 12/29/19 11/23/21 History Succinate 50mg Tablet*] Rivaroxaban [Xarelto 15mg tablet] 15 mg PO QPMWM 12/29/19 11/23/21 History dilTIAZem HCl [Diltiazem 240mg 240 mg PO DAILY 12/28
[2021-11-23 10:14] LABS: Troponin I 0.02 ng/ml (0.00-0.034)
[2021-11-23 13:06] LABS: Glucose,Random 607 mg/dL (74-100)
--- NOTE | 2021-11-23 14:01 | HMH.PHAVTE ---
[facility] Pharmacy VTE Monitoring - Patient Demographics Admission date: 11/23/21 Report Date: 11/23/21 Time: 14:01 Allergies/Adverse Reactions: Patient Allergies Penicillins [PENICILLINS] Allergy (Intermediate, Verified 09/29/19 09:10) I-HIVES VANILLA Allergy (Unknown, Uncoded 11/23/21 08:05) Unknown allergy reaction Height: 1.63 m Weight: 97 kg Patient Problems: Current Active Problems Acute exacerbation of chronic obstructive airways disease (Acute) Medical non-compliance (Acute) Hyperglycemia (Acute) CHF (congestive heart failure) (Chronic) Pulmonary hypertension (Chronic) Renal insufficiency (Acute) Chronic atrial fibrillation (Acute) Diabetes mellitus (Acute) Obesity (BMI 30-39.9) (Acute) Tobacco user (Chronic) Type 2 diabetes mellitus (Chronic) COPD (chronic obstructive pulmonary disease) (Chronic) - VTE Risk Labs: VTE Related Lab Results Hgb 14.6 g/dL (12.2-16.2) 11/23/21 03:25 Hct 45.3 % (37.0-47.0) 11/23/21 03:25 Plt Count 316 K/mm3 (142-424) 11/23/21 03:25 BUN 11 mg/dl (7-17) 11/23/21 03:25 Creatinine 0.90 mg/dl (0.52-1.04) 11/23/21 03:25 Estimated Creat Clear 115 mL/min (50-200) 11/23/21 03:25 Was VTE Risk Assessment Performed: Yes VTE Score: 7 VTE Risk Level: Moderate Risk - Prophylaxis Types of VTE Prophylaxis: TEDS Knee High (YAHIR HOSE ORDER PLACED)
--- NOTE | 2021-11-23 15:25 | PC.NURSE ---
Notified Dr. Wan of critical glucose of 607. Stated to give 20 units humalog and increase to ssi high intensity.
--- NOTE | 2021-11-23 18:28 | PC.NURSE ---
Pts blood glucose fingerstick read hi. Stat glucose ordered, awaiting results. Called Dr. Wan and gave 20 units of SSI per sep.
[2021-11-23 18:42] LABS: Glucose,Random 762 mg/dL (74-100)
--- NOTE | 2021-11-23 18:51 | PC.NURSE ---
Called and reported critical glucose of [address] Wan. He ordered pt to be moved to ma and on an insulin gtt per protocol.BMP and acetone ordered as well.
--- NOTE | 2021-11-23 19:32 | PC.NURSE ---
checked fsbs, read high on glucometer, day MARY Álvarez just riley bmp and acetone level, will start insulin drip and await results of labs
[2021-11-23 19:43] LABS: Acetone, Serum (Rapid) None Detected (None Detect)
[2021-11-23 19:46] LABS: Chloride 96 mmol/L (98-107); Sodium 129 mmol/L (136-145)
[2021-11-23 19:49] LABS: Blood Urea Nitrogen 23 mg/dl (7-17); Calcium 9.9 mg/dl (8.4-10.2); Carbon Dioxide 21 mmol/L (22.0-30.0); Creatinine Clearance Estimated 86 mL/min (50-200); Estimated Glomerular Filt Rate 48 ml/min (>60); GFR (African American) 58 ML/MIN (>60)
[2021-11-23 20:01] LABS: Glucose 720 mg/dl (74-100)
--- NOTE | 2021-11-23 20:02 | PC.NURSE ---
glucose 720 per lab result, insulin drip going at 20 units/hr, notified MD Wan, no new orders at this time
[2021-11-24] VITALS (14 sets, daily range): BP systolic 105–145; BP diastolic 34–88; PULSE 70–100; RESP 16–35; TEMP 36.9–37.3; O2SAT 91–96; BMI 36.5
[2021-11-24 00:07] LABS: POC Glucose,Bedside 380 (70-110)
[2021-11-24 00:07] LABS: POC Glucose,Bedside 440 (70-110)
[2021-11-24 00:08] LABS: POC Glucose,Bedside 183 (70-110)
[2021-11-24 00:08] LABS: POC Glucose,Bedside 244 (70-110)
--- NOTE | 2021-11-24 00:14 | PC.NURSE ---
2100 fsbs 480, decreased insulin drip to 16units/hr 2200 fsbs 380, decreased insulin drip to 8units/hr 2300 fsbs 244, decreased insulin drip to 4units/hr 0000 fsbs 183, decreased insulin drip to 2units/hr
--- NOTE | 2021-11-24 02:04 | PC.NURSE ---
fsbs 209, increased insulin drip to 3units/hr
--- NOTE | 2021-11-24 04:19 | PC.NURSE ---
fsbs 242, increased insulin drip to 4units/hr
[2021-11-24 07:43] LABS: Anion Gap 11.8 mEq/L (5-15); Blood Urea Nitrogen 23 mg/dl (7-17); Calcium 9.4 mg/dl (8.4-10.2); Carbon Dioxide 25 mmol/L (22.0-30.0); Chloride 103 mmol/L (98-107); Chol/HDL Ratio 5.4 (1-3.5); Cholesterol 241 mg/dl (140-200); Creatinine Clearance Estimated 115 mL/min (50-200); Estimated Glomerular Filt Rate 66 ml/min (>60); GFR (African American) 80 ML/MIN (>60); Glucose 199 mg/dl (74-100); HDL Cholesterol 45 mg/dl (40-60); Magnesium 2.1 mg/dl (1.6-2.3); Potassium 3.8 mmoL/L (3.5-5.1); Sodium 136 mmol/L (136-145); Triglycerides 162 mg/dl (30-150); VLDL Cholesterol 32 mg/dL (0-40)
[2021-11-24 07:54] LABS: Direct LDL Cholesterol 146.25 mg/dL (100-129)
[2021-11-24 07:56] LABS: Basophils # 0.2 K/mm3 (0-0.2); Basophils % 1.4 % (0.1-2.0); Eosinophils # 0.1 K/mm3 (0.0-0.4); Eosinophils % 0.7 % (0.1-12.0); Hematocrit 42.3 % (37.0-47.0); Hemoglobin 14.2 g/dL (12.2-16.2); Lymphocytes # 2.5 K/mm3 (0.7-4.5); Lymphocytes % 15.3 % (10-50); Mean Corpuscular HGB Conc 33.5 g/dL (31.8-35.4); Mean Corpuscular Hemoglobin 29.4 pg (27.0-31.2); Mean Corpuscular Volume 87.7 fl (81-99); Mean Platelet Volume 10.3 fl (7.4-10.4); Monocytes # 0.7 K/mm3 (0.1-1.0); Monocytes % 4.4 % (1.7-9.3); Neutrophils # 12.7 K/mm3 (1.8-7.8); Neutrophils % 78.2 % (37.0-80.0); Platelet Count 277 K/mm3 (142-424); Red Blood Count 4.82 M/mm3 (4.20-5.40); Red Cell Distribution Width 14.9 % (11.5-17.5); White Blood Count 16.3 K/mm3 (4.8-10.8)
[2021-11-24 08:04] LABS: MANUAL DIFFERENTIAL MANUAL DIFFERENTIAL (MANUAL DIFF)
--- NOTE | 2021-11-24 08:46 | HMH.ACPN2 ---
Internal Medicine - PN: Subj *Date: 11/24/21 *Time: 08:46 Interval history: Blood sugar increased to 762 yesterday afternoon and she was placed on insulin drip. Her anion gap increased slightly but her serum acetone has remain negative. She rested well last night. Blood sugar has improved. No respiratory complaints. Exam Vital signs and Labs for Last 24 Hours: Temp Pulse Resp BP Pulse Ox 98.4 F 91 H 20 108/70 L 91 L 11/24/21 04:00 11/24/21 08:00 11/24/21 08:00 11/24/21 08:00 11/24/21 08:00 Laboratory Results - last 24 hr 11/23/21 09:32: Troponin I 0.02 11/23/21 12:44: Random Glucose 607 H* D 11/23/21 17:50: Random Glucose 762 H* D 11/23/21 19:11: Sodium 129 L, Potassium 5.0 D, Chloride 96 L, Carbon Dioxide 21 L, Anion Gap 17.0 H, BUN 23 H D, Creatinine 1.20 H D, Estimated Creat Clear 86, Estimated GFR 48 L, Est GFR ( Amer) 58 L D, Glucose 720 H* D, Calcium 9.9, Acetone Level None detected 11/23/21 21:16: POC Glucose 440 H* 11/23/21 21:54: POC Glucose 380 H* 11/23/21 22:58: POC Glucose 244 H 11/24/21 00:00: POC Glucose 183 H 11/24/21 06:55: WBC 16.3 H D, RBC 4.82, Hgb 14.2, Hct 42.3, MCV 87.7, MCH 29.4, MCHC 33.5, RDW 14.9, Plt Count 277, MPV 10.3, Neut % (Auto) 78.2, Lymph % (Auto) 15.3, [place] % (Auto) 4.4, Eos % (Auto) 0.7, Baso % (Auto) 1.4, Neut # (Auto) 12.7 H, Lymph # (Auto) 2.5, [place] # (Auto) 0.7, Eos # (Auto) 0.1, Baso # (Auto) 0.2 11/24/21 06:55: Sodium 136, Potassium 3.8 D, Chloride 103, Carbon Dioxide 25, Anion Gap 11.8, BUN 23 H, Creatinine 0.90 D, Estimated Creat Clear 115, Estimated GFR 66, Est GFR ( Amer) 80 D, Glucose 199 H D, Calcium 9.4, Magnesium 2.1, Triglycerides 162 H, Cholesterol 241 H, LDL Cholesterol Direct 146.25 H, VLDL Cholesterol 32, HDL Cholesterol 45, Cholesterol/HDL Ratio 5.4 H I & O for Last 24 hours: Intake & Output 11/21/21 11/22/21 11/23/21 11/24/21 11:59 11:59 11:59 11:59 Intake Total 480 / 480 1919 Output Total 1100 / 1100 Balance -620 / -620 1919 Weight 213 lb 13.574 oz 213 lb 13.574 oz Narrative: She is alert and oriented. Color is good. No respiratory distress. Breath sounds are generally diminished but otherwise clear. Heart is irregularly irregular. Abdomen is soft and nondistended with no tenderness. Extremities no edema Assessment and Plan (1) Hyperosmolar hyperglycemic state (HHS) Status: Acute Category: Medical Code(s): E11.00 - Type 2 diabetes mellitus with hyperosmolarity without nonketotic hyperglycemic-hyperosmolar coma (N[facility]HC); E11.65 - Type 2 diabetes mellitus with hyperglycemia (2) Acute exacerbation of chronic obstructive airways disease Status: Acute Category: Medical Code(s): J44.1 - Chronic obstructive pulmonary disease with (acute) exacerbation (3) Hyperglycemia Status: Acute Category: Medical Code(s): R73.9 - Hyperglycemia, unspecified (4) Medical non-compliance Status: Acute Category: Medical Code(s): Z91.19 - Patient's noncompliance with other medical treatment and regimen (5) Renal insufficiency Status: Acute Category: Medical Code(s): N28.9 - Disorder of kidney and ureter, unspecified (6) COPD (chronic obstructive pulmonary disease) Status: Chronic Qualifiers: Category: Medical Code(s): J44.9 - Chronic obstructive pulmonary disease, unspecified (7) Type 2 diabetes mellitus Status: Chronic Qualifiers: Category: Medical Code(s): E11.9 - Type 2 diabetes mellitus without complications (8) Chronic atrial fibrillation Status: Acute Category: Medical Code(s): I48.20 - Chronic atrial fibrillation, unspecified (9) CHF (congestive heart failure) Status: Chronic Qualifiers: Heart failure type: unspecified Heart failure chronicity: acute on chronic Qualified Code(s): I50.9 - Heart failure, unspecified Category: Medical Code(s): I50.9 - Heart failure, unspecified (10) Pulmonary hypertension Status: Chronic Lynnette
--- NOTE | 2021-11-24 08:51 | PC.NURSE ---
Insulin gtt off at [address] Wan.
--- NOTE | 2021-11-24 09:19 | PC.NURSE ---
Notified admissions of patients status change from Stepdown to Medsurg
[2021-11-24 10:21] LABS: Eosinophils % 1 % (0-3); Lymphocytes % 15 % (10-50); Monocytes % 2 % (2-9); Neutrophils % 82 % (42-76); Platelet Estimate Normal; Total Cells Counted 100
[2021-11-24 10:22] LABS: Hypochromasia 2+; Rouleaux 1+
--- NOTE | 2021-11-24 15:36 | PC.NURSE ---
Pt was taken out of step down this am per Dr. Wan.
--- NOTE | 2021-11-24 18:36 | PC.NURSE ---
Pt alert and oriented and able to make needs known. NAD, no acute changes. CB in easy reach. VSS at this time.
--- NOTE | 2021-11-24 18:57 | PC.NURSE ---
Paged Dr. Washington again at this time. Still awaiting cb at this time.
[2021-11-24 20:19] LABS: POC Glucose,Bedside 276 (70-110)
[2021-11-25] VITALS: BP 112/81; PULSE 90; RESP 18; O2SAT 90
[2021-11-25 03:56] VITALS: BP 138/67; PULSE 84; RESP 17; TEMP 36.7; O2SAT 98
[2021-11-25 04:00] VITALS: PULSE 90
[2021-11-25 04:09] VITALS: BMI 36.5
[2021-11-25 06:14] VITALS: PULSE 85; PULSE 87; O2SAT 98
[2021-11-25 08:00] VITALS: BP 140/76; PULSE 103; PULSE 90; RESP 30; TEMP 36.8; O2SAT 94
[2021-11-25 08:03] VITALS: BMI 36.5
--- NOTE | 2021-11-25 08:34 | HMH.ACPN2 ---
<Edith Sandra - Last Filed: 11/25/21 08:34> Internal Medicine - PN: Subj *Date: 11/25/21 *Time: 08:34 Interval history: Alarming patient is ready to go home. She states her blood sugar was 123 this morning. She is eating without difficulty and denies any abdominal discomfort. She also denies chest pain and shortness of breath. She is ambulating in the room. Bowels are moving and she is voiding QS. We discussed smoking cessation and remembering to take her medicine. She now smokes about 10 cigarettes a day. Exam Vital signs and Labs for Last 24 Hours: Temp Pulse Resp BP Pulse Ox 98.1 F 85 17 138/67 98 11/25/21 03:56 11/25/21 06:14 11/25/21 03:56 11/25/21 03:56 11/25/21 06:14 Laboratory Results - last 24 hr 11/24/21 06:55: Total Counted 100, Neutrophils % (Manual) 82 H, Lymphocytes % (Manual) 15, Monocytes % (Manual) 2, Eosinophils % (Manual) 1, Platelet Estimate Normal, Hypochromasia 2+, Rouleaux 1+ 11/24/21 20:12: POC Glucose 276 H I & O for Last 24 hours: Intake & Output 11/22/21 11/23/21 11/24/21 11/25/21 11:59 11:59 11:59 11:59 Intake Total 480 / 480 1920 / 1920 720 / 720 Output Total 1100 / 1100 Balance -620 / -620 1920 / 1920 720 / 720 Weight 213 lb 13.574 oz 213 lb 13.574 oz 213 lb 13.574 oz - Constitutional no acute distress Comments: Conversant and appears comfortable - *Routine Respiratory Exam Present: CTA bilaterally (Anteriorly and posteriorly) - *Routine Cardiovascular Exam Present: RRR (Sinus rhythm on monitor) - *Routine Abdominal Exam Present: soft, normoactive bowel sounds, obese. Absent: tenderness, distended, rebound, guarding - *Routine Extremities Exam Absent: edema, calf tenderness - *Routine Neurological Exam Present: alert, oriented X3 Assessment and Plan (1) Hyperosmolar hyperglycemic state (HHS) Status: Acute Category: Medical Code(s): E11.00 - Type 2 diabetes mellitus with hyperosmolarity without nonketotic hyperglycemic-hyperosmolar coma ([facility]); E11.65 - Type 2 diabetes mellitus with hyperglycemia (2) Acute exacerbation of chronic obstructive airways disease Status: Acute Category: Medical Code(s): J44.1 - Chronic obstructive pulmonary disease with (acute) exacerbation (3) Hyperglycemia Status: Acute Category: Medical Code(s): R73.9 - Hyperglycemia, unspecified (4) Medical non-compliance Status: Acute Category: Medical Code(s): Z91.19 - Patient's noncompliance with other medical treatment and regimen (5) Renal insufficiency Status: Acute Category: Medical Code(s): N28.9 - Disorder of kidney and ureter, unspecified (6) COPD (chronic obstructive pulmonary disease) Status: Chronic Category: Medical Code(s): J44.9 - Chronic obstructive pulmonary disease, unspecified (7) Type 2 diabetes mellitus Status: Chronic Category: Medical Code(s): E11.9 - Type 2 diabetes mellitus without complications (8) Chronic atrial fibrillation Status: Acute Category: Medical Code(s): I48.20 - Chronic atrial fibrillation, unspecified (9) CHF (congestive heart failure) Status: Chronic Qualifiers: Heart failure type: unspecified Heart failure chronicity: acute on chronic Qualified Code(s): I50.9 - Heart failure, unspecified Category: Medical Code(s): I50.9 - Heart failure, unspecified (10) Pulmonary hypertension Status: Chronic Category: Medical Code(s): I27.20 - Pulmonary hypertension, unspecified - Assessment and plan all Dx Assessment and Plan for all problems:: Patient will be discharged home. See orders and discharge summary. <Siva Wan - Last Filed: 11/25/21 13:55> Internal Medicine - PN: Subj *Date: 11/25/21 *Time: 13:54 Exam Vital signs and Labs for Last 24 Hours: Temp Pulse Resp BP Pulse Ox 98.3 F 103 H 30 H 140/76 94 L 11/25/21 08:00 11/25/21 09:00 11/25/21 08:00 11/25/21 08:00 11/25/21 09:00 Laboratory Results - la
[2021-11-25 09:00] VITALS: PULSE 103; O2SAT 94
--- NOTE | 2021-11-26 13:49 | CARE MANAGER ---
Spoke with patient today for post discharge interview, patient states that she is feeling well and has no issues at this time. Reminded patient of follow-up appointment with Dr. Wan. No further needs noted.
--- NOTE | 2021-11-30 22:10 | HMH.DCSUM ---
General - General Admission date:: 11/23/21 <Siva Wan - 12/08/21 08:31> 11/23/21 <Abby De La Fuente - 11/30/21 22:14> Discharge date: 11/25/21 <Abby De La Fuente - 11/30/21 22:14> HPI HPI: Angeles is a 51-year-old white female with a history of COPD, tobacco addiction, hypertension, hyperlipidemia, poorly controlled diabetes, CAD and pulmonary hypertension who presented to the ER earlier this morning with a 4 to 5-day history of gradually increasing shortness of breath and pain in her left lung. Denies congestion, fever, hemoptysis. Blood sugar was 462 in the ER. She was not acidotic. BNP elevated >2000. Chest x-ray was negative for pneumonia. Treatment was initiated for exacerbation of COPD and hyperglycemia and she has now been admitted for further evaluation and treatment. At the time of my exam she is breathing more comfortably. She admits to noncompliance with diet and medication. She has not been taking any insulin at home. <Abby De La Fuente - 11/30/21 22:14> Hospital Course Hospital Course: Patient was admitted with COPD exacerbation and a component of CHF. She was more comfortable after receiving a dose of Lasix and steroids in the emergency room. Her chest x-ray showed no evidence of pneumonia. She had been noncompliant with her medications regarding her diabetes. Her blood sugars were elevated and her glycohemoglobin was greater than 14. She was started back on her home dose of Humulin 70/30 along with sliding scale insulin and was continued on oxygen, duo nebs, and budesonide. By 11/24/2021, her blood sugar had increased to 762 and she was placed on an insulin drip. Her serum acetone remain negative. Her blood sugar did improve with the insulin drip. It was discontinued and her sugar was monitored. By 11/25/2021, the patient was ready to go home. Her blood sugar was 123. She was eating without difficulty and denied any chest pain or shortness of breath. She was ambulating around the room. Smoking cessation and medication compliance was discussed with the patient. She was discharged home. <Abby De La Fuente - 11/30/21 22:14> Objective Vital signs: Temp Pulse Resp BP Pulse Ox 98.3 F 103 H 30 H 140/76 94 L 11/25/21 08:00 11/25/21 09:00 11/25/21 08:00 11/25/21 08:00 11/25/21 09:00 <Siva Wan - 12/08/21 08:31> Temp Pulse Resp BP Pulse Ox 98.3 F 103 H 30 H 140/76 94 L 11/25/21 08:00 11/25/21 09:00 11/25/21 08:00 11/25/21 08:00 11/25/21 09:00 <Abby De La Fuente - 11/30/21 22:14> Narrative: - Constitutional no acute distress Comments: Conversant and appears comfortable - *Routine Respiratory Exam Present: CTA bilaterally (Anteriorly and posteriorly) - *Routine Cardiovascular Exam Present: RRR (Sinus rhythm on monitor) - *Routine Abdominal Exam Present: soft, normoactive bowel sounds, obese. Absent: tenderness, distended, rebound, guarding - *Routine Extremities Exam Absent: edema, calf tenderness - *Routine Neurological Exam Present: alert, oriented X3 <Abby De La Fuente - 11/30/21 22:14> DS: Diagnosis - Discharge Diagnosis (1) Hyperosmolar hyperglycemic state (HHS) Status: Acute (2) Acute exacerbation of chronic obstructive airways disease Status: Acute (3) Hyperglycemia Status: Acute (4) Medical non-compliance Status: Acute (5) Renal insufficiency Status: Acute (6) COPD (chronic obstructive pulmonary disease) Status: Chronic (7) Type 2 diabetes mellitus Status: Chronic (8) Chronic atrial fibrillation Status: Acute (9) CHF (congestive heart failure) Status: Chronic (10) Pulmonary hypertension Status: Chronic <Abby De La Fuente - 11/30/21 22:10> (1) Hyperosmolar hyperglycemic state (HHS) Status: Acute (2) Acute exacerbation of chronic obstructive airways disease Status: Acute (3) Hyperglycemia Status: Acute (4) Medical non-compliance Status: Acute
== END 2021-11-25 09:52 | disposition home or self-care (01) ==
LOC: ER 03:09 → 2ND 06:04
PROVIDERS: Admitting Provider Family Medicine; Emergency Provider Emergency Medicine; PCP Family Medicine; Visit Provider Family Medicine
DX: I50.9 Heart failure, unspecified (principal); J44.1 Chronic obstructive pulmonary disease with (acute) exacerbation; Z79.4 Long term (current) use of insulin; Z79.899 Other long term (current) drug therapy; K21.9 Gastro-esophageal reflux disease without esophagitis; I11.0 Hypertensive heart disease with heart failure; F17.210 Nicotine dependence, cigarettes, uncomplicated; Z95.5 Presence of coronary angioplasty implant and graft; Z79.01 Long term (current) use of anticoagulants; I48.20 Chronic atrial fibrillation, unspecified; I27.20 Pulmonary hypertension, unspecified; Z28.310 Unvaccinated for COVID-19; E11.00 Type 2 diabetes mellitus with hyperosmolarity without nonketotic hyperglycemic-hyperosmolar coma (NKHHC); E11.65 Type 2 diabetes mellitus with hyperglycemia; Z91.19 Patient's noncompliance with other medical treatment and regimen
CPT/HCPCS: 36415; 71046; 71275; 80048; 80053; 80061; 82009; 82803; 82947; 82962; 83036; 83735; 83880; 84145; 84436; 84443; 84484; 85007; 85025; 85651; 86140; 93005; 94640; 94760; 96375; 99285; C9803; G0378; Q9967; U0003; U0005

== ENCOUNTER 2021-12-31 20:56 | Inpatient (IN) | payer OTHER, SELFPAY ==
[2021-12-31] VITALS (7 sets, daily range): BP systolic 122–159; BP diastolic 75–82; PULSE 115–174; RESP 18; TEMP 36.8–37.8; O2SAT 95–97; BMI 37.8
--- NOTE | 2021-12-31 21:11 | XR_ITS ---
PROCEDURE INFORMATION: Exam: XR Chest Exam date and time: 12/31/2021 9:20 PM Age: 51 years old Clinical indication: Sternal or substernal pain; Prior surgery; Surgery date: 6+ months; Surgery type: Cardiac stents in place. Patient HX: Chest pain, patient has cardiac stents. Smoker. TECHNIQUE: Imaging protocol: XR of the chest. Views: 1 view. COMPARISON: CR XR CHEST 2V 11/23/2021 3:55 AM FINDINGS: Lungs: Coarse interstitial lung markings likely chronic. Granulomatous changes. In the right lung base there is mild atelectasis and scarring. Pleural spaces: Blunting of right costophrenic angle as before likely reflecting pleural scarring. Heart/Mediastinum: Unremarkable. No cardiomegaly. Bones/joints: Unremarkable. IMPRESSION: No acute findings. Chronic changes.
[2021-12-31 21:17] LABS: Influenza A, PCR Not Detected (NotDetected); Influenza B, PCR Not Detected (NotDetected)
[2021-12-31 21:30] LABS: Amylase 60 U/L (30-110); Blood Urea Nitrogen 9 mg/dl (7-17); Calcium 9.3 mg/dl (8.4-10.2); Carbon Dioxide 25 mmol/L (22.0-30.0); Chloride 98 mmol/L (98-107); Creatinine Clearance Estimated 106 mL/min (50-200); Estimated Glomerular Filt Rate 59 ml/min (>60); GFR (African American) 71 ML/MIN (>60); Glucose 263 mg/dl (74-100); Lipase 49 U/L (23-300); Magnesium 1.4 mg/dl (1.6-2.3); Sodium 133 mmol/L (136-145)
[2021-12-31 21:36] LABS: Basophils # 0.1 K/mm3 (0-0.2); Basophils % 2.1 % (0.1-2.0); C-Reactive Protein 24.2 mg/L (0-4); Eosinophils # 0.1 K/mm3 (0.0-0.4); Eosinophils % 1.1 % (0.1-12.0); Hematocrit 45.4 % (37.0-47.0); Hemoglobin 15.7 g/dL (12.2-16.2); Lymphocytes # 0.5 K/mm3 (0.7-4.5); Lymphocytes % 7.9 % (10-50); Mean Corpuscular HGB Conc 34.5 g/dL (31.8-35.4); Mean Corpuscular Hemoglobin 28.9 pg (27.0-31.2); Mean Corpuscular Volume 83.7 fl (81-99); Mean Platelet Volume 9.9 fl (7.4-10.4); Monocytes # 0.6 K/mm3 (0.1-1.0); Monocytes % 8.1 % (1.7-9.3); Neutrophils # 5.5 K/mm3 (1.8-7.8); Neutrophils % 80.8 % (37.0-80.0); Platelet Count 274 K/mm3 (142-424); Red Blood Count 5.43 M/mm3 (4.20-5.40); White Blood Count 6.8 K/mm3 (4.8-10.8)
[2021-12-31 21:39] LABS: Acetone, Serum (Rapid) None Detected (None Detect)
--- NOTE | 2021-12-31 21:39 | HMH.EDCP ---
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 The time I documented below is in addition to time spent performing reported procedures but includes the following listed in this critical care notation. Medical Decision Making - Medical Records Medical records reviewed: Yes: I reviewed the patient's medical records. - Donte Inquiry Pt receiving controlled substance: No Vital Signs: 12/31/21 21:01 Temperature 100.1 F H Temperature Source Oral Pulse Rate [Apical] 174 H Respiratory Rate 18 Blood Pressure [Right Arm] 122/78 Blood Pressure Mean [Right Arm] 92 Blood Pressure Source [Right Arm] Automatic Cuff Blood Pressure Position [Right Arm] Sitting 02 Sat by Pulse Oximetry 97 Oxygen Delivery Method Room Air - Lab Data Lab results reviewed: Yes: I reviewed the patient's lab results. Lab Results 12/31/21 21:00: Troponin I 0.03, C-Reactive Protein 24.2 H, Amylase 60 12/31/21 21:00: WBC 6.8, RBC 5.43 H, Hgb 15.7, Hct 45.4, MCV 83.7, MCH 28.9, MCHC 34.5, RDW 15.0, Plt Count 274, MPV 9.9, Neut % (Auto) 80.8 H, Lymph % (Auto) 7.9 L, [place] % (Auto) 8.1, Eos % (Auto) 1.1, Baso % (Auto) 2.1 H, Neut # (Auto) 5.5, Lymph # (Auto) 0.5 L, [place] # (Auto) 0.6, Eos # (Auto) 0.1, Baso # (Auto) 0.1, ESR 27 H 12/31/21 21:00: Sodium 133 L, Potassium 4.0, Chloride 98, Carbon Dioxide 25, Anion Gap 14.0, BUN 9, Creatinine 1.00, Estimated Creat Clear 106, Estimated GFR 59, Est GFR ( Amer) 71, Glucose 263 H, Calcium 9.3, Magnesium 1.4 L, Lipase 49, Procalcitonin 0.095, Acetone Level None detected 12/31/21 21:00: SARS-CoV-2 (PCR) Detected A, Influenza A Untype (PCR) Not detected, Influenza Type B (PCR) Not detected 12/31/21 21:00: NT-Pro-B Natriuret Pep 4490 H Result diagrams: 12/31/21 21:00 12/31/21 21:00 Orders (Tests/Meds): ED MEDICATIONS Generic Name Dose Route Start Last Admin Trade Name Freq PRN Reason Stop Dose Admin Sodium Chloride 1,000 mls @ 999 mls/hr 12/31/21 21:15 12/31/21 21:15 Sod Chlor 0.9% 1000ml Bag IV 12/31/21 22:15 999 mls/hr .Q1H1M THAD Administration Diltiazem HCl 100 mg/ Sodium 100 mls @ 5 mls/hr 12/31/21 22:00 12/31/21 21:48 Chloride IV 01/30/22 21:59 5 mls/hr .Q20H THAD Administration Protocol Discontinued Medications Generic Name Dose Route Start Last Admin Trade Name Freq PRN Reason Stop Dose Admin Aspirin 324 mg 12/31/21 21:12 12/31/21 21:14 Aspirin 81mg Chewable Tablet PO 12/31/21 21:13 324 mg ONCE ONE Administration Diltiazem HCl 10 mg 12/31/21 21:45 12/31/21 21:47 Diltiazem 25mg/5ml Vial IV 12/31/21 21:46 10 mg ONCE ONE Administration Nitroglycerin 0.4 mg 12/31/21 21:12 12/31/21 21:13 Nitroglycerin 0.4mg Sl Tablet SL 12/31/21 21:13 0.4 mg ONCE ONE Administration Nitroglycerin 1 gm 12/31/21 21:15 12/31/21 21:17 Nitroglycerin 1 Gm Ointment TD 12/31/21 21:16 1 gm ONCE ONE Administration ORDERS Lynnette
[2021-12-31 21:45] LABS: Troponin I 0.03 ng/ml (0.00-0.034)
[2021-12-31 21:48] LABS: Procalcitonin 0.095 ng/mL (0.0-2.0)
--- NOTE | 2021-12-31 22:04 | PC.NURSE ---
Dr. Kateryna amador.
--- NOTE | 2021-12-31 22:08 | PC.NURSE ---
Dr. Washington on phone with Dr. Avendaño
[2021-12-31 22:11] LABS: Coronavirus 19, PCR Detected (NotDetected); Erythrocyte Sedimentation Rate 27 mm/hr (0-20)
--- NOTE | 2021-12-31 22:13 | PC.NURSE ---
Addendum entered by Angie Brumfield RN 12/31/21 22:20: Patient admitted SD to 217 with Afib with RVR to service of Dr. Avendaño. Original Note: Patient admitted to 201 with dx of CHF to service of Dr. Avendaño.
[2021-12-31 22:27] LABS: NT Pro Brain Natriuretic Pep. 4490 pg/mL (0-125)
[2021-12-31 22:35] LABS: T4 (Thyroxine) 11.2 ug/dl (5.53-11.0)
[2021-12-31 22:41] LABS: Lactic Acid 1.4 mmol/L (0.7-2.1)
[2021-12-31 22:48] LABS: Thyroid Stimulating Hormone 0.89 uIU/mL (0.465-4.68)
--- NOTE | 2021-12-31 23:06 | PC.NURSE ---
cardizem rate increased to 15 mg/hr
--- NOTE | 2021-12-31 23:43 | PC.NURSE ---
PT ARRIVED TO FLOOR VIA STRETCHER FROM ED W/STAFF @ [phone]
[2022-01-01] VITALS (20 sets, daily range): BP systolic 116–149; BP diastolic 50–91; PULSE 78–120; RESP 16–20; TEMP 37.1–37.9; O2SAT 91–99; BMI 36.9; BMI 36.7
--- NOTE | 2022-01-01 00:06 | PC.NURSE ---
Pt is poor historian on home meds.
[2022-01-01 00:55] LABS: Troponin I 0.03 ng/ml (0.00-0.034)
[2022-01-01 03:07] LABS: Troponin I 0.03 ng/ml (0.00-0.034)
[2022-01-01 06:04] LABS: POC Glucose,Bedside 247 (70-110)
--- NOTE | 2022-01-01 06:35 | PC.NURSE ---
Johanna MCKEE NOTIFIED OF CONSULT.
[2022-01-01 06:39] LABS: Chloride 103 mmol/L (98-107); Potassium 3.6 mmoL/L (3.5-5.1); Sodium 134 mmol/L (136-145)
[2022-01-01 06:42] LABS: Anion Gap 10.6 mEq/L (5-15); Blood Urea Nitrogen 9 mg/dl (7-17); Carbon Dioxide 24 mmol/L (22.0-30.0); Creatinine Clearance Estimated 115 mL/min (50-200); Estimated Glomerular Filt Rate 66 ml/min (>60); GFR (African American) 80 ML/MIN (>60)
[2022-01-01 06:43] LABS: Calcium 8.9 mg/dl (8.4-10.2); Glucose 249 mg/dl (74-100); Magnesium 1.6 mg/dl (1.6-2.3)
[2022-01-01 06:46] LABS: Basophils # 0.1 K/mm3 (0-0.2); Basophils % 2.4 % (0.1-2.0); Eosinophils % 0.6 % (0.1-12.0); Hematocrit 43.5 % (37.0-47.0); Hemoglobin 14.3 g/dL (12.2-16.2); Lymphocytes # 0.8 K/mm3 (0.7-4.5); Lymphocytes % 14.6 % (10-50); Mean Corpuscular HGB Conc 32.8 g/dL (31.8-35.4); Mean Corpuscular Hemoglobin 28.5 pg (27.0-31.2); Mean Corpuscular Volume 86.8 fl (81-99); Mean Platelet Volume 10.1 fl (7.4-10.4); Monocytes # 0.5 K/mm3 (0.1-1.0); Monocytes % 8.4 % (1.7-9.3); Neutrophils # 4.1 K/mm3 (1.8-7.8); Neutrophils % 73.9 % (37.0-80.0); Platelet Count 227 K/mm3 (142-424); Red Blood Count 5.01 M/mm3 (4.20-5.40); Red Cell Distribution Width 15.1 % (11.5-17.5); White Blood Count 5.5 K/mm3 (4.8-10.8)
--- NOTE | 2022-01-01 06:54 | PC.NURSE ---
Pt on Diltiazem @ 10 mg/hr. She has been febrile this shift. She is currently on 2L O2 NC. Pt also on @ home. BP stable. Pt has had some soa at times. No other concerns. Will continue to monitor.
--- NOTE | 2022-01-01 07:24 | P.CONPHA_ITS ---
[facility] Pharmacy VTE Monitoring - Patient Demographics Admission date: 12/31/21 Report Date: 01/01/22 Time: 07:24 Allergies/Adverse Reactions: Patient Allergies Penicillins [PENICILLINS] Allergy (Intermediate, Verified 09/29/19 09:10) I-HIVES VANILLA Allergy (Unknown, Uncoded 11/23/21 08:05) Unknown allergy reaction Height: 1.63 m Weight: 97.551 kg Patient Problems: Current Active Problems CHF (congestive heart failure) (Chronic) Obesity (BMI 30-39.9) (Acute) Atrial fibrillation with rapid ventricular response (Acute) COVID-19 (Acute) Tobacco user (Chronic) Type 2 diabetes mellitus (Chronic) COPD (chronic obstructive pulmonary disease) (Chronic) - VTE Risk Labs: VTE Related Lab Results Hgb 14.3 g/dL (12.2-16.2) 01/01/22 05:30 Hct 43.5 % (37.0-47.0) 01/01/22 05:30 Plt Count 227 K/mm3 (142-424) 01/01/22 05:30 BUN 9 mg/dl (7-17) 01/01/22 05:30 Creatinine 0.90 mg/dl (0.52-1.04) 01/01/22 05:30 Estimated Creat Clear 115 mL/min (50-200) 01/01/22 05:30 VTE Risk Level: Moderate Risk - Prophylaxis VTE Prophylaxis Ordered?: Yes Types of VTE Prophylaxis: TEDS Knee High Location of Applied Device: Bilateral Lower Extremeties
--- NOTE | 2022-01-01 07:31 | HMH.PHAINT ---
MEDICATION RECONCILIATION COMPLETED ON PATIENT USING EXTERNAL FILL HISTORY FROM PHARMACY. -MONICA SANTOS, YORDAND
--- NOTE | 2022-01-01 08:00 | CA_ITS ---
APPROVED REPORT EXAM: Comprehensive 2D, Doppler, and color-flow Echocardiogram [employer] Leader: Jayshree Mohan CRT Ht: 5 ft 4 in Wt: 217lbs BSA: 2.03 BP: 122/78 mmHg Indications: COPD, Murmur, Shortness of Breath, Obesity, Palpitations, Hyperlipidemia, Hypertension/HDD, pul htn, CAD, old GA, stent, covid 19 2D Dimensions LVOT 1.61 cm (M/F) 1.5-2.5 LA Volume 36.10 mL LA Volume Index 17.80 mL/m2 (M/F) 16-34 M-Mode Dimensions RVDd 3.02 cm (0.9-2.6) LA Diam 4.41 cm (1.9-4.0) LVDd 5.89 cm (3.5-5.7) Ao Diam 3.37 cm (2.0-3.7) LVDs 4.67 cm (3.5-5.7) IVSd 0.81 cm (0.6-1.1) PWd 0.90 cm (0.6-1.1) EF (Teich) 41.60% FS 20.70% EDV (Teich) 172.50 mL TAPSE 2.44 (<1.7) ESV (Teich) 100.80 mL LV Diastology LAT E' 9.70 (<10 cm/sec) LAT A' 5.80 cm/s Aortic Valve AO Peak GR. 11.00 mmHg Pulmonary Valve PV Peak Velocity 243.00 (50-150 cm/s) Tricuspid Valve TR P. Velocity 303.00 cm/s RAP Estimate 10.00 mmHg RVSP 46.80 mmHg Left Ventricle Technically difficult study because of the patient factors and poor acoustic windows, endocardial surfaces are poorly visualized. Left atrium is mildly enlarged, left ventricle is mildly dilated, severe reduced left ventricular systolic function, visually estimated ejection fraction 25%, left ventricle appears to be globally hypokinetic, superimposed segmental wall motion abnormalities cannot be excluded as endocardial surfaces are very poorly visualized. Diastolic parameters are inconclusive. Right Ventricle Right atrium and right ventricle are mildly enlarged with normal contractility. Aortic Valve Aortic valve is thickened and calcified without Doppler evidence of aortic stenosis or aortic insufficiency. Mitral Valve Mitral valve leaflets are minimally thickened, there is mild mitral regurgitation. Tricuspid Valve Tricuspid valve is grossly normal, there is mild tricuspid regurgitation, tricuspid regurgitation jet velocity is inadequate for calculation of the right ventricular systolic pressure. Pulmonic Valve Pulmonic valve is poorly visualized. Great Vessels Aortic root is normal size. Inferior vena cava is mildly dilated without significant inspiratory collapse. Pericardium No significant pericardial effusion noted. Conclusion 1. Left atrium is mildly enlarged, left ventricle is dilated, severe left ventricular systolic function, left ventricle appears to be globally hypokinetic, superimposed segmental wall motion abnormalities cannot be excluded as described above. Diastolic parameters are inconclusive. 2. Mildly enlarged right ventricle with normal contractility. 3. Mild mitral and tricuspid rotation. 4. No significant pericardial effusion. 5. Inferior vena cava is mildly dilated without significant inspiratory collapse. Electronically signed by : Ravi Wayne MD 01/01/2022 16:36:35
--- NOTE | 2022-01-01 08:30 | HMH.HP ---
*Admission Date: 12/31/21 <Abby De La Fuente 01/01/22 08:39> *Chief complaint: chest pain, shortness of breath <Abby De La Fuente 01/01/22 08:39> *History of present illness: Ms. Leahy is a 51-year-old female with a history of COPD, hypertension, type 2 diabetes, chronic A. fib, severe pulmonary hypertension, and diastolic dysfunction. She states for the past 8 days she has had diarrhea and some stomach pain. She has also had shortness of breath along with a cough and congestion. Yesterday she stated her heart hurt and she presented to the emergency room. She was found to be in A. fib with RVR and a COVID test was positive. She was admitted for further evaluation and treatment. <Abby De La Fuente 01/01/22 08:39> [facility] History I have reviewed the patient's past medical history: Yes <Abby De La Fuente 01/01/22 08:39> Medical History: Reports:: Atrial Fibrillation, Congestive Heart Failure, Chronic Obstructive Pulmonary Disease (COPD), Coronary Artery Disease, Depression, Diabetes Mellitus Type 2, Gastroesophageal Reflux Disease(GERD), Heart Murmur, Hyperlipidemia, Hypertension, Myocardial Infarction, Renal Insufficiency Denies:: Cancer, Diabetes Mellitus Type 1, MRSA <Abby De La Fuente 01/01/22 08:39> *Have you ever received a pneumonia vaccine?: No <Abby De La Fuente 01/01/22 08:39> *Have you received a flu vaccine this season?: No <Abby De La Fuente 01/01/22 08:39> Other Medical History: Reports: Arthritis, Hoarseness, Sinus Problems, Other (Severe pulmonary hypertension) <Abby De La Fuente 01/01/22 08:39> Other Surgeries: Yes: Cardiac Catheterization, Coronary Stent, EGD, Hysterectomy-Total, Hysterectomy-Partial, Other (EGD with esophageal dilatation) <Abby De La Fuente 01/01/22 08:39> Amputation: No <Abby De La Fuente 01/01/22 08:39> Fractures: No <Abby De La Fuente 01/01/22 08:39> - *Social History Smoking Status: Current every day smoker <Abby De La Fuente 01/01/22 08:39> Tobacco Type: cigarettes <VarinderdarronAbby 01/01/22 08:39> # Packs/Day (cigarettes): 1 <Hima De La Fuentea 01/01/22 08:39> #Yrs smoked (if former smoker): 30 <Hima De La Fuentea 01/01/22 08:39> Alcohol Intake: former <Hima De La Fuentea 01/01/22 08:39> Alcohol Intake Frequency:: holidays/special occasions only <Hima De La Fuentea 01/01/22 08:39> Substance Use Type: denies use <VarinderdarronAbby 01/01/22 08:39> *Occupational Status:: disabled <Abby De La Fuente 01/01/22 08:39> Housing: house <VarinderAbby rob 01/01/22 08:39> Household Members: spouse, children <Abby De La Fuente 01/01/22 08:39> *Travel in the last 8 weeks: None <Abby De La Fuente 01/01/22 08:39> - Psychiatric History Pschychiatric History:: Reports:: Depression <Hima De La Fuentea 01/01/22 08:39> Family Hx:: Asthma, Cancer, Diabetes, Heart Attack, Hyperlipidemia, Hypertension, Kidney Disease, Stroke, Thyroid Disorder, Tuberculosis, Substance abuse, Alcoholism <Hima De La Fuentea 01/01/22 08:39> Review of Systems - Constitutional Reports weakness, Denies fever(s) <SudhakarAbby 01/01/22 08:39> - Eyes Denies blurry vision, Denies double vision <Hima De La Fuentea 01/01/22 08:39> - ENT Reports nasal congestion, Denies sore throat <Hima De La Fuentea 01/01/22 08:39> - *Cardiovascular Reports chest pain, Reports shortness of breath <Hima De La Fuentea 01/01/22 08:39> - *Respiratory Reports chest congestion, Reports cough, Reports shortness of breath <SudahkarAbby 01/01/22 08:39> - *Gastrointestinal Denies abdominal pain, Denies loose stools, Denies nausea, Denies vomiting <Abby De La Fuente 01/01/22 08:39> - *Genitourinary Denies difficulty urinating, Denies painful urination <Abby De La Fuente - 01/01/22 08:39> - *Musculoskeletal Denies joint pain <Abby De La Fuente - 01/01/22 08:39> - *Neurologic Reports weakness, Denies headache(s), Denies seizure-like activity, Denies dizziness <Abby De La Fuente - 01/01/22 08:39> Meds Home Medications Medication Instructions Recorded Confirmed Type Ipratr
--- NOTE | 2022-01-01 10:22 | HMH.CNCARD ---
History of Present Illness Consult date: 01/01/22 Requesting physician: Siva Wan Consult reason: chest pain, shortness of breath Chief complaint: SOA, chest pain Additional Medical History:: 1. Hypertension A. Echo, 08/2019, biatrial enlargement, normal LV size, EF 55% with no wall motion abnormality. Mild RVE with normal contractility. Mild MR TR RVSP is 60 mmHg . 2. Obesity 3. COPD A. Tobacco use starting at age 17 B. Pneumonia, 08/2019 C. elevated D-dimer, 08/2019, negative CTA for pulmonary embolus 4. History of CKD but creatinine 0.9 and GFR 66, 12/2021 5. Chronic leg pain 6. LAINA 7. DM, type 2 A. Hgb A1C >14, 11/2021 8. Medication non-compliance 9. Anxiety/depression 10. GERD 11. Chronic atrial fibrillation with elevated CHADS2 score on chronic anticoagulation therapy 12. COVID PCR positive, 12/31/2021 13. CAD A. LHC/RHC, 11/04/2019 ANGIOGRAPHIC RESULTS The left main artery Normal The left anterior descending artery Is proximally normal and has a mid vessel 30% stenosis The circumflex artery Nondominant normal The right coronary artery Large dominant with mild 10% diffuse luminal irregularities The JOHANSEN ventriculogram reveals Preserved at 50 The left ventricular end-diastolic pressure Severely elevated at 40 mmHg Right atrial pressure 25 mmHg Pulmonary artery pressure 60/40 mmHg Pulmonary occlusion pressure 40 mmHg IMPRESSION Mild [id number] coronary artery disease Preserved ejection fraction Severe pulmonary hypertension secondary to severe left-sided diastolic heart failure Biventricular failure as evidenced by severely elevated left-sided and right-sided filling pressures PLAN 1. Loop diuretics combined with Aldactone 2. Fluid restriction 3. Salt restriction 4. Weight loss exercise 5. Consideration for cardio Mem if patient's heart failure becomes difficult to treat 6. Risk factor modification Electronically signed by : Jai Gilmore, 11/04/2019 11:24:59 History of present illness: Ms. Leahy is a 51-year-old female with a history of COPD, hypertension, type 2 diabetes, chronic A. fib, severe pulmonary hypertension, and diastolic dysfunction. She states for the past 8 days she has had diarrhea and some stomach pain. She has also had shortness of breath along with a cough and congestion. Yesterday she stated her heart hurt and she presented to the emergency room. She was found to be in A. fib with RVR and a COVID test was positive. She was admitted for further evaluation and treatment. The above per Abby De La Fuente PA-C, for Dr. Wan. Patient confirms symptoms and history as noted above. She maintains compliance with all of her medications. Patient was started on IV diltiazem with improvement in rate control. She has known history of chronic atrial fibrillation for which she is on chronic Xarelto therapy. Cardiac cath from 2019 showed mild non-flow limiting CAD with severe pulmonary hypertension due to severe LV diastolic dysfunction with preserved ejection fraction. Noted to have biventricular failure as evidenced by severely elevated left-sided and right-sided filling pressures. [facility] History Medical History: Reports:: Atrial Fibrillation, Congestive Heart Failure, Chronic Obstructive Pulmonary Disease (COPD), Coronary Artery Disease, Depression, Diabetes Mellitus Type 2, Gastroesophageal Reflux Disease(GERD), Heart Murmur, Hyperlipidemia, Hypertension, Myocardial Infarction, Renal Insufficiency Denies:: Cancer, Diabetes Mellitus Type 1, MRSA *Have you ever received a pneumonia vaccine?: No *Have you received a flu vaccine this season?: No Other Medical History: Reports: Arthritis, Hoarseness, Sinus Problems, Other (Severe pulmonary hypertension) Other Surgeries: Yes: Cardiac Catheterization, Coronary Stent, EGD, Hysterectomy-Total, Hysterectomy-Partial, Other (EGD with esophageal dilatatio
--- NOTE | 2022-01-01 11:12 | PC.NURSE ---
pt had requested her home muscle relaxer be reordered. called office at 1110 and spoke with Abby. Abby checking with Dr Wan
--- NOTE | 2022-01-01 11:49 | PC.NURSE ---
Addendum entered by Shira Azevedo RN 01/01/22 16:15: spoke with Carolyn Childress at 1527, clarified parameters for pt to be taken off of the Diltiazem drip. Per Nikolai, ok to stop drip if Hr is controlled around 100bpm or lower. 1530 Cardizem drip stopped. Original Note: at start of shift pt diltiazem was at 10mg. drip decreased to 5mg at 1145 r/t hr consistently in the 80-low 90 range. still noted to be in afib.
[2022-01-01 11:51] LABS: POC Glucose,Bedside 309 (70-110)
--- NOTE | 2022-01-01 16:28 | PC.NURSE ---
Addendum entered by Shira Azevedo RN 01/01/22 16:29: OK per Carolyn Childress to move pt out of stepdown at 1628 Original Note: Notified Carolyn Childress that pt HR has remained below 100 bpm for the past hour while off of the drip. requested to be able to move the pt out of stepdown so she may be placed in a negative pressure room r/t covid diagnosis.
[2022-01-01 17:00] LABS: POC Glucose,Bedside 238 (70-110)
--- NOTE | 2022-01-01 18:07 | PC.NURSE ---
pt called out and asked for nurse to come to room. upon entering room, pt was crying, stating that she wants to go home. pt was informed that she would more than likely not be discharged tonight. she required monitoring of her afib that is being exacerbated by COVID. PT still requested that Dr Centeno (or MD rotational moulding operator) be called and asked about discharge. Dr Gonzalez paged at 1810. Dr Gonzalez stated that pt needs to stay so that she can be monitored. If pt wants to leave and go home, the only option is for her to sign out AMA. This was previously explained to the patient prior to calling MD. Out come of phone call with Md will again be explained to pt.
--- NOTE | 2022-01-01 19:35 | PC.NURSE ---
Addendum entered by Shira Azevedo RN 01/01/22 20:02: 3 iv's removed by myself. tips intact. Original Note: during report, pt called out and stated that she was leaving. oncoming MARY Mooney and myself spoke with pt about leaving against medical advice. pt still indicated that she wanted to leave. AMA signed with pt by myself and Nidhi. paged Dr Gonzalez at [phone] to inform him that pt is leaving ama.
--- NOTE | 2022-01-01 21:11 | ECG_ITS ---
APPROVED REPORT Exam: Resting ECG HR:183 bpm ECG Measurements Heart Rate 183 AXES QRSd 116 QRS -72 QT 233 T 93 QTc 329 Conclusion ATRIAL FIBRILLATION WITH RAPID VENTRICULAR RESPONSE LEFT AXIS DEVIATION [QRS AXIS < -30] UNCONFIRMED REPORT Electronically signed by : Tej Fenton MD 01/03/2022 18:05:18
--- NOTE | 2022-01-02 14:37 | CARE MANAGER ---
Contacted patient related to leaving the hospital yesterday. Patient states states that we did a good job taking care of her, but she just wanted to go home. She states that she will call [facility] and try to make a follow up appointment. She denies feeling bad. MARY Arana
--- NOTE | 2022-01-05 22:58 | HMH.DCSUM ---
General - General Admission date:: 12/31/21 Discharge date: 01/01/22 HPI HPI: Ms. Leahy is a 51-year-old female with a history of COPD, hypertension, type 2 diabetes, chronic A. fib, severe pulmonary hypertension, and diastolic dysfunction. She states for the past 8 days she has had diarrhea and some stomach pain. She has also had shortness of breath along with a cough and congestion. Yesterday she stated her heart hurt and she presented to the emergency room. She was found to be in A. fib with RVR and a COVID test was positive. She was admitted for further evaluation and treatment. Hospital Course Hospital Course: Patient was admitted and started on a Cardizem drip. She was also given IV Lasix. Cardiology was consulted. Her chest x-ray showed nothing acute. Her heart rate slowed on a Cardizem drip but she remained in atrial flutter. COVID was an incidental finding and she was relatively asymptomatic, therefore COVID protocol was not initiated. She was seen in consultation by cardiology and they felt she was in A. fib with RVR due to pulmonary issues including COVID on top of COPD. They resumed her metoprolol and wanted to continue continued the patient on diltiazem IV. Her echo then showed a reduced EF of 30%, therefore they wanted to try to wean her off of the Cardizem drip due to the new cardiomyopathy. She was continued on Xarelto. Her troponins were normal. Entresto was added as was spironolactone. There were no immediate plans for left heart cath due to normal troponins and mild coronary artery disease on her heart cath in 2019. Her pacemaker was interrogated and no arrhythmias were noted. The patient called out on the evening of 01/01/2022 and wanted to go home. Dr. Gonzalez was paged and stated she needed to stay for monitoring. She signed out AMA. Objective Vital signs: Temp Pulse Resp BP Pulse Ox 98.8 F 87 18 149/56 H 91 L 01/01/22 16:13 01/01/22 16:23 01/01/22 14:00 01/01/22 14:00 01/01/22 19:19 Narrative: - Constitutional no acute distress - *Routine HEENT Exam Head: Present: normocephalic Eye: Present: EOMI, PERRL ENT: Present: mucous membranes dry - *Routine Neck Exam Present: supple. Absent: lymphadenopathy - *Routine Respiratory Exam Present: rhonchi, wheezes - *Routine Cardiovascular Exam Present: irregularly irregular - *Routine Abdominal Exam Present: soft, normoactive bowel sounds. Absent: tenderness - *Routine Rectal Exam Rectal:: deferred - *Routine Genitalia Exam Genitalia:: deferred - *Routine Extremities Exam Absent: cyanosis, clubbing, edema - *Routine Skin Exam Present: warm. Absent: rash - *Routine Neurological Exam Present: alert, oriented X3 DS: Diagnosis - Discharge Diagnosis (1) Atrial fibrillation with rapid ventricular response Status: Acute (2) COVID-19 Status: Acute (3) Obesity (BMI 30-39.9) Status: Chronic (4) CHF (congestive heart failure) Status: Chronic (5) COPD (chronic obstructive pulmonary disease) Status: Chronic (6) Tobacco user Status: Chronic (7) Type 2 diabetes mellitus Status: Chronic (8) Chronic atrial fibrillation Status: Acute (9) Pulmonary hypertension Status: Chronic (10) Systolic CHF with reduced left ventricular function, NYHA class 3 Status: Acute Discharge Plan - Patient Discharge Instructions Patient Instructions: Atrial Fibrillation, DI for Atrial Fibrillation - Follow up Plan Disposition: Left Against Medical Advice Condition at discharge:: Stable Home Medications: Home Medications Medication Instructions Recorded Confirmed Type Ipratropium/Albuterol Sulfate 1 puff IH QID 09/15/17 01/01/22 History [Combivent Respimat Inh] Omeprazole [Omeprazole 40mg 40 mg PO DAILY 09/15/17 01/01/22 History Capsule] Fluticasone/Vilanterol [Breo 1 puff IH DAILY 07/15/18 01/01/22 History
== END 2022-01-01 19:50 | disposition left against medical advice (07) | DRG 308 ==
LOC: ER 21:33 → 2ND 22:39
PROVIDERS: Admitting Provider Family Medicine; Emergency Provider Emergency Medicine; PCP Family Medicine; Visit Provider Family Medicine
DX: I48.20 Chronic atrial fibrillation, unspecified (principal); U07.1 COVID-19; I50.22 Chronic systolic (congestive) heart failure; J44.9 Chronic obstructive pulmonary disease, unspecified; E11.9 Type 2 diabetes mellitus without complications; I25.10 Atherosclerotic heart disease of native coronary artery without angina pectoris; K21.9 Gastro-esophageal reflux disease without esophagitis; E78.5 Hyperlipidemia, unspecified; I10 Essential (primary) hypertension; I25.2 Old myocardial infarction; I27.20 Pulmonary hypertension, unspecified; Z95.5 Presence of coronary angioplasty implant and graft; F17.210 Nicotine dependence, cigarettes, uncomplicated; G47.33 Obstructive sleep apnea (adult) (pediatric); Z91.19 Patient's noncompliance with other medical treatment and regimen; I42.9 Cardiomyopathy, unspecified; Z95.0 Presence of cardiac pacemaker; E66.9 Obesity, unspecified; Z68.36 Body mass index [BMI] 36.0-36.9, adult
CPT/HCPCS: 36415; 71045; 80048; 82009; 82150; 82962; 83605; 83690; 83735; 83880; 84145; 84436; 84443; 84484; 85025; 85651; 86140; 87040; 93005; 93306; 94640; 99285; C9803; U0003; U0005

== ENCOUNTER 2022-05-15 13:11 | Observation (INO) | payer OTHER, SELFPAY ==
[2022-05-15] VITALS (9 sets, daily range): BP systolic 128–186; BP diastolic 59–133; PULSE 84–152; RESP 16–21; TEMP 36.6–37.1; O2SAT 94–98; BMI 34.2; BMI 35.6
--- NOTE | 2022-05-15 12:15 | ECG_ITS ---
APPROVED REPORT Exam: Resting ECG HR:145 bpm ECG Measurements Heart Rate 145 AXES QRSd 106 QRS 30 QT 290 T 269 QTc 373 Conclusion ATRIAL FIBRILLATION WITH RAPID VENTRICULAR RESPONSE SEPTAL MYOCARDIAL INFARCTION , PROBABLY OLD [40+ ms Q WAVE IN V1/V2] MODERATE T-WAVE ABNORMALITY, CONSIDER LATERAL ISCHEMIA [-0.1+ mV T-WAVE IN I/aVL/V5/V6] MODERATE T-WAVE ABNORMALITY, CONSIDER INFERIOR ISCHEMIA [-0.1+ mV T-WAVE IN II/aVF] ABNORMAL ECG UNCONFIRMED REPORT Electronically signed by : Tej Fenton MD 05/15/2022 21:05:43
--- NOTE | 2022-05-15 13:18 | HMH.EDGENADL ---
Discharge Plan Disposition Patient Disposition: Admitted as Observation Condition: Fair Chief Complaint: Weakness Prescriptions Prescriptions: No Action fluticasone furoate-vilanterol 1 EACH blister with device 1 puff IH DAILY albuterol sulfate 18 GM HFA aerosol inhaler 2 puff IH QIDP PRN (Reason: Shortness Of Breath) insulin NPH and regular human 100 UNIT/ML insulin pen 40 unit SQ BID loratadine 10 MG tablet 10 mg PO DAILY furosemide 40 MG tablet 40 mg PO DAILY cyclobenzaprine 5 MG tablet 5 mg PO BID ipratropium-albuterol 0 mist 1 puff IH QID Label Comments: omeprazole 40 MG capsule,delayed release(DR/EC) 40 mg PO DAILY metoprolol succinate 50 MG tablet extended release 24 hr 50 mg PO DAILY diltiazem HCl 240 MG capsule,extended release 24hr 240 mg PO DAILY rivaroxaban 15 MG tablet 15 mg PO QPMWITHMEAL Clinical Impressions Clinical Impression: Atrial fibrillation with rapid ventricular response, Left sided numbness, Acute hyperglycemia, Acute left-sided weakness, Hemianopia, homonymous, left Discharge ED Provider: George Guido General Adult HPI General Chief complaint: Weakness Stated complaint: CP Time Seen by Provider: 05/15/22 13:25 History of Present Illness HPI narrative: States that for the past 2 to 3 weeks she has had chest discomfort that she describes as trying to choke up my heart . Discomfort is in her chest and goes down her left arm. Associated with shortness of breath. Her heart is racing and feeling like her flip-flops. Associated with nausea and diaphoresis. Also states that for 2 to 3 weeks she has had a constant sense of numbness and weakness on her left side with left-sided visual loss. Numbness of her face, arm, and leg, feels like it is asleep. Weakness of her arm and leg. States that she cannot see to the left side. Denies prior history of stroke. She has a history of atrial fibrillation. She is anticoagulated with Xarelto. Review of her record shows that she was admitted here to the hospital in December for rapid atrial fibrillation. She initially was on a diltiazem drip, but that was discontinued because of low ejection fraction on echo. She eventually signed out AGAINST MEDICAL ADVICE. No follow-up cardiology office visits noted since that admission. States she has not seen her primary care provider because they will not allow her into the office if she has a cough. She says that she has a chronic cough. She states that she is compliant with her medications since discharge. She also states that her blood sugar has been running high. She says that she has lost a monitor to check her blood sugar. She thinks last time she checked it was a month ago and says it was 300-400. She says back in December when she was admitted it was running up to 800 Related Data Home Medications Medication Instructions Recorded Confirmed ipratropium 20 mcg-albuterol 100 1 puff IH QID COPD 09/15/17 05/15/22 mcg/actuation mist for inhalation omeprazole 40 mg capsule,delayed 40 mg PO DAILY acid reflux 09/15/17 05/15/22 release fluticasone furoate 200 1 puff IH DAILY COPD 07/15/18 05/15/22 mcg-vilanterol 25 mcg/dose inhalation powder albuterol sulfate 90 mcg/actuation 2 puff IH QIDP PRN Shortness Of 11/01/19 05/15/22 aerosol inhaler Breath diltiazem HCl 240 mg 240 mg PO DAILY HEART RATE 12/29/19 05/15/22 capsule,extended release 24 hr metoprolol succinate 50 mg 50 mg PO DAILY Hypertension 12/29/19 05/15/22 tablet,extended release 24 hr rivaroxaban 15 mg tablet 15 mg PO QPMWITHMEAL Blood thinner 12/29/19 05/15/22 insulin NPH-regular 70-30 U-100 40 unit SQ BID Diabetes 04/20/21 05/15/22 insulin 100 unit/mL subcutaneous pen loratadine 10 mg tablet 10 mg PO DAILY Allergy symptoms 04/22/21 05/15/22 cyclobenzaprine 5 mg tablet 5 mg PO BID MUSCLE SPASMS 11/23/21 05/15/22 furosemide 40 mg tablet 40 mg PO
--- NOTE | 2022-05-15 13:31 | CT_ITS ---
FINAL REPORT CLINICAL HISTORY: L sided weakness, numbness and visual loss FINDINGS: Thin section axial CT with IV contrast supplemented with multiplanar reconstruction under CT angiogram protocol. This study was performed with techniques to keep radiation doses as low as reasonably achievable (ALARA). Individualized dose reduction techniques using automated exposure control or adjustment of mA and/or kV according to the patient''s size were employed. NASCET criteria was utilized during interpretation. Aortic arch: Arch shows no significant narrowing. Great vessel origins are widely patent. Right carotid: No significant stenosis is seen of the cervical common or internal carotid artery. Left carotid: There is calcified plaque at the bulb. No significant stenosis is seen of the cervical common or internal carotid artery. Vertebral: Left vertebral artery is dominant. No significant stenosis is present. There are mild changes of emphysema with mild scarring in the lung apices. IMPRESSION: No significant stenosis. Reviewed, Interpreted and Dictated by Enrique Luna III, MD Transcribed by Justin Matos Authenticated and [facility]
--- NOTE | 2022-05-15 13:31 | CT_ITS ---
FINAL REPORT CLINICAL HISTORY: L sided weakness, numbness and visual loss FINDINGS: Axial images of the head were obtained without contrast. Coronal reformatted images were also obtained.This study was performed with techniques to keep radiation doses as low as reasonably achievable (ALARA). Individualized dose reduction techniques using automated exposure control or adjustment of mA and/or kV according to the patient's size were employed. There is no evidence of intracranial hemorrhage or mass. The ventricular size is within normal limits. There is no evidence of shift of the midline structures. No abnormal extra axial fluid collection is identified. No skull abnormality is seen on the bone window images. IMPRESSION: No acute intracranial abnormality. Reviewed, Interpreted and Dictated by Enrique Luna III, MD Transcribed by Edith Ortega Authenticated and . [facility]
--- NOTE | 2022-05-15 13:31 | CT_ITS ---
FINAL REPORT TECHNIQUE: Multiple axial CT angiography images were performed from the foramen magnum to the vertex before and during IV contrast administration. This study was performed with techniques to keep radiation doses as low as reasonably achievable (ALARA). Individualized dose reduction techniques using automated exposure control or adjustment of mA and/or kV according to the patient's size were employed. CLINICAL HISTORY: L sided weakness, numbness and visual loss FINDINGS: No acute intracranial hemorrhage or large acute cortical infarct. The brain volume is normal for the patient's age. Ventricles are of bracket normal in size and configuration. No midline shift. The basal cisterns are patent. CTA HEAD: The major intracranial arterial system is patent without hemodynamically significant stenosis or major vessel occlusion.No aneurysm is identified. IMPRESSION: No acute intracranial hemorrhage or large acute cortical infarct. No evidence of vascular injury, aneurysm, hemodynamically significant stenosis or major vessel occlusion of the intracranial arterial system. Reviewed, Interpreted and Dictated by Enrique Luna III, MD Transcribed by Justin Matos Authenticated and [facility]
--- NOTE | 2022-05-15 13:33 | XR_ITS ---
FINAL REPORT CLINICAL HISTORY: soa, cp COMPARISON: December 2021 FINDINGS: The heart size is normal. The mediastinum is within normal limits. There is no acute cardiopulmonary process. There is no pleural effusion. There is no pneumothorax. The bony thorax is intact. IMPRESSION: No acute cardiopulmonary process. Reviewed, Interpreted and Dictated by Enrique Luna III, MD Transcribed by Justin Matos Authenticated and . [facility]
--- NOTE | 2022-05-15 13:36 | PC.NURSE ---
Paged CARDS Елена Villegas APRN
--- NOTE | 2022-05-15 13:37 | PC.NURSE ---
CARDS calling back Елена Villegas APRN speaking to UGO @ this time
[2022-05-15 13:46] LABS: Chloride 99 mmol/L (98-107); Sodium 136 mmol/L (136-145)
[2022-05-15 13:47] LABS: Potassium 4.2 mmoL/L (3.5-5.1)
[2022-05-15 13:49] LABS: Alanine Aminotransferase 17 U/L (12-78); Albumin/Globulin Ratio 1.4 (1.1-1.8); Alkaline Phosphatase 109 U/L (38-126); Anion Gap 14.2 mEq/L (5-15); Aspartate Amino Transferase 21 U/L (14-36); Bilirubin,Total 0.4 mg/dl (0.2-1.3); Blood Urea Nitrogen 16 mg/dl (7-17); Carbon Dioxide 27 mmol/L (22.0-30.0); Estimated Glomerular Filt Rate 66 ml/min (>60); GFR (African American) 80 ML/MIN (>60); Globulin 2.9 g/dL (1.3-3.2); Glucose 354 mg/dl (74-100); Total Protein,Serum 6.9 g/dl (6.3-8.2)
[2022-05-15 13:50] LABS: Magnesium 1.8 mg/dl (1.6-2.3)
--- NOTE | 2022-05-15 13:54 | PC.NURSE ---
Finger stick done, BG 326 mg\dl
[2022-05-15 13:58] LABS: NT Pro Brain Natriuretic Pep. 2550 pg/mL (0-125)
[2022-05-15 13:59] LABS: Basophils # 0.2 K/mm3 (0-0.2); Basophils % 1.4 % (0.1-2.0); Eosinophils # 0.2 K/mm3 (0.0-0.4); Eosinophils % 1.5 % (0.1-12.0); Hematocrit 52.1 % (37.0-47.0); Hemoglobin 16.1 g/dL (12.2-16.2); Lymphocytes # 2.8 K/mm3 (0.7-4.5); Lymphocytes % 25.9 % (10-50); Mean Corpuscular Hemoglobin 27.6 pg (27.0-31.2); Mean Corpuscular Volume 89.2 fl (81-99); Mean Platelet Volume 9.6 fl (7.4-10.4); Monocytes # 0.5 K/mm3 (0.1-1.0); Monocytes % 4.4 % (1.7-9.3); Neutrophils # 7.3 K/mm3 (1.8-7.8); Neutrophils % 66.8 % (37.0-80.0); Platelet Count 331 K/mm3 (142-424); Red Blood Count 5.84 M/mm3 (4.20-5.40); Red Cell Distribution Width 14.5 % (11.5-17.5); White Blood Count 10.9 K/mm3 (4.8-10.8)
--- NOTE | 2022-05-15 14:00 | PC.NURSE ---
cristal cook aprn at BS
[2022-05-15 14:02] LABS: Troponin I 0.03 ng/ml (0.00-0.034)
[2022-05-15 14:14] LABS: POC Glucose,Bedside 326 (70-110)
--- NOTE | 2022-05-15 14:16 | CA_ITS ---
APPROVED REPORT EXAM: Comprehensive 2D, Doppler, and color-flow Echocardiogram [employer]: Monica Romero, BECCA, RVS Ht: 5 ft 2 in Wt: 187lbs BSA: 1.86 BP: 164/112 mmHg Rhythm: Atrial Fibrillation Indications: DILATED cm, EF 20%,CP,AFIB,CAD,PHTN 2D Dimensions IVSd 0.91 cm F: 0.6-1.0 LVEF (Visual) 49.10 % PWd 0.84 cm F: 0.6 - 1.0 LA Volume 73.40 mL LVDd 6.24 cm F: 3.9 - 5.3 LA Volume Index 39.67 mL/m2 (M/F) 16-34 LVDs 4.66 cm F: 2.2 - 3.5 Aortic Root 2.63 cm F: 2.7 - 3.3 Left Atrium 3.86 cm F: 2.7 - 3.8 LVOT 1.83 cm (M/F) 1.5-2.5 M-Mode Dimensions RVDd 2.13 cm (0.9-2.6) LA Diam 3.75 cm (1.9-4.0) LVDd 6.25 cm (3.5-5.7) Ao Diam 2.58 cm (2.0-3.7) LVDs 5.39 cm (3.5-5.7) IVSd 1.00 cm (0.6-1.1) PWd 0.72 cm (0.6-1.1) EF (Teich) 28.80% EPSs 2.26 cm FS 13.80% EDV (Teich) 197.60 mL TAPSE 2.02 (<1.7) ESV (Teich) 140.70 mL LV Diastology LAT E' 8.60 (<10 cm/sec) Aortic Valve LVOT Max 56.00 (70-110 cm/s) LVOT VTI 6.45 cm AoV Peak Tremaine. 154.00 (50-130 cm/s) AO Peak GR. 9.50 mmHg AO Mean GR. 4.70 (<5 mmHg) AO VTI 20.61 (18-25 cm) AUBREY (VTI) 0.82 (2.5-4.5 cm2) Pulmonary Valve PV Peak Velocity 103.00 (50-150 cm/s) [place] End VMAX 148.00 cm/s Tricuspid Valve TR P. Velocity 270.00 cm/s RAP Estimate 10.00 mmHg RVSP 39.10 mmHg Left Ventricle Left atrium is moderately enlarged, left ventricle is mildly dilated, severe left ventricular systolic dysfunction, estimated ejection fraction 20% left ventricle is globally hypokinetic. Diastolic parameters are inconclusive. Right Ventricle Right atrium and right ventricle are normal size and contractility. Aortic Valve Aortic valve is minimally thickened and fibrosed there is no aortic stenosis or aortic insufficiency. Mitral Valve Mitral valve is grossly normal, there is mild mitral regurgitation. Tricuspid Valve Tricuspid valve is grossly normal, there is mild tricuspid regurgitation, tricuspid regurgitation jet velocity is inadequate for calculation of the right ventricular systolic pressure. Pulmonic Valve Pulmonic valve is poorly visualized. Great Vessels Aortic root is normal size. Inferior vena cava is poorly visualized. Pericardium No significant pericardial effusion noted. Conclusion 1. Mildly dilated left ventricle severely this left ventricular systolic function, estimated ejection fraction 20%, left ventricle is globally hypokinetic, diastolic parameters are inconclusive. 2. Mild mitral and tricuspid regurgitation. 3. No significant pericardial effusion noted. 4. Inferior vena cava is poorly visualized. Electronically signed by : Ravi Wayne MD 05/16/2022 13:04:49
--- NOTE | 2022-05-15 14:19 | EXP.CARD.CON ---
History of Present Illness History of Present Illness Consult date: 05/15/22 Requesting physician: George Guido Consult reason: chest pain and atrial fibrillation Chief complaint: chest pain, racing heart History of present illness: This is a 52-year-old female who appears much older than her stated age. She reported to the emergency department with complaints of chest pain and her heart racing. The patient states that for the last 2 or 3 weeks she has had numbness in the left side of her body and chest pain. She describes this as a pressure type sensation in the left side of her chest. It is associated with her heart racing. The patient states that she is profoundly short of breath with her symptoms and her heart just always feels like it is flip-flopping and fluttering. Her symptoms are associated with nausea and diaphoresis as well. She states that this is continued to worsen over the last 2 to 3 weeks. She states that a lot of times with the left-sided numbness she also gets dizziness and vision loss. She states that she was so dizzy today and felt so bad that it was making her feel crazy so she decided to come to the emergency department. The numbness in her left side is in her arm her face and her leg. She states that it is just numb and tingly all the time. The ER physician has initiated a stroke/CVA work-up. The patient does have a history of atrial fibrillation with RVR and is anticoagulated on Xarelto. She reports that she has been taking the tiny red Xarelto pills daily but there is question about whether or not she has been getting this filled regularly but according to her report she has been taking it. In December of this year the patient was admitted to the hospital and found to have congestive heart failure. She left AGAINST MEDICAL ADVICE at that time and has not had any cardiology visits since then. She states that she has not been seeing her primary care provider either because of a chronic cough and she is not allowed in the office with a cough. On arrival to the emergency department her blood sugars are also elevated at 300. She states that her blood sugars have been high at home as well in the 3-400 range. She denies any fever, chills, vomiting, diarrhea, PND or orthopnea. She denies any lower extremity edema today. [facility] Medical History (Updated 05/15/22 @ 14:38 by Елена Villegas APRN) Acute bronchitis Atrial fibrillation with rapid ventricular response CAD in [place] artery Chest pain Chronic atrial fibrillation Chronic renal insufficiency, stage III (moderate) COPD (chronic obstructive pulmonary disease) Diabetes mellitus Diabetic acetonemia Dilated cardiomyopathy Dysphagia HTN (hypertension) Hyperlipidemia Hyperosmolar hyperglycemic state (HHS) Left sided numbness Nonerosive nonspecific gastritis Obesity Perirectal abscess Pneumonia Pulmonary hypertension Renal insufficiency Shortness of Breath SIRS (systemic inflammatory response syndrome) Systolic CHF with reduced left ventricular function, NYHA class 3 Tobacco user Type 2 diabetes mellitus Uncontrolled type 2 DM with hyperosmolar nonketotic hyperglycemia Social History Smoking Status: Current every day smoker tobacco type: cigarettes packs per day: 1 second hand exposure: Yes alcohol intake: former substance use type: denies use current occupational status: disabled Travel in the last 8 weeks: None household members: spouse and children housing: house current occupational exposures/hazards: No caffeine: Yes Review of Systems Review of Systems Review of systems:: pertinent systems reviewed and negative unless documented below Constitutional Constitutional: Reports system reviewed and no additional complaints, except as documented, Reports fatigue, Denies headache(s), Reports lethargy and Reports weakness Eyes Eyes: Reports system reviewed and no additional complaints, except
[2022-05-15 15:16] LABS: Coronavirus 19, PCR Not Detected (NotDetected); Influenza A, PCR Not Detected (NotDetected); Influenza B, PCR Not Detected (NotDetected)
--- NOTE | 2022-05-15 15:19 | PC.NURSE ---
spoke with pharmacy about unavilibility of medications in omni. will bring to ED
[2022-05-15 15:37] LABS: Troponin I 0.03 ng/ml (0.00-0.034)
--- NOTE | 2022-05-15 15:52 | PC.NURSE ---
ORALIA IS TO CALL BACK
--- NOTE | 2022-05-15 15:59 | PC.NURSE ---
per ER MD dr. lunsford agreegable for admission notified care management, spoke with denies states pt will be jonn to [facility] admission
--- NOTE | 2022-05-15 16:11 | PC.NURSE ---
verbal med order given by dr luque
--- NOTE | 2022-05-15 16:49 | PC.NURSE ---
called for a tray for pt. pt in restroom at this time
--- NOTE | 2022-05-15 17:31 | PC.NURSE ---
called report to dash singer
--- NOTE | 2022-05-15 17:45 | PC.NURSE ---
Pt arrived to the floor at this time
[2022-05-15 18:18] LABS: Troponin I 0.03 ng/ml (0.00-0.034)
[2022-05-15 20:16] LABS: POC Glucose,Bedside 376 (70-110)
[2022-05-15 21:15] LABS: Troponin I 0.03 ng/ml (0.00-0.034)
[2022-05-15 22:16] LABS: POC Glucose,Bedside 286 (70-110)
[2022-05-16] VITALS (7 sets, daily range): BP systolic 106–118; BP diastolic 53–67; PULSE 57–98; RESP 14–20; TEMP 36.8–37.2; O2SAT 96–99; BMI 36.1
--- NOTE | 2022-05-16 04:42 | PC.NURSE ---
NO ACUTE CHANGES SINCE PREVIOUS ASSESSMENT. PT HAS RESTED WELL THIS SHIFT. LUNG SOUNDS REMAIN CLEAR. REMAINS CONTROLLED A-FIB ON TELE. NO C/O N/V/D. PT HAS C/O CRAMPING IN HER FEET. VSS. AMBULATING INDEPENDENTLY TO THE BR. CALL POE WITHIN REACH.
[2022-05-16 05:10] LABS: POC Glucose,Bedside 270 (70-110)
[2022-05-16 07:09] LABS: Basophils # 0.3 K/mm3 (0-0.2); Basophils % 2.4 % (0.1-2.0); Eosinophils # 0.2 K/mm3 (0.0-0.4); Eosinophils % 1.6 % (0.1-12.0); Hematocrit 50.6 % (37.0-47.0); Hemoglobin 16.9 g/dL (12.2-16.2); Lymphocytes # 2.9 K/mm3 (0.7-4.5); Lymphocytes % 23.6 % (10-50); Mean Corpuscular HGB Conc 33.4 g/dL (31.8-35.4); Mean Corpuscular Hemoglobin 28.6 pg (27.0-31.2); Mean Corpuscular Volume 85.6 fl (81-99); Mean Platelet Volume 10.2 fl (7.4-10.4); Monocytes # 0.5 K/mm3 (0.1-1.0); Monocytes % 4.4 % (1.7-9.3); Neutrophils # 8.2 K/mm3 (1.8-7.8); Neutrophils % 68.1 % (37.0-80.0); Platelet Count 354 K/mm3 (142-424); Red Blood Count 5.91 M/mm3 (4.20-5.40); Red Cell Distribution Width 15.3 % (11.5-17.5); White Blood Count 12.1 K/mm3 (4.8-10.8)
[2022-05-16 07:48] LABS: Chloride 96 mmol/L (98-107); Sodium 136 mmol/L (136-145)
[2022-05-16 07:50] LABS: Blood Urea Nitrogen 17 mg/dl (7-17); Creatinine Clearance Estimated 104 mL/min (50-200); Estimated Glomerular Filt Rate 66 ml/min (>60); GFR (African American) 80 ML/MIN (>60)
[2022-05-16 07:51] LABS: Alanine Aminotransferase 13 U/L (12-78); Albumin Level 3.6 g/dl (3.5-5.0); Alkaline Phosphatase 100 U/L (38-126); Aspartate Amino Transferase 18 U/L (14-36); Bilirubin,Direct 0.1 mg/dl (0.0-0.4); Bilirubin,Indirect 0.3 mg/dL (0.0-0.9); Bilirubin,Total 0.4 mg/dl (0.2-1.3); Bilirubin,Unconjugated 0.3 mg/dL (0.0-1.1); Calcium 9.5 mg/dl (8.4-10.2); Carbon Dioxide 28 mmol/L (22.0-30.0); Chol/HDL Ratio 6.3 (1-3.5); Cholesterol 288 mg/dl (140-200); Glucose 254 mg/dl (74-100); HDL Cholesterol 46 mg/dl (40-60); Total Protein,Serum 6.4 g/dl (6.3-8.2); Triglycerides 195 mg/dl (30-150); VLDL Cholesterol 39 mg/dL (0-40)
[2022-05-16 08:03] LABS: Direct LDL Cholesterol 203.86 mg/dL (100-129)
--- NOTE | 2022-05-16 08:23 | EXP.HP ---
History of Present Illness *Admission Date: 05/15/22 *Reason for visit:: left sided weakness, chest pain, palpitations *History of present illness: This is a 52-year-old female who appears much older than her stated age.? She reported to the emergency department with complaints of chest pain and her heart racing.? The patient states that for the last 2 or 3 weeks she has had numbness in the left side of her body and chest pain.? She describes this as a pressure type sensation in the left side of her chest.? It is associated with her heart racing.? The patient states that she is profoundly short of breath with her symptoms and her heart just always feels like it is flip-flopping and fluttering.? Her symptoms are associated with nausea and diaphoresis as well.? She states that this is continued to worsen over the last 2 to 3 weeks.? She states that a lot of times with the left-sided numbness she also gets dizziness and vision loss.? She states that she was so dizzy today and felt so bad that it was making her feel crazy so she decided to come to the emergency department.? The numbness in her left side is in her arm her face and her leg.? She states that it is just numb and tingly all the time.? The ER physician has initiated a stroke/CVA work-up.? The patient does have a history of atrial fibrillation with RVR and is anticoagulated on Xarelto.? She reports that she has been taking the tiny red Xarelto pills daily but there is question about whether or not she has been getting this filled regularly but according to her report she has been taking it.? In December of this year the patient was admitted to the hospital and found to have congestive heart failure.? She left AGAINST MEDICAL ADVICE at that time and has not had any cardiology visits since then.? She states that she has not been seeing her primary care provider either because of a chronic cough and she is not allowed in the office with a cough.? On arrival to the emergency department her blood sugars are also elevated at 300.? She states that her blood sugars have been high at home as well in the 3-400 range.? She denies any fever, chills, vomiting, diarrhea, PND or orthopnea.? She denies any lower extremity edema today. (above as per cardiology) Patient states her left-sided weakness has improved over the past 2 to 3 weeks but is still present. Imaging in the ER was negative for stroke. She states she does feel better this am. [facility] Medical History Acute bronchitis Atrial fibrillation with rapid ventricular response CAD in [place] artery Chest pain Chronic atrial fibrillation Chronic renal insufficiency, stage III (moderate) COPD (chronic obstructive pulmonary disease) Diabetes mellitus Diabetic acetonemia Dilated cardiomyopathy Dysphagia HTN (hypertension) Hyperlipidemia Hyperosmolar hyperglycemic state (HHS) Left sided numbness Nonerosive nonspecific gastritis Obesity Perirectal abscess Pneumonia Pulmonary hypertension Renal insufficiency Shortness of Breath SIRS (systemic inflammatory response syndrome) Spider bite Systolic CHF with reduced left ventricular function, NYHA class 3 Tobacco user Type 2 diabetes mellitus Uncontrolled type 2 DM with hyperosmolar nonketotic hyperglycemia Surgical History (Updated 05/16/22 @ 08:31 by JW Treadwell) H/O right coronary artery stent placement H/O: hysterectomy History of bladder surgery History of esophageal surgery History of esophagogastroduodenoscopy (EGD) Family History (Updated 05/16/22 @ 08:31 by JW Treadwell) Coronary artery disease Social History (Updated 05/15/22 @ 19:08 by Giovanni Magallon RN) Smoking Status: Current every day smoker tobacco type: cigarettes packs per day: 1 second hand exposure: Yes alcohol intake: former substance use type: denies use current occupational status: disabled Travel in the last 8 weeks: None household members: spouse and
--- NOTE | 2022-05-16 10:10 | HMH.PHAINT1 ---
Pharmacy Intervention Comments: MEDICATION RECONCILIATION COMPLETED ON PATIENT USING EXTERNAL FILL HISTORY FROM PHARMACY. -MONICA SANTOS, YORDAND
--- NOTE | 2022-05-16 10:14 | PC.NURSE ---
courtesy tech kathya: pt is sitting up in bed and is watching tv. no requests were voiced at this time.
--- NOTE | 2022-05-16 12:26 | EXP.CARD.PN ---
Subjective Subjective Date: 05/16/22 Time: 10:30 Principal diagnosis: systolic chf Interval history: This is a 52-year-old white female who presented to the emergency department with complaints of chest pain and racing of the heart. The patient was found to be in atrial fibrillation with RVR as well as having an acute exacerbation of her systolic congestive heart failure. The patient was started on oral metoprolol tartrate 3 times daily and her heart rate has improved. She was also diuresed with IV Lasix. This morning she states she feels so much better. She states her shortness of breath has significantly improved. She states she still has some mild shortness of breath with exertion but it is nowhere near as bad as it was prior to admission. She denies any racing or fluttering of the heart. She denies any chest pain or pressure. She denies any fever, chills, nausea, vomiting, diarrhea, PND orthopnea. She denies any lower extremity edema. Exam Data for Last 24 hours Vital signs and Labs for Last 24 Hours: Temp Pulse Resp BP Pulse Ox 98.5 F 92 H 14 118/53 L 99 05/16/22 08:00 05/16/22 08:00 05/16/22 08:00 05/16/22 08:00 05/16/22 08:00 Laboratory Results - last 24 hr 05/15/22 13:22: WBC 10.9 H, RBC 5.84 H, Hgb 16.1, Hct 52.1 H, MCV 89.2, MCH 27.6, MCHC 31.0 L, RDW 14.5, Plt Count 331, MPV 9.6, Neut % (Auto) 66.8, Lymph % (Auto) 25.9, [place] % (Auto) 4.4, Eos % (Auto) 1.5, Baso % (Auto) 1.4, Neut # (Auto) 7.3, Lymph # (Auto) 2.8, [place] # (Auto) 0.5, Eos # (Auto) 0.2, Baso # (Auto) 0.2 05/15/22 13:22: Sodium 136, Potassium 4.2, Chloride 99, Carbon Dioxide 27, Anion Gap 14.2, BUN 16, Creatinine 0.90, Estimated GFR 66, Est GFR ( Amer) 80, Glucose 354 H, Calcium 9.0, Magnesium 1.8, Total Bilirubin 0.4, AST 21, ALT 17, Alkaline Phosphatase 109, Troponin I 0.03, NT-Pro-B Natriuret Pep 2550 H, Total Protein 6.9, Albumin 4.0, Globulin 2.9, Albumin/Globulin Ratio 1.4 05/15/22 13:22: Troponin I 0.03 05/15/22 13:52: POC Glucose 326 H* 05/15/22 15:03: SARS-CoV-2 (PCR) Not detected, Influenza A Untype (PCR) Not detected, Influenza Type B (PCR) Not detected 05/15/22 17:30: Troponin I 0.03 05/15/22 18:17: POC Glucose 376 H* 05/15/22 20:24: Troponin I 0.03 05/15/22 21:26: POC Glucose 286 H 05/16/22 05:02: POC Glucose 270 H 05/16/22 06:05: WBC 12.1 H, RBC 5.91 H, Hgb 16.9 H, Hct 50.6 H, MCV 85.6, MCH 28.6, MCHC 33.4, RDW 15.3, Plt Count 354, MPV 10.2, Neut % (Auto) 68.1, Lymph % (Auto) 23.6, [place] % (Auto) 4.4, Eos % (Auto) 1.6, Baso % (Auto) 2.4 H, Neut # (Auto) 8.2 H, Lymph # (Auto) 2.9, [place] # (Auto) 0.5, Eos # (Auto) 0.2, Baso # (Auto) 0.3 H 05/16/22 06:05: Sodium 136, Potassium 4.0, Chloride 96 L, Carbon Dioxide 28, Anion Gap 16.0 H, BUN 17, Creatinine 0.90, Estimated Creat Clear 104, Estimated GFR 66, Est GFR ( Amer) 80, Glucose 254 H D, Calcium 9.5, Total Bilirubin 0.4, Direct Bilirubin 0.1, Conjugated Bilirubin 0.0, Indirect Bilirubin 0.3, Unconjugated Bilirubin 0.3, AST 18, ALT 13, Alkaline Phosphatase 100, Total Protein 6.4, Albumin 3.6, Triglycerides 195 H, Cholesterol 288 H, LDL Cholesterol Direct 203.86 H, VLDL Cholesterol 39, HDL Cholesterol 46, Cholesterol/HDL Ratio 6.3 H I & O for Last 24 hours: Intake & Output 05/13/22 05/14/22 05/15/22 05/16/22 23:59 23:59 23:59 23:59 Intake Total 240 / 240 Balance 240 / 240 Weight 194 lb 9 oz 196 lb 1 oz Narrative: Telemetry strip is atrial fibrillation with a rate of 75 bpm. Constitutional Constitutional: no acute distress and obese *Routine HEENT Exam Head: Present normocephalic and atraumatic *Routine Neck Exam Neck: Present supple, full ROM and normal carotid upstroke; Absent JVD, carotid bruit or lymphadenopathy *Routine Respiratory Exam Respiratory: Present CTA bilaterally, normal respiratory effort, able to speak in complete sentences and symmetric chest movement *Routine Cardiovascular Exam Cardiovascular: Present Normal S1, Normal S2 and irregularly irregular;
[2022-05-16 12:59] LABS: POC Glucose,Bedside 225 (70-110)
--- NOTE | 2022-05-16 16:35 | PC.NURSE ---
PT IS RESTING IN BED. ALERT AND ORIENTED X4. EATING AND DRINKING WELL. AFIB ON TELEMETRY. LUNG SOUNDS DIMINISHED. ABDOMEN SOFT/NON TENDER WITH ACTIVE BOWEL SOUNDS. 1300 METOPROLOL HELD DUE TO LOW BP. WILL CONTINUE TO MONITOR.
[2022-05-16 17:22] LABS: POC Glucose,Bedside 283 (70-110)
[2022-05-16 21:46] LABS: POC Glucose,Bedside 466 (70-110)
[2022-05-17] VITALS (9 sets, daily range): BP systolic 102–135; BP diastolic 45–63; PULSE 56–100; RESP 16–20; TEMP 36.6–37.2; O2SAT 95–99; BMI 36.3
--- NOTE | 2022-05-17 04:28 | PC.NURSE ---
patient had an unmeasured void
--- NOTE | 2022-05-17 04:30 | PC.NURSE ---
pt has rested well this shift, no complaints of CP or SOA, telemetry shows controlled a fib, remains on room air with O2 sats 97-98%, has ambulated to independently
--- NOTE | 2022-05-17 06:13 | PC.NURSE ---
patient had 1 unmeasured bull
[2022-05-17 06:22] LABS: POC Glucose,Bedside 194 (70-110)
--- NOTE | 2022-05-17 08:51 | EXP.ACUTE.PN ---
Subjective *Date: 05/17/22 *Time: 08:51 Interval history: Patient with no new complaints today. N\urseing staff reported issues with Life Vest overnight. She has been placed back on continuous telemetry. Medical Exam Vital signs and Labs for Last 24 Hours: Vital Signs Temp Pulse Pulse Resp BP Pulse Ox 05/17/22 07:49 98.5 F 62 18 135/60 99 05/17/22 04:00 95 H 05/17/22 04:00 98.9 F 92 H 16 102/62 L 97 05/16/22 20:00 98 05/17/22 00:00 98.9 F 56 L 18 109/63 L 97 05/16/22 20:00 99.0 F 94 H 20 115/55 L 98 05/16/22 16:00 96 H 05/16/22 16:00 98.6 F 57 L 16 116/67 97 05/16/22 12:00 98 H Intake and Output 05/16/22 05/17/22 05/17/22 23:59 07:59 15:59 Intake Total 240 / 360 Output Total 0 / 0 200 / 200 Balance 240 / 360 -200 / -200 Intake: Intake, Oral Amount 240 / 360 Output: Output, Urine Amount 0 / 0 200 / 200 Other: Number of Unmeasured Voids 1 1 Weight 197 lb 5.019 oz Patient Weight 05/17/22 23:59 Weight 197 lb 5.019 oz Laboratory Results - last 24 hr 05/16/22 11:29: POC Glucose 225 H 05/16/22 17:15: POC Glucose 283 H 05/16/22 21:38: POC Glucose 466 H* 05/17/22 05:43: POC Glucose 194 H I & O for Labs for Last 24 Hours: Intake & Output 05/14/22 05/15/22 05/16/22 05/17/22 23:59 23:59 23:59 23:59 Intake Total 240 / 240 360 / 360 Output Total 0 / 0 200 / 200 Balance 240 / 240 360 / 360 -200 / -200 Weight 194 lb 9 oz 195 lb 15.855 oz 197 lb 5.019 oz Constitutional: Present no acute distress Respiratory: Present CTA bilaterally and normal respiratory effort Cardiac: Present Reg Rate and Rhythm Extremities: Present normal inspection and full ROM Assessment and Plan *Assessment and plan (1) Chest pain: Status: Acute Qualifiers: Chest pain type: other chest pain Qualified Code(s): R07.89 - Other chest pain Category: Medical Code(s): R07.9 - Chest pain, unspecified (2) Shortness of Breath: Status: Acute Category: Medical Code(s): R06.02 - Shortness of breath (3) Left sided numbness: Status: Acute Category: Medical Code(s): R20.0 - Anesthesia of skin (4) Systolic CHF with reduced left ventricular function, NYHA class 3: Status: Acute Category: Medical Code(s): I50.20 - Unspecified systolic (congestive) heart failure (5) Dilated cardiomyopathy: Status: Acute Category: Medical Code(s): I42.0 - Dilated cardiomyopathy (6) CAD in [place] artery: Status: Acute Category: Medical Code(s): I25.10 - Atherosclerotic heart disease of [place] coronary artery without angina pectoris (7) Pulmonary hypertension: Status: Chronic Category: Medical Code(s): I27.20 - Pulmonary hypertension, unspecified (8) Diabetes mellitus: Status: Acute Qualifiers: Diabetes mellitus complication status: with other specified complication Diabetes mellitus extermination inspector insulin use: with senior care use Diabetes mellitus type: type 2 Qualified Code(s): E11.69 - Type 2 diabetes mellitus with other specified complication; Z79.4 - care home (current) use of insulin Category: Medical Code(s): E11.9 - Type 2 diabetes mellitus without complications (9) Atrial fibrillation with rapid ventricular response: Status: Acute Category: Medical Code(s): I48.91 - Unspecified atrial fibrillation (10) Tobacco user: Status: Chronic Category: Social Hx Code(s): Z72.0 - Tobacco use (11) Obesity: Status: Chronic Qualifiers: Obesity type: due to excess calories Obesity classification: adult class 3 (BMI >= 40) Serious obesity comorbidity presence: with serious comorbidity Body mass index: BMI 50.0-59.9 Qualified Code(s): E66.01 - Morbid (severe) obesity due to excess calories; Z68.43 - Body mass index (BMI) 50.0-59.9, ad
[2022-05-17 11:52] LABS: POC Glucose,Bedside 323 (70-110)
[2022-05-17 17:27] LABS: POC Glucose,Bedside 254 (70-110)
--- NOTE | 2022-05-17 17:37 | PC.NURSE ---
PT IS RESTING IN BED. ALERT AND ORIENTED X4. EATING AND DRINKING WELL. AMBULATES TO THE BATHROOM. LUNG SOUNDS DIMINISHED. ABDOMEN SOFT/NON TENDER WITH ACTIVE BOWEL SOUNDS. AFIB ON TELEMETRY. WILL CONTINUE TO MONITOR.
[2022-05-17 21:05] LABS: POC Glucose,Bedside 278 (70-110)
[2022-05-18] VITALS: BP 101/60; PULSE 80; PULSE 92; RESP 20; TEMP 36.6; O2SAT 96
[2022-05-18 04:00] VITALS: BP 107/57; PULSE 100; PULSE 81; RESP 20; TEMP 36.9; O2SAT 97
--- NOTE | 2022-05-18 04:53 | PC.NURSE ---
pt has rested most of shift, controlled a fib on telemetry, no complaints of chest pain or SOA, has ambulated to independently, SBP 101-128, HR 79-92, remains on room air with O2 sats 96-99%
[2022-05-18 05:00] VITALS: BMI 35.7
[2022-05-18 06:33] LABS: POC Glucose,Bedside 269 (70-110)
--- NOTE | 2022-05-18 07:18 | EXP.ACUTE.PN ---
Subjective *Date: 05/18/22 *Time: 07:18 Interval history: Patient with no new complaints today. Staff was unable to speak to [employer] rep yesterday. Medical Exam Vital signs and Labs for Last 24 Hours: Vital Signs Temp Pulse Pulse Resp BP Pulse Ox 05/18/22 04:00 98.4 F 81 20 107/57 L 97 05/18/22 04:00 100 H 05/18/22 00:00 80 05/18/22 00:00 97.8 F 92 H 20 101/60 L 96 05/17/22 20:00 100 H 05/17/22 20:00 99 05/17/22 20:00 97.9 F 79 20 128/45 L 99 05/17/22 16:00 92 H 05/17/22 12:08 100 H 05/17/22 15:36 97.8 F 69 16 115/57 L 97 05/17/22 08:16 100 H 05/17/22 11:38 97.9 F 92 H 18 122/49 L 95 05/17/22 07:49 98.5 F 62 18 135/60 99 Intake and Output 05/17/22 05/17/22 05/18/22 15:59 23:59 07:59 Intake Total 1200 / 2400 1200 / 2400 Output Total 300 / 1450 950 / 1450 600 / 600 Balance 900 / 950 250 / 950 -600 / -600 Intake: Intake, Oral Amount 1200 / 2400 1200 / 2400 Output: Output, Urine Amount 300 / 1450 950 / 1450 600 / 600 Other: Weight 194 lb 1.6 oz Patient Weight 05/18/22 23:59 Weight 194 lb 1.6 oz Laboratory Results - last 24 hr 05/17/22 11:38: POC Glucose 323 H* 05/17/22 17:19: POC Glucose 254 H 05/17/22 20:52: POC Glucose 278 H 05/18/22 06:19: POC Glucose 269 H I & O for Labs for Last 24 Hours: Intake & Output 05/15/22 05/16/22 05/17/22 05/18/22 23:59 23:59 23:59 23:59 Intake Total 240 / 240 360 / 360 2400 / 2400 Output Total 0 / 0 1450 / 1450 600 / 600 Balance 240 / 240 360 / 360 950 / 950 -600 / -600 Weight 194 lb 9 oz 195 lb 15.855 oz 197 lb 5.019 oz 194 lb 1.6 oz Constitutional: Present no acute distress Respiratory: Present CTA bilaterally and normal respiratory effort Cardiac: Present Reg Rate and Rhythm Extremities: Present normal inspection and full ROM Assessment and Plan *Assessment and plan (1) Chest pain: Status: Acute Qualifiers: Chest pain type: other chest pain Qualified Code(s): R07.89 - Other chest pain Category: Medical Code(s): R07.9 - Chest pain, unspecified (2) Shortness of Breath: Status: Acute Category: Medical Code(s): R06.02 - Shortness of breath (3) Left sided numbness: Status: Acute Category: Medical Code(s): R20.0 - Anesthesia of skin (4) Systolic CHF with reduced left ventricular function, NYHA class 3: Status: Acute Category: Medical Code(s): I50.20 - Unspecified systolic (congestive) heart failure (5) Dilated cardiomyopathy: Status: Acute Category: Medical Code(s): I42.0 - Dilated cardiomyopathy (6) CAD in [place] artery: Status: Acute Category: Medical Code(s): I25.10 - Atherosclerotic heart disease of [place] coronary artery without angina pectoris (7) Pulmonary hypertension: Status: Chronic Category: Medical Code(s): I27.20 - Pulmonary hypertension, unspecified (8) Diabetes mellitus: Status: Acute Qualifiers: Diabetes mellitus complication status: with other specified complication Diabetes mellitus rn long term care insulin use: with rn long term care use Diabetes mellitus type: type 2 Qualified Code(s): E11.69 - Type 2 diabetes mellitus with other specified complication; Z79.4 - nursing home (current) use of insulin Category: Medical Code(s): E11.9 - Type 2 diabetes mellitus without complications (9) Atrial fibrillation with rapid ventricular response: Status: Acute Category: Medical Code(s): I48.91 - Unspecified atrial fibrillation (10) Tobacco user: Status: Chronic Category: Social Hx Code(s): Z72.0 - Tobacco use (11) Obesity: Status: Chronic Qualifiers: Obesity type: due to excess calories Obesity classification: adult class 3 (BMI >= 40) Serious obesity comorbidity presence: with serious comorbidity Body ma
[2022-05-18 07:40] VITALS: BP 88/50; PULSE 64; RESP 18; TEMP 36.9; O2SAT 98
[2022-05-18 08:00] VITALS: PULSE 100
[2022-05-18 08:24] LABS: Basophils # 0.3 K/mm3 (0-0.2); Basophils % 2.4 % (0.1-2.0); Eosinophils # 0.2 K/mm3 (0.0-0.4); Eosinophils % 1.5 % (0.1-12.0); Hematocrit 51.2 % (37.0-47.0); Hemoglobin 16.9 g/dL (12.2-16.2); Lymphocytes # 2.8 K/mm3 (0.7-4.5); Lymphocytes % 25.7 % (10-50); Mean Corpuscular Hemoglobin 28.2 pg (27.0-31.2); Mean Corpuscular Volume 85.3 fl (81-99); Mean Platelet Volume 10.1 fl (7.4-10.4); Monocytes # 0.5 K/mm3 (0.1-1.0); Monocytes % 4.7 % (1.7-9.3); Neutrophils # 7.3 K/mm3 (1.8-7.8); Neutrophils % 65.7 % (37.0-80.0); Platelet Count 344 K/mm3 (142-424); Red Cell Distribution Width 15.1 % (11.5-17.5); White Blood Count 11.1 K/mm3 (4.8-10.8)
[2022-05-18 08:28] LABS: Chloride 97 mmol/L (98-107); Sodium 134 mmol/L (136-145)
[2022-05-18 08:29] LABS: Potassium 3.9 mmoL/L (3.5-5.1)
[2022-05-18 08:32] LABS: Anion Gap 12.9 mEq/L (5-15); Blood Urea Nitrogen 33 mg/dl (7-17); Calcium 9.1 mg/dl (8.4-10.2); Carbon Dioxide 28 mmol/L (22.0-30.0); Creatinine Clearance Estimated 71 mL/min (50-200); Estimated Glomerular Filt Rate 43 ml/min (>60); GFR (African American) 52 ML/MIN (>60); Glucose 218 mg/dl (74-100)
--- NOTE | 2022-05-18 10:05 | PC.NURSE ---
Blood pressure rechecked at 0909. 110/65 hr 100. Patient stated she wanted to leave AMA, educated about risks of leaving AMA. supervisor shearing and Primary Doctor Carlos notified of patient decision. AMA paper signed. Patient educated to wear life vest, patient left floor wearing life vest.
--- NOTE | 2022-05-19 14:21 | CARE MANAGER ---
Spoke with patient related to being discharged from the hospital. She left AMA to be home with her grandchild. She does have her lifevest and made the changes to her medication that cardiology said. We discussed making follow up appointments with cardiology and PCP. They deny any questions at this time. MARY Arana
--- NOTE | 2022-05-20 22:59 | EXP.DC.SUM ---
General Admission date:: 05/15/22 Discharge date: 05/18/22 HPI HPI HPI: This is a 52-year-old female who appears much older than her stated age.? She reported to the emergency department with complaints of chest pain and her heart racing.? The patient states that for the last 2 or 3 weeks she has had numbness in the left side of her body and chest pain.? She describes this as a pressure type sensation in the left side of her chest.? It is associated with her heart racing.? The patient states that she is profoundly short of breath with her symptoms and her heart just always feels like it is flip-flopping and fluttering.? Her symptoms are associated with nausea and diaphoresis as well.? She states that this is continued to worsen over the last 2 to 3 weeks.? She states that a lot of times with the left-sided numbness she also gets dizziness and vision loss.? She states that she was so dizzy today and felt so bad that it was making her feel crazy so she decided to come to the emergency department.? The numbness in her left side is in her arm her face and her leg.? She states that it is just numb and tingly all the time.? The ER physician has initiated a stroke/CVA work-up.? The patient does have a history of atrial fibrillation with RVR and is anticoagulated on Xarelto.? She reports that she has been taking the tiny red Xarelto pills daily but there is question about whether or not she has been getting this filled regularly but according to her report she has been taking it.? In December of this year the patient was admitted to the hospital and found to have congestive heart failure.? She left AGAINST MEDICAL ADVICE at that time and has not had any cardiology visits since then.? She states that she has not been seeing her primary care provider either because of a chronic cough and she is not allowed in the office with a cough.? On arrival to the emergency department her blood sugars are also elevated at 300.? She states that her blood sugars have been high at home as well in the 3-400 range.? She denies any fever, chills, vomiting, diarrhea, PND or orthopnea.? She denies any lower extremity edema today. (above as per cardiology) Patient states her left-sided weakness has improved over the past 2 to 3 weeks but is still present. Imaging in the ER was negative for stroke. She states she does feel better this am. Hospital Course Hospital Course Hospital Course: The patient's head and neck CTA showed no evidence of vascular injury, aneurysm, or major vessel occlusion. Patient's head CT showed nothing acute. She was admitted and cardiology was consulted. They wanted to get serial troponins, which remained stable. They also ordered an echo and started the patient on Entresto. They discontinued her diltiazem as it was contraindicated in systolic heart failure and she was started on metoprolol tartrate. They also started her on Lasix 40 mg IV twice a day along with Aldactone 25 mg twice daily. She was started on a baby aspirin and continued on Xarelto for oral anticoagulation. Her glucose was elevated, although she stated it had been normal at home. Her cholesterol panel was also very elevated. It was questionable whether she had been compliant with her medications at home. She did diurese with the IV Lasix and felt much better. Her shortness of breath significantly improved. Her rate was controlled with the metoprolol. Her echo showed dilated cardiomyopathy with an ejection fraction of 20%. She had known severe pulmonary hypertension. Cardiology wanted a LifeVest placed before discharge home. They also started her on Jardiance 10 mg daily for congestive heart failure. She had issues with the LifeVest and was placed back on continuous telemetry. It was felt the LifeVest would need to be evaluated. She was started on some Lantus due to continued hyperglycemia. There was issues contacting the LifeVest loss prevention representative and the patient left AGAINST MEDICAL ADVICE. Mary
== END 2022-05-18 09:09 | disposition left against medical advice (07) ==
LOC: ER 16:24 → 2ND 17:27
PROVIDERS: Nurse Practitioner Family; Admitting Provider Internal Medicine Adolescent Medicine; Emergency Provider Emergency Medicine; PCP Family Medicine; Visit Provider Family Medicine
DX: I48.91 Unspecified atrial fibrillation (principal); I42.0 Dilated cardiomyopathy; I50.21 Acute systolic (congestive) heart failure; I25.10 Atherosclerotic heart disease of native coronary artery without angina pectoris; Z79.4 Long term (current) use of insulin; I11.0 Hypertensive heart disease with heart failure; F17.210 Nicotine dependence, cigarettes, uncomplicated; N18.30 Chronic kidney disease, stage 3 unspecified; Z79.899 Other long term (current) drug therapy; I27.20 Pulmonary hypertension, unspecified; Z91.198 Patient's noncompliance with other medical treatment and regimen for other reason; E11.9 Type 2 diabetes mellitus without complications
CPT/HCPCS: 36415; 70450; 70496; 70498; 71045; 80048; 80053; 80061; 80076; 82962; 83735; 83880; 84484; 85025; 93005; 93306; 94640; 99285; C9803; G0378; Q9967; U0003; U0005

== ENCOUNTER 2022-09-13 21:10 | Emergency (ER) | payer OTHER, SELFPAY ==
[2022-09-13 21:10] VITALS: BP 133/66; PULSE 87; RESP 20; TEMP 37; O2SAT 99; BMI 35.0
[2022-09-13 21:17] VITALS: BP 133/66; PULSE 96; RESP 16; O2SAT 98
[2022-09-13 21:22] VITALS: BMI 35.0
[2022-09-13 21:30] VITALS: BP 142/76; PULSE 95; RESP 18; O2SAT 98
--- NOTE | 2022-09-13 21:30 | CT_ITS ---
PROCEDURE INFORMATION: Exam: CT Head Without Contrast Exam date and time: 09/13/2022 9:51 PM Age: 52 years old Clinical indication: Pain; Headache; Additional info: R sided headache, dizziness, darling spots in vision TECHNIQUE: Imaging protocol: Computed tomography of the head without contrast. Radiation optimization: All CT scans at this facility use at least one of these dose optimization techniques: automated exposure control; mA and/or kV adjustment per patient size (includes targeted exams where dose is matched to clinical indication); or iterative reconstruction. REPORTING DATA: Count of CT and Cardiac NM exams in prior 12 months: This patient has received 4 known CTs and 0 known cardiac nuclear medicine studies in the 12 months prior to the current study. COMPARISON: CT HEAD/BRAIN WO CON 05/15/2022 2:05 PM FINDINGS: Brain: No evidence of mass effect or midline shift. Minimal subtle patchy areas of hypodensity without mass-effect are noted in the periventricular white matter compatible with chronic microvascular ischemic disease. The martins/white matter interfaces are preserved. There are no extra-axial fluid collections.The basal cisterns are patent. Cerebral ventricles: No hydrocephalus. Paranasal sinuses: Well aerated. No fluid levels. Mastoid air cells: Visualized mastoid air cells are well aerated. Bones/joints: Unremarkable. No acute fracture. Soft tissues: Unremarkable. IMPRESSION: 1. No evidence of intracranial hemorrhage, mass effect, midline shift or hydrocephalus. 2. Findings compatible with minimal chronic microvascular ischemic disease.
[2022-09-13 21:39] LABS: Basophils # 0.2 K/mm3 (0-0.2); Basophils % 1.9 % (0.1-2.0); Eosinophils # 0.3 K/mm3 (0.0-0.4); Eosinophils % 2.7 % (0.1-12.0); Hematocrit 47.5 % (37.0-47.0); Hemoglobin 15.8 g/dL (12.2-16.2); Lymphocytes # 2.9 K/mm3 (0.7-4.5); Lymphocytes % 23.4 % (10-50); Mean Corpuscular HGB Conc 33.2 g/dL (31.8-35.4); Mean Corpuscular Volume 81.3 fl (81-99); Mean Platelet Volume 9.2 fl (7.4-10.4); Monocytes # 0.6 K/mm3 (0.1-1.0); Monocytes % 4.7 % (1.7-9.3); Neutrophils # 8.4 K/mm3 (1.8-7.8); Neutrophils % 67.3 % (37.0-80.0); Platelet Count 397 K/mm3 (142-424); Red Blood Count 5.84 M/mm3 (4.20-5.40); Red Cell Distribution Width 16.2 % (11.5-17.5); White Blood Count 12.4 K/mm3 (4.8-10.8)
[2022-09-13 21:40] LABS: Chloride 106 mmol/L (98-107)
[2022-09-13 21:41] LABS: Potassium 4.3 mmoL/L (3.5-5.1); Sodium 138 mmol/L (136-145)
[2022-09-13 21:43] LABS: Alanine Aminotransferase 22 U/L (12-78); Aspartate Amino Transferase 31 U/L (14-36); Blood Urea Nitrogen 16 mg/dl (7-17); Creatinine Clearance Estimated 88 mL/min (50-200); Estimated Glomerular Filt Rate 52 ml/min (>60); GFR (African American) 63 ML/MIN (>60)
[2022-09-13 21:44] LABS: Albumin Level 4.2 g/dl (3.5-5.0); Albumin/Globulin Ratio 1.2 (1.1-1.8); Alkaline Phosphatase 84 U/L (38-126); Anion Gap 12.3 mEq/L (5-15); Bilirubin,Total 0.6 mg/dl (0.2-1.3); Calcium 8.7 mg/dl (8.4-10.2); Carbon Dioxide 24 mmol/L (22.0-30.0); Globulin 3.5 g/dL (1.3-3.2); Glucose 234 mg/dl (74-100); Magnesium 2.2 mg/dl (1.6-2.3); Total Protein,Serum 7.7 g/dl (6.3-8.2)
[2022-09-13 21:56] LABS: Troponin I < 0.01 ng/ml (0.00-0.034)
[2022-09-13 22:00] VITALS: BP 123/70; PULSE 94; RESP 16; O2SAT 99
[2022-09-13 22:30] VITALS: BP 136/70; PULSE 95; RESP 18; O2SAT 98
--- NOTE | 2022-09-13 22:36 | CT_ITS ---
PROCEDURE INFORMATION: Exam: CT Maxillofacial Without Contrast, Sinus Exam date and time: 09/13/2022 10:55 PM Age: 52 years old Clinical indication: Pain; Headache; Additional info: R ear and head pain TECHNIQUE: Imaging protocol: CT Maxillofacial without contrast. Focus on the sinuses. Radiation optimization: All CT scans at this facility use at least one of these dose optimization techniques: automated exposure control; mA and/or kV adjustment per patient size (includes targeted exams where dose is matched to clinical indication); or iterative reconstruction. REPORTING DATA: Count of CT and Cardiac NM exams in prior 12 months: This patient has received 5 known CTs and 0 known cardiac nuclear medicine studies in the 12 months prior to the current study. COMPARISON: CT HEAD/BRAIN WO CON 09/13/2022 9:51 PM FINDINGS: Frontal sinuses: Not pneumatized. Ethmoid sinuses: Normal. No air-fluid levels. Sphenoid sinuses: Normal. No air-fluid levels. Maxillary sinuses: Minimal mucosal thickening of the right maxillary sinus. The left maxillary sinus is unremarkable. No air-fluid levels. Ostiomeatal units are patent. Nasal cavity: Unremarkable. Orbital cavities: Orbits are normal. Globes are unremarkable. Bones/joints: Unremarkable. Soft tissues: Unremarkable. Auditory system: Mastoid air cells and middle ear cavities are well aerated. IMPRESSION: 1. Minimal mucosal thickening of the right maxillary sinus. 2. No air-fluid levels identified.
--- NOTE | 2022-09-13 22:37 | HMH.EDDIZZ ---
Discharge Plan Disposition Patient Disposition: Home, Self-Care Prescriptions Prescriptions: New meclizine [Antivert] 25 mg tablet,chewable 25 mg PO TID PRN (Reason: dizziness) Qty: 10 0RF No Action omeprazole 40 mg capsule,delayed release(DR/EC) 40 mg PO DAILY Qty: 90 1RF albuterol sulfate 18 GM HFA aerosol inhaler 2 puff inhalation QIDP PRN (Reason: Shortness Of Breath) loratadine 10 MG tablet 10 mg PO DAILY furosemide 40 MG tablet 40 mg PO DAILY cyclobenzaprine 5 MG tablet 5 mg PO BID ipratropium-albuterol 0.5 mg-3 mg(2.5 mg base)/3 mL solution for nebulization See Rx Instructions .ROUTE .COMPLEX Rx Instructions: INHALE THE CONTENTS OF 1 VIAL VIA NEBULIZER FOUR TIMES DAILY digoxin 125 mcg (0.125 mg) tablet 125 mcg PO DAILY cefdinir 300 mg capsule 300 mg PO BID Entresto 24-26 mg tablet 1 tab PO BID Rx Instructions: TAKE ONE TABLET BY MOUTH TWICE DAILY metoprolol succinate 50 mg tablet extended release 24 hr 50 mg PO DAILY Humulin 70/30 U-100 KwikPen 100 unit/mL (70-30) insulin pen 40 unit SQ BID insulin glargine [Lantus Solostar U-100 Insulin] 100 unit/mL (3 mL) insulin pen 10 unit SQ HS rivaroxaban 15 MG tablet 15 mg PO QPMWITHMEAL fluticasone furoate-vilanterol 200-25 mcg/dose blister with device 1 inh INHALATION DAILY Label Comments: INHALE 1 PUFF BY MOUTH EVERY DAY Combivent Respimat 20-100 mcg/actuation mist 1 puff INHALATION QID Label Comments: INHALE 1 PUFF BY MOUTH FOUR TIMES DAILY Referrals Follow up/Referrals: Elias Washington MD [Primary Care Provider] - See instructions Clinical Impressions Clinical Impression: Acute labyrinthitis, Type 2 diabetes mellitus Discharge ED Provider: Fleix (ED)Elias Dizzy HPI General Chief Complaint: Dizziness Stated Complaint: Headache, Dizziness Time Seen by Provider: 09/13/22 21:35 Mode of Arrival: EMS Source of Information: Patient and EMS Limitations: No Limitations Description of Symptoms (Recalled from ER Triage Doc. by RN): Pt c/o R sided headache with dizziness that began over 1 wk ago. Pt saw her PCP and he prescribed an antibiotic for R ear infection. States her headache and dizziness is only getting worse. Denies fever, chills, n/v/d, or SOA/cough. She reports that she now has martins spots in my vision . History of Present Illness HPI Narrative: pt with rt sided johnson with assoc dizzyness which is with mov and has no tinnitus or hearing loss - saw pcp and placed on abx - spots with vision with dizzyness - no visual loss - MD complaint: dizziness Onset (ago): day(s) Timing: gradual onset and intermittent Description: lightheadedness History of similar episodes: No History of trauma: No Severity: moderate Relieving factors: remaining still Exacerbating factors: movement Related Data Home Medications Medication Instructions Recorded Confirmed albuterol sulfate 90 mcg/actuation 2 puff inhalation QIDP PRN 11/01/19 09/13/22 aerosol inhaler Shortness Of Breath rivaroxaban 15 mg tablet 15 mg PO QPMWITHMEAL A FIB 12/29/19 09/13/22 loratadine 10 mg tablet 10 mg PO DAILY Allergy symptoms 04/22/21 09/13/22 cyclobenzaprine 5 mg tablet 5 mg PO BID MUSCLE SPASMS 11/23/21 09/13/22 furosemide 40 mg tablet 40 mg PO DAILY Fluid 11/23/21 09/13/22 fluticasone furoate 200 1 inh inhalation DAILY COPD 05/16/22 09/13/22 mcg-vilanterol 25 mcg/dose inhalation powder ipratropium 20 mcg-albuterol 100 1 puff inhalation QID Breathing 05/16/22 09/13/22 mcg/actuation mist for inhalation problems (Combivent Respimat) cefdinir 300 mg capsule 300 mg PO BID ear infection 09/13/22 09/13/22 digoxin 125 mcg (0.125 mg) tablet 125 mcg PO DAILY a fib 09/13/22 09/13/22 insulin NPH-regular 70-30 U-100 40 unit SQ BID Diabetes 09/13/22 09/13/22 insulin 100 unit/mL subcutaneous pen (Humulin 70/30 U-100 Alen) insulin glargine 100 unit/mL (3 10
[2022-09-13 22:42] LABS: Microscopic, Urine URINE MICROSCOPIC (MICROSCOPIC)
[2022-09-13 22:43] LABS: Appearance,Urine CLEAR (Clear); Bilirubin,Urine Negative (Negative); Blood, Urine Negative (Negative); Color,Urine YELLOW (Yellow); Glucose,Urine (UA) TRACE (Negative); Ketones,Urine Negative (Negative); Leukocyte Esterase,Urine Negative (Negative); Nitrate,Urine Negative (Negative); Protein,Urine 2+ (Negative); Specific Gravity, Urine >= 1.030 (1.005-1.030); Urobilinogen,Urine 0.2 EU/dl (0.2)
[2022-09-13 23:01] VITALS: BP 141/76; PULSE 99; RESP 16; O2SAT 98
[2022-09-13 23:07] LABS: RBC,Urine Occasional #/hpf (0-3); Squamous Epithelial Cell,Urine Occasional #/hpf (0-5)
[2022-09-13 23:37] LABS: C-Reactive Protein 16.3 mg/L (0-4)
--- NOTE | 2022-09-13 23:44 | PC.NURSE ---
called lab to check time remaining on ESR lab, they report 7 min remaining
[2022-09-13 23:45] LABS: Procalcitonin 0.054 ng/mL (0.0-2.0)
--- NOTE | 2022-09-13 23:45 | PC.NURSE ---
pt & daughter asking for a breathing treatment or inhaler. She has a rescue inhaler at home. ordered Duoneb tx
--- NOTE | 2022-09-13 23:46 | PC.NURSE ---
Respiratory at bedside for breathing tx
[2022-09-13 23:54] LABS: Erythrocyte Sedimentation Rate 16 mm/hr (0-30)
[2022-09-14 00:05] VITALS: PULSE 77
[2022-09-14 00:06] VITALS: BP 139/71; PULSE 81; RESP 18; TEMP 36.8; O2SAT 98
== END 2022-09-14 00:14 | disposition home or self-care (01) ==
PROVIDERS: Emergency Provider Emergency Medicine; PCP Emergency Medicine
DX: H83.09 Labyrinthitis, unspecified ear (principal); E11.9 Type 2 diabetes mellitus without complications; I48.91 Unspecified atrial fibrillation; I50.9 Heart failure, unspecified; I11.0 Hypertensive heart disease with heart failure; F17.210 Nicotine dependence, cigarettes, uncomplicated; Z90.49 Acquired absence of other specified parts of digestive tract; Z82.49 Family history of ischemic heart disease and other diseases of the circulatory system
CPT/HCPCS: 70450; 70486; 80053; 80162; 81001; 83735; 84145; 84484; 85025; 85651; 86140; 96361; 96374; 99285

== ENCOUNTER → 2022-09-16 12:48 | Outpatient (CLI) | payer OTHER, SELFPAY ==
--- NOTE | 2022-09-16 12:53 | CA_ITS ---
APPROVED REPORT EXAM: Comprehensive 2D, Doppler, and color-flow Echocardiogram [employer]: Monica Romero, BECCA, RVS Ht: 5 ft 4 in Wt: 207lbs BSA: 1.99 BP: 150/85 mmHg Indications: Dilated CM, Afib, CP, HTN, COPD, Edema 2D Dimensions LVDs 4.99 cm M-Mode Dimensions RVDd 2.55 cm (0.9-2.6) LVDd 5.70 cm (3.5-5.7) LVDs 4.75 cm (3.5-5.7) IVSd 1.03 cm (0.6-1.1) PWd 1.06 cm (0.6-1.1) EF (Teich) 34.40% FS 16.70% EDV (Teich) 160.00 mL ESV (Teich) 104.90 mL Conclusion 1. Limited echocardiogram was performed to evaluate left ventricular systolic function, calculated ejection fraction is 28%, left ventricle is globally hypokinetic. 2. No significant pericardial effusion noted. Electronically signed by : Ravi Wayne MD 09/16/2022 18:45:21
== END ==
PROVIDERS: PCP Nurse Practitioner Family; Visit Provider Nurse Practitioner
DX: I42.0 Dilated cardiomyopathy (principal); I48.91 Unspecified atrial fibrillation; I51.89 Other ill-defined heart diseases; J44.1 Chronic obstructive pulmonary disease with (acute) exacerbation; Z91.19 Patient's noncompliance with other medical treatment and regimen
CPT/HCPCS: 93308

== ENCOUNTER 2022-12-10 11:05 | Emergency (ER) | payer OTHER, SELFPAY ==
[2022-12-10 11:18] VITALS: BP 141/87; PULSE 93; RESP 18; TEMP 36.6; O2SAT 97; BMI 35.9
--- NOTE | 2022-12-10 11:18 | EXP.UTC ---
Discharge Plan Disposition Patient Disposition: Home, Self-Care Condition: Good Prescriptions Prescriptions: New methylprednisolone 4 mg Tablets,Dose Pack 4 mg PO DIRECTED Qty: 21 0RF meclizine 25 mg tablet 25 mg PO TID PRN (Reason: dizziness) Qty: 30 0RF No Action omeprazole 40 mg capsule,delayed release(DR/EC) 40 mg PO DAILY Qty: 90 1RF meclizine [Antivert] 25 mg tablet,chewable 25 mg PO TID PRN (Reason: dizziness) Qty: 10 0RF Xarelto 15 mg tablet See Rx Instructions .ROUTE .COMPLEX Qty: 90 1RF Dose Instruction: TAKE ONE TABLET BY MOUTH EVERY EVENING Rx Instructions: TAKE ONE TABLET BY MOUTH EVERY EVENING digoxin 125 mcg (0.125 mg) tablet 125 mcg PO DAILY Qty: 90 3RF Humulin 70/30 U-100 KwikPen 100 unit/mL (70-30) insulin pen See Rx Instructions .ROUTE .COMPLEX Qty: 30 2RF Dose Instruction: inject 40 units SUBCUTANEOUSLY TWICE DAILY Rx Instructions: inject 40 units SUBCUTANEOUSLY TWICE DAILY ipratropium-albuterol 0.5 mg-3 mg(2.5 mg base)/3 mL solution for nebulization See Rx Instructions .ROUTE .COMPLEX Qty: 360 2RF Dose Instruction: INHALE THE CONTENTS OF 1 VIAL VIA NEBULIZER FOUR TIMES DAILY Rx Instructions: INHALE THE CONTENTS OF 1 VIAL VIA NEBULIZER FOUR TIMES DAILY albuterol sulfate 18 GM HFA aerosol inhaler 2 puff inhalation QIDP PRN (Reason: Shortness Of Breath) loratadine 10 MG tablet 10 mg PO DAILY furosemide 40 MG tablet 40 mg PO DAILY cyclobenzaprine 5 MG tablet 5 mg PO BID Entresto 24-26 mg tablet 1 tab PO BID Rx Instructions: TAKE ONE TABLET BY MOUTH TWICE DAILY metoprolol succinate 50 mg tablet extended release 24 hr 50 mg PO DAILY insulin glargine [Lantus Solostar U-100 Insulin] 100 unit/mL (3 mL) insulin pen 10 unit SQ HS fluticasone furoate-vilanterol 200-25 mcg/dose blister with device 1 inh INHALATION DAILY Label Comments: INHALE 1 PUFF BY MOUTH EVERY DAY Combivent Respimat 20-100 mcg/actuation mist 1 puff INHALATION QID Label Comments: INHALE 1 PUFF BY MOUTH FOUR TIMES DAILY Referrals Follow up/Referrals: Shahram Barnard APRN [Primary Care Provider] - See instructions Activity Restrictions/Add. Instructions Additional Instructions/Restrictions: Take tylenol for ear pain. Take the medications as directed. The antivert (meclizine) will make you drowsy, so don't drive or operate heavy machinery after taking it. The steroids (methylprednizone) will make your blood sugars run higher. Monitor your blood sugar closely and follow your diabetic diet while you are on this. Follow up with your regular doctor. GO TO THE ER FOR ANY WORSENING SYMPTOMS Clinical Impressions Clinical Impression: Benign paroxysmal positional vertigo Instructions Patient Instructions: Benign Paroxysmal Positional Vertigo, Meclizine, Methylprednisolone Discharge ED Provider: Juve Engle [facility] General Stated complaint: Dizzy, sweats, trouble seeing, RT ear pain Time Seen by Provider: 12/10/22 11:18 History of Present Illness Provider Complaint: She states that for the past 1 month she has had dizziness with certain movements of her head. She has been prescribed antivert, but she has not taken it because it says to chew it on the bottle and she is unable to chew it. She denies any chest pain. She denies any focal weakness. She refuses transfer to the ER today. Related Data Home Medications Medication Instructions Recorded Confirmed albuterol sulfate 90 mcg/actuation 2 puff inhalation QIDP PRN 11/01/19 12/08/22 aerosol inhaler Shortness Of Breath loratadine 10 mg tablet 10 mg PO DAILY Allergy symptoms 04/22/21 12/08/22 cyclobenzaprine 5 mg tablet 5 mg PO BID MUSCLE SPASMS 11/23/21 12/08/22 furosemide 40 mg tablet 40 mg PO DAILY Fluid 11/23/21 12/08/22 fluticasone furoate 200 1 inh inhalation DAILY COPD 05/16/22 12/08/22 mcg-vilan
[2022-12-10 11:44] VITALS: BP 141/87; PULSE 93; RESP 18; TEMP 36.6
== END 2022-12-10 11:50 | disposition home or self-care (01) ==
PROVIDERS: Emergency Provider Nurse Practitioner Family; PCP Nurse Practitioner Family
DX: H81.10 Benign paroxysmal vertigo, unspecified ear (principal); F17.210 Nicotine dependence, cigarettes, uncomplicated; J44.9 Chronic obstructive pulmonary disease, unspecified; I10 Essential (primary) hypertension; E78.5 Hyperlipidemia, unspecified; E11.9 Type 2 diabetes mellitus without complications; Z79.4 Long term (current) use of insulin
CPT/HCPCS: 99212; 99214; G0463

== ENCOUNTER 2022-12-17 11:05 | Emergency (ER) | payer OTHER, SELFPAY ==
[2022-12-17 11:06] VITALS: BP 173/111; PULSE 108; RESP 19; TEMP 36.5; O2SAT 97; BMI 35.9
--- NOTE | 2022-12-17 11:13 | ECG_ITS ---
APPROVED REPORT Exam: Resting ECG HR:112 bpm ECG Measurements Heart Rate 112 AXES QRSd 120 QRS -8 QT 332 T 150 QTc 398 Conclusion ATRIAL FIBRILLATION WITH RAPID VENTRICULAR RESPONSE SEPTAL Changes are old MODERATE T-WAVE ABNORMALITY, CONSIDER LATERAL ISCHEMIA [-0.1+ mV T-WAVE IN I/aVL/V5/V6] ABNORMAL ECG UNCONFIRMED REPORT Electronically signed by : Tej Fenton MD 12/17/2022 17:33:33
--- NOTE | 2022-12-17 11:18 | PC.NURSE ---
PT SUGAR IS 165
[2022-12-17 11:23] VITALS: BMI 35.9
--- NOTE | 2022-12-17 11:24 | CT_ITS ---
FINAL REPORT TECHNIQUE: thin section axial CT with and without IV contrast supplemented with multiplanar 3-D reconstruction of the head. This study was performed with techniques to keep radiation doses as low as reasonably achievable, (ALARA)individualized dose reduction techniques using automated exposure control or adjustment of mA and/or kV according to the patient's size were employed. CLINICAL HISTORY: stroke COMPARISON: 05/15/[address] head 09/14/2022 FINDINGS: HEAD CT: There are regions of abnormal decreased attenuation in the occipital lobes bilaterally concerning for subacute ischemic infarcts. There is mild patchy decreased attenuation in the deep white matter bilaterally. CTA: There is a dominant left A1 segment. The MCAs appear adequately patent. Basilar artery is patent. IMPRESSION: Subacute infarcts occipital lobes bilaterally. No intracranial large vessel occlusion. Reviewed, Interpreted and Dictated by Julien Murdock MD Transcribed by Olivia Goldstein Authenticated and [facility]
--- NOTE | 2022-12-17 11:24 | CT_ITS ---
FINAL REPORT TECHNIQUE: NASCET technique utilized for stenosis evaluation. CLINICAL HISTORY: STROKE SYMPTOMS COMPARISON: 05/15/2022 FINDINGS: RIGHT CAROTID: No significant stenosis seen of the cervical common or internal carotid artery. LEFT CAROTID: Moderate vascular calcifications in left internal carotid artery with less than 50% stenosis. IMPRESSION: Less than 50% left internal carotid artery stenosis. Reviewed, Interpreted and Dictated by Julien Murdock MD Transcribed by Olivia Goldstein Authenticated and [facility]
--- NOTE | 2022-12-17 11:26 | XR_ITS ---
FINAL REPORT CLINICAL HISTORY: stroke like symptoms soa FINDINGS: SINGLE-VIEW CHEST The heart size is normal. The mediastinum is normal. The lungs are clear. There is no pneumothorax. IMPRESSION: No acute cardiopulmonary process. Reviewed, Interpreted and Dictated by Julien Murdock MD Transcribed by Edith Ortega Authenticated and [facility]
--- NOTE | 2022-12-17 11:29 | HMH.EDGENADL ---
Discharge Plan Disposition Patient Disposition: Admitted Prescriptions Prescriptions: No Action omeprazole 40 mg capsule,delayed release(DR/EC) 40 mg PO DAILY Qty: 90 1RF Xarelto 15 mg tablet See Rx Instructions .ROUTE .COMPLEX Qty: 90 1RF Dose Instruction: TAKE ONE TABLET BY MOUTH EVERY EVENING Rx Instructions: TAKE ONE TABLET BY MOUTH EVERY EVENING digoxin 125 mcg (0.125 mg) tablet 125 mcg PO DAILY Qty: 90 3RF Humulin 70/30 U-100 KwikPen 100 unit/mL (70-30) insulin pen See Rx Instructions .ROUTE .COMPLEX Qty: 30 2RF Dose Instruction: inject 40 units SUBCUTANEOUSLY TWICE DAILY Rx Instructions: inject 40 units SUBCUTANEOUSLY TWICE DAILY ipratropium-albuterol 0.5 mg-3 mg(2.5 mg base)/3 mL solution for nebulization See Rx Instructions .ROUTE .COMPLEX Qty: 360 2RF Dose Instruction: INHALE THE CONTENTS OF 1 VIAL VIA NEBULIZER FOUR TIMES DAILY Rx Instructions: INHALE THE CONTENTS OF 1 VIAL VIA NEBULIZER FOUR TIMES DAILY albuterol sulfate 18 GM HFA aerosol inhaler 2 puff inhalation QIDP PRN (Reason: Shortness Of Breath) loratadine 10 MG tablet 10 mg PO DAILY furosemide 40 MG tablet 40 mg PO DAILY cyclobenzaprine 5 MG tablet 5 mg PO BID Entresto 24-26 mg tablet 1 tab PO BID Rx Instructions: TAKE ONE TABLET BY MOUTH TWICE DAILY metoprolol succinate 50 mg tablet extended release 24 hr 50 mg PO DAILY methylprednisolone 4 mg Tablets,Dose Pack 4 mg PO DIRECTED Qty: 21 0RF meclizine 25 mg tablet 25 mg PO TID PRN (Reason: dizziness) Qty: 30 0RF fluticasone furoate-vilanterol 200-25 mcg/dose blister with device 1 inh INHALATION DAILY Label Comments: INHALE 1 PUFF BY MOUTH EVERY DAY Combivent Respimat 20-100 mcg/actuation mist 1 puff INHALATION QID Label Comments: INHALE 1 PUFF BY MOUTH FOUR TIMES DAILY Referrals Follow up/Referrals: Elias Washington MD [Primary Care Provider] - See instructions Clinical Impressions Clinical Impression: Acute CVA (cerebrovascular accident) Discharge ED Provider: Carolyn Hastings General Adult HPI General Chief complaint: Neuro Symptoms/Deficit Stated complaint: Phys ref, dizzy, trouble seeing Time Seen by Provider: 12/17/22 11:29 History of Present Illness HPI narrative: Patient is a 52-year-old female presenting with difficulty seeing. She states that she has had some headache on the right lateral posterior aspect of her head and neck as well as some dizziness and difficulty with her vision since 5 days ago. She states she went to urgent treatment clinic was given steroids and did not have any significant improvement this was 5 days ago she said this was about 24 hours into her symptoms. There is no sudden component of this she states that she has not been able to see almost anything out of her right eye but still has some vision in her left. She says there have been some floaters in the right eye but it is primarily been like she is in the dark she says. No other neurologic symptoms states that her gait has been normal and has noted no changes in coordination she states but just occasional dizziness. Related Data Home Medications Medication Instructions Recorded Confirmed albuterol sulfate 90 mcg/actuation 2 puff inhalation QIDP PRN 11/01/19 12/17/22 aerosol inhaler Shortness Of Breath loratadine 10 mg tablet 10 mg PO DAILY Allergy symptoms 04/22/21 12/17/22 cyclobenzaprine 5 mg tablet 5 mg PO BID MUSCLE SPASMS 11/23/21 12/17/22 furosemide 40 mg tablet 40 mg PO DAILY Fluid 11/23/21 12/17/22 fluticasone furoate 200 1 inh inhalation DAILY COPD 05/16/22 12/17/22 mcg-vilanterol 25 mcg/dose inhalation powder ipratropium 20 mcg-albuterol 100 1 puff inhalation QID Breathing 05/16/22 12/17/22 mcg/actuation mist for inhalation problems (Combivent Respimat) metoprolol succinate 50 mg 50 mg PO DAILY High blood pressure 09/13/22
--- NOTE | 2022-12-17 11:34 | PC.NURSE ---
PT AT CT
[2022-12-17 11:36] LABS: Basophils # 0.2 K/mm3 (0-0.2); Basophils % 1.3 % (0.1-2.0); Eosinophils # 0.2 K/mm3 (0.0-0.4); Eosinophils % 1.7 % (0.1-12.0); Hemoglobin 16.4 g/dL (12.2-16.2); Lymphocytes # 3.3 K/mm3 (0.7-4.5); Lymphocytes % 26.7 % (10-50); Mean Corpuscular HGB Conc 32.1 g/dL (31.8-35.4); Mean Corpuscular Volume 84.1 fl (81-99); Mean Platelet Volume 8.3 fl (7.4-10.4); Monocytes # 0.5 K/mm3 (0.1-1.0); Monocytes % 4.4 % (1.7-9.3); Neutrophils # 8.1 K/mm3 (1.8-7.8); Neutrophils % 65.8 % (37.0-80.0); Platelet Count 284 K/mm3 (142-424); Red Blood Count 6.06 M/mm3 (4.20-5.40); Red Cell Distribution Width 15.7 % (11.5-17.5); White Blood Count 12.2 K/mm3 (4.8-10.8)
[2022-12-17 11:43] LABS: Blood Urea Nitrogen 21 mg/dl (7-17); Carbon Dioxide 28 mmol/L (22.0-30.0); Chloride 102 mmol/L (98-107); Creatinine Clearance Estimated 111 mL/min (50-200); Estimated Glomerular Filt Rate 66 ml/min (>60); GFR (African American) 80 ML/MIN (>60); Glucose 171 mg/dl (74-100); Sodium 139 mmol/L (136-145)
[2022-12-17 11:55] LABS: Troponin I 0.04 ng/ml (0.00-0.034)
[2022-12-17 12:03] VITALS: BP 160/81; PULSE 106; O2SAT 97
--- NOTE | 2022-12-17 12:03 | PC.NURSE ---
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
[2022-12-17 12:30] VITALS: BP 146/84; PULSE 90; O2SAT 96
[2022-12-17 13:00] VITALS: BP 158/87; PULSE 102; O2SAT 95
--- NOTE | 2022-12-17 13:23 | PC.NURSE ---
GAVE PT A FAN NOTHING NEEDED AT BS
--- NOTE | 2022-12-17 13:26 | PC.NURSE ---
call made to care management for bed placement
[2022-12-17 13:35] LABS: Coronavirus 19, PCR Not Detected (NotDetected); Influenza A, PCR Not Detected (NotDetected); Influenza B, PCR Not Detected (NotDetected)
[2022-12-17 13:59] LABS: Hemoglobin A1C 7.5 % (4.0-6.0)
--- NOTE | 2022-12-17 14:08 | PC.NURSE ---
PT HAS DECIDED SHE DID NOT WANT TO BE ADMITTED , DR LIZ WENT IN AND EXPLAINED ALL THE RISK TO HER BUT SHE STILL WANTS TO GO HOME , SON IS AT BEDSIDE AND SAYS IT IS HER DECISION . PT SIGNED THE AMA PAPER AND VERBALIZED THE UNDERSTANDING TO RETURN IF NEEDED
[2022-12-17 14:22] VITALS: BP 158/87; PULSE 102; RESP 16; TEMP 36.6
[2022-12-17 14:24] LABS: Thyroid Stimulating Hormone 1.87 uIU/mL (0.465-4.68)
[2023-03-16 09:55] LABS: POC Glucose,Bedside 89 (70-110)
== END 2022-12-17 14:24 | disposition home or self-care (01) ==
LOC: ER 13:25 → 2ND 14:06 → ER 14:07
PROVIDERS: Internal Medicine Adolescent Medicine; Emergency Provider Student in an Organized Health Care Education/Training Program; PCP Emergency Medicine
DX: I63.9 Cerebral infarction, unspecified (principal); I25.10 Atherosclerotic heart disease of native coronary artery without angina pectoris; I13.0 Hypertensive heart and chronic kidney disease with heart failure and stage 1 through stage 4 chronic kidney disease, or unspecified chronic kidney disease; I50.20 Unspecified systolic (congestive) heart failure; E11.22 Type 2 diabetes mellitus with diabetic chronic kidney disease; N18.9 Chronic kidney disease, unspecified; F17.210 Nicotine dependence, cigarettes, uncomplicated
CPT/HCPCS: 70496; 70498; 71045; 80048; 82962; 83036; 84443; 84484; 85025; 87635; 87636; 93005; 99291; C9803; Q9967; U0003; U0005

== ENCOUNTER 2022-12-23 19:33 | Observation (INO) | payer OTHER, SELFPAY ==
[2022-12-23 19:33] VITALS: BP 162/101; PULSE 110; RESP 21; TEMP 37.4; O2SAT 96; BMI 37.2
--- NOTE | 2022-12-23 19:33 | ECG_ITS ---
APPROVED REPORT Exam: Resting ECG HR:112 bpm ECG Measurements Heart Rate 112 AXES QRSd 117 QRS 19 QT 327 T 120 QTc 393 Conclusion ATRIAL FIBRILLATION WITH RAPID VENTRICULAR RESPONSE WITH ABERRANT CONDUCTION OR VENTRICULAR PREMATURE COMPLEXES SEPTAL MYOCARDIAL INFARCTION , PROBABLY OLD [40+ ms Q WAVE IN V1/V2] ST DEVIATION AND MODERATE T-WAVE ABNORMALITY, CONSIDER LATERAL ISCHEMIA [-0.1+ mV T-WAVE IN I/aVL/V5/V6] ABNORMAL ECG UNCONFIRMED REPORT Electronically signed by : Tej Fenton MD 12/25/2022 09:28:27
[2022-12-23 19:48] VITALS: BMI 37.2
--- NOTE | 2022-12-23 19:50 | XR_ITS ---
PROCEDURE INFORMATION: Exam: XR Chest Exam date and time: 12/23/2022 8:10 PM Age: 52 years old Clinical indication: Other: Weakness TECHNIQUE: Imaging protocol: Radiologic exam of the chest. Views: 1 view. COMPARISON: CR XR CHEST PORTABLE 12/17/2022 11:38 AM FINDINGS: Lungs: No consolidation. Pleural spaces: No pneumothorax. Heart/Mediastinum: No cardiomegaly. Bones/joints: No acute abnormality. IMPRESSION: No acute findings.
--- NOTE | 2022-12-23 19:50 | CT_ITS ---
PROCEDURE INFORMATION: Exam: CT Head Without Contrast Exam date and time: 12/23/2022 8:19 PM Age: 52 years old Clinical indication: Weakness, extremity; Bilateral TECHNIQUE: Imaging protocol: Computed tomography of the head without contrast. Radiation optimization: All CT scans at this facility use at least one of these dose optimization techniques: automated exposure control; mA and/or kV adjustment per patient size (includes targeted exams where dose is matched to clinical indication); or iterative reconstruction. REPORTING DATA: Count of CT and Cardiac NM exams in prior 12 months: This patient has received 7 known CTs and 0 known cardiac nuclear medicine studies in the 12 months prior to the current study. COMPARISON: CT ANGIO HEAD WITH W/O 12/17/2022 11:33 AM FINDINGS: Brain: Bilateral medial occipital encephalomalacia. No hemorrhage. No mass effect or midline shift. Cerebral ventricles: No ventriculomegaly. Paranasal sinuses: No fluid levels. Mastoid air cells: Visualized mastoid air cells are well aerated. Bones/joints: No acute fracture. Soft tissues: No significant soft tissue abnormality. IMPRESSION: Chronic changes without acute process.
[2022-12-23 20:01] VITALS: BP 167/89; PULSE 106; RESP 14; O2SAT 98
[2022-12-23 20:05] LABS: Microscopic, Urine URINE MICROSCOPIC (MICROSCOPIC)
--- NOTE | 2022-12-23 20:05 | HMH.EDWEAK ---
Discharge Plan Disposition Patient Disposition: Admitted Prescriptions Prescriptions: No Action omeprazole 40 mg capsule,delayed release(DR/EC) 40 mg PO DAILY Qty: 90 1RF digoxin 125 mcg (0.125 mg) tablet 125 mcg PO DAILY Qty: 90 3RF albuterol sulfate 18 GM HFA aerosol inhaler 2 puff inhalation QIDP PRN (Reason: Shortness Of Breath) loratadine 10 MG tablet 10 mg PO DAILY furosemide 40 MG tablet 40 mg PO DAILY cyclobenzaprine 5 MG tablet 5 mg PO BID Entresto 24-26 mg tablet 1 tab PO BID Rx Instructions: TAKE ONE TABLET BY MOUTH TWICE DAILY metoprolol succinate 50 mg tablet extended release 24 hr 50 mg PO DAILY fluticasone furoate-vilanterol 200-25 mcg/dose blister with device 1 inh INHALATION DAILY Label Comments: INHALE 1 PUFF BY MOUTH EVERY DAY Combivent Respimat 20-100 mcg/actuation mist 1 puff INHALATION QID Label Comments: INHALE 1 PUFF BY MOUTH FOUR TIMES DAILY ipratropium-albuterol 0.5 mg-3 mg(2.5 mg base)/3 mL solution for nebulization See Rx Instructions .ROUTE .COMPLEX Rx Instructions: INHALE THE CONTENTS OF 1 VIAL VIA NEBULIZER FOUR TIMES DAILY meclizine 25 mg tablet See Rx Instructions .ROUTE .COMPLEX Rx Instructions: TAKE ONE TABLET BY MOUTH THREE TIMES DAILY NEEDED FOR dizziness Humulin 70/30 U-100 KwikPen 100 unit/mL (70-30) insulin pen See Rx Instructions .ROUTE .COMPLEX Rx Instructions: inject 40 units SUBCUTANEOUSLY TWICE DAILY Xarelto 15 mg tablet See Rx Instructions .ROUTE .COMPLEX Rx Instructions: TAKE ONE TABLET BY MOUTH EVERY EVENING Referrals Follow up/Referrals: Shahram Barnard APRN [Primary Care Provider] - See instructions Jai Gilmore MD [Staff Physician] - See instructions Clinical Impressions Clinical Impression: Systolic CHF with reduced left ventricular function, NYHA class 3, Atrial fibrillation with rapid ventricular response, Syncope Discharge ED Provider: Felix (ED)Elias HPI General Chief complaint: Weakness Stated complaint: hypertension Time Seen by Provider: 12/23/22 20:00 Mode of Arrival: EMS Source of Information: Patient and Medical Record Limitations: No Limitations Description of Symptoms (Recalled from ER Triage Doc. by RN): EMS called out for weakness. pt states she had been sitting outside and then when in and had a spell and felt weak and dizzy. pt states that she hasn't taken any of her meds today. History of Present Illness HPI Narrative: pt with known chf with low ef and has a fib with acute episode of dizzyness and near syncope - is planned for aicd Complaint: generalized weakness Onset (ago): hour(s) Duration: intermittent Location: generalized Migration: none Severity: similar to previous episodes Context: history of similar Related Data Home Medications Medication Instructions Recorded Confirmed albuterol sulfate 90 mcg/actuation 2 puff inhalation QIDP PRN 11/01/19 12/17/22 aerosol inhaler Shortness Of Breath loratadine 10 mg tablet 10 mg PO DAILY Allergy symptoms 04/22/21 12/17/22 cyclobenzaprine 5 mg tablet 5 mg PO BID MUSCLE SPASMS 11/23/21 12/17/22 furosemide 40 mg tablet 40 mg PO DAILY Fluid 11/23/21 12/17/22 fluticasone furoate 200 1 inh inhalation DAILY COPD 05/16/22 12/17/22 mcg-vilanterol 25 mcg/dose inhalation powder ipratropium 20 mcg-albuterol 100 1 puff inhalation QID Breathing 05/16/22 12/17/22 mcg/actuation mist for inhalation problems (Combivent Respimat) metoprolol succinate 50 mg 50 mg PO DAILY High blood pressure 09/13/22 12/17/22 tablet,extended release 24 hr sacubitril 24 mg-valsartan 26 mg 1 tab PO BID Heart disease 09/13/22 12/17/22 tablet (Entresto) insulin NPH-regular 70-30 U-100 See Rx Instructions .Route 12/23/22 12/23/22 insulin 100 unit/mL subcutaneous .COMPLEX Diabetes pen (Humulin 70/30 U-100 KwikPen) ipratropium 0.5 mg-albuterol 3 mg
[2022-12-23 20:08] LABS: Appearance,Urine CLEAR (Clear); Basophils # 0.1 K/mm3 (0-0.2); Basophils % 0.8 % (0.1-2.0); Bilirubin,Urine Negative (Negative); Blood, Urine Negative (Negative); Color,Urine YELLOW (Yellow); Eosinophils # 0.3 K/mm3 (0.0-0.4); Glucose,Urine (UA) Negative (Negative); Hematocrit 48.8 % (37.0-47.0); Hemoglobin 16.2 g/dL (12.2-16.2); Ketones,Urine Negative (Negative); Leukocyte Esterase,Urine Negative (Negative); Lymphocytes # 3.9 K/mm3 (0.7-4.5); Lymphocytes % 30.4 % (10-50); Mean Corpuscular HGB Conc 33.1 g/dL (31.8-35.4); Mean Corpuscular Hemoglobin 27.6 pg (27.0-31.2); Mean Corpuscular Volume 83.3 fl (81-99); Mean Platelet Volume 9.6 fl (7.4-10.4); Monocytes # 0.6 K/mm3 (0.1-1.0); Monocytes % 4.3 % (1.7-9.3); Neutrophils % 62.5 % (37.0-80.0); Nitrate,Urine Negative (Negative); Platelet Count 302 K/mm3 (142-424); Protein,Urine 2+ (Negative); Red Blood Count 5.85 M/mm3 (4.20-5.40); Red Cell Distribution Width 16.2 % (11.5-17.5); Specific Gravity, Urine 1.025 (1.005-1.030); Urobilinogen,Urine 0.2 EU/dl (0.2); White Blood Count 12.8 K/mm3 (4.8-10.8)
--- NOTE | 2022-12-23 20:09 | PC.NURSE ---
SPEAKING WITH DR GARDINER RE: ADMIT PATIENT FOR PROCEDURE
[2022-12-23 20:12] LABS: Alanine Aminotransferase 33 U/L (12-78); Albumin Level 4.1 g/dl (3.5-5.0); Albumin/Globulin Ratio 1.2 (1.1-1.8); Alkaline Phosphatase 98 U/L (38-126); Anion Gap 14.7 mEq/L (5-15); Aspartate Amino Transferase 35 U/L (14-36); Bilirubin,Total 0.4 mg/dl (0.2-1.3); Blood Urea Nitrogen 19 mg/dl (7-17); Calcium 9.1 mg/dl (8.4-10.2); Carbon Dioxide 25 mmol/L (22.0-30.0); Chloride 103 mmol/L (98-107); Creatinine Clearance Estimated 103 mL/min (50-200); Estimated Glomerular Filt Rate 58 ml/min (>60); GFR (African American) 71 ML/MIN (>60); Globulin 3.4 g/dL (1.3-3.2); Glucose 168 mg/dl (74-100); Potassium 3.7 mmoL/L (3.5-5.1); Sodium 139 mmol/L (136-145); Total Protein,Serum 7.5 g/dl (6.3-8.2)
--- NOTE | 2022-12-23 20:12 | PC.NURSE ---
Patient admitted OBS to [address] Valdov[address] with dx of syncope.
--- NOTE | 2022-12-23 20:12 | PC.NURSE ---
Pt gone to RAD via stretcher
[2022-12-23 20:15] LABS: Coronavirus 19, PCR Not Detected (NotDetected); Influenza A, PCR Not Detected (NotDetected); Influenza B, PCR Not Detected (NotDetected)
[2022-12-23 20:22] LABS: C-Reactive Protein 8.1 mg/L (0-4)
[2022-12-23 20:25] LABS: Troponin I 0.02 ng/ml (0.00-0.034)
[2022-12-23 20:30] VITALS: BP 137/89; PULSE 96; RESP 11; O2SAT 97
[2022-12-23 20:30] LABS: Procalcitonin 0.057 ng/mL (0.0-2.0)
--- NOTE | 2022-12-23 20:32 | PC.NURSE ---
Pt returned from RAD
--- NOTE | 2022-12-23 20:38 | PC.NURSE ---
Hospitalist, Doroteo, at BS.
[2022-12-23 20:42] LABS: Erythrocyte Sedimentation Rate 8 mm/hr (0-30)
[2022-12-23 20:47] LABS: Bacteria,Urine Trace /lpf; Squamous Epithelial Cell,Urine Occasional #/hpf (0-5)
[2022-12-23 21:01] VITALS: BP 153/88; PULSE 100; O2SAT 98
--- NOTE | 2022-12-23 21:01 | PC.NURSE ---
pt sleeping in bed family at bedside
[2022-12-23 21:08] VITALS: BP 153/88; PULSE 104; RESP 16; TEMP 37.1; O2SAT 96
[2022-12-23 21:19] LABS: Digoxin < 0.40 ng/ml (0.2-2.00)
--- NOTE | 2022-12-23 21:27 | PC.NURSE ---
PT ARRIVED TO FLOOR AT THIS TIME
--- NOTE | 2022-12-23 21:33 | EXP.HP ---
History of Present Illness *Admission Date: 12/23/22 *Reason for visit:: Dizziness, Weakness, changes in vision *History of present illness: Ms. Leahy is a 52-year-old female with a past medical history of HFrEF, NYHA Class III, history of Atrial Fibrillation on chronic anticoagulation, chronic tobacco abuse and recent diagnosis of occipital CVA on 12/17 in which she left the hospital AMA. She presents to [facility] due to weakness, dizziness and headaches that have been ongoing since 12/17. She reports that she was to have a PPM placement by Cardiology on 12/22 but missed her appointment due to her symptoms. In the ER the patient was noted to be in Atrial Fibrillation with HR 110. ER Physician called and spoke with Cardiology who recommended admission for PPM. The patient reports that she has been off her anticoagulation 3 days. The patient will be admitted with initial impression: Near Syncope. Cardiology will be consulted to see, plan is for AICD/PPM placement on 12/24. [facility] Disclaimer: The information contained in this section may have been updated after the patient was seen, as this information can be updated by other users. Medical History (Updated 12/24/22 @ 08:24 by JW Martin) Acute bronchitis Atrial fibrillation with rapid ventricular response Atrial fibrillation with RVR CAD in [place] artery Chest pain Chronic atrial fibrillation Chronic HFrEF (heart failure with reduced ejection fraction) Chronic renal insufficiency, stage III (moderate) COPD (chronic obstructive pulmonary disease) Diabetes mellitus Diabetic acetonemia Dilated cardiomyopathy Dysphagia Edema of both lower extremities HTN (hypertension) Hyperlipidemia Hyperosmolar hyperglycemic state (HHS) Left sided numbness Nonerosive nonspecific gastritis Obesity Perirectal abscess Pneumonia Pulmonary hypertension Renal insufficiency Shortness of Breath SIRS (systemic inflammatory response syndrome) Spider bite Syncope Systolic CHF with reduced left ventricular function, NYHA class 3 Tobacco user Type 2 diabetes mellitus Uncontrolled type 2 DM with hyperosmolar nonketotic hyperglycemia Surgical History H/O right coronary artery stent placement H/O: hysterectomy History of bladder surgery History of esophageal surgery History of esophagogastroduodenoscopy (EGD) Family History Other Coronary artery disease Social History Smoking Status: Never smoker second hand exposure: Yes alcohol intake: former substance use type: denies use current occupational status: disabled Travel in the last 8 weeks: None household members: spouse and children housing: house current occupational exposures/hazards: No caffeine: Yes Review of Systems Review of Systems Review of systems:: pertinent systems reviewed and negative unless documented below Constitutional Constitutional: Reports headache(s), Reports lethargy and Reports malaise Eyes Eyes: Reports blurry vision and Reports change in vision ENT Ears, Nose, Mouth, and Throat: Reports system reviewed and no additional complaints, except as documented, Reports dizziness and Reports headache(s) *Cardiovascular Cardiovascular: Reports rapid heart rate *Respiratory Respiratory: Reports system reviewed and no additional complaints, except as documented *Gastrointestinal Gastrointestinal: Reports system reviewed and no additional complaints, except as documented *Genitourinary Genitourinary: Reports system reviewed and no additional complaints, except as documented *Musculoskeletal Musculoskeletal: Reports system reviewed and no additional complaints, except as documented Integumentary/Breasts Skin/Breast: Reports system reviewed and no additional complaints, except as documented *Neurologic Neurologic: Reports dizzines
[2022-12-23 22:47] VITALS: PULSE 102
[2022-12-23 23:45] LABS: Troponin I 0.02 ng/ml (0.00-0.034)
[2022-12-24] VITALS (22 sets, daily range): BP systolic 117–150; BP diastolic 62–96; PULSE 77–110; RESP 16–24; TEMP 36.2–37; O2SAT 93–97; BMI 37.0
[2022-12-24 02:41] LABS: Troponin I 0.02 ng/ml (0.00-0.034)
[2022-12-24 05:33] LABS: POC Glucose,Bedside 146 (70-110)
[2022-12-24 06:26] LABS: Chloride 106 mmol/L (98-107); Potassium 3.7 mmoL/L (3.5-5.1); Sodium 140 mmol/L (136-145)
[2022-12-24 06:27] LABS: Basophils # 0.1 K/mm3 (0-0.2); Basophils % 0.7 % (0.1-2.0); Eosinophils # 0.2 K/mm3 (0.0-0.4); Eosinophils % 1.4 % (0.1-12.0); Hematocrit 47.9 % (37.0-47.0); Hemoglobin 15.3 g/dL (12.2-16.2); Lymphocytes # 2.9 K/mm3 (0.7-4.5); Lymphocytes % 29.2 % (10-50); Mean Corpuscular HGB Conc 31.9 g/dL (31.8-35.4); Mean Corpuscular Hemoglobin 26.7 pg (27.0-31.2); Mean Corpuscular Volume 83.8 fl (81-99); Mean Platelet Volume 8.8 fl (7.4-10.4); Monocytes # 0.5 K/mm3 (0.1-1.0); Monocytes % 4.4 % (1.7-9.3); Neutrophils # 6.5 K/mm3 (1.8-7.8); Neutrophils % 64.2 % (37.0-80.0); Platelet Count 283 K/mm3 (142-424); Red Blood Count 5.71 M/mm3 (4.20-5.40)
[2022-12-24 06:29] LABS: Alanine Aminotransferase 29 U/L (12-78); Albumin Level 3.4 g/dl (3.5-5.0); Albumin/Globulin Ratio 1.2 (1.1-1.8); Alkaline Phosphatase 73 U/L (38-126); Anion Gap 10.7 mEq/L (5-15); Aspartate Amino Transferase 27 U/L (14-36); Bilirubin,Total 0.4 mg/dl (0.2-1.3); Blood Urea Nitrogen 14 mg/dl (7-17); Calcium 8.8 mg/dl (8.4-10.2); Carbon Dioxide 27 mmol/L (22.0-30.0); Creatinine Clearance Estimated 103 mL/min (50-200); Estimated Glomerular Filt Rate 58 ml/min (>60); GFR (African American) 71 ML/MIN (>60); Globulin 2.9 g/dL (1.3-3.2); Glucose 155 mg/dl (74-100); Total Protein,Serum 6.3 g/dl (6.3-8.2)
--- NOTE | 2022-12-24 07:14 | HMH.PHAINT1 ---
Pharmacy Intervention Comments: Home med list verified using external fill history from outside pharmacy.
--- NOTE | 2022-12-24 07:37 | EXP.ACUTE.PN ---
Subjective *Date: 12/24/22 *Time: 16:16 Interval history: Hemodynamically stable overnight. No nausea or vomiting. No chest pain or shortness of breath. Still feels dizzy. On exam, patient says she just sees black. Feels that her sinuses are part of the problem, informed her that she had a stroke in the part of her brain that controls her vision. She was very flat during this conversation. Not sure if she fully understands her condition. She asked if it would get better, I informed her no. Medical Exam Vital signs and Labs for Last 24 Hours: Vital Signs Temp Pulse Pulse Resp BP BP Pulse Ox 12/24/22 07:14 98.5 F 107 H 17 143/96 H 96 12/24/22 04:00 98.6 F 85 22 147/66 H 96 12/24/22 00:00 98.2 F 78 24 145/62 H 97 12/23/22 22:47 102 H 12/23/22 22:47 102 H 12/23/22 21:01 100 H 153/88 H 98 12/23/22 21:08 98.7 F 104 H 16 153/88 H 12/23/22 20:30 96 H 11 L 137/89 97 12/23/22 20:01 106 H 14 167/89 H 98 12/23/22 19:33 99.4 F 110 H 21 162/101 H 96 Intake and Output 12/23/22 12/23/22 12/24/22 15:59 23:59 07:59 Intake Total 120 / 120 Output Total 650 / 2450 2079 Balance -650 / -2450 -1959 / -1959 Intake: Intake, Oral Amount 120 / 120 Output: Output, Urine Amount 650 / 2450 2079 Other: Number of Unmeasured Voids 1 0 Weight 98.43 kg 98.43 kg Patient Weight 12/24/22 23:59 Weight 98.43 kg Laboratory Results - last 24 hr 12/23/22 19:46: Urine Color Yellow, Urine Appearance Clear, Urine pH 6.0, Ur Specific [place] 1.025, Urine Protein 2+, Urine Glucose (UA) Negative, Urine Ketones Negative, Urine Blood Negative, Urine Nitrate Negative, Urine Bilirubin Negative, Urine Urobilinogen 0.2, Ur Leukocyte Esterase Negative, Urine WBC 3-5, Ur Squamous Epith Cells Occasional, Urine Bacteria Trace 12/23/22 19:46: WBC 12.8 H, RBC 5.85 H, Hgb 16.2, Hct 48.8 H, MCV 83.3, MCH 27.6, MCHC 33.1, RDW 16.2, Plt Count 302, MPV 9.6, Neut % (Auto) 62.5, Lymph % (Auto) 30.4, [place] % (Auto) 4.3, Eos % (Auto) 2.0, Baso % (Auto) 0.8, Neut # (Auto) 8.0 H, Lymph # (Auto) 3.9, [place] # (Auto) 0.6, Eos # (Auto) 0.3, Baso # (Auto) 0.1, ESR 8 12/23/22 19:46: Sodium 139, Potassium 3.7, Chloride 103, Carbon Dioxide 25, Anion Gap 14.7, BUN 19 H, Creatinine 1.00, Estimated Creat Clear 103, Estimated GFR 58 L, Est GFR ( Amer) 71, Glucose 168 H, Calcium 9.1, Total Bilirubin 0.4, AST 35, ALT 33, Alkaline Phosphatase 98, Troponin I 0.02, C-Reactive Protein 8.1 H, Total Protein 7.5, Albumin 4.1, Globulin 3.4 H, Albumin/Globulin Ratio 1.2, Procalcitonin 0.057 12/23/22 19:46: Digoxin < 0.40 12/23/22 20:10: SARS-CoV-2 (PCR) Not detected, Influenza A Untype (PCR) Not detected, Influenza Type B (PCR) Not detected 12/23/22 23:15: Troponin I 0.02 12/24/22 02:15: Troponin I 0.02 12/24/22 05:21: POC Glucose 146 H 12/24/22 05:57: WBC 10.0, RBC 5.71 H, Hgb 15.3, Hct 47.9 H, MCV 83.8, MCH 26.7 L, MCHC 31.9, RDW 16.0, Plt Count 283, MPV 8.8, Neut % (Auto) 64.2, Lymph % (Auto) 29.2, [place] % (Auto) 4.4, Eos % (Auto) 1.4, Baso % (Auto) 0.7, Neut # (Auto) 6.5, Lymph # (Auto) 2.9, [place] # (Auto) 0.5, Eos # (Auto) 0.2, Baso # (Auto) 0.1 12/24/22 05:57: Sodium 140, Potassium 3.7, Chloride 106, Carbon Dioxide 27, Anion Gap 10.7, BUN 14 D, Creatinine 1.00, Estimated Creat Clear 103, Estimated GFR 58 L, Est GFR ( Amer) 71, Glucose 155 H, Calcium 8.8, Total Bilirubin 0.4, AST 27, ALT 29, Alkaline Phosphatase 73, Total Protein 6.3, Albumin 3.4 L D, Globulin 2.9, Albumin/Globulin Ratio 1.2 I & O for Labs for Last 24 Hours: Intake & Output 12/21/22 12/22/22 12/23/22 12/24/22 23:59 23:59 23:59 23:59 Intake Total 120 / 120 Output Total 650 / 2450 2079 Balance -650 / -245 -1959 / -1959 Weight 98.43 kg 98.43 kg Constitutional: Present no acute distress, obese and chronically ill appearing Head: Present atraumatic and normocephalic Eyes: Present change in vision
--- NOTE | 2022-12-24 08:01 | EXP.CARD.CON ---
History of Present Illness History of Present Illness Consult date: 12/24/22 Requesting physician: Juve Valdovinos Chief complaint: Weakness, dizziness Additional Medical History:: 1.? Hypertension A.? Echo, 08/2019, biatrial enlargement, normal LV size, EF 55% with no wall motion abnormality.? Mild RVE with normal contractility.? Mild MR/TR with RVSP 60 mmHg?. B. Echo, 05/15/2022, mildly dilated LV with severe LV dysfunction, EF 20%. Globally hypokinetic. Mild MR/TR. C. Limited echo, 09/16/2022, EF 28% with global hypokinesis 2.? Obesity 3.? COPD A.? Tobacco use starting at age 17 B.? Pneumonia, 08/2019 C.? elevated D-dimer, 08/2019, negative CTA for pulmonary embolus 4.? History of CKD A. Creatinine 1.0 with GFR 103, 12/25/2019 5.? Chronic leg pain 6.? LAINA 7.? DM, type 2 A.? Hgb A1C >14, 11/2021 B. Hemoglobin A1c 7.5, 12/18/2019 8.? Medication non-compliance 9.? Anxiety/depression 10.? GERD 11.? Chronic atrial fibrillation with elevated CHADS2 score on chronic anticoagulation therapy A. Complaint of decreased vision, weakness and dizziness, 12/17/2022. Patient had inadvertently stopped her Xarelto on 12/08/2022 in preparation for AICD implant on 12/23/2019 B. Head CTA, 12/17/2022, subacute infarcts occipital lobes bilaterally. No intracranial large vessel occlusion. 12.? COVID PCR positive, 12/31/2021 13.? CAD A.? LHC/RHC, 11/04/2019 ANGIOGRAPHIC RESULTS The left main artery Normal The left anterior descending artery Is proximally normal and has a mid vessel 30% stenosis The circumflex artery Nondominant normal The right coronary artery Large dominant with mild 10% diffuse luminal irregularities The JOHANSEN ventriculogram reveals Preserved at 50 The left ventricular end-diastolic pressure Severely elevated at 40 mmHg Right atrial pressure 25 mmHg Pulmonary artery pressure 60/40 mmHg Pulmonary occlusion pressure 40 mmHg IMPRESSION Mild [id number] coronary artery disease Preserved ejection fraction Severe pulmonary hypertension secondary to severe left-sided diastolic heart failure Biventricular failure as evidenced by severely elevated left-sided and right-sided filling pressures 14. Nonischemic cardiomyopathy A. EF less than 30% on echocardiogram 04/2022 and also 08/2022 despite goal-directed medical therapy. B. Plan for AICD implantation, 12/24/2022 History of present illness: Ms. Leahy is a 52-year-old female with a past medical history of HFrEF, NYHA Class III, history of Atrial Fibrillation on chronic anticoagulation, chronic tobacco abuse and recent diagnosis of occipital CVA on 12/17 in which she left the hospital AMA. She presents to [facility] due to weakness, dizziness and headaches that have been ongoing since 12/17.? She reports that she was to have a PPM placement by Cardiology on 12/22 but missed her appointment due to her symptoms.? In the ER the patient was noted to be in Atrial Fibrillation with HR 110.? ER Physician called and spoke with Cardiology who recommended admission for PPM.? The patient reports that she has been off her anticoagulation 3 days.? The patient will be admitted with initial impression:? Near Syncope.? Cardiology will be consulted to see, plan is for AICD/PPM placement on 12/24.? The above per Doroteo Hunter DNP Patient admitted for weakness, dizziness and decreased vision along with headache/sinus discomfort. Recently was diagnosed with subacute occipital infarct last week. Upon discussing with the patient she was last seen in our office on 12/08/2022 with plans for AICD implantation at that time. We discussed holding her Xarelto 2 days prior to the implant of the device however patient stopped her Xarelto on that day which likely resulted in her subacute occipital infarct 9 days later. Suspect the patient has been off of her medication since 12/08/2022. We will plan to proceed with AICD implantation today and restart her Xarelto ther
--- NOTE | 2022-12-24 10:29 | IR_ITS ---
APPROVED REPORT Patient Location: Inpatient Maid Housekeeper: BABAK Coello RT (R) PROCEDURES 1. Pocket formation for biventricular pacemaker generator with cardiac resynchronization/defibrillator therapy. 2. Placement of atrial sensing and pacing lead into the right atrial appendage. 3. Placement of a right ventricular sensing, pacing and shocking lead in the right ventricular apex. 4. Placement of left ventricular sensing pacing lead via the coronary sinus. 5. Permanent cardiac resynchronization therapy with ICD implantation/biventricular pacemaker. INDICATION Systolic congestive heart ejection fraction 25%, Atrial fibrillation rapid ventricular response, Anticipated AV node ablation with anticipated 100% BiV pacing Informed consent was obtained prior to the procedure. COMPLICATIONS None Estimated Blood Loss: Less than 10 ML TECHNIQUE 1% Lidocaine with epinephrine used to anesthetized the left anterior aspect of the chest. Scalpel was used to make the initial cutaneous incision while electrocautery was used to dissect down tinto the fascia. The fascia was lifted off the pectoralis muscle and digitally manipulated creating a pocket for the defibrillator. The patient was then placed in Trendelenburg position and the subclavian vein was accessed 3 times via the Selinger technique. A 8 [place] sheath was placed under fluoroscopic guidance into the subclavian vein. The dilator was removed from the sheath. Using fluoroscopic guidance, the ventricular lead was placed into the right ventricular apex, screwed and secured into place. Electronic interrogation proved acceptable thresholds and voltage within the lead. Using 3-0 silk, the ventricular lead was then secured into place and sheath peeled away. Following this, a 9.5 [place] sheath and dilator was then placed over one of the wires while keeping the other wire in place within the subclavian vein. The dilator was removed from the sheath. Using fluoroscopic guidance, contrast was used to visualize the coronary sinus, the left ventricular lead was placed into the coronary sinus. Electronic interrogation proved acceptable thresholds and voltage within the lead. Using 3-0 silk, the left ventricular lead was then secured into place and sheath peeled away.An additional 6 [place] fresh sheath and dilator was placed over the existing wire. Using fluoroscopic guidance, the atrial lead was then placed into the right atrial appendage and screwed and secured in place. Electrical interrogation demonstrated acceptable thresholds and voltage number. The atrial lead was then secured into place using 3-0 silk and sheath peeled away. 1 gram of Ancef was used to flush the pocket. All 3 leads were connected to generator and tested via computer. The defibrillator then secured to the fascia. Monocryl was used to close the subcutaneous layers while sudha were used to close the cutaneous layer. A pressure dressing was placed and the patient was transferred to the postop holding area in stable condition for postoperative care. INTERROGATION Generator Model number: [id number] HF [id number] Generator Serial number: [id number] Atrial lead model number: Tendril STS [id number] Atrial lead serial number: [id number] P-wave: 1.6 mV Impedence: Threshold: 710 Ohms Right Ventricular lead model number: Optisure [id number] Right Ventricular lead serial number: [id number] R-wave: >12.0 mV Impedence: 610 Ohms Threshold: 0.5V@0.5ms Left Ventricular lead model number: Quartet [id number] Left Ventricular lead serial number: [id number] R-wave: Impedence: 1225 Ohms Threshold: 1.75V@0.5ms Pacing Parameters: Mode: DDD Base/Max Track:80 ppm / 130 ppm
[2022-12-24 11:38] LABS: POC Glucose,Bedside 196 (70-110)
--- NOTE | 2022-12-24 16:50 | XR_ITS ---
PROCEDURE INFORMATION: Exam: XR Chest Exam date and time: 12/24/2022 5:35 PM Age: 52 years old Clinical indication: Device placement; Cardiac pacemaker placement or adjustment; Additional info: Confirm pacemaker/aid placement TECHNIQUE: Imaging protocol: Radiologic exam of the chest. Views: 1 view. COMPARISON: CR XR CHEST PORTABLE 12/23/2022 8:10 PM FINDINGS: Tubes, catheters and devices: AICD in place with leads in appropriate position. Epicardial pacer lead and defibrillator also noted. Lungs: No acute airspace consolidation. No appreciable pulmonary edema. Pleural spaces: No large pleural effusion. No pneumothorax. Heart/Mediastinum: Cardiomediastinal silouhette is within normal limits. Bones/joints: No evidence of acute osseous abnormality. IMPRESSION: 1. No evidence of acute cardiopulmonary disease. 2. AICD in place with leads in appropriate position.
--- NOTE | 2022-12-24 16:53 | SUR.OPER ---
Patient was taken from procedure to med/surg room, report called to [facility]
--- NOTE | 2022-12-24 17:22 | PC.NURSE ---
pt c/o RAUSCH. gave tylenol. contreras russo site is c/d/i
--- NOTE | 2022-12-24 17:54 | P.PN_ITS ---
[facility] Disclaimer: The information contained in this section may have been updated after the patient was seen, as this information can be updated by other users. Medical History (Updated 12/24/22 @ 16:19 by Juve Valdovinos MD) Acute bronchitis Atrial fibrillation with rapid ventricular response Atrial fibrillation with RVR CAD in [place] artery Chest pain Chronic atrial fibrillation Chronic HFrEF (heart failure with reduced ejection fraction) Chronic renal insufficiency, stage III (moderate) COPD (chronic obstructive pulmonary disease) Diabetes mellitus Diabetic acetonemia Dilated cardiomyopathy Dysphagia Edema of both lower extremities HTN (hypertension) Hyperlipidemia Hyperosmolar hyperglycemic state (HHS) Left sided numbness Nonerosive nonspecific gastritis Obesity Perirectal abscess Pneumonia Pulmonary hypertension Renal insufficiency Shortness of Breath SIRS (systemic inflammatory response syndrome) Spider bite Syncope Systolic CHF with reduced left ventricular function, NYHA class 3 Tobacco user Type 2 diabetes mellitus Uncontrolled type 2 DM with hyperosmolar nonketotic hyperglycemia Surgical History H/O right coronary artery stent placement H/O: hysterectomy History of bladder surgery History of esophageal surgery History of esophagogastroduodenoscopy (EGD) Family History Other Coronary artery disease Social History Smoking Status: Never smoker second hand exposure: Yes alcohol intake: former substance use type: denies use current occupational status: disabled Travel in the last 8 weeks: None household members: spouse and children housing: house current occupational exposures/hazards: No caffeine: Yes [facility] Anesthesia Checklist Patient Identification Patient Identification: Arm Band Structural Data Admitted From: Inpatient Planned Operative Procedure/s: Biventricular AICD Consent for Planned Operative Procedure(s) Verified: Yes Verified Documents: Surgical Consent and History and Physical NPO Status Verified Time NPO: 00:00 Additional verifications Anesthesia Reactions: No Airway Assessment C-Spine Mobility Assessed: Yes TMJ Mobility Assessed: Yes Dentition: Edentulous Neurological Assessment Level of Consciousness: Awake and Alert Anesthesia Plan Anesthesia Risk discussed: Yes Anesthesia Plan: Verified ASA Class: IV Anesthesia Type: MAC
[2022-12-24 18:03] LABS: POC Glucose,Bedside 203 (70-110)
[2022-12-24 20:05] LABS: POC Glucose,Bedside 160 (70-110)
[2022-12-25] VITALS (8 sets, daily range): BP systolic 119–145; BP diastolic 65–82; PULSE 78–100; RESP 16–20; TEMP 36.7–37.1; O2SAT 92–97; BMI 35.3
[2022-12-25 06:45] LABS: POC Glucose,Bedside 157 (70-110)
[2022-12-25 06:57] LABS: Chloride 102 mmol/L (98-107); Potassium 3.9 mmoL/L (3.5-5.1); Sodium 136 mmol/L (136-145)
[2022-12-25 07:00] LABS: Alanine Aminotransferase 24 U/L (12-78); Albumin Level 3.7 g/dl (3.5-5.0); Albumin/Globulin Ratio 1.1 (1.1-1.8); Alkaline Phosphatase 67 U/L (38-126); Anion Gap 13.9 mEq/L (5-15); Aspartate Amino Transferase 31 U/L (14-36); Bilirubin,Total 0.7 mg/dl (0.2-1.3); Blood Urea Nitrogen 15 mg/dl (7-17); Calcium 9.1 mg/dl (8.4-10.2); Carbon Dioxide 24 mmol/L (22.0-30.0); Creatinine Clearance Estimated 99 mL/min (50-200); Estimated Glomerular Filt Rate 58 ml/min (>60); GFR (African American) 71 ML/MIN (>60); Globulin 3.3 g/dL (1.3-3.2); Glucose 165 mg/dl (74-100)
[2022-12-25 07:01] LABS: Magnesium 2.1 mg/dl (1.6-2.3)
[2022-12-25 07:12] LABS: Basophils # 0.1 K/mm3 (0-0.2); Basophils % 0.9 % (0.1-2.0); Eosinophils # 0.1 K/mm3 (0.0-0.4); Hematocrit 53.8 % (37.0-47.0); Hemoglobin 17.4 g/dL (12.2-16.2); Lymphocytes # 2.2 K/mm3 (0.7-4.5); Lymphocytes % 16.9 % (10-50); Mean Corpuscular HGB Conc 32.4 g/dL (31.8-35.4); Mean Corpuscular Hemoglobin 27.3 pg (27.0-31.2); Mean Corpuscular Volume 84.2 fl (81-99); Mean Platelet Volume 8.3 fl (7.4-10.4); Monocytes # 0.6 K/mm3 (0.1-1.0); Monocytes % 4.5 % (1.7-9.3); Neutrophils % 76.8 % (37.0-80.0); Platelet Count 204 K/mm3 (142-424); Red Blood Count 6.38 M/mm3 (4.20-5.40); Red Cell Distribution Width 16.1 % (11.5-17.5)
--- NOTE | 2022-12-25 08:40 | PC.NURSE ---
COURTESY TECH NOTE; ROUNDED ON PT, PT SLEEPING AT THIS TIME, CALL LIGHT WITHIN REACH, NO FURTHER REQUESTS AT THIS TIME Dennis PERDOMO, SRNA
--- NOTE | 2022-12-25 09:37 | EXP.CARD.PN ---
Subjective Subjective Date: 12/25/22 Time: 09:37 Principal diagnosis: Near syncope, A. fib, AICD placement Interval history: 52-year-old white female in bed in no acute distress. Soreness around the pacemaker insertion site but dressing is intact and dry. Patient is asking about going home today. She still has some visual disturbances from her occipital CVA last week. Exam Data for Last 24 hours Vital signs and Labs for Last 24 Hours: Temp Pulse Resp BP Pulse Ox 98.5 F 100 H 16 126/65 94 L 12/25/22 07:47 12/25/22 08:26 12/25/22 07:47 12/25/22 07:47 12/25/22 07:47 Laboratory Results - last 24 hr 12/24/22 11:31: POC Glucose 196 H 12/24/22 17:49: POC Glucose 203 H 12/24/22 19:57: POC Glucose 160 H 12/25/22 06:23: Sodium 136, Potassium 3.9, Chloride 102, Carbon Dioxide 24, Anion Gap 13.9, BUN 15, Creatinine 1.00, Estimated Creat Clear 99, Estimated GFR 58 L, Est GFR ( Amer) 71, Glucose 165 H, Calcium 9.1, Magnesium 2.1, Total Bilirubin 0.7, AST 31, ALT 24, Alkaline Phosphatase 67, Total Protein 7.0, Albumin 3.7, Globulin 3.3 H, Albumin/Globulin Ratio 1.1 12/25/22 06:29: POC Glucose 157 H 12/25/22 06:58: WBC 13.0 H D, RBC 6.38 H, Hgb 17.4 H, Hct 53.8 H, MCV 84.2, MCH 27.3, MCHC 32.4, RDW 16.1, Plt Count 204 D, MPV 8.3, Neut % (Auto) 76.8, Lymph % (Auto) 16.9, [place] % (Auto) 4.5, Eos % (Auto) 1.0, Baso % (Auto) 0.9, Neut # (Auto) 10.0 H, Lymph # (Auto) 2.2, [place] # (Auto) 0.6, Eos # (Auto) 0.1, Baso # (Auto) 0.1 I & O for Last 24 hours: Intake & Output 12/22/22 12/23/22 12/24/22 06/08/23 11:59 11:59 11:59 11:59 Intake Total 120 / 120 120 / 120 Output Total 4030 / 4030 1550 / 1550 Balance -3910 / -3910 -1430 / -1430 Weight 217 lb 0.016 oz 207 lb Constitutional Constitutional: no acute distress *Routine Respiratory Exam Respiratory: Present CTA bilaterally *Routine Cardiovascular Exam Cardiovascular: Present irregularly irregular *Routine Extremities Exam Extremities: Absent edema Progress Note: A&P Assessment and plan (1) Chronic HFrEF (heart failure with reduced ejection fraction): Status: Acute (2) Atrial fibrillation: Status: Acute (3) CVA (cerebral vascular accident): Status: Acute (4) Blindness: Status: Acute (5) Near syncope: Status: Acute (6) CHF (congestive heart failure), NYHA class III: Status: Acute (7) Diabetes: Status: Acute (8) Tobacco abuse: Status: Acute Assessment and Plan Assessment and Plan for All Diagnoses:: 1.? Chronic HFrEF despite goal-directed medical therapy with EF less than 30%. Aguilar BiV CONFIGURATION MANAGEMENT ARCHITECT-D implantation, 12/24/2022 Continue Entresto, Lasix, digoxin, metoprolol therapy and spironolactone therapy 2.? Chronic atrial fibrillation Resume Xarelto therapy Recent subacute occipital infarct 12/17/2022 Plan to send patient for AV node ablation in the near future due to difficulty controlling A-fib 3.? Continued tobacco use with COPD Nicotine patch PRN 4.? Mild CAD, [facility], 2019 Clinically stable with normal troponins this admission Plavix therapy 5.? Diabetes mellitus, defer to Dr. Valdovinos Patient is stable from a cardiac standpoint for discharge home. Home medication recommendations Digoxin 1.125 mg daily Entresto / twice daily Lasix 40 mg daily Spironolactone 25 mg twice daily Metoprolol tartrate 150 mg twice daily Xarelto 15 mg daily Plavix 75 mg daily Follow-up in our office in 1 to 2 weeks
--- NOTE | 2022-12-25 09:55 | HMH.OTEV ---
OT Inpatient Evaluation Rehab OT IP Evaluation Start: 12/25/22 07:26 Freq: ONCE Status: Active Protocol: Document 12/25/22 09:50 [facility] (Rec: 12/25/22 09:54 [facility] [id number]) Rehab OT IP Assessment Subjective History Pt oriented x 3 on arrival. Pt agreeable to engage in therapy evaluation. Pt was admitted on 12/23/22 due to dizziness, weakness, and visual changes. Ms. Leahy is a 52-year-old female with a past medical history of HFrEF , NYHA Class III, history of Atrial Fibrillation on chronic anticoagulation, chronic tobacco abuse and recent diagnosis of occipital CVA on 12/17 in which she left the hospital AMA. She presents to [facility] due to weakness, dizziness and headaches that have been ongoing since 12/17. She reports that she was to have a PPM placement by Cardiology on 12/22 but missed her appointment due to her symptoms. In the ER the patient was noted to be in Atrial Fibrillation with HR 110. Pt was admitted for tx of symptoms and had her pacemaker placed on 12/24/22. Prior to being in the hospital , pt lived at home with several family members and her boyfriend. Pt claims she is independent with all ADLs such as dressing, bathing, feeding . Pt does depend on family for completion of all IADLS ( cooking, cleaning, laundry, grocery shopping). She no longer drives. She does not use a cane or walker during functional transfers. Subjective I am ready to go home. Objective Patient Orientation Person,Place,Birthday Upper Extremity Gross ROM Min Limitation <25% Bed Mobility bed mobility-scooting,bed
--- NOTE | 2022-12-25 09:58 | HMH.SLDYSPHA ---
Speech & Language Evaluation Speech/Language Dysphagia Evaluation Start: 12/25/22 09:38 Freq: ONCE Status: Active Protocol: Document 12/25/22 09:38 YVONNE (Rec: 12/25/22 09:58 YVONNE [id number]) Dysphagia Assess/Goals/Plan Assessment Date of Evaluation: 12/25/22 Evaluation Type Initial Certification Assessment/Problems s/p occipital CVA Does Patient Qualify for Service No Qualify/Failure Comment Based on the results of the clinical swallow evaluation, no further skilled ST services are required at this time. Recommendations PHYSICIAN CERTIFICATION: The specified therapy services are required, authorized, and reviewed every 30 days. Diet Recommendations Mechanical Soft Liquid Type Recommendations Normal/Thin SL Swallow Guidelines Standard Aspiration Prec. Dysphagia Swallow Precautions/Strategies Sitting Upright (90 deg),Small Bites and Sips Place Food on Either side of Mouth Plan Pt/Guardian verbally ack understanding Yes of dx/prognosis/goals Pt/Guardian verbally ack understanding Yes of/consent to tx prog G -code Required No Education Instructions provided CSE results discussed with pt, nursing, and care management, who expressed understanding. Pt/Caregiver able to recall information Able to recall/restate Reinforcement needed No Speech & Language HPI History Present Illness Description of Patient Problem Ms. Leahy is a 52 y.o. female presenting to [facility] s/p occipital CVA. She was brought to [facility] ED on 12/17 with s/sxs of a CVA but left AMA later that day. Past medical history of HFrEF, NYHA Class III, history of Atrial Fibrillation on chronic anticoagulation, chronic tobacco abuse. She is currently on a mechanical soft diet and thin liquids, which is her baseline. Rehab Services Assessed Speech therapy Vision Visual Difficulty Severely Impaired/Blind Comment Severe visual impairment 2' occipital lobe CVA. Language Primary Language [place] Leonean General Information General Current Food Consistancy Mechanical Soft,Thin Liquids Dentition Edentulous Oxygen Status Room Air Facial Symmetry
[2022-12-25 11:18] LABS: POC Glucose,Bedside 204 (70-110)
--- NOTE | 2022-12-25 12:33 | HMH.PTEV ---
Physical Therapy Evaluation Rehab PT IP Evaluation Start: 12/25/22 07:26 Freq: ONCE Status: Active Protocol: Document 12/25/22 09:45 PHORNE (Rec: 12/25/22 12:33 PHORNE [id number]) Subjective/History History History 52 yowf adm to [facility] with syncope, now S/P PPM placement . She has hx of CAD, CHF, a- fib, COPD, and occipital CVA 12/17/22 with residual vision and balance changes. She reports she live with multiple family members, ramp to enter the home, and is generally independent with all mobility without AD. Subjective Subjective Pt reports she feels same as she has since her CVA. Agrees to mobility assessment. Rehab PT IP Eval Objective Appearance Patient Behavior Appropriate Patient Orientation Person,Place,Time Difficulty following instructions none Speech Pattern Clear Ambulation Patient Able to Ambulate Yes Ambulation Observation IP General Gait Pattern Observation Wide Based Gait,Shuffling Step Ambulation Distance (feet) 50 Ambulation Assistive Device None Ambulation Ability Contact Guard/Hand Hold Balance Ability to Arise Able, uses arms to help Sitting Balance Steady, safe Standing Balance Steady, wide stance Dynamic Sitting Balance Ability Good Dynamic Standing Balance Ability Fair Transfers Bed Transfer Ability Contact Guard/Hand Hold Chair Transfer Ability Contact Guard/Hand Hold Sit to Stand Bed Transfer Ability Contact Guard/Hand Hold Sit to Stand Chair Transfer Ability Contact Guard/Hand Hold ROM All Extremities PT ROM Status WFL MMT All Extremities PT MMT WFL Rehab PT IP prob,goals,plan Problems Date of Evaluation: 12/25/22 Discharge Plan PT Discharge Plan Pt is appropriate to return home once medically stable for d/c. Recommend Outpatient Therapy as appropriate for balance and coordination re- training. G -code Required No Eval Complexity Eval Charge Codes 17207 - High Complexity PHYSICIAN CERTIFICATION: I certify the specified therapy services for Angeles Leahy are required, authorized, and reviewed every 30 days.
--- NOTE | 2022-12-25 13:18 | EXP.DC.SUM ---
General Admission date:: 12/23/22 Discharge date: 12/25/22 HPI HPI HPI: Ms. Leahy is a 52-year-old female with a past medical history of HFrEF, NYHA Class III, history of Atrial Fibrillation on chronic anticoagulation, chronic tobacco abuse and recent diagnosis of occipital CVA on 12/17 in which she left the hospital AMA. She presents to [facility] due to weakness, dizziness and headaches that have been ongoing since 12/17. She reports that she was to have a PPM placement by Cardiology on 12/22 but missed her appointment due to her symptoms. In the ER the patient was noted to be in Atrial Fibrillation with HR 110. ER Physician called and spoke with Cardiology who recommended admission for PPM. The patient reports that she has been off her anticoagulation 3 days. The patient will be admitted with initial impression: Near Syncope. Cardiology will be consulted to see, plan is for AICD/PPM placement on 12/24. Hospital Course Hospital Course Hospital Course: 52-year-old female with past medical history of HFrEF, NYHA class III, Chronic atrial fibrillation on chronic anticoagulation, Diabetes, Chronic Tobacco Use presents due to ongoing dizziness, change in vision after being diagnosed with occipital lobe CVA on 12/17 and leaving AMA from ER. - Near Syncope -Chronic heart failure with reduced ejection fraction, EF less than 30% -Chronic A-fib Cardiology consulted, appreciate their recommendations.? Went for AICD placement on 12/24. Tolerated procedure well. Minimal bruising at AICD pocket. Continued home Entresto, Lasix, digoxin, metoprolol. Added spironolactone. Resumed Xarelto after procedure. Plan for follow-up in the coming weeks with cardiology for reevaluation of surgical site. -Subacute occipital infarct 12/17 Patient has lost vision, significant change in visual isaacs. See exam for details. PT, OT, speech evaluated. No other physiologic/motor deficits. Would benefit from referral to neurology and ophthalmology for further management. Initiated on Plavix in addition to Xarelto as above for 21 days. Continue with just Xarelto thereafter. - Diabetes SS insulin and Fingersticks ACHS. A1c fairly well controlled at 7.5. Resume home regimen at discharge. - Chronic Tobacco Use Discussed need for cessation. NRT offered Patient stable for discharge home. Has 24-hour assistance at home with family. Further evaluation with neuro and ophthalmology as listed above as an outpatient. Strongly encouraged risk factor modification. Poor prognosis for any improvement in vision. Exam Data for Last 24 hours Vital signs and Labs for Last 24 Hours: Temp Pulse Resp BP Pulse Ox 98.0 F 92 H 18 119/79 95 12/25/22 12:00 12/25/22 12:00 12/25/22 12:00 12/25/22 12:00 12/25/22 12:00 Laboratory Results - last 24 hr 12/24/22 17:49: POC Glucose 203 H 12/24/22 19:57: POC Glucose 160 H 12/25/22 06:23: Sodium 136, Potassium 3.9, Chloride 102, Carbon Dioxide 24, Anion Gap 13.9, BUN 15, Creatinine 1.00, Estimated Creat Clear 99, Estimated GFR 58 L, Est GFR ( Amer) 71, Glucose 165 H, Calcium 9.1, Magnesium 2.1, Total Bilirubin 0.7, AST 31, ALT 24, Alkaline Phosphatase 67, Total Protein 7.0, Albumin 3.7, Globulin 3.3 H, Albumin/Globulin Ratio 1.1 12/25/22 06:29: POC Glucose 157 H 12/25/22 06:58: WBC 13.0 H D, RBC 6.38 H, Hgb 17.4 H, Hct 53.8 H, MCV 84.2, MCH 27.3, MCHC 32.4, RDW 16.1, Plt Count 204 D, MPV 8.3, Neut % (Auto) 76.8, Lymph % (Auto) 16.9, [place] % (Auto) 4.5, Eos % (Auto) 1.0, Baso % (Auto) 0.9, Neut # (Auto) 10.0 H, Lymph # (Auto) 2.2, [place] # (Auto) 0.6, Eos # (Auto) 0.1, Baso # (Auto) 0.1 12/25/22 11:10: POC Glucose 204 H I & O for Last 24 hours: Intake & Output 12/22/22 12/23/22 12/24/22 12/25/22 23:59 23:59 23:59 23:59 Intake Total 240 / 240 Output Total 650 / 2450 4930 / 4930 0 / 0 Balance -650 / -2450 -4690 / -4690 0 / 0 Weight 98.43 kg 98.43 kg 93.894 kg Constitutional Constit
--- NOTE | 2022-12-25 13:36 | PC.NURSE ---
Meds to bed paper faxed
--- NOTE | 2022-12-25 13:58 | PC.NURSE ---
Notified clinic pharmacy that pt opted in for meds to beds.
--- NOTE | 2022-12-25 14:40 | HMH.PHAINT1 ---
Pharmacy Intervention Comments: Discharge medication counseling completed. Patient was starting the following new meds: -clopidogrel: 75 mg once daily, told to watch for signs of bleeding (bruising easily, blood in stool, etc.) -pantoprazole: 40 mg at bedtime instead of the omeprazole -spironolactone: 25 mg twice daily, told patient this may make her have to urinate more frequently and not to take too close to bedtime for this reason The patient was told to stop taking the omeprazole since she was to start the pantoprazole. The patient verbalized understanding and did not have any questions.
--- NOTE | 2022-12-26 14:25 | CARE MANAGER ---
Attempted post-discharge phone interview, left message.
== END 2022-12-25 14:45 | disposition home or self-care (01) ==
LOC: ER 20:58 → 2ND 21:04
PROVIDERS: Internal Medicine; Nurse Practitioner Family; Admitting Provider Internal Medicine Adolescent Medicine; Emergency Provider Emergency Medicine; PCP Nurse Practitioner Family; Visit Provider Internal Medicine Adolescent Medicine
PROC: 0JH609Z Insertion of Cardiac Resynchronization Defibrillator Pulse Generator into Chest Subcutaneous Tissue and Fascia, Open Approach (ICD-10-PCS; CPT 33249; principal; 2022-12-24 13:00)
DX: R55 Syncope and collapse (principal); I48.0 Paroxysmal atrial fibrillation; I50.22 Chronic systolic (congestive) heart failure; Z45.02 Encounter for adjustment and management of automatic implantable cardiac defibrillator; E11.22 Type 2 diabetes mellitus with diabetic chronic kidney disease; F17.210 Nicotine dependence, cigarettes, uncomplicated; I13.0 Hypertensive heart and chronic kidney disease with heart failure and stage 1 through stage 4 chronic kidney disease, or unspecified chronic kidney disease; N18.30 Chronic kidney disease, stage 3 unspecified; Z79.01 Long term (current) use of anticoagulants; I42.8 Other cardiomyopathies; I69.312 Visuospatial deficit and spatial neglect following cerebral infarction; I27.20 Pulmonary hypertension, unspecified; Z79.4 Long term (current) use of insulin
CPT/HCPCS: 33225; 33249; 36415; 51702; 70450; 71045; 80053; 80162; 81001; 82962; 83735; 84145; 84484; 85025; 85651; 86140; 87636; 92610; 93005; 94640; 97163; 97165; 99285; C1769; C1882; C1895; C1898; C9803; G0378; J0131; Q9967; U0003; U0005

== ENCOUNTER → 2023-02-04 12:35 | Outpatient (CLI) | payer OTHER, SELFPAY ==
[2023-02-04 13:01] LABS: Basophils # 0.2 K/mm3 (0-0.2); Basophils % 1.6 % (0.1-2.0); Eosinophils # 0.2 K/mm3 (0.0-0.4); Eosinophils % 2.3 % (0.1-12.0); Hematocrit 47.2 % (37.0-47.0); Hemoglobin 15.5 g/dL (12.2-16.2); Lymphocytes # 2.3 K/mm3 (0.7-4.5); Lymphocytes % 23.6 % (10-50); Mean Corpuscular HGB Conc 32.8 g/dL (31.8-35.4); Mean Corpuscular Hemoglobin 27.7 pg (27.0-31.2); Mean Corpuscular Volume 84.5 fl (81-99); Mean Platelet Volume 8.9 fl (7.4-10.4); Monocytes # 0.4 K/mm3 (0.1-1.0); Monocytes % 4.4 % (1.7-9.3); Neutrophils # 6.7 K/mm3 (1.8-7.8); Neutrophils % 68.2 % (37.0-80.0); Platelet Count 303 K/mm3 (142-424); Red Blood Count 5.58 M/mm3 (4.20-5.40); Red Cell Distribution Width 16.1 % (11.5-17.5); White Blood Count 9.9 K/mm3 (4.8-10.8)
[2023-02-04 13:28] LABS: Anion Gap 13.6 mEq/L (5-15); Blood Urea Nitrogen 24 mg/dl (7-17); Calcium 9.5 mg/dl (8.4-10.2); Carbon Dioxide 28 mmol/L (22.0-30.0); Chloride 97 mmol/L (98-107); Estimated Glomerular Filt Rate 43 ml/min (>60); GFR (African American) 52 ML/MIN (>60); Glucose 356 mg/dl (74-100); Potassium 5.6 mmoL/L (3.5-5.1); Sodium 133 mmol/L (136-145)
== END ==
PROVIDERS: PCP Nurse Practitioner Family; Visit Provider Nurse Practitioner
DX: R55 Syncope and collapse (principal); I25.10 Atherosclerotic heart disease of native coronary artery without angina pectoris; I27.20 Pulmonary hypertension, unspecified; E11.9 Type 2 diabetes mellitus without complications; I50.22 Chronic systolic (congestive) heart failure; I63.9 Cerebral infarction, unspecified; J44.9 Chronic obstructive pulmonary disease, unspecified; Z72.0 Tobacco use
CPT/HCPCS: 36415; 80048; 80162; 85025

== ENCOUNTER 2023-09-01 21:57 | Outpatient (CLI) | payer OTHER, SELFPAY ==
[2023-09-01 17:56] LABS: Basophils # 0.1 K/mm3 (0-0.2); Basophils % 0.9 % (0.1-2.0); Eosinophils # 0.2 K/mm3 (0.0-0.4); Eosinophils % 1.4 % (0.1-12.0); Hemoglobin 16.9 g/dL (12.2-16.2); Lymphocytes # 3.5 K/mm3 (0.7-4.5); Lymphocytes % 32.5 % (10-50); Mean Corpuscular HGB Conc 35.1 g/dL (31.8-35.4); Mean Corpuscular Hemoglobin 30.6 pg (27.0-31.2); Mean Corpuscular Volume 87.1 fl (81-99); Mean Platelet Volume 10.8 fl (7.4-10.4); Monocytes # 0.4 K/mm3 (0.1-1.0); Monocytes % 3.9 % (1.7-9.3); Neutrophils # 6.5 K/mm3 (1.8-7.8); Neutrophils % 61.2 % (37.0-80.0); Platelet Count 290 K/mm3 (142-424); Red Blood Count 5.51 M/mm3 (4.20-5.40); Red Cell Distribution Width 14.2 % (11.5-17.5); White Blood Count 10.7 K/mm3 (4.8-10.8)
[2023-09-01 19:23] LABS: Alanine Aminotransferase 17 U/L (12-78); Albumin Level 4.1 g/dl (3.5-5.0); Albumin/Globulin Ratio 1.4 (1.1-1.8); Alkaline Phosphatase 171 U/L (38-126); Anion Gap 15.7 mEq/L (5-15); Aspartate Amino Transferase 18 U/L (14-36); Bilirubin,Total 0.5 mg/dl (0.2-1.3); Blood Urea Nitrogen 19 mg/dl (7-17); Calcium 9.7 mg/dl (8.4-10.2); Carbon Dioxide 21 mmol/L (22.0-30.0); Chloride 99 mmol/L (98-107); Estimated Glomerular Filt Rate 47 ml/min (>60); GFR (African American) 57 ML/MIN (>60); HDL Cholesterol 34 mg/dl (40-60); Potassium 4.7 mmoL/L (3.5-5.1); Sodium 131 mmol/L (136-145); Total Protein,Serum 7.1 g/dl (6.3-8.2)
[2023-09-01 19:31] LABS: Chol/HDL Ratio 9.4 (1-3.5); Cholesterol 320 mg/dl (140-200)
[2023-09-01 19:35] LABS: Direct LDL Cholesterol 154.66 mg/dL (100-129)
[2023-09-01 20:28] LABS: 25-OH Vitamin D, Total < 12.8 ng/mL (30-100)
[2023-09-01 20:31] LABS: Triglycerides 979 mg/dl (30-150)
[2023-09-01 20:32] LABS: Glucose 539 mg/dl (74-100)
[2023-09-01 20:35] LABS: Hemoglobin A1C > 14.0 % (4.0-6.0)
== END 2023-09-01 23:59 ==
LOC: LAB.DROPOF 21:58
PROVIDERS: PCP Nurse Practitioner Family; Visit Provider Nurse Practitioner Family
DX: E11.9 Type 2 diabetes mellitus without complications (principal); E55.9 Vitamin D deficiency, unspecified; Z68.32 Body mass index [BMI] 32.0-32.9, adult; Z79.4 Long term (current) use of insulin; Z79.85 Long-term (current) use of injectable non-insulin antidiabetic drugs
CPT/HCPCS: 80053; 80061; 82306; 83036; 84443; 85025

== ENCOUNTER 2023-11-05 16:47 | Inpatient (IN) | payer OTHER, SELFPAY ==
[2023-11-05] VITALS (14 sets, daily range): BP systolic 88–122; BP diastolic 50–85; PULSE 78–97; RESP 10–24; TEMP 36.6; O2SAT 92–100; BMI 30.7; BMI 30.6
--- NOTE | 2023-11-05 16:48 | ECG_ITS ---
APPROVED REPORT Exam: Resting ECG HR:83 bpm ECG Measurements Heart Rate 83 AXES QRSd 153 QRS 221 QT 383 T -37 QTc 422 Conclusion ELECTRONIC VENTRICULAR PACEMAKER ABNORMAL RHYTHM ECG UNCONFIRMED REPORT Electronically signed by : Juve Hastings, 11/05/2023 23:13:02
--- NOTE | 2023-11-05 16:55 | ED_ITS ---
<Statement entered by Carolyn Hastings MD - 11/05/23 23:08> I was consulted by the KENNA, and we discussed the complexity of the problems being addressed. I approved the treatment and management plan for this patient's care in the emergency department, thus performing a substantive portion of the medical decision making. Carolyn Hastings MD, LARISA, FACEP Discharge Plan Disposition Patient Disposition: Admitted Condition: Critical Clinical Impressions Clinical Impression: Ventricular tachycardia, Hyperkalemia, Acute kidney injury (nontraumatic), Uncontrolled type 2 DM with hyperosmolar nonketotic hyperglycemia Discharge ED Provider: Carolyn Hastings HPI <JW Hubbard - Last Filed: 11/06/23 10:43> General Chief Complaint: Chest Pain Stated Complaint: Chest Pain Time Seen by Provider: 11/05/23 16:55 History of Present Illness HPI narrative: Patient presents for a 5-day history of malaise and now complaining dyspnea especially with taking deep breaths secondary to chest wall pain. Her primary complaint is pain around her left chest pacemaker. She says it hurts to touch and hurts to take a deep breath. She denies trauma to the area. She is also complaining of pain in her mouth due to ulcers . She is edentulous and does not wear dentures. Patient does have a past medical history of type 2 diabetes mellitus treated with insulin, history of congestive heart failure with last known ejection fraction 20% she is currently denies fever chills hemoptysis hematochezia melena he overall reports feeling bad. Related Data Home Medications Medication Instructions Recorded Confirmed albuterol sulfate 90 mcg/actuation 2 inh inhalation QIDP PRN 11/05/23 11/05/23 aerosol inhaler (Ventolin HFA) Shortness Of Breath Or Wheezing cholecalciferol (vitamin D3) 1,250 1,250 mcg PO WEEKLY 11/05/23 11/05/23 mcg (50,000 unit) capsule cholecalciferol (vitamin D3) 50 50 mcg PO DAILY 11/05/23 11/05/23 mcg (2,000 unit) capsule clopidogrel 75 mg tablet 75 mg PO DAILY 11/05/23 11/05/23 cyclobenzaprine 5 mg tablet 5 mg PO BID 11/05/23 11/05/23 digoxin 125 mcg (0.125 mg) tablet 125 mcg PO DAILY 11/05/23 11/05/23 furosemide 40 mg tablet 40 mg PO DAILY 11/05/23 11/05/23 insulin NPH-regular 70-30 U-100 40 unit SQ BID 11/05/23 11/05/23 insulin 100 unit/mL subcutaneous pen (Humulin 70/30 U-100 KwikPen) ipratropium 20 mcg-albuterol 100 1 puff inhalation QID 11/05/23 11/05/23 mcg/actuation mist for inhalation (Combivent Respimat) loratadine 10 mg tablet 10 mg PO DAILY 11/05/23 11/05/23 metoprolol succinate 200 mg 200 mg PO DAILY 11/05/23 11/05/23 tablet,extended release 24 hr pantoprazole 40 mg tablet,delayed 40 mg PO HS 11/05/23 11/05/23 release rivaroxaban 15 mg tablet (Xarelto) 15 mg PO HS 11/05/23 11/05/23 rosuvastatin 40 mg tablet 40 mg PO HS 11/05/23 11/05/23 sacubitril 49 mg-valsartan 51 mg 1 tab PO BID 11/05/23 11/05/23 tablet (Entresto) spironolactone 25 mg tablet 25 mg PO BID 11/05/23 11/05/23 Allergies Allergy/AdvReac Type Severity Reaction Status Date / Time Penicillins [PENICILLINS] Allergy Intermediate I-HIVES Verified 09/07/23 14:26 [facility] <JW Hubbard - Last Filed: 11/06/23 10:43> [facility] Disclaimer: The information contained in this section may have been updated after the patient was seen, as this information can be updated by other users. Medical History Angina pectoris Cardiac pacemaker in situ Chronic HFrEF (heart failure with reduced ejection fraction) Syncope Atrial fibrillation with RVR Edema of both lower extremities Spider bite Dilated cardiomyopathy Hyperlipidemia CAD in [place] artery Left sided numbness Shortness of Breath Chest pain Systolic CHF with reduced left ventricular function, NYHA class 3 Atrial fibrillation with rapid ventricular response Hyperosmolar hyperglycemic state (HHS) Perirectal abscess SIRS (systemic inflammatory response syndrome) Diabetes mellitus Acute bronchitis Nonerosive nonspecific gastritis Chronic atrial fibrillation Chronic renal insufficiency, stage III (moderate) Uncontrolled type 2 DM with hyperosmolar nonketotic hyperglycemia Diabetic acetonemia Renal insufficiency Dysphagia Pulmonary hypertension Tobacco user HTN (hypertension) Type 2 diabetes mellitus Obesity Pneumonia COPD (chronic obstructive pulmonary disease) Surgical History History of esophagogastroduodenoscopy (EGD) History of bladder surgery History of esophageal surgery H/O right coronary artery stent placement H/O: hysterectomy Family History Other Coronary artery disease Social History (Updated 11/05/23 @ 22:26 by Mackenzie Magana RN) Smoking Status: Current every day smoker tobacco type: cigarettes packs per day: 1 second hand exposure: Yes alcohol intake: former substance use type: denies use current occupational status: disabled Travel in the last 8 weeks: None household members: spouse and children housing: house current occupational exposures/hazards: No caffeine: Yes <JW Hubbard - Last Filed: 11/06/23 10:43> ROS Obtained: Yes Systems reviewed as appropriate & no additional complaints except as documented Physical Exam <JW Hubbard - Last Filed: 11/06/23 10:43> General General appearance: alert and in no apparent distress Head Head exam: atraumatic and normal inspection Eye Eye exam: Present normal appearance and EOMI ENT ENT exam: Present normal exam and mucous membranes dry; Absent normal oropharynx (She is edentulous and has what appears to be yeast throughout the oral cavity) Neck Neck exam: Present normal inspection, full ROM and trachea midline; Absent tenderness or lymphadenopathy Chest Chest inspection: Present normal inspection, symmetric chest wall rise and tenderness (Patient has tenderness to palpation along the area of her implanted pacemaker however there is no evidence of edema erythema fluctuance noted.) Respiratory Respiratory exam: Present normal lung sounds bilaterally; Absent respiratory distress, wheezes, stridor or accessory muscle use Cardiovascular Cardiovascular exam: Present regular rate, normal heart sounds, +S1, +S2 and Pacemaker w/paced rhythm Abdominal Exam Abdominal exam: Present soft and normal bowel sounds; Absent tenderness Extremities Exam Extremities exam: Present normal inspection and full ROM; Absent tenderness Back Exam Back exam: Present normal inspection and full ROM; Absent tenderness Neurological Exam Neurological exam: Present alert, oriented X3 and CN II-XII intact Psychiatric Psychiatric exam: Present normal affect and normal mood Skin Skin exam: Present warm, dry and normal color HEART Score <JW Hubbard - Last Filed: 11/06/23 10:43> HEART Score HEART Score assessment performed?: Yes History (anamnesis): Slightly suspicious ECG: Non-specific disturbance Age: 45-65 years Risk factors: Atherosclerosis history Troponin: </= normal limit HEART Score: 4 <Carolyn Hastings MD - Last Filed: 11/05/23 20:12> HEART Score HEART Score: 4 Procedures <Carolyn Hastings MD - Last Filed: 11/05/23 20:12> Central Line Placement Right IJ: Time Out Performed: Yes Patient Placed on Monitor/Pulse Ox: Yes MD Prep: mask, gown and gloves Central Line Prep: Povidone-Iodine 1%, Chlorhexidine scrub and sterile drapes applied Local Anesthetic: lidocaine 1% Amount of anesthesia used (mL): 5 Ultrasound Used for Placement: Yes Central Line Lumen Inserted: triple Post Procedure: sutured in place, good blood return, all ports aspirated, flushed, capped and sterile dressing applied Post Procedure X-Ray: tip of catheter in good position and other (Also confirmed with bedside ultrasound using agitated saline in the right ventricle) Patient Tolerated Procedure: well Complications: none Critical Care <JW Hubbard - Last Filed: 11/06/23 10:43> Critical Care Time Critical Care Time: Yes Attestation: On 11/05/23, the high probability of a clinically significant, sudden or life threatening deterioration of the following system(s) required my full and direct attention, intervention and personal management. The time I documented below is in addition to time spent performing reported procedures but includes the following listed in this critical care notation. Total Time Total Critical Care Time: 60 Medical Decision Making <JW Hubbard - Last Filed: 11/06/23 10:43> Medical Records Medical records reviewed: Yes I reviewed the patient's medical records. Donte Inquiry Pt receiving controlled substance: No Vital Signs Vital Signs: 11/05/23 16:48 11/05/23 17:04 11/05/23 17:30 Temperature 97.8 F Temperature Source Oral Pulse Rate 82 86 Pulse Rate [Apical] 82 Respiratory Rate 18 19 20 Blood Pressure 94/66 L 108/71 L Blood Pressure [Right Arm] 102/66 L Blood Pressure Mean Blood Pressure Mean [Right Arm] 78 Blood Pressure Source Blood Pressure Source [Right Arm] Automatic Cuff Blood Pressure Position Blood Pressure Position [Right Arm] Sitting 02 Sat by Pulse Oximetry 98 97 97 Oxygen Delivery Method Room Air Room Air Room Air Oxygen Flow Rate (LPM) 11/05/23 18:01 11/05/23 18:16 11/05/23 18:30 Temperature Temperature Source Pulse Rate 82 78 81 Pulse Rate [Apical] Respiratory Rate 12 10 L 16 Blood Pressure 122/85 105/58 L 105/71 L Blood Pressure [Right Arm] Blood Pressure Mean Blood Pressure Mean [Right Arm] Blood Pressure Source Blood Pressure Source [Right Arm] Blood Pressure Position Blood Pressure Position [Right Arm] 02 Sat by Pulse Oximetry 98 98 96 Oxygen Delivery Method Nasal Cannula Nasal Cannula Nasal Cannula Oxygen Flow Rate (LPM) 2 2 2 11/05/23 19:00 11/05/23 19:30 11/05/23 20:00 Temperature Temperature Source Pulse Rate 80 80 80 Pulse Rate [Apical] Respiratory Rate 21 12 18 Blood Pressure 113/50 L 106/66 L 114/60 Blood Pressure [Right Arm] Blood Pressure Mean 86 Blood Pressure Mean [Right Arm] Blood Pressure Source Blood Pressure Source [Right Arm] Blood Pressure Position Blood Pressure Position [Right Arm] 02 Sat by Pulse Oximetry 96 99 96 Oxygen Delivery Method Room Air Oxygen Flow Rate (LPM) 11/05/23 20:41 Temperature 97.8 F Temperature Source Oral Pulse Rate 80 Pulse Rate [Apical] Respiratory Rate 20 Blood Pressure 113/50 L Blood Pressure [Right Arm] Blood Pressure Mean Blood Pressure Mean [Right Arm] Blood Pressure Source Automatic Cuff Blood Pressure Source [Right Arm] Blood Pressure Position Sitting Blood Pressure Position [Right Arm] 02 Sat by Pulse Oximetry Oxygen Delivery Method Room Air Oxygen Flow Rate (LPM) Lab Data Lab results reviewed: Yes I reviewed the patient's lab results. Labs: Lab Results 11/05/23 00:05: Lactate 2.5 H 11/05/23 14:50: SARS-CoV-2 (PCR) Not detected, Influenza A Untype (PCR) Not detected, Influenza Type B (PCR) Not detected 11/05/23 14:51: Group A Strep Rapid Negative 11/05/23 16:54: WBC 9.2, RBC 4.91, Hgb 14.4, Hct 48.3 H, MCV 98.4, MCH 29.3, M CHC 29.8 L, RDW 14.3, Plt Count 316, MPV 10.0, Neut % (Auto) 61.9, Lymph % (Auto) 29.9, [place] % (Auto) 6.0, Eos % (Auto) 0.3, Baso % (Auto) 2.0, Neut # (Auto) 5.7, Lymph # (Auto) 2.7, [place] # (Auto) 0.6, Eos # (Auto) 0.0, Baso # (Auto) 0.2, PT 11.5, INR 1.07, D-Dimer 0.52 H, Sodium 116 L, Potassium 6.2 H*, C hloride 81 L, Carbon Dioxide 23, Anion Gap 18.2 H, BUN 29 H, Creatinine 1.70 H, Estimated Creat Clear 50, Estimated GFR 32 L, Est GFR ( Amer) 38 L, G lucose 1234 H*, Hemoglobin A1c > 14.0 H, Calcium 9.6, Phosphorus 4.9 H, M agnesium 2.4 H, Total Bilirubin 1.0, AST 31, ALT 29, Alkaline Phosphatase 123, Troponin I < 0.01, Total Protein 7.2, Albumin 3.7, Globulin 3.5 H, Albumin/Globulin Ratio 1.1, Acetone Level None detected 11/05/23 17:04: VBG pH 7.30 L, VBG pCO2 41.0, VBG pO2 29.7, VBG HCO3 19.5 L, VBG Total CO2 20.8 L, VBG O2 Saturation 61.3, VBG Base Excess -6.9 L, VBG Lactic Acid 4.1 H 11/05/23 20:15: Potassium 5.6 H, Lactate 3.3 H, Troponin I < 0.01 11/05/23 20:20: Sodium 118 L, Potassium 5.0, Chloride 87 L, Carbon Dioxide 24, Anion Gap 12.0, BUN 30 H, Creatinine 1.60 H, Estimated Creat Clear 53, Estimated GFR 34 L, Est GFR ( Amer) 41 L, Glucose 973 H* D, Calcium 9.2, Total Bilirubin 0.7, AST 24, ALT 26, Alkaline Phosphatase 116, Total Protein 6.5, A lbumin 3.2 L D, Globulin 3.3 H, Albumin/Globulin Ratio 1.0 L 11/06/23 06:00 11/06/23 06:00 Response Orders (Tests/Meds): ED MEDICATIONS Generic Name Dose Route Start Last Admin Trade Name Freq PRN Reason Stop Dose Admin Acetaminophen 650 mg 11/05/23 20:09 Acetaminophen 325mg Tab PO 12/05/23 20:08 Q4HP PRN Fever or Mild Pain (1-3) Albuterol Sulfate 2.5 mg 11/06/23 07:25 11/06/23 10:06 Albuterol 0.083% 2.5 Mg/3 Ml Neb IH 12/06/23 07:24 2.5 mg Q6HP PRN Administration Shortness Of Breath Or Wheezing Atorvastatin Calcium 40 mg 11/06/23 21:00 Atorvastatin 40mg Tablet PO 12/06/23 20:59 HS THAD Clopidogrel Bisulfate 75 mg 11/06/23 09:00 11/06/23 10:04 Clopidogrel 75mg Tab PO 12/06/23 08:59 75 mg DAILY THAD Administration Furosemide 40 mg 11/06/23 09:00 11/06/23 10:05 Furosemide 40 Mg Tablet PO 12/06/23 08:59 40 mg DAILY THAD Administration Insulin Human Regular 100 unit 101 mls @ 7.07 mls/hr 11/05/23 17:45 11/06/23 10:04 / Sodium Chloride IV 12/05/23 17:44 8 unit/hr .[id number] THAD 8.08 mls/hr Titration Protocol 7 UNIT/HR Potassium Chloride/Sodium Chloride 1,000 mls @ 150 mls/hr 11/05/23 23:00 11/06/23 06:30 Kcl 20 Meq In Ns 1,000 Ml Iv Soln IV 12/05/23 22:59 150 mls/hr .Q6H40M THAD Administration Loratadine 10 mg 11/06/23 09:00 11/06/23 10:05 Loratadine 10mg Tablet PO 12/06/23 08:59 10 mg DAILY THAD Administration Metoprolol Succinate 200 mg 11/06/23 09:00 11/06/23 10:04 Metoprolol Succinate Xl 100mg Tablet PO 12/06/23 08:59 200 mg DAILY THAD Administration Morphine Sulfate 2 mg 11/05/23 20:09 Morphine 2mg/Ml Syringe IV 12/05/23 20:08 Q2HP PRN Severe Pain (7-10) Ondansetron HCl 4 mg 11/05/23 20:09 Ondansetron 4mg/2ml Vial IV 12/05/23 20:08 Q8HP PRN Nausea Pantoprazole Sodium 40 mg 11/05/23 21:00 11/05/23 21:57 Pantoprazole 40mg Vial IV 12/05/23 20:59 40 mg HS THAD Administration Rivaroxaban 15 mg 11/06/23 21:00 Rivaroxaban 15mg Tablet PO 12/06/23 20:59 HS THAD Sacubitril/Valsartan 2 each 11/06/23 09:00 11/06/23 10:04 Sacubitril/Valsartan 24-26mg Tablet PO 12/06/23 08:59 2 each BID THAD Administration Sodium Chloride 10 ml 11/06/23 09:32 Sodium Chloride 0.9% 10ml Flush Syringe IV 12/06/23 09:31 NEEDED PRN Maintain IV Site Vitamin D 50 mcg 11/06/23 09:00 11/06/23 10:04 Cholecalciferol 1,000 Units (25mcg) Tablet PO 12/06/23 08:59 50 mcg DAILY THAD Administration Discontinued Medications Generic Name Dose Route Start Last Admin Trade Name Freq PRN Reason Stop Dose Admin Acetaminophen 1,000 mg 11/05/23 17:03 11/05/23 17:11 Acetaminophen 1,000mg/100ml Vial IV 11/05/23 17:04 1,000 mg ONCE ONE Administration Amiodarone HCl 150 mg 11/05/23 18:05 11/05/23 18:05 Amiodarone Hcl 150mg/3ml Vial IVP 11/05/23 18:06 150 mg ONCE ONE Administration Lactated Ringer's 1,000 mls @ 999 mls/hr 11/05/23 17:03 11/05/23 17:11 Lactated Ringer's 1000 Ml Bag IV 11/05/23 18:03 999 mls/hr .Q1H1M ONE Administration Amiodarone HCl 900 mg/ 518 mls @ 34.533 mls/hr 11/05/23 18:20 11/06/23 10:17 Dextrose IV 11/06/23 09:20 0 mg/min .Q15H1M THAD 0 mls/hr Titration Protocol 1 MG/MIN Sodium Chloride 1,000 mls @ 50 mls/hr 11/05/23 20:15 11/05/23 21:27 Sod Chlor 0.9% 1000ml Bag IV 12/05/23 20:14 Not Given .Q20H THAD Sodium Chloride 1,000 mls @ 150 mls/hr 11/05/23 21:30 11/06/23 05:01 Sod Chlor 0.9% 1000ml Bag IV 12/05/23 21:29 Not Given .Q6H40M THAD Ketorolac Tromethamine 15 mg 11/05/23 17:03 11/05/23 17:11 Ketorolac 30mg/Ml Vial IV 11/05/23 17:04 15 mg ONCE ONE Administration Sodium Zirconium Cyclosilicate 10 gm 11/05/23 18:24 11/05/23 19:35 Lokelma 5gm Packet PO 11/05/23 18:25 10 gm ONCE ONE Administration ORDERS Category Date Time Status Cardiology Consult [Consult to Cardiology] [CONS] Cons 11/05/23 20:10 Active Routine Chest XR -- portable [XR chest portable] Stat Exams 11/05/23 17:03 Completed XR chest portable Stat Exams 11/05/23 20:11 Completed Acetone, Serum (Rapid) Stat Lab 11/05/23 16:54 Completed CBC w/Auto Diff [Complete Blood Count Auto Diff] Stat Lab 11/05/23 16:54 Completed CMP [Comprehensive Metabolic Panel] Q3H Lab 11/05/23 20:20 Completed CMP [Comprehensive Metabolic Panel] Stat Lab 11/05/23 16:54 Completed Complete Blood Count Auto Diff AMLAB Lab 11/06/23 06:00 Completed Comprehensive Metabolic Panel AMLAB Lab 11/06/23 06:00 Completed D-Dimer Stat Lab 11/05/23 16:54 Completed Hemoglobin A1C Stat Lab 11/05/23 16:54 Completed INR [Prothrombin Time INR] Stat Lab 11/05/23 16:54 Completed Lipid Panel AMLAB Lab 11/06/23 06:00 Completed Magnesium AMLAB Lab 11/06/23 06:00 Completed Magnesium Stat Lab 11/05/23 16:54 Completed Osmolality Routine Lab 11/05/23 00:05 Received Phosphorous Stat Lab 11/05/23 16:54 Completed Potassium Q2H Lab 11/05/23 20:15 Completed Rapid PCR Covid and Flu A/B Stat Lab 11/05/23 14:50 Completed Rapid Strep Scrn Group A [Strep Scrn Group A (Rapid)] Lab 11/05/23 14:51 Completed Stat Trop I [Troponin I] Stat Lab 11/05/23 16:54 Completed Troponin I Q3H Lab 11/05/23 20:15 Completed Troponin I Q3H Lab 11/05/23 23:05 Completed UA [Urinalysis and Microscopic] Stat Lab 11/05/23 21:23 Completed Blood Culture Stat Micro 11/05/23 18:25 Ordered Strep Screen Confirmation Stat Micro 11/05/23 14:51 Received Urine Culture Stat Micro 11/05/23 21:23 Received VBG [Venous Blood Gas] Stat RT 11/05/23 17:04 Completed Venous Blood Gas Stat RT 11/05/23 17:45 Ordered MDM Narrative Medical Decision Narrative: In summary patient is a 53-year-old female who presents to the emergency department for evaluation of chest wall pain. Patient is likely hypertensive with a systolic pressure of 101 but a heart rate of 82 respiratory rate of 18 satting at 98% on room air upon arrival, afebrile. Physical exam is remarkable for patient who appears to be unwell and has tenderness to palpation over the left anterior chest around her pacemaker, pain in the same area with deep breath, breath sounds equal bilaterally to the bases without adventitious sounds, very dry oropharynx with what appears to be yeast throughout and the remainder of her exam is nonfocal. Differential diagnosis includes PE versus DKA versus ACS versus pneumonia versus heart failure Cetera. Initial workup will be conducted with twelve-lead EKG, plain film chest x-ray, urinalysis, hematologic labs. Initial interventions include crystalloid bolus Toradol and Tylenol. Initial workup reviewed by me that shows significant hyperglycemia without acetone, pseudohyponatremia, hypokalemia, venous pH of 7.3 with a venous lactate of 4.1, CO2 of 23 and gap of 18, BUN of 29 with a creatinine of 1.7, and a glucose of 1234 and a hemoglobin A1c greater than 14. I discussed patient management with hospitalist medicine who agreed for admission. This is Dr. Hastings at 624 working with [facility] patient came back from the bathroom and felt as if she was going to pass out she was placed back on a monitor and had evidence of sustained runs of ventricular tachycardia. She had very poor perfusion during this time and had worsening chest discomfort anterior posterior pads were placed and we were anticipating doing electrical cardioversion given the unstable nature of her presentation. However after several minutes she spontaneously converted back into her normal ventricular paced rhythm her perfusion significantly improved her mental status improved and she looks much better from a clinical standpoint even to the point of joking around. Therefore given sustained ventricular tachycardia and stable patient we initiated amiodarone infusion and bolus and held off on electrical cardioversion at the moment. The remainder of her workup and management is primarily surrounding resuscitating her and treatment of her NKHHS and its associated abnormalities <Carolyn Hastings MD - Last Filed: 11/05/23 20:12> Vital Signs Vital Signs: 11/05/23 16:48 11/05/23 17:04 11/05/23 17:30 Temperature 97.8 F Temperature Source Oral Pulse Rate 82 86 Pulse Rate [Apical] 82 Respiratory Rate 18 19 20 Blood Pressure 94/66 L 108/71 L Blood Pressure [Right Arm] 102/66 L Blood Pressure Mean Blood Pressure Mean [Right Arm] 78 Blood Pressure Source Blood Pressure Source [Right Arm] Automatic Cuff Blood Pressure Position Blood Pressure Position [Right Arm] Sitting 02 Sat by Pulse Oximetry 98 97 97 Oxygen Delivery Method Room Air Room Air Room Air Oxygen Flow Rate (LPM) 11/05/23 18:01 11/05/23 18:16 11/05/23 18:30 Temperature Temperature Source Pulse Rate 82 78 81 Pulse Rate [Apical] Respiratory Rate 12 10 L 16 Blood Pressure 122/85 105/58 L 105/71 L Blood Pressure [Right Arm] Blood Pressure Mean Blood Pressure Mean [Right Arm] Blood Pressure Source Blood Pressure Source [Right Arm] Blood Pressure Position Blood Pressure Position [Right Arm] 02 Sat by Pulse Oximetry 98 98 96 Oxygen Delivery Method Nasal Cannula Nasal Cannula Nasal Cannula Oxygen Flow Rate (LPM) 2 2 2 11/05/23 19:00 11/05/23 19:30 11/05/23 20:00 Temperature Temperature Source Pulse Rate 80 80 80 Pulse Rate [Apical] Respiratory Rate 21 12 18 Blood Pressure 113/50 L 106/66 L 114/60 Blood Pressure [Right Arm] Blood Pressure Mean 86 Blood Pressure Mean [Right Arm] Blood Pressure Source Blood Pressure Source [Right Arm] Blood Pressure Position Blood Pressure Position [Right Arm] 02 Sat by Pulse Oximetry 96 99 96 Oxygen Delivery Method Room Air Oxygen Flow Rate (LPM) 11/05/23 20:41 Temperature 97.8 F Temperature Source Oral Pulse Rate 80 Pulse Rate [Apical] Respiratory Rate 20 Blood Pressure 113/50 L Blood Pressure [Right Arm] Blood Pressure Mean Blood Pressure Mean [Right Arm] Blood Pressure Source Automatic Cuff Blood Pressure Source [Right Arm] Blood Pressure Position Sitting Blood Pressure Position [Right Arm] 02 Sat by Pulse Oximetry Oxygen Delivery Method Room Air Oxygen Flow Rate (LPM) Lab Data Labs: Lab Results 11/05/23 00:05: Lactate 2.5 H 11/05/23 14:50: SARS-CoV-2 (PCR) Not detected, Influenza A Untype (PCR) Not detected, Influenza Type B (PCR) Not detected 11/05/23 14:51: Group A Strep Rapid Negative 11/05/23 16:54: WBC 9.2, RBC 4.91, Hgb 14.4, Hct 48.3 H, MCV 98.4, MCH 29.3, M CHC 29.8 L, RDW 14.3, Plt Count 316, MPV 10.0, Neut % (Auto) 61.9, Lymph % (Auto) 29.9, [place] % (Auto) 6.0, Eos % (Auto) 0.3, Baso % (Auto) 2.0, Neut # (Auto) 5.7, Lymph # (Auto) 2.7, [place] # (Auto) 0.6, Eos # (Auto) 0.0, Baso # (Auto) 0.2, PT 11.5, INR 1.07, D-Dimer 0.52 H, Sodium 116 L, Potassium 6.2 H*, C hloride 81 L, Carbon Dioxide 23, Anion Gap 18.2 H, BUN 29 H, Creatinine 1.70 H, Estimated Creat Clear 50, Estimated GFR 32 L, Est GFR ( Amer) 38 L, G lucose 1234 H*, Hemoglobin A1c > 14.0 H, Calcium 9.6, Phosphorus 4.9 H, M agnesium 2.4 H, Total Bilirubin 1.0, AST 31, ALT 29, Alkaline Phosphatase 123, Troponin I < 0.01, Total Protein 7.2, Albumin 3.7, Globulin 3.5 H, Albumin/Globulin Ratio 1.1, Acetone Level None detected 11/05/23 17:04: VBG pH 7.30 L, VBG pCO2 41.0, VBG pO2 29.7, VBG HCO3 19.5 L, VBG Total CO2 20.8 L, VBG O2 Saturation 61.3, VBG Base Excess -6.9 L, VBG Lactic Acid 4.1 H 11/05/23 20:15: Potassium 5.6 H, Lactate 3.3 H, Troponin I < 0.01 11/05/23 20:20: Sodium 118 L, Potassium 5.0, Chloride 87 L, Carbon Dioxide 24, Anion Gap 12.0, BUN 30 H, Creatinine 1.60 H, Estimated Creat Clear 53, Estimated GFR 34 L, Est GFR ( Amer) 41 L, Glucose 973 H* D, Calcium 9.2, Total Bilirubin 0.7, AST 24, ALT 26, Alkaline Phosphatase 116, Total Protein 6.5, A lbumin 3.2 L D, Globulin 3.3 H, Albumin/Globulin Ratio 1.0 L Response Orders (Tests/Meds): ED MEDICATIONS Generic Name Dose Route Start Last Admin Trade Name Freq PRN Reason Stop Dose Admin Acetaminophen 650 mg 11/05/23 20:09 Acetaminophen 325mg Tab PO 12/05/23 20:08 Q4HP PRN Fever or Mild Pain (1-3) Albuterol Sulfate 2.5 mg 11/06/23 07:25 11/06/23 10:06 Albuterol 0.083% 2.5 Mg/3 Ml Neb IH 12/06/23 07:24 2.5 mg Q6HP PRN Administration Shortness Of Breath Or Wheezing Atorvastatin Calcium 40 mg 11/06/23 21:00 Atorvastatin 40mg Tablet PO 12/06/23 20:59 HS THAD Clopidogrel Bisulfate 75 mg 11/06/23 09:00 11/06/23 10:04 Clopidogrel 75mg Tab PO 12/06/23 08:59 75 mg DAILY THAD Administration Furosemide 40 mg 11/06/23 09:00 11/06/23 10:05 Furosemide 40 Mg Tablet PO 12/06/23 08:59 40 mg DAILY THAD Administration Insulin Human Regular 100 unit 101 mls @ 7.07 mls/hr 11/05/23 17:45 11/06/23 10:04 / Sodium Chloride IV 12/05/23 17:44 8 unit/hr .[id number] THAD 8.08 mls/hr Titration Protocol 7 UNIT/HR Potassium Chloride/Sodium Chloride 1,000 mls @ 150 mls/hr 11/05/23 23:00 11/06/23 06:30 Kcl 20 Meq In Ns 1,000 Ml Iv Soln IV 12/05/23 22:59 150 mls/hr .Q6H40M THAD Administration Loratadine 10 mg 11/06/23 09:00 11/06/23 10:05 Loratadine 10mg Tablet PO 12/06/23 08:59 10 mg DAILY THAD Administration Metoprolol Succinate 200 mg 11/06/23 09:00 11/06/23 10:04 Metoprolol Succinate Xl 100mg Tablet PO 12/06/23 08:59 200 mg DAILY THAD Administration Morphine Sulfate 2 mg 11/05/23 20:09 Morphine 2mg/Ml Syringe IV 12/05/23 20:08 Q2HP PRN Severe Pain (7-10) Ondansetron HCl 4 mg 11/05/23 20:09 Ondansetron 4mg/2ml Vial IV 12/05/23 20:08 Q8HP PRN Nausea Pantoprazole Sodium 40 mg 11/05/23 21:00 11/05/23 21:57 Pantoprazole 40mg Vial IV 12/05/23 20:59 40 mg HS THAD Administration Rivaroxaban 15 mg 11/06/23 21:00 Rivaroxaban 15mg Tablet PO 12/06/23 20:59 HS THAD Sacubitril/Valsartan 2 each 11/06/23 09:00 11/06/23 10:04 Sacubitril/Valsartan 24-26mg Tablet PO 12/06/23 08:59 2 each BID THAD Administration Sodium Chloride 10 ml 11/06/23 09:32 Sodium Chloride 0.9% 10ml Flush Syringe IV 12/06/23 09:31 NEEDED PRN Maintain IV Site Vitamin D 50 mcg 11/06/23 09:00 11/06/23 10:04 Cholecalciferol 1,000 Units (25mcg) Tablet PO 12/06/23 08:59 50 mcg DAILY THAD Administration Discontinued Medications Generic Name Dose Route Start Last Admin Trade Name Freq PRN Reason Stop Dose Admin Acetaminophen 1,000 mg 11/05/23 17:03 11/05/23 17:11 Acetaminophen 1,000mg/100ml Vial IV 11/05/23 17:04 1,000 mg ONCE ONE Administration Amiodarone HCl 150 mg 11/05/23 18:05 11/05/23 18:05 Amiodarone Hcl 150mg/3ml Vial IVP 11/05/23 18:06 150 mg ONCE ONE Administration Lactated Ringer's 1,000 mls @ 999 mls/hr 11/05/23 17:03 11/05/23 17:11 Lactated Ringer's 1000 Ml Bag IV 11/05/23 18:03 999 mls/hr .Q1H1M ONE Administration Amiodarone HCl 900 mg/ 518 mls @ 34.533 mls/hr 11/05/23 18:20 11/06/23 10:17 Dextrose IV 11/06/23 09:20 0 mg/min .Q15H1M THAD 0 mls/hr Titration Protocol 1 MG/MIN Sodium Chloride 1,000 mls @ 50 mls/hr 11/05/23 20:15 11/05/23 21:27 Sod Chlor 0.9% 1000ml Bag IV 12/05/23 20:14 Not Given .Q20H THAD Sodium Chloride 1,000 mls @ 150 mls/hr 11/05/23 21:30 11/06/23 05:01 Sod Chlor 0.9% 1000ml Bag IV 12/05/23 21:29 Not Given .Q6H40M THAD Ketorolac Tromethamine 15 mg 11/05/23 17:03 11/05/23 17:11 Ketorolac 30mg/Ml Vial IV 11/05/23 17:04 15 mg ONCE ONE Administration Sodium Zirconium Cyclosilicate 10 gm 11/05/23 18:24 11/05/23 19:35 Lokelma 5gm Packet PO 11/05/23 18:25 10 gm ONCE ONE Administration ORDERS Category Date Time Status Cardiology Consult [Consult to Cardiology] [CONS] Cons 11/05/23 20:10 Active Routine Chest XR -- portable [XR chest portable] Stat Exams 11/05/23 17:03 Completed XR chest portable Stat Exams 11/05/23 20:11 Completed Acetone, Serum (Rapid) Stat Lab 11/05/23 16:54 Completed CBC w/Auto Diff [Complete Blood Count Auto Diff] Stat Lab 11/05/23 16:54 Completed CMP [Comprehensive Metabolic Panel] Q3H Lab 11/05/23 20:20 Completed CMP [Comprehensive Metabolic Panel] Stat Lab 11/05/23 16:54 Completed Complete Blood Count Auto Diff AMLAB Lab 11/06/23 06:00 Completed Comprehensive Metabolic Panel AMLAB Lab 11/06/23 06:00 Completed D-Dimer Stat Lab 11/05/23 16:54 Completed Hemoglobin A1C Stat Lab 11/05/23 16:54 Completed INR [Prothrombin Time INR] Stat Lab 11/05/23 16:54 Completed Lipid Panel AMLAB Lab 11/06/23 06:00 Completed Magnesium AMLAB Lab 11/06/23 06:00 Completed Magnesium Stat Lab 11/05/23 16:54 Completed Osmolality Routine Lab 11/05/23 00:05 Received Phosphorous Stat Lab 11/05/23 16:54 Completed Potassium Q2H Lab 11/05/23 20:15 Completed Rapid PCR Covid and Flu A/B Stat Lab 11/05/23 14:50 Completed Rapid Strep Scrn Group A [Strep Scrn Group A (Rapid)] Lab 11/05/23 14:51 Completed Stat Trop I [Troponin I] Stat Lab 11/05/23 16:54 Completed Troponin I Q3H Lab 11/05/23 20:15 Completed Troponin I Q3H Lab 11/05/23 23:05 Completed UA [Urinalysis and Microscopic] Stat Lab 11/05/23 21:23 Completed Blood Culture Stat Micro 11/05/23 18:25 Ordered Strep Screen Confirmation Stat Micro 11/05/23 14:51 Received Urine Culture Stat Micro 11/05/23 21:23 Received VBG [Venous Blood Gas] Stat RT 11/05/23 17:04 Completed Venous Blood Gas Stat RT 11/05/23 17:45 Ordered ECG Data Tracing #1: Attestation: I reviewed this ECG and interpreted as documented below: ECG Narrative: There is a ventricular paced rhythm there is also sustained ventricular tachycardia with a ventricular rate overall of 120 intermittently at 150 MDM Narrative Medical Decision Narrative: In summary patient is a 53-year-old female who presents to the emergency department for evaluation of chest wall pain. Patient is [hemodynamically stable/unstable] upon arrival, [febrile/afebrile]. [Unremarkable physical exam, nonfocal exam versus focal remarkable exam]. Differential diagnosis includes [DDx]. Initial workup will be conducted with [hematologic labs, imaging, respiratory swab, describe workup]. Initial interventions include [crystalloid bolus, medications, p.o. challenge, etc.] initial workup reviewed by me [hematologic labs are remarkable for... Imaging remarkable for... Urinalysis remarkable for]. Upon repeat evaluation [patient had acceptable resolution of symptoms, had persistent pain for which additional interventions were conducted (describe interventions), tolerated p.o., was ambulatory, etc.]. Given this [patient is appropriate for discharge at this time and will be discharged with a prescription for... The case was discussed with hospital medicine regarding management and they will admit the patient their service for continued evaluation at this time... Etc.] Places where you can increase complexity: I informally interpreted the patient's chest x-ray or CT read and is remarkable for... Documenting what the night monitor shows with rate and rhythm Consideration of test but deferring. Ex: I considered chest x-ray on this patient however given that they have no oxygen requirement and are clear to auscultation all lung isaacs will be deferred. Social determinants of health: Given that patient is undomiciled increases complexity. Given that patient has polysubstance abuse compounds all aspects of care This is Dr. Hastings at 624 working with Sonia patient came back from the bathroom and felt as if she was going to pass out she was placed back on a monitor and had evidence of sustained runs of ventricular tachycardia. She had very poor perfusion during this time and had worsening chest discomfort anterior posterior pads were placed and we were anticipating doing electrical cardioversion given the unstable nature of her presentation. However after several minutes she spontaneously converted back into her normal ventricular paced rhythm her perfusion significantly improved her mental status improved and she looks much better from a clinical standpoint even to the point of joking around. Therefore given sustained ventricular tachycardia and stable patient we initiated amiodarone infusion and bolus and held off on electrical cardioversion at the moment. The remainder of her workup and management is primarily surrounding resuscitating her and treatment of her DKA and its associated abnormalities
[2023-11-05 16:57] LABS: Coronavirus 19, PCR Not Detected (NotDetected); Influenza A, PCR Not Detected (NotDetected); Influenza B, PCR Not Detected (NotDetected)
--- NOTE | 2023-11-05 17:03 | XR_ITS ---
PROCEDURE INFORMATION: Exam: XR Chest Exam date and time: 11/05/2023 5:10 PM Age: 53 years old Clinical indication: Chest wall pain TECHNIQUE: Imaging protocol: Radiologic exam of the chest. Views: 1 view. COMPARISON: CR XR CHEST PORTABLE 12/24/2022 5:35 PM FINDINGS: Lungs: Normal. Pleural spaces: Normal. No pleural effusion. No pneumothorax. Heart/Mediastinum: No cardiomegaly. Left chest wall 3 lead pacemaker/AICD in place with lead tips extending to the right atrium, right ventricle, and through the coronary sinus to the left ventricle. Bones/joints: Unremarkable. IMPRESSION: No acute findings.
[2023-11-05] MEDS: LACTATED RINGERS 1000ML 1,000 ML 999 ML IV (17:11)
[2023-11-05] MEDS: ACETAMINOPHEN 1,000MG/100ML VIAL 1000 MG IV (17:11)
[2023-11-05] MEDS: KETOROLAC 30MG/ML VIAL 15 MG IV (17:11)
[2023-11-05 17:14] LABS: VBG Base Excess -6.9 mmol/L (-2.4-2.3); VBG HCO3 19.5 mmol/L (23-30); VBG Oxygen Saturation 61.3 % (50-70); VBG PO2 29.7 mmol/L (28-40); VBG Total CO2 20.8 mmol/L (23-27)
--- NOTE | 2023-11-05 17:15 | PC.NURSE ---
CRITICAL VBG LACTIC 4.1 RECEIVED FROM [facility] IN RESPIRATORY, EVIE ENCISO PA-C NOTIFIED, NO NEW ORDERS
[2023-11-05 17:16] LABS: Lactate Venous 4.1 mmol/L (0.4-2.0)
[2023-11-05 17:21] LABS: Basophils # 0.2 K/mm3 (0-0.2); Eosinophils % 0.3 % (0.1-12.0); Hematocrit 48.3 % (37.0-47.0); Hemoglobin 14.4 g/dL (12.2-16.2); Lymphocytes # 2.7 K/mm3 (0.7-4.5); Lymphocytes % 29.9 % (10-50); Mean Corpuscular HGB Conc 29.8 g/dL (31.8-35.4); Mean Corpuscular Hemoglobin 29.3 pg (27.0-31.2); Mean Corpuscular Volume 98.4 fl (81-99); Monocytes # 0.6 K/mm3 (0.1-1.0); Neutrophils # 5.7 K/mm3 (1.8-7.8); Neutrophils % 61.9 % (37.0-80.0); Platelet Count 316 K/mm3 (142-424); Red Blood Count 4.91 M/mm3 (4.20-5.40); Red Cell Distribution Width 14.3 % (11.5-17.5); White Blood Count 9.2 K/mm3 (4.8-10.8)
[2023-11-05 17:30] LABS: Chloride 81 mmol/L (98-107); Sodium 116 mmol/L (136-145)
[2023-11-05 17:33] LABS: Alanine Aminotransferase 29 U/L (12-78); Albumin Level 3.7 g/dl (3.5-5.0); Albumin/Globulin Ratio 1.1 (1.1-1.8); Alkaline Phosphatase 123 U/L (38-126); Anion Gap 18.2 mEq/L (5-15); Aspartate Amino Transferase 31 U/L (14-36); Blood Urea Nitrogen 29 mg/dl (7-17); Calcium 9.6 mg/dl (8.4-10.2); Carbon Dioxide 23 mmol/L (22.0-30.0); Creatinine Clearance Estimated 50 mL/min (50-200); Estimated Glomerular Filt Rate 32 ml/min (>60); GFR (African American) 38 ML/MIN (>60); Globulin 3.5 g/dL (1.3-3.2); Magnesium 2.4 mg/dl (1.6-2.3); Total Protein,Serum 7.2 g/dl (6.3-8.2)
[2023-11-05 17:37] LABS: INR 1.07 (0.9-1.1); Prothrombin Time 11.5 seconds (10.1-12.5)
--- NOTE | 2023-11-05 17:43 | PC.NURSE ---
PT ASSISTED TO BR
[2023-11-05 17:44] LABS: Glucose 1234 mg/dl (74-100); Potassium 6.2 mmoL/L (3.5-5.1)
[2023-11-05 17:46] LABS: Strep Scrn Group A (Rapid) Negative (Negative)
[2023-11-05 17:53] LABS: Troponin I < 0.01 ng/ml (0.00-0.034)
--- NOTE | 2023-11-05 17:54 | ECG_ITS ---
APPROVED REPORT Exam: Resting ECG HR:124 bpm ECG Measurements Heart Rate 124 AXES QRSd 140 QRS -11 QT 327 T 180 QTc 401 Conclusion UNCERTAIN IRREGULAR RHYTHM ELECTRONIC VENTRICULAR PACEMAKER -- CONTOUR ANALYSIS BASED ON INTRINSIC RHYTHM INTRAVENTRICULAR CONDUCTION DELAY [130+ ms QRS DURATION] CRITICAL TEST RESULT UNCONFIRMED REPORT Electronically signed by : Juve Hastings, 11/05/2023 23:12:53
[2023-11-05 18:03] LABS: D-Dimer 0.52 ug/mL (0.0-0.5); Phosphorous 4.9 mg/dl (2.5-4.5)
[2023-11-05] MEDS: AMIODARONE HCL 150MG/3ML VIAL 150 MG IVP (18:05)
[2023-11-05 18:10] LABS: Acetone, Serum (Rapid) None Detected (None Detect)
--- NOTE | 2023-11-05 18:10 | PC.NURSE ---
Went into pt's room to check IV after patient returned from bathroom. While in room this nurse noticed pt's monitor alarming and pt in vtach. pt had palpable pulse and alert and oriented. MD called to room. pt placed on Zoll. EKG obtained and verbal order given for Amiodarone.
[2023-11-05 18:21] LABS: Hemoglobin A1C > 14.0 % (4.0-6.0)
[2023-11-05] MEDS: AMIODARONE HCL 900 MG in DEXTROSE 5 % IN WATER 500 ML 34.5300000000000011 MG IV (18:21)
[2023-11-05] MEDS: INSULIN REGULAR, HUMAN 100 UNIT in 0.9 % SODIUM CHLORIDE 100 ML 8.08000000000000007 UNIT IV (18:39)
--- NOTE | 2023-11-05 18:44 | PC.NURSE ---
PT REPOSITIONED IN BED, UPDATED ON POC. NO NEEDS AT THIS TIME
--- NOTE | 2023-11-05 18:47 | PC.NURSE ---
[address] TO BED, FELT WEAK AND C/O INCREASED CHEST PAIN. PT STUMBLED INTO BED. RN X [address] LIZ. 175 REPEAT EKG 175 PT PLACED ON ZOLL MONITOR 1800 # 20 IV TO RIGHT HAND, PT FEELING BETTER, DR LIZ REMAINS AT BEDSIDE. PT ALERT AND ORIENTED, REPORTS CHEST PAIN IMPROVED. NO SHORTNESS OF BREATH. 181 VERBAL ORDER FOR AMIODARONE 150MG BOLUS THEN INFUSION PER 1MG/MIN PER EMAR 1840 INSULIN GTT STARTED PER PROTOCOL, PT RESTING IN BED TALKING WITH SON.
--- NOTE | 2023-11-05 19:19 | PC.NURSE ---
Pt family at bedside, updated on admission status. Pt pain 0/10 at this time, no needs at this time.
[2023-11-05] MEDS: LOKELMA 5GM PACKET 10 GM PO (19:35)
--- NOTE | 2023-11-05 19:46 | PC.NURSE ---
Pt 193 glucose needed, dillon aware, dr agarwal at bedside inserting deep line
--- NOTE | 2023-11-05 20:11 | XR_ITS ---
PROCEDURE INFORMATION: Exam: XR Chest Exam date and time: 11/05/2023 8:25 PM Age: 53 years old Clinical indication: Other: Post cvl TECHNIQUE: Imaging protocol: Radiologic exam of the chest. Views: 1 view. COMPARISON: CR XR CHEST PORTABLE 11/05/2023 5:10 PM FINDINGS: Tubes, catheters and devices: Right IJ central line extends to the level of the proximal SVC. Lungs: Normal. Pleural spaces: Normal. No pleural effusion. No pneumothorax. Heart/Mediastinum: No cardiomegaly. Left chest wall 3 lead pacemaker/AICD in place with lead tips extending to the level of the right atrium, right ventricle, and through the coronary sinus to the left ventricle. Bones/joints: Unremarkable. IMPRESSION: Right IJ central line extends to the level of the proximal SVC. No pneumothorax.
--- NOTE | 2023-11-05 20:11 | EXP.HP ---
History of Present Illness *Admission Date: 11/05/23 *Reason for visit:: general malaise *History of present illness: This is a 53yo F with PMHx of uncontrolled IDDM, medically non compliance, HFrEF, afib, CVA, COPD, presented to ED for evaluation of referred 5-day history of malaise and complaining dyspnea especially with taking deep breaths secondary to chest wall pain. Her primary complaint is pain around her left chest pacemaker. She says it hurts to touch and hurts to take a deep breath. She denies trauma to the area. She is also complaining of pain in her mouth due to ulcers . She is edentulous and does not wear dentures. Patient does have a past medical history of type 2 diabetes mellitus treated with insulin, history of congestive heart failure with last known ejection fraction 20% she is currently denies fever chills hemoptysis hematochezia melena he overall reports feeling bad. Admitted for treatment and management. [facility] Disclaimer: The information contained in this section may have been updated after the patient was seen, as this information can be updated by other users. Medical History Angina pectoris Cardiac pacemaker in situ Chronic HFrEF (heart failure with reduced ejection fraction) Syncope Atrial fibrillation with RVR Edema of both lower extremities Spider bite Dilated cardiomyopathy Hyperlipidemia CAD in [place] artery Left sided numbness Shortness of Breath Chest pain Systolic CHF with reduced left ventricular function, NYHA class 3 Atrial fibrillation with rapid ventricular response Hyperosmolar hyperglycemic state (HHS) Perirectal abscess SIRS (systemic inflammatory response syndrome) Diabetes mellitus Acute bronchitis Nonerosive nonspecific gastritis Chronic atrial fibrillation Chronic renal insufficiency, stage III (moderate) Uncontrolled type 2 DM with hyperosmolar nonketotic hyperglycemia Diabetic acetonemia Renal insufficiency Dysphagia Pulmonary hypertension Tobacco user HTN (hypertension) Type 2 diabetes mellitus Obesity Pneumonia COPD (chronic obstructive pulmonary disease) Surgical History History of esophagogastroduodenoscopy (EGD) History of bladder surgery History of esophageal surgery H/O right coronary artery stent placement H/O: hysterectomy Family History Other Coronary artery disease Social History (Updated 11/05/23 @ 22:26 by Mackenzie Magana RN) Smoking Status: Current every day smoker tobacco type: cigarettes packs per day: 1 second hand exposure: Yes alcohol intake: former substance use type: denies use current occupational status: disabled Travel in the last 8 weeks: None household members: spouse and children housing: house current occupational exposures/hazards: No caffeine: Yes Review of Systems Review of Systems Review of systems:: pertinent systems reviewed and negative unless documented below Meds Home Medications and Allergies Home Medications Medication Instructions Recorded Confirmed Type albuterol sulfate 90 mcg/actuation 2 inh inhalation QIDP PRN 11/05/23 11/05/23 History aerosol inhaler (Ventolin HFA) Shortness Of Breath Or Wheezing cholecalciferol (vitamin D3) 1,250 1,250 mcg PO WEEKLY 11/05/23 11/05/23 History mcg (50,000 unit) capsule cholecalciferol (vitamin D3) 50 50 mcg PO DAILY 11/05/23 11/05/23 History mcg (2,000 unit) capsule clopidogrel 75 mg tablet 75 mg PO DAILY 11/05/23 11/05/23 History cyclobenzaprine 5 mg tablet 5 mg PO BID 11/05/23 11/05/23 History digoxin 125 mcg (0.125 mg) tablet 125 mcg PO DAILY 11/05/23 11/05/23 History furosemide 40 mg tablet 40 mg PO DAILY 11/05/23 11/05/23 History insulin NPH-regular 70-30 U-100 40 unit SQ BID 11/05/23 11/05/23 History insulin 100 unit/mL subcutaneous pen (Humulin 70/30 U-100 KwikPen) ipratropium 20 mcg-albuterol 100 1 puff inhalation QID 11/05/23 11/05/23 History mcg/actuation mist for inhalation (Combivent Respimat) loratadine 10 mg tablet 10 mg PO DAILY 11/05/23 11/05/23 History metoprolol succinate 200 mg 200 mg PO DAILY 11/05/23 11/05/23 History tablet,extended release 24 hr pantoprazole 40 mg tablet,delayed 40 mg PO HS 11/05/23 11/05/23 History release rivaroxaban 15 mg tablet (Xarelto) 15 mg PO HS 11/05/23 11/05/23 History rosuvastatin 40 mg tablet 40 mg PO HS 11/05/23 11/05/23 History sacubitril 49 mg-valsartan 51 mg 1 tab PO BID 11/05/23 11/05/23 History tablet (Entresto) spironolactone 25 mg tablet 25 mg PO BID 11/05/23 11/05/23 History New Prescriptions to Start Prescriptions: Allergies Allergy/AdvReac Type Severity Reaction Status Date / Time Penicillins [PENICILLINS] Allergy Intermediate I-HIVES Verified 09/07/23 14:26 VANILLA Allergy Unknown Unknown Uncoded 09/07/23 14:26 allergy reaction Exam Data for Last 24 hours Vital signs and Labs for Last 24 Hours: Temp Pulse Resp BP Pulse Ox O2 Del Method O2 Flow Rate 97.8 F 80 12 106/66 L 99 Room Air 2 11/05/23 16:48 11/05/23 19:30 11/05/23 19:30 11/05/23 19:30 11/05/23 19:30 11/05/23 19:00 11/05/23 18:30 Laboratory Results - last 24 hr 11/05/23 14:50: SARS-CoV-2 (PCR) Not detected, Influenza A Untype (PCR) Not detected, Influenza Type B (PCR) Not detected 11/05/23 14:51: Group A Strep Rapid Negative 11/05/23 16:54: WBC 9.2, RBC 4.91, Hgb 14.4, Hct 48.3 H, MCV 98.4, MCH 29.3, MCHC 29.8 L, RDW 14.3, Plt Count 316, MPV 10.0, Neut % (Auto) 61.9, Lymph % (Auto) 29.9, [place] % (Auto) 6.0, Eos % (Auto) 0.3, Baso % (Auto) 2.0, Neut # (Auto) 5.7, Lymph # (Auto) 2.7, [place] # (Auto) 0.6, Eos # (Auto) 0.0, Baso # (Auto) 0.2, PT 11.5, INR 1.07, D-Dimer 0.52 H, Sodium 116 L, Potassium 6.2 H*, Chloride 81 L, Carbon Dioxide 23, Anion Gap 18.2 H, BUN 29 H, Creatinine 1.70 H, Estimated Creat Clear 50, Estimated GFR 32 L, Est GFR ( Amer) 38 L, Glucose 1234 H*, Hemoglobin A1c > 14.0 H, Calcium 9.6, Phosphorus 4.9 H, Magnesium 2.4 H, Total Bilirubin 1.0, AST 31, ALT 29, Alkaline Phosphatase 123, Troponin I < 0.01, Total Protein 7.2, Albumin 3.7, Globulin 3.5 H, Albumin/Globulin Ratio 1.1, Acetone Level None detected 11/05/23 17:04: VBG pH 7.30 L, VBG pCO2 41.0, VBG pO2 29.7, VBG HCO3 19.5 L, VBG Total CO2 20.8 L, VBG O2 Saturation 61.3, VBG Base Excess -6.9 L, VBG Lactic Acid 4.1 H Temp Pulse Resp BP Pulse Ox 98.7 F 104 H 16 153/88 H 98 12/23/22 21:08 12/23/22 21:08 12/23/22 21:08 12/23/22 21:08 12/23/22 21:01 Laboratory Results - last 24 hr 12/23/22 19:46: Urine Color Yellow, Urine Appearance Clear, Urine pH 6.0, Ur Specific [place] 1.025, Urine Protein 2+, Urine Glucose (UA) Negative, Urine Ketones Negative, Urine Blood Negative, Urine Nitrate Negative, Urine Bilirubin Negative, Urine Urobilinogen 0.2, Ur Leukocyte Esterase Negative, Urine WBC 3-5, Ur Squamous Epith Cells Occasional, Urine Bacteria Trace 12/23/22 19:46: WBC 12.8 H, RBC 5.85 H, Hgb 16.2, Hct 48.8 H, MCV 83.3, MCH 27.6, MCHC 33.1, RDW 16.2, Plt Count 302, MPV 9.6, Neut % (Auto) 62.5, Lymph % (Auto) 30.4, [place] % (Auto) 4.3, Eos % (Auto) 2.0, Baso % (Auto) 0.8, Neut # (Auto) 8.0 H, Lymph # (Auto) 3.9, [place] # (Auto) 0.6, Eos # (Auto) 0.3, Baso # (Auto) 0.1, ESR 8 12/23/22 19:46: Sodium 139, Potassium 3.7, Chloride 103, Carbon Dioxide 25, Anion Gap 14.7, BUN 19 H, Creatinine 1.00, Estimated Creat Clear 103, Estimated GFR 58 L, Est GFR ( Amer) 71, Glucose 168 H, Calcium 9.1, Total Bilirubin 0.4, AST 35, ALT 33, Alkaline Phosphatase 98, Troponin I 0.02, C-Reactive Protein 8.1 H, Total Protein 7.5, Albumin 4.1, Globulin 3.4 H, Albumin/Globulin Ratio 1.2, Procalcitonin 0.057 12/23/22 19:46: Digoxin < 0.40 12/23/22 20:10: SARS-CoV-2 (PCR) Not detected, Influenza A Untype (PCR) Not detected, Influenza Type B (PCR) Not detected I & O for Last 24 hours: Intake & Output 11/02/23 11/03/23 11/04/23 11/05/23 23:59 23:59 23:59 23:59 Weight 81.193 kg Intake & Output 12/20/22 12/21/22 12/22/22 12/23/22 23:59 23:59 23:59 23:59 Weight 98.43 kg Constitutional Constitutional: moderate distress and chronically ill appearing *Routine HEENT Exam Head: Present normocephalic Eye: Present EOMI ENT: Present mucous membranes moist *Routine Neck Exam Neck: Present trachea midline *Routine Respiratory Exam Respiratory: Present CTA bilaterally *Routine Cardiovascular Exam Cardiovascular: Present irregular rhythm *Routine Abdominal Exam Abdominal: Present soft and normoactive bowel sounds *Routine Rectal Exam Rectal:: deferred *Routine Genitalia Exam Genitalia:: deferred *Routine Skin Exam Skin: Present intact *Routine Neurological Exam Neurological: Present alert and oriented X3 Routine Psychiatric Exam Psychiatric: Present normal affect H&P: Result Imaging and Cardiology EKG: Status: Preliminary report and final report Chest x-ray: Status: image reviewed by me, Preliminary report and final report Assessment and Plan *Assessment and plan (1) Uncontrolled type 2 DM with hyperosmolar nonketotic hyperglycemia: Status: Acute Category: Medical Code(s): E11.00 - Type 2 diabetes mellitus with hyperosmolarity without nonketotic hyperglycemic-hyperosmolar coma (NKHHC) (2) Acute kidney injury (nontraumatic): Status: Acute Category: Medical Code(s): N17.9 - Acute kidney failure, unspecified (3) Ventricular tachycardia: Status: Acute Category: Medical Code(s): I47.20 - Ventricular tachycardia, unspecified (4) Chronic HFrEF (heart failure with reduced ejection fraction): Status: Acute Category: Medical Code(s): I50.22 - Chronic systolic (congestive) heart failure (5) COPD (chronic obstructive pulmonary disease): Status: Chronic Qualifiers: COPD type: unspecified COPD Qualified Code(s): J44.9 - Chronic obstructive pulmonary disease, unspecified Category: Medical Code(s): J44.9 - Chronic obstructive pulmonary disease, unspecified (6) Tobacco abuse: Status: Acute Category: Medical Code(s): Z72.0 - Tobacco use (7) Medical non-compliance: Status: Acute Category: Medical Code(s): Z91.19 - Patient's noncompliance with other medical treatment and regimen Plan 53yo F with PMHx of uncontrolled IDDM, medically non compliance, HFrEF, afib, CVA, COPD, presented to ED for evaluation of referred 5-day history of malaise and complaining dyspnea especially with taking deep breaths secondary to chest wall pain. Initial interventions included crystalloid bolus Toradol and Tylenol. Initial workup reviewed by me that shows significant hyperglycemia without acetone, pseudohyponatremia, hypokalemia, venous pH of 7.3 with a venous lactate of 4.1, CO2 of 23 and gap of 18, BUN of 29 with a creatinine of 1.7, and a glucose of 1234 and a hemoglobin A1c greater than 14.after short walk to the bathroom patient underwent into episode of v tach with hemodinamically instability and AMS. started on amiodarone. Findings discussed with ED. agreed for admision. Plans as follow: -uncontrolled IDDM with HHS: JOELLE sustained V tach with unstability: admit patient. Dispo ICU started on amiodarone infusion insuline infusion. HHS protocols CMP Q2h continue IV hydration cardiology consult -Chronic conditons: Pace maker in situ, HFrEF,; resume entresto and plavix and xarelto -COPD: optimize o2 sat, resume home nebulizer Smoker On nicotine patch Medically non compliance Scd for DVT ppx, on protonix Full code
[2023-11-05 20:38] LABS: Potassium 5.6 mmoL/L (3.5-5.1)
[2023-11-05 20:45] LABS: Chloride 87 mmol/L (98-107); Sodium 118 mmol/L (136-145)
[2023-11-05 20:48] LABS: Alanine Aminotransferase 26 U/L (12-78); Albumin Level 3.2 g/dl (3.5-5.0); Alkaline Phosphatase 116 U/L (38-126); Aspartate Amino Transferase 24 U/L (14-36); Bilirubin,Total 0.7 mg/dl (0.2-1.3); Blood Urea Nitrogen 30 mg/dl (7-17); Carbon Dioxide 24 mmol/L (22.0-30.0); Creatinine Clearance Estimated 53 mL/min (50-200); Estimated Glomerular Filt Rate 34 ml/min (>60); GFR (African American) 41 ML/MIN (>60); Globulin 3.3 g/dL (1.3-3.2); Total Protein,Serum 6.5 g/dl (6.3-8.2)
--- NOTE | 2023-11-05 20:48 | PC.NURSE ---
report called to sabrina singer to transport
[2023-11-05 20:49] LABS: Calcium 9.2 mg/dl (8.4-10.2)
--- NOTE | 2023-11-05 20:51 | PC.NURSE ---
pt arrived to floor at this time
[2023-11-05 20:58] LABS: Glucose 973 mg/dl (74-100)
[2023-11-05 21:14] LABS: Reflex Lactic Add Lactic Reflex
[2023-11-05] MEDS: INSULIN REGULAR, HUMAN 100 UNIT in 0.9 % SODIUM CHLORIDE 100 ML 10.0999999999999996 UNIT IV (21:24)
[2023-11-05 21:28] LABS: Microscopic, Urine URINE MICROSCOPIC (MICROSCOPIC)
[2023-11-05 21:32] LABS: Appearance,Urine CLEAR (Clear); Bilirubin,Urine Negative (Negative); Blood, Urine TRACE-I (Negative); Color,Urine YELLOW (Yellow); Glucose,Urine (UA) 3+ (Negative); Ketones,Urine Negative (Negative); Leukocyte Esterase,Urine 1+ (Negative); Nitrate,Urine Negative (Negative); PH,Urine 5.5 (5.0-8.5); Protein,Urine Negative (Negative); Specific Gravity, Urine <= 1.005 (1.005-1.030); Urobilinogen,Urine 0.2 EU/dl (0.2)
[2023-11-05 21:32] LABS: Lactic Acid Follow Up (RFLX 1) 3.3 mmol/L (0.7-2.1)
[2023-11-05 21:44] LABS: Bacteria,Urine Trace /lpf; RBC,Urine Occasional #/hpf (0-3); WBC,Urine Occasional #/hpf (0-3)
[2023-11-05] MEDS: 0.9 % SODIUM CHLORIDE 1000ML 1,000 ML 150 ML IV (21:54)
[2023-11-05] MEDS: PANTOPRAZOLE 40MG VIAL 40 MG IV (21:57)
[2023-11-05 22:27] LABS: Chloride 88 mmol/L (98-107); Potassium 4.4 mmoL/L (3.5-5.1); Sodium 122 mmol/L (136-145)
[2023-11-05 22:30] LABS: Anion Gap 13.4 mEq/L (5-15); Blood Urea Nitrogen 32 mg/dl (7-17); Calcium 9.4 mg/dl (8.4-10.2); Carbon Dioxide 25 mmol/L (22.0-30.0); Creatinine Clearance Estimated 53 mL/min (50-200); Estimated Glomerular Filt Rate 34 ml/min (>60); GFR (African American) 41 ML/MIN (>60)
[2023-11-05 22:31] LABS: Magnesium 2.5 mg/dl (1.6-2.3); Phosphorous 3.2 mg/dl (2.5-4.5)
[2023-11-05 22:38] LABS: Glucose 788 mg/dl (74-100)
[2023-11-05] MEDS: 0.9% NaCl w/20mEq KCL 1,000 ML 150 ML IV (23:00)
--- NOTE | 2023-11-05 23:01 | PC.NURSE ---
EQ, EASEMENT MAN @ BEDSIDE AND NOTIFIED OF IVF CHANGE
[2023-11-05 23:07] LABS: Reflex Lactic (2 hrs) Add Lactic Reflex
[2023-11-05 23:19] LABS: Troponin I < 0.01 ng/ml (0.00-0.034)
[2023-11-05 23:43] LABS: Glucose,Random 693 mg/dL (74-100)
[2023-11-05 23:44] LABS: Troponin I < 0.01 ng/ml (0.00-0.034)
[2023-11-06] VITALS (16 sets, daily range): BP systolic 86–110; BP diastolic 49–65; PULSE 72–101; RESP 18–22; TEMP 36.6–37.1; O2SAT 91–100; BMI 30.6
[2023-11-06 00:24] LABS: Lactic Acid Follow up (RFLX 2) 2.5 mmol/L (0.7-2.1)
[2023-11-06 01:27] LABS: Glucose,Random 488 mg/dL (74-100)
[2023-11-06 02:21] LABS: POC Glucose,Bedside 427 (70-110)
[2023-11-06 02:26] LABS: Anion Gap 10.8 mEq/L (5-15); Blood Urea Nitrogen 30 mg/dl (7-17); Calcium 9.4 mg/dl (8.4-10.2); Carbon Dioxide 27 mmol/L (22.0-30.0); Chloride 95 mmol/L (98-107); Creatinine Clearance Estimated 56 mL/min (50-200); Estimated Glomerular Filt Rate 36 ml/min (>60); GFR (African American) 44 ML/MIN (>60); Magnesium 2.5 mg/dl (1.6-2.3); Phosphorous 3.4 mg/dl (2.5-4.5); Potassium 3.8 mmoL/L (3.5-5.1); Sodium 129 mmol/L (136-145)
[2023-11-06 02:27] LABS: Glucose 417 mg/dl (74-100)
[2023-11-06 06:18] LABS: Chloride 98 mmol/L (98-107); Potassium 3.5 mmoL/L (3.5-5.1); Sodium 131 mmol/L (136-145)
[2023-11-06 06:20] LABS: Alanine Aminotransferase 16 U/L (12-78); Aspartate Amino Transferase 21 U/L (14-36); Blood Urea Nitrogen 27 mg/dl (7-17); Creatinine Clearance Estimated 65 mL/min (50-200); Estimated Glomerular Filt Rate 43 ml/min (>60); GFR (African American) 52 ML/MIN (>60)
[2023-11-06 06:21] LABS: Albumin/Globulin Ratio 0.9 (1.1-1.8); Alkaline Phosphatase 102 U/L (38-126); Anion Gap 9.5 mEq/L (5-15); Bilirubin,Total 0.4 mg/dl (0.2-1.3); Carbon Dioxide 27 mmol/L (22.0-30.0); Chol/HDL Ratio 4.8 (1-3.5); Cholesterol 95 mg/dl (140-200); Globulin 3.3 g/dL (1.3-3.2); Glucose 340 mg/dl (74-100); HDL Cholesterol 20 mg/dl (40-60); Magnesium 2.4 mg/dl (1.6-2.3); Total Protein,Serum 6.3 g/dl (6.3-8.2); Triglycerides 352 mg/dl (30-150); VLDL Cholesterol 70 mg/dL (0-40)
[2023-11-06 06:28] LABS: Basophils # 0.1 K/mm3 (0-0.2); Basophils % 1.1 % (0.1-2.0); Eosinophils # 0.2 K/mm3 (0.0-0.4); Eosinophils % 1.6 % (0.1-12.0); Hematocrit 38.7 % (37.0-47.0); Lymphocytes # 3.3 K/mm3 (0.7-4.5); Lymphocytes % 26.6 % (10-50); Mean Corpuscular HGB Conc 33.6 g/dL (31.8-35.4); Mean Corpuscular Hemoglobin 29.4 pg (27.0-31.2); Mean Corpuscular Volume 87.5 fl (81-99); Mean Platelet Volume 9.1 fl (7.4-10.4); Monocytes # 0.7 K/mm3 (0.1-1.0); Monocytes % 5.4 % (1.7-9.3); Neutrophils # 8.1 K/mm3 (1.8-7.8); Neutrophils % 65.3 % (37.0-80.0); Platelet Count 302 K/mm3 (142-424); Red Blood Count 4.42 M/mm3 (4.20-5.40); Red Cell Distribution Width 14.3 % (11.5-17.5); White Blood Count 12.4 K/mm3 (4.8-10.8)
[2023-11-06] MEDS: 0.9% NaCl w/20mEq KCL 1,000 ML 150 ML IV (06:30)
[2023-11-06 06:32] LABS: Direct LDL Cholesterol 43.89 mg/dL (100-129)
[2023-11-06 08:16] LABS: POC Glucose,Bedside 311 (70-110)
--- NOTE | 2023-11-06 09:05 | HMH.PHAINT1 ---
Pharmacy Intervention Comments: HOME MEDICATION LIST VERIFIED USING LIST FROM OUTPATIENT PHARMACY
[2023-11-06 09:12] LABS: POC Glucose,Bedside 263 (70-110)
[2023-11-06] MEDS: CLOPIDOGREL 75MG TAB 75 MG PO (10:04)
[2023-11-06] MEDS: SACUBITRIL/VALSARTAN 24-26MG TABLET 2 EACH PO ×2 (10:04→20:28)
[2023-11-06] MEDS: CHOLECALCIFEROL 1,000 UNITS (25MCG) TABLET 50 MCG PO (10:04)
[2023-11-06] MEDS: METOPROLOL SUCCINATE XL 100MG TABLET 200 MG PO (10:04)
[2023-11-06] MEDS: FUROSEMIDE 40 MG TABLET PO (10:05)
[2023-11-06] MEDS: LORATADINE 10MG TABLET 10 MG PO (10:05)
[2023-11-06] MEDS: ALBUTEROL 0.083% 2.5 MG/3 ML NEB IH (10:06)
--- NOTE | 2023-11-06 10:08 | PC.NURSE ---
Greg Graham. PA made aware of pt's blood pressures. OK to give metoprolol and entresto and furosemide as long as systolic above 90
[2023-11-06 10:16] LABS: POC Glucose,Bedside 350 (70-110)
[2023-11-06 10:16] LABS: POC Glucose,Bedside 406 (70-110)
[2023-11-06 10:16] LABS: POC Glucose,Bedside 256 (70-110)
[2023-11-06 10:16] LABS: POC Glucose,Bedside 427 (70-110)
[2023-11-06 10:16] LABS: POC Glucose,Bedside 413 (70-110)
[2023-11-06 10:16] LABS: POC Glucose,Bedside 307 (70-110)
[2023-11-06 10:45] LABS: Chloride 104 mmol/L (98-107); Potassium 3.9 mmoL/L (3.5-5.1); Sodium 134 mmol/L (136-145)
[2023-11-06 10:47] LABS: Blood Urea Nitrogen 26 mg/dl (7-17); Creatinine Clearance Estimated 65 mL/min (50-200); Estimated Glomerular Filt Rate 43 ml/min (>60); GFR (African American) 52 ML/MIN (>60)
[2023-11-06 10:48] LABS: Anion Gap 7.9 mEq/L (5-15); Calcium 8.9 mg/dl (8.4-10.2); Carbon Dioxide 26 mmol/L (22.0-30.0); Glucose 193 mg/dl (74-100); Magnesium 2.3 mg/dl (1.6-2.3); Phosphorous 2.7 mg/dl (2.5-4.5)
[2023-11-06 11:29] LABS: POC Glucose,Bedside 190 (70-110)
[2023-11-06] MEDS: humaLOG MIX 75/25 3ML FLEXPEN 40 UNIT SQ ×2 (11:40→20:29)
[2023-11-06] MEDS: humaLOG 100 UNITS/ML 3ML VIAL (SSI) SQ ×3 (11:40→20:29)
--- NOTE | 2023-11-06 12:13 | P.CONCA_ITS ---
History of Present Illness History of Present Illness Consult date: 11/06/23 Requesting physician: Earlene Brooke Chief complaint: weakness History of present illness: 53-year-old white female established patient of our office with history of HFrEF EF 28% nonischemic cardiomyopathy. She is status post CLINICAL SUPPORT SPECIALIST-D ICD 12/2022. She also has permanent atrial fibrillation, COPD, medication noncompliance. She had a medical management left heart cath 2019. Patient presented to the ER last night with complaints of 5 days of severe and worsening malaise dyspnea decreased appetite and weakness. On arrival she was found to be in HHS with glucose 1200, A1c 14, potassium 6.2. She had several runs of V. tach in the emergency department. Patient was placed on Amiodarone drip. Her defibrillator did not fire. She was admitted to the floor overnight. Glucose this morning is 300, she is feeling somewhat better but still weak overall. Patient reports she takes her medications when I think about it. She has had no further VT. [facility] Disclaimer: The information contained in this section may have been updated after the patient was seen, as this information can be updated by other users. Medical History Angina pectoris Cardiac pacemaker in situ Chronic HFrEF (heart failure with reduced ejection fraction) Syncope Atrial fibrillation with RVR Edema of both lower extremities Spider bite Dilated cardiomyopathy Hyperlipidemia CAD in [place] artery Left sided numbness Shortness of Breath Chest pain Systolic CHF with reduced left ventricular function, NYHA class 3 Atrial fibrillation with rapid ventricular response Hyperosmolar hyperglycemic state (HHS) Perirectal abscess SIRS (systemic inflammatory response syndrome) Diabetes mellitus Acute bronchitis Nonerosive nonspecific gastritis Chronic atrial fibrillation Chronic renal insufficiency, stage III (moderate) Uncontrolled type 2 DM with hyperosmolar nonketotic hyperglycemia Diabetic acetonemia Renal insufficiency Dysphagia Pulmonary hypertension Tobacco user HTN (hypertension) Type 2 diabetes mellitus Obesity Pneumonia COPD (chronic obstructive pulmonary disease) Surgical History History of esophagogastroduodenoscopy (EGD) History of bladder surgery History of esophageal surgery H/O right coronary artery stent placement H/O: hysterectomy Family History Other Coronary artery disease Social History Smoking Status: Current every day smoker tobacco type: cigarettes packs per day: 1 second hand exposure: Yes alcohol intake: former substance use type: denies use current occupational status: disabled Travel in the last 8 weeks: None household members: spouse and children housing: house current occupational exposures/hazards: No caffeine: Yes Review of Systems Constitutional Constitutional: Reports fatigue and Reports weakness Eyes Eyes: Denies loss of vision ENT Ears, Nose, Mouth, and Throat: Denies hearing loss and Denies vertigo *Cardiovascular Cardiovascular: Denies chest pain, Denies dyspnea and Denies syncope *Respiratory Respiratory: Denies cough and Denies dyspnea *Gastrointestinal Gastrointestinal: Denies change in stool character, Denies nausea and Denies vomiting Comments: decreased appetite *Musculoskeletal Musculoskeletal: Denies muscle weakness Integumentary/Breasts Skin/Breast: Denies changing lesions *Neurologic Neurologic: Denies loss of vision, Denies syncope, Denies vertigo and Reports weakness Endocrine Endocrine: Reports fatigue Exam Data for Last 24 hours Vital signs and Labs for Last 24 Hours: Temp Pulse Resp BP Pulse Ox O2 Del Method O2 Flow Rate 98.3 F 76 22 92/63 L 91 L Room Air 2 11/06/23 08:00 11/06/23 11:00 11/06/23 11:00 11/06/23 11:00 11/06/23 11:00 11/06/23 11:00 11/05/23 18:30 Laboratory Results - last 24 hr 11/05/23 00:05: Lactate 2.5 H 11/05/23 14:50: SARS-CoV-2 (PCR) Not detected, Influenza A Untype (PCR) Not detected, Influenza Type B (PCR) Not detected 11/05/23 14:51: Group A Strep Rapid Negative 11/05/23 16:54: WBC 9.2, RBC 4.91, Hgb 14.4, Hct 48.3 H, MCV 98.4, MCH 29.3, MCHC 29.8 L, RDW 14.3, Plt Count 316, MPV 10.0, Neut % (Auto) 61.9, Lymph % (Auto) 29.9, Brooke % (Auto) 6.0, Eos % (Auto) 0.3, Baso % (Auto) 2.0, Neut # (Auto) 5.7, Lymph # (Auto) 2.7, Brooke # (Auto) 0.6, Eos # (Auto) 0.0, Baso # (Auto) 0.2, PT 11.5, INR 1.07, D-Dimer 0.52 H, Sodium 116 L, Potassium 6.2 H*, Chloride 81 L, Carbon Dioxide 23, Anion Gap 18.2 H, BUN 29 H, Creatinine 1.70 H, Estimated Creat Clear 50, Estimated GFR 32 L, Est GFR ( Amer) 38 L, Glucose 1234 H*, Hemoglobin A1c > 14.0 H, Calcium 9.6, Phosphorus 4.9 H, Magnesium 2.4 H, Total Bilirubin 1.0, AST 31, ALT 29, Alkaline Phosphatase 123, Troponin I < 0.01, Total Protein 7.2, Albumin 3.7, Globulin 3.5 H, Albumin/Globulin Ratio 1.1, Acetone Level None detected 11/05/23 17:04: VBG pH 7.30 L, VBG pCO2 41.0, VBG pO2 29.7, VBG HCO3 19.5 L, VBG Total CO2 20.8 L, VBG O2 Saturation 61.3, VBG Base Excess -6.9 L, VBG Lactic Acid 4.1 H 11/05/23 20:15: Potassium 5.6 H, Lactate 3.3 H, Troponin I < 0.01 11/05/23 20:20: Sodium 118 L, Potassium 5.0, Chloride 87 L, Carbon Dioxide 24, Anion Gap 12.0, BUN 30 H, Creatinine 1.60 H, Estimated Creat Clear 53, Estimated GFR 34 L, Est GFR ( Amer) 41 L, Glucose 973 H* D, Calcium 9.2, Total Bilirubin 0.7, AST 24, ALT 26, Alkaline Phosphatase 116, Total Protein 6.5, Albumin 3.2 L D, Globulin 3.3 H, Albumin/Globulin Ratio 1.0 L 11/05/23 21:23: Urine Color Yellow, Urine Appearance Clear, Urine pH 5.5, Ur Specific [place] <= 1.005, Urine Protein Negative, Urine Glucose (UA) 3+, Urine Ketones Negative, Urine Blood Trace-i, Urine Nitrate Negative, Urine Bilirubin Negative, Urine Urobilinogen 0.2, Ur Leukocyte Esterase 1+ A, Urine RBC Occasional, Urine WBC Occasional, Ur Squamous Epith Cells 5-10, Urine Bacteria Trace 11/05/23 22:00: Sodium 122 L, Potassium 4.4, Chloride 88 L, Carbon Dioxide 25, Anion Gap 13.4, BUN 32 H, Creatinine 1.60 H, Estimated Creat Clear 53, Estimated GFR 34 L, Est GFR ( Amer) 41 L, Glucose 788 H*, Calcium 9.4, Phosphorus 3.2 D, Magnesium 2.5 H 11/05/23 23:05: Random Glucose 693 H*, Troponin I < 0.01 11/06/23 01:05: Random Glucose 488 H* D 11/06/23 02:10: Sodium 129 L, Potassium 3.8, Chloride 95 L, Carbon Dioxide 27, Anion Gap 10.8, BUN 30 H, Creatinine 1.50 H, Estimated Creat Clear 56, Estimated GFR 36 L, Est GFR ( Amer) 44 L, Glucose 417 H* D, Calcium 9.4, Phosphorus 3.4, Magnesium 2.5 H 11/06/23 02:12: POC Glucose 427 H* 11/06/23 03:21: POC Glucose 413 H* 11/06/23 04:12: POC Glucose 427 H* 11/06/23 05:10: POC Glucose 406 H* 11/06/23 06:00: WBC 12.4 H D, RBC 4.42, Hgb 13.0, Hct 38.7, MCV 87.5, MCH 29.4, MCHC 33.6, RDW 14.3, Plt Count 302, MPV 9.1, Neut % (Auto) 65.3, Lymph % (Auto) 26.6, Brooke % (Auto) 5.4, Eos % (Auto) 1.6, Baso % (Auto) 1.1, Neut # (Auto) 8.1 H, Lymph # (Auto) 3.3, Brooke # (Auto) 0.7, Eos # (Auto) 0.2, Baso # (Auto) 0.1, Sodium 131 L, Potassium 3.5, Chloride 98, Carbon Dioxide 27, Anion Gap 9.5, BUN 27 H, Creatinine 1.30 H, Estimated Creat Clear 65, Estimated GFR 43 L, Est GFR ( Amer) 52 L, Glucose 340 H, Calcium 9.0, Phosphorus 3.0, Magnesium 2.4 H , Total Bilirubin 0.4, AST 21, ALT 16 D, Alkaline Phosphatase 102, Total Protein 6.3, Albumin 3.0 L, Globulin 3.3 H, Albumin/Globulin Ratio 0.9 L, Triglycerides 352 H, Cholesterol 95 L, LDL Cholesterol Direct 43.89 L, VLDL Cholesterol 70 H, HDL Cholesterol 20 L, Cholesterol/HDL Ratio 4.8 H 11/06/23 06:02: POC Glucose 350 H* 11/06/23 07:01: POC Glucose 307 H* 11/06/23 08:05: POC Glucose 311 H* 11/06/23 09:02: POC Glucose 263 H 11/06/23 10:03: POC Glucose 256 H 11/06/23 10:22: Sodium 134 L, Potassium 3.9, Chloride 104, Carbon Dioxide 26, Anion Gap 7.9, BUN 26 H, Creatinine 1.30 H, Estimated Creat Clear 65, Estimated GFR 43 L, Est GFR ( Amer) 52 L, Glucose 193 H D, Calcium 8.9, Phosphorus 2.7, Magnesium 2.3 11/06/23 11:08: POC Glucose 190 H I & O for Last 24 hours: Intake & Output 11/03/23 11/04/23 11/05/23 11/06/23 23:59 23:59 23:59 23:59 Intake Total 130.624 / 263.005 2281.757 / 2751.757 Output Total 2700 / 3200 2500 / 2500 Balance -2569.376 / -3069.376 251.757 / 251.757 Weight 179 lb 4.8 oz 179 lb 6.948 oz Meds Home Medications and Allergies Home Medications Medication Instructions Recorded Confirmed Type albuterol sulfate 90 mcg/actuation 2 inh inhalation QIDP PRN 11/05/23 11/05/23 History aerosol inhaler (Ventolin HFA) Shortness Of Breath Or Wheezing cholecalciferol (vitamin D3) 1,250 1,250 mcg PO WEEKLY 11/05/23 11/05/23 History mcg (50,000 unit) capsule cholecalciferol (vitamin D3) 50 50 mcg PO DAILY 11/05/23 11/05/23 History mcg (2,000 unit) capsule clopidogrel 75 mg tablet 75 mg PO DAILY 11/05/23 11/05/23 History cyclobenzaprine 5 mg tablet 5 mg PO BID 11/05/23 11/05/23 History digoxin 125 mcg (0.125 mg) tablet 125 mcg PO DAILY 11/05/23 11/05/23 History furosemide 40 mg tablet 40 mg PO DAILY 11/05/23 11/05/23 History insulin NPH-regular 70-30 U-100 40 unit SQ BID 11/05/23 11/05/23 History insulin 100 unit/mL subcutaneous pen (Humulin 70/30 U-100 KwikPen) ipratropium 20 mcg-albuterol 100 1 puff inhalation QID 11/05/23 11/05/23 History mcg/actuation mist for inhalation (Combivent Respimat) loratadine 10 mg tablet 10 mg PO DAILY 11/05/23 11/05/23 History metoprolol succinate 200 mg 200 mg PO DAILY 11/05/23 11/05/23 History tablet,extended release 24 hr pantoprazole 40 mg tablet,delayed 40 mg PO HS 11/05/23 11/05/23 History release rivaroxaban 15 mg tablet (Xarelto) 15 mg PO HS 11/05/23 11/05/23 History rosuvastatin 40 mg tablet 40 mg PO HS 11/05/23 11/05/23 History sacubitril 49 mg-valsartan 51 mg 1 tab PO BID 11/05/23 11/05/23 History tablet (Entresto) spironolactone 25 mg tablet 25 mg PO BID 11/05/23 11/05/23 History New Prescriptions to Start Prescriptions: Allergies Allergy/AdvReac Type Severity Reaction Status Date / Time Penicillins [PENICILLINS] Allergy Intermediate I-HIVES Verified 09/07/23 14:26 Assessment and Plan *Assessment and plan (1) Uncontrolled type 2 DM with hyperosmolar nonketotic hyperglycemia: Status: Acute Category: Medical Code(s): E11.00 - Type 2 diabetes mellitus with hyperosmolarity without nonketotic hyperglycemic-hyperosmolar coma (NKHHC) (2) Acute kidney injury (nontraumatic): Status: Acute Category: Medical Code(s): N17.9 - Acute kidney failure, unspecified (3) Ventricular tachycardia: Status: Acute Category: Medical Code(s): I47.20 - Ventricular tachycardia, unspecified (4) Chronic HFrEF (heart failure with reduced ejection fraction): Status: Acute Category: Medical Code(s): I50.22 - Chronic systolic (congestive) heart failure (5) COPD (chronic obstructive pulmonary disease): Status: Chronic Qualifiers: COPD type: unspecified COPD Qualified Code(s): J44.9 - Chronic obstructive pulmonary disease, unspecified Category: Medical Code(s): J44.9 - Chronic obstructive pulmonary disease, unspecified (6) Tobacco abuse: Status: Acute Category: Medical Code(s): Z72.0 - Tobacco use (7) Medical non-compliance: Status: Acute Category: Medical Code(s): Z91.19 - Patient's noncompliance with other medical treatment and regimen Plan NSVT - in setting of HHS with K of 6.2 - improved with Amio and lyte correction - will cont toprol and digoxin. DC Amio due to perm a-fib Severe Hyperkalemia - due to HHS - improved IDDM with HHS - glucose 1400, A1C >14 pH 7.3 - due to noncompliance - plans per primary service NIDM/HFrEF s/p CLINICAL SUPPORT SPECIALIST-D ICD 12/2022 - pt non compliant with meds - resume Entresto, Aldaconte, BB as tolerated Permaent A-fib - resume xarelto, toprol, digoxin home doses Medical Noncompliance - explained to pt she is risking her life by not taking her meds
--- NOTE | 2023-11-06 15:34 | PC.NURSE ---
VS stable. BS stable. 2LNc administered while patient sleeping as oxygen saturations decreased to 84% on room air at rest. Lung sounds clear.
--- NOTE | 2023-11-06 15:36 | EXP.PN ---
Subjective *Date: 11/06/23 *Time: 15:36 Interval history: patient was seen and evaluated at the bedside. No reported acute events overnight, denies chest pain, shortness of breath, nausea, vomiting, abdominal pain. Exam Data for Last 24 hours Vital signs and Labs for Last 24 Hours: Temp Pulse Resp BP Pulse Ox O2 Del Method O2 Flow Rate 98.5 F 79 22 94/50 L 93 L Room Air 2 11/06/23 12:00 11/06/23 12:00 11/06/23 12:00 11/06/23 12:00 11/06/23 12:00 11/06/23 12:40 11/05/23 18:30 Laboratory Results - last 24 hr 11/05/23 00:05: Lactate 2.5 H 11/05/23 14:50: SARS-CoV-2 (PCR) Not detected, Influenza A Untype (PCR) Not detected, Influenza Type B (PCR) Not detected 11/05/23 14:51: Group A Strep Rapid Negative 11/05/23 16:54: WBC 9.2, RBC 4.91, Hgb 14.4, Hct 48.3 H, MCV 98.4, MCH 29.3, MCHC 29.8 L, RDW 14.3, Plt Count 316, MPV 10.0, Neut % (Auto) 61.9, Lymph % (Auto) 29.9, [place] % (Auto) 6.0, Eos % (Auto) 0.3, Baso % (Auto) 2.0, Neut # (Auto) 5.7, Lymph # (Auto) 2.7, [place] # (Auto) 0.6, Eos # (Auto) 0.0, Baso # (Auto) 0.2, PT 11.5, INR 1.07, D-Dimer 0.52 H, Sodium 116 L, Potassium 6.2 H*, Chloride 81 L, Carbon Dioxide 23, Anion Gap 18.2 H, BUN 29 H, Creatinine 1.70 H, Estimated Creat Clear 50, Estimated GFR 32 L, Est GFR ( Amer) 38 L, Glucose 1234 H*, Hemoglobin A1c > 14.0 H, Calcium 9.6, Phosphorus 4.9 H, Magnesium 2.4 H, Total Bilirubin 1.0, AST 31, ALT 29, Alkaline Phosphatase 123, Troponin I < 0.01, Total Protein 7.2, Albumin 3.7, Globulin 3.5 H, Albumin/Globulin Ratio 1.1, Acetone Level None detected 11/05/23 17:04: VBG pH 7.30 L, VBG pCO2 41.0, VBG pO2 29.7, VBG HCO3 19.5 L, VBG Total CO2 20.8 L, VBG O2 Saturation 61.3, VBG Base Excess -6.9 L, VBG Lactic Acid 4.1 H 11/05/23 20:15: Potassium 5.6 H, Lactate 3.3 H, Troponin I < 0.01 11/05/23 20:20: Sodium 118 L, Potassium 5.0, Chloride 87 L, Carbon Dioxide 24, Anion Gap 12.0, BUN 30 H, Creatinine 1.60 H, Estimated Creat Clear 53, Estimated GFR 34 L, Est GFR ( Amer) 41 L, Glucose 973 H* D, Calcium 9.2, Total Bilirubin 0.7, AST 24, ALT 26, Alkaline Phosphatase 116, Total Protein 6.5, Albumin 3.2 L D, Globulin 3.3 H, Albumin/Globulin Ratio 1.0 L 11/05/23 21:23: Urine Color Yellow, Urine Appearance Clear, Urine pH 5.5, Ur Specific [place] <= 1.005, Urine Protein Negative, Urine Glucose (UA) 3+, Urine Ketones Negative, Urine Blood Trace-i, Urine Nitrate Negative, Urine Bilirubin Negative, Urine Urobilinogen 0.2, Ur Leukocyte Esterase 1+ A, Urine RBC Occasional, Urine WBC Occasional, Ur Squamous Epith Cells 5-10, Urine Bacteria Trace 11/05/23 22:00: Sodium 122 L, Potassium 4.4, Chloride 88 L, Carbon Dioxide 25, Anion Gap 13.4, BUN 32 H, Creatinine 1.60 H, Estimated Creat Clear 53, Estimated GFR 34 L, Est GFR ( Amer) 41 L, Glucose 788 H*, Calcium 9.4, Phosphorus 3.2 D, Magnesium 2.5 H 11/05/23 23:05: Random Glucose 693 H*, Troponin I < 0.01 11/06/23 01:05: Random Glucose 488 H* D 11/06/23 02:10: Sodium 129 L, Potassium 3.8, Chloride 95 L, Carbon Dioxide 27, Anion Gap 10.8, BUN 30 H, Creatinine 1.50 H, Estimated Creat Clear 56, Estimated GFR 36 L, Est GFR ( Amer) 44 L, Glucose 417 H* D, Calcium 9.4, Phosphorus 3.4, Magnesium 2.5 H 11/06/23 02:12: POC Glucose 427 H* 11/06/23 03:21: POC Glucose 413 H* 11/06/23 04:12: POC Glucose 427 H* 11/06/23 05:10: POC Glucose 406 H* 11/06/23 06:00: WBC 12.4 H D, RBC 4.42, Hgb 13.0, Hct 38.7, MCV 87.5, MCH 29.4, MCHC 33.6, RDW 14.3, Plt Count 302, MPV 9.1, Neut % (Auto) 65.3, Lymph % (Auto) 26.6, [place] % (Auto) 5.4, Eos % (Auto) 1.6, Baso % (Auto) 1.1, Neut # (Auto) 8.1 H, Lymph # (Auto) 3.3, [place] # (Auto) 0.7, Eos # (Auto) 0.2, Baso # (Auto) 0.1, Sodium 131 L, Potassium 3.5, Chloride 98, Carbon Dioxide 27, Anion Gap 9.5, BUN 27 H, Creatinine 1.30 H, Estimated Creat Clear 65, Estimated GFR 43 L, Est GFR ( Amer) 52 L, Glucose 340 H, Calcium 9.0, Phosphorus 3.0, Magnesium 2.4 H, Total Bilirubin 0.4, AST 21, ALT 16 D, Alkaline Phosphatase 102, Total Protein 6.3, Albumin 3.0 L, Globulin 3.3 H, Albumin/Globulin Ratio 0.9 L, Triglycerides 352 H, Cholesterol 95 L, LDL Cholesterol Direct 43.89 L, VLDL Cholesterol 70 H, HDL Cholesterol 20 L, Cholesterol/HDL Ratio 4.8 H 11/06/23 06:02: POC Glucose 350 H* 11/06/23 07:01: POC Glucose 307 H* 11/06/23 08:05: POC Glucose 311 H* 11/06/23 09:02: POC Glucose 263 H 11/06/23 10:03: POC Glucose 256 H 11/06/23 10:22: Sodium 134 L, Potassium 3.9, Chloride 104, Carbon Dioxide 26, Anion Gap 7.9, BUN 26 H, Creatinine 1.30 H, Estimated Creat Clear 65, Estimated GFR 43 L, Est GFR ( Amer) 52 L, Glucose 193 H D, Calcium 8.9, Phosphorus 2.7, Magnesium 2.3 11/06/23 11:08: POC Glucose 190 H I & O for Last 24 hours: Intake & Output 11/03/23 11/04/23 11/05/23 11/06/23 23:59 23:59 23:59 23:59 Intake Total 130.624 / 449.009 2852.757 / 3116.757 Output Total 2700 / 3200 2900 / 2900 Balance -2569.376 / -3069.376 216.757 / 216.757 Weight 81.329 kg 81.39 kg Constitutional Constitutional: no acute distress *Routine HEENT Exam Head: Present normocephalic Eye: Present EOMI and PERRL ENT: Present mucous membranes moist *Routine Neck Exam Neck: Present supple; Absent lymphadenopathy *Routine Respiratory Exam Respiratory: Present CTA bilaterally *Routine Cardiovascular Exam Cardiovascular: Present RRR *Routine Abdominal Exam Abdominal: Present soft and normoactive bowel sounds; Absent tenderness *Routine Extremities Exam Extremities: Absent cyanosis, clubbing or edema *Routine Skin Exam Skin: Present warm; Absent rash *Routine Neurological Exam Neurological: Present alert and oriented X3 Assessment and Plan *Assessment and plan (1) Uncontrolled type 2 DM with hyperosmolar nonketotic hyperglycemia: Status: Acute Category: Medical Code(s): E11.00 - Type 2 diabetes mellitus with hyperosmolarity without nonketotic hyperglycemic-hyperosmolar coma (NKHHC) (2) Acute kidney injury (nontraumatic): Status: Acute Category: Medical Code(s): N17.9 - Acute kidney failure, unspecified (3) Ventricular tachycardia: Status: Acute Category: Medical Code(s): I47.20 - Ventricular tachycardia, unspecified (4) Chronic HFrEF (heart failure with reduced ejection fraction): Status: Acute Category: Medical Code(s): I50.22 - Chronic systolic (congestive) heart failure (5) COPD (chronic obstructive pulmonary disease): Status: Chronic Qualifiers: COPD type: unspecified COPD Qualified Code(s): J44.9 - Chronic obstructive pulmonary disease, unspecified Category: Medical Code(s): J44.9 - Chronic obstructive pulmonary disease, unspecified (6) Tobacco abuse: Status: Acute Category: Medical Code(s): Z72.0 - Tobacco use (7) Medical non-compliance: Status: Acute Category: Medical Code(s): Z91.19 - Patient's noncompliance with other medical treatment and regimen Plan 53yo F with PMHx of uncontrolled IDDM, medically non compliance, HFrEF, afib, CVA, COPD, presented to ED for evaluation of referred 5-day history of malaise and complaining dyspnea especially with taking deep breaths secondary to chest wall pain. Initial interventions included crystalloid bolus Toradol and Tylenol. Initial workup reviewed by me that shows significant hyperglycemia without acetone, pseudohyponatremia, hypokalemia, venous pH of 7.3 with a venous lactate of 4.1, CO2 of 23 and gap of 18, BUN of 29 with a creatinine of 1.7, and a glucose of 1234 and a hemoglobin A1c greater than 14.after short walk to the bathroom patient underwent into episode of v tach with hemodinamically instability and AMS. started on amiodarone. Findings discussed with ED. agreed for admision. Plans as follow: Uncontrolled IDDM with HHS: JOELLE sustained V tach with unstability: admit patient. Dispo ICU started on amiodarone infusion - DC amio insuline infusion. - DC insulin and switch to long acting insulin [facility] protocol continue IV hydration cardiology consult - plan to restart Digoxin and beta lay, no Amio at dc -Chronic conditons: Pace maker in situ, HFrEF,; resume entresto and plavix and xarelto -COPD: optimize o2 sat, resume home nebulizer Smoker On nicotine patch Medically non compliance Scd for DVT ppx, on protonix Full code ok to transfer to [facility] [place]
[2023-11-06 16:47] LABS: POC Glucose,Bedside 332 (70-110)
[2023-11-06 20:15] LABS: POC Glucose,Bedside 364 (70-110)
[2023-11-06] MEDS: ATORVASTATIN 40MG TABLET 40 MG PO (20:28)
[2023-11-06] MEDS: RIVAROXABAN 15MG TABLET 15 MG PO (20:28)
[2023-11-06] MEDS: PANTOPRAZOLE 40MG VIAL 40 MG IV (20:28)
[2023-11-07] VITALS: BP 115/48; PULSE 85; RESP 18; TEMP 37.1; O2SAT 99
[2023-11-07 04:00] VITALS: BP 102/60; PULSE 95; RESP 18; TEMP 36.9; O2SAT 98; BMI 31.1
[2023-11-07 06:32] LABS: POC Glucose,Bedside 135 (70-110)
[2023-11-07 07:10] LABS: Phosphorous 2.7 mg/dl (2.5-4.5)
[2023-11-07 07:35] VITALS: BP 120/53; PULSE 88; RESP 17; TEMP 37.1; O2SAT 98
[2023-11-07] MEDS: CHOLECALCIFEROL 1,000 UNITS (25MCG) TABLET 50 MCG PO (09:20)
[2023-11-07] MEDS: METOPROLOL SUCCINATE XL 100MG TABLET 200 MG PO (09:20)
[2023-11-07] MEDS: CLOPIDOGREL 75MG TAB 75 MG PO (09:20)
[2023-11-07] MEDS: LORATADINE 10MG TABLET 10 MG PO (09:20)
[2023-11-07] MEDS: FUROSEMIDE 40 MG TABLET PO (09:20)
[2023-11-07] MEDS: SACUBITRIL/VALSARTAN 24-26MG TABLET 2 EACH PO (09:20)
[2023-11-07] MEDS: humaLOG MIX 75/25 3ML FLEXPEN 40 UNIT SQ (09:46)
[2023-11-07 09:48] LABS: POC Glucose,Bedside 185 (70-110)
[2023-11-07] MEDS: ALBUTEROL 0.083% 2.5 MG/3 ML NEB IH (10:29)
[2023-11-07 11:36] VITALS: BP 96/55; PULSE 90; RESP 16; TEMP 36.9; O2SAT 98
[2023-11-07 11:38] LABS: POC Glucose,Bedside 199 (70-110)
[2023-11-07] MEDS: humaLOG 100 UNITS/ML 3ML VIAL (SSI) SQ (11:41)
--- NOTE | 2023-11-07 11:50 | P.DS_ITS ---
General Admission date:: 11/05/23 Discharge date: 11/07/23 HPI HPI HPI: This is a 53yo F with PMHx of uncontrolled IDDM, medically non compliance, HFrEF, afib, CVA, COPD, presented to ED for evaluation of referred 5-day history of malaise and complaining dyspnea especially with taking deep breaths secondary to chest wall pain. Her primary complaint is pain around her left chest pacemaker. She says it hurts to touch and hurts to take a deep breath. She denies trauma to the area. She is also complaining of pain in her mouth due to ulcers . She is edentulous and does not wear dentures. Patient does have a past medical history of type 2 diabetes mellitus treated with insulin, history of congestive heart failure with last known ejection fraction 20% she is currently denies fever chills hemoptysis hematochezia melena he overall reports feeling bad. Admitted for treatment and management. Hospital Course Hospital Course Hospital Course: Patient was seen and evaluated at the bedside on the day of discharge. Patient wishes to be discharged. All patient questions were answered and patient was g iven time to ask questions. Patient was discharged in stable condition. Patient understands that she can return to ER in case of any sudden changes in health. Total time spent on DC - 38 mins 53-year-old female with past medical history of HFrEF, NYHA class III, Chronic atrial fibrillation on chronic anticoagulation, Diabetes, Chronic Tobacco Use who presented for DKA, which resolved on insulin drip Uncontrolled IDDM with HHS: - resolved, now back to baseline JOELLE - improved sustained V tach with unstability: impproved and stable, resume home digoxin Exam Data for Last 24 hours Vital signs and Labs for Last 24 Hours: Temp Pulse Resp BP Pulse Ox O2 Del Method O2 Flow Rate 98.5 F 90 16 96/55 L 98 Room Air 2 11/07/23 11:36 11/07/23 11:36 11/07/23 11:36 11/07/23 11:36 11/07/23 11:36 11/07/23 11:36 11/07/23 04:00 Laboratory Results - last 24 hr 11/06/23 16:39: POC Glucose 332 H* 11/06/23 20:07: POC Glucose 364 H* 11/07/23 06:19: POC Glucose 135 H 11/07/23 06:20: Phosphorus 2.7 11/07/23 09:42: POC Glucose 185 H 11/07/23 11:32: POC Glucose 199 H I & O for Last 24 hours: Intake & Output 11/04/23 11/05/23 11/06/23 11/07/23 23:59 23:59 23:59 23:59 Intake Total 130.624 / 851.319 4224.757 / 3801.757 480 / 480 Output Total 2700 / 3200 2900 / 2900 0 / 0 Balance -2569.376 / -3069.376 661.757 / 901.757 480 / 480 Weight 81.329 kg 81.39 kg 82.781 kg Constitutional Constitutional: no acute distress *Routine HEENT Exam Head: Present normocephalic Eye: Present EOMI and PERRL ENT: Present mucous membranes moist *Routine Neck Exam Neck: Present supple; Absent lymphadenopathy *Routine Respiratory Exam Respiratory: Present CTA bilaterally *Routine Cardiovascular Exam Cardiovascular: Present RRR *Routine Abdominal Exam Abdominal: Present soft and normoactive bowel sounds; Absent tenderness *Routine Extremities Exam Extremities: Absent cyanosis, clubbing or edema *Routine Skin Exam Skin: Present warm; Absent rash *Routine Neurological Exam Neurological: Present alert and oriented X3 Results Data Completed and Pending Labs on day of discharge: Labs from last 24 hours 11/07/23 11/07/23 11/07/23 11:32 09:42 06:20 POC Glucose 199 H 185 H Phosphorus 2.7 11/07/23 11/06/23 11/06/23 06:19 20:07 16:39 POC Glucose 135 H 364 H* 332 H* Phosphorus DS: Diagnosis Discharge Diagnosis (1) Uncontrolled type 2 DM with hyperosmolar nonketotic hyperglycemia: Status: Acute Code(s): E11.00 - Type 2 diabetes mellitus with hyperosmolarity without nonketotic hyperglycemic-hyperosmolar coma ([facility]) (2) Acute kidney injury (nontraumatic): Status: Acute Code(s): N17.9 - Acute kidney failure, unspecified (3) Ventricular tachycardia: Status: Acute Code(s): I47.20 - Ventricular tachycardia, unspecified (4) Chronic HFrEF (heart failure with reduced ejection fraction): Status: Acute Code(s): I50.22 - Chronic systolic (congestive) heart failure (5) COPD (chronic obstructive pulmonary disease): Status: Chronic Code(s): J44.9 - Chronic obstructive pulmonary disease, unspecified Qualifiers: COPD type: unspecified COPD Qualified Code(s): J44.9 - Chronic obstructive pulmonary disease, unspecified (6) Tobacco abuse: Status: Acute Code(s): Z72.0 - Tobacco use (7) Medical non-compliance: Status: Acute Code(s): Z91.19 - Patient's noncompliance with other medical treatment and regimen Meds Home Medications and Allergies Home Medications Medication Instructions Recorded Confirmed Type albuterol sulfate 90 mcg/actuation 2 inh inhalation QIDP PRN 11/05/23 11/05/23 History aerosol inhaler (Ventolin HFA) Shortness Of Breath Or Wheezing cholecalciferol (vitamin D3) 1,250 1,250 mcg PO WEEKLY 11/05/23 11/05/23 History mcg (50,000 unit) capsule cholecalciferol (vitamin D3) 50 50 mcg PO DAILY 11/05/23 11/05/23 History mcg (2,000 unit) capsule clopidogrel 75 mg tablet 75 mg PO DAILY 11/05/23 11/05/23 History cyclobenzaprine 5 mg tablet 5 mg PO BID 11/05/23 11/05/23 History digoxin 125 mcg (0.125 mg) tablet 125 mcg PO DAILY 11/05/23 11/05/23 History furosemide 40 mg tablet 40 mg PO DAILY 11/05/23 11/05/23 History insulin NPH-regular 70-30 U-100 40 unit SQ BID 11/05/23 11/05/23 History insulin 100 unit/mL subcutaneous pen (Humulin 70/30 U-100 KwikPen) ipratropium 20 mcg-albuterol 100 1 puff inhalation QID 11/05/23 11/05/23 History mcg/actuation mist for inhalation (Combivent Respimat) loratadine 10 mg tablet 10 mg PO DAILY 11/05/23 11/05/23 History metoprolol succinate 200 mg 200 mg PO DAILY 11/05/23 11/05/23 History tablet,extended release 24 hr pantoprazole 40 mg tablet,delayed 40 mg PO HS 11/05/23 11/05/23 History release rivaroxaban 15 mg tablet (Xarelto) 15 mg PO HS 11/05/23 11/05/23 History rosuvastatin 40 mg tablet 40 mg PO HS 11/05/23 11/05/23 History sacubitril 49 mg-valsartan 51 mg 1 tab PO BID 11/05/23 11/05/23 History tablet (Entresto) spironolactone 25 mg tablet 25 mg PO BID 11/05/23 11/05/23 History New Prescriptions to Start Prescriptions: Allergies Allergy/AdvReac Type Severity Reaction Status Date / Time Penicillins [PENICILLINS] Allergy Intermediate I-HIVES Verified 09/07/23 14:26 Discharge Plan Disposition Patient Disposition: Home, Self-Care Condition: Good Discharge Order Discharge Orders: Discharge Order (Routine); Ordered 11/07/23 Ordered By: Earlene Brooke Follow up Plan Follow up with: Shahram Barnard APRN [Primary Care Provider] - 11/17/23 9:15 am Prescriptions/Medication Reconciliation: Continued furosemide 40 mg tablet 40 mg PO DAILY Patient Comments: TAKE ONE TABLET BY MOUTH EVERY DAY FOR fluid metoprolol succinate 200 mg tablet extended release 24 hr 200 mg PO DAILY Patient Comments: TAKE ONE TABLET BY MOUTH EVERY DAY clopidogrel 75 mg tablet 75 mg PO DAILY Patient Comments: TAKE ONE TABLET BY MOUTH EVERY DAY spironolactone 25 mg tablet 25 mg PO BID Patient Comments: TAKE ONE TABLET BY MOUTH TWICE DAILY pantoprazole 40 mg tablet,delayed release (DR/EC) 40 mg PO HS Patient Comments: TAKE ONE TABLET BY MOUTH EVERY DAY AT BEDTIME digoxin 125 mcg (0.125 mg) tablet 125 mcg PO DAILY Patient Comments: TAKE ONE TABLET BY MOUTH EVERY DAY FOR afib albuterol sulfate [Ventolin HFA] 90 mcg/actuation HFA aerosol inhaler 2 inh INHALATION QIDP PRN (Reason: Shortness Of Breath Or Wheezing) Patient Comments: INHALE TWO PUFFS BY MOUTH FOUR TIMES DAILY NEEDED FOR SHORTNESS OF BREATH loratadine 10 mg tablet 10 mg PO DAILY Patient Comments: TAKE ONE TABLET BY MOUTH EVERY DAY cyclobenzaprine 5 mg tablet 5 mg PO BID Patient Comments: TAKE ONE TABLET BY MOUTH TWICE DAILY MAY CAUSE DROWSINESS rosuvastatin 40 mg tablet 40 mg PO HS Patient Comments: TAKE ONE TABLET BY MOUTH EVERY DAY Humulin 70/30 U-100 KwikPen 100 unit/mL (70-30) insulin pen 40 unit SQ BID Patient Comments: inject 40 units SUBCUTANEOUSLY TWICE DAILY cholecalciferol (vitamin D3) 1,250 mcg (50,000 unit) capsule 1,250 mcg PO WEEKLY Patient Comments: TAKE ONE CAPSULE BY MOUTH ONCE A WEEK cholecalciferol (vitamin D3) 50 mcg (2,000 unit) capsule 50 mcg PO DAILY Patient Comments: TAKE ONE CAPSULE BY MOUTH EVERY DAY Xarelto 15 mg tablet 15 mg PO HS Patient Comments: TAKE ONE TABLET BY MOUTH EVERY EVENING FOR afib Combivent Respimat 20-100 mcg/actuation mist 1 puff INHALATION QID Patient Comments: INHALE 1 PUFF BY MOUTH FOUR TIMES DAILY Entresto 49-51 mg tablet 1 tab PO BID Patient Comments: TAKE ONE TABLET BY MOUTH TWICE DAILY Problem Reconciliation Problems Reviewed?: Yes Patient Discharge Instructions ACTIVITY: Ambulate as tolerated DIET: continue same diet Patient Instructions: Heart-Healthy Diet, Carbohydrate-Counting Diet, Diabetic Ketoacidosis, DI for Diabetic Ketoacidosis Providers Primary Care Provider: Shahram Barnard Provider: Earlene Brooke Attending Provider: Earlene Brooke
--- NOTE | 2023-11-07 12:25 | PC.NURSE ---
notified family pt is up for discharge.
--- NOTE | 2023-11-10 13:05 | CARE MANAGER ---
Attempted to contact patient's phone number and daughter's phone number to follow up on hospital discharge. VM left at first number and daughter's number does not work. MARY Arana
== END 2023-11-07 13:23 | disposition home or self-care (01) | DRG 638 ==
LOC: ER 19:21 → 2ND 21:03
PROVIDERS: Nurse Practitioner Family; Physician Assistant; Admitting Provider Internal Medicine; Emergency Provider Student in an Organized Health Care Education/Training Program; PCP Nurse Practitioner Family; Visit Provider Internal Medicine
DX: E11.00 Type 2 diabetes mellitus with hyperosmolarity without nonketotic hyperglycemic-hyperosmolar coma (NKHHC); I13.0 Hypertensive heart and chronic kidney disease with heart failure and stage 1 through stage 4 chronic kidney disease, or unspecified chronic kidney disease; I50.22 Chronic systolic (congestive) heart failure; I42.0 Dilated cardiomyopathy; I47.20 Ventricular tachycardia, unspecified; I48.21 Permanent atrial fibrillation; J44.9 Chronic obstructive pulmonary disease, unspecified; N18.30 Chronic kidney disease, stage 3 unspecified; I27.20 Pulmonary hypertension, unspecified; F17.210 Nicotine dependence, cigarettes, uncomplicated; N17.9 Acute kidney failure, unspecified; Z95.0 Presence of cardiac pacemaker; E87.5 Hyperkalemia; E11.22 Type 2 diabetes mellitus with diabetic chronic kidney disease; Z79.01 Long term (current) use of anticoagulants; Z79.899 Other long term (current) drug therapy; Z95.5 Presence of coronary angioplasty implant and graft; Z79.4 Long term (current) use of insulin; Z91.199 Patient's noncompliance with other medical treatment and regimen due to unspecified reason; F19.10 Other psychoactive substance abuse, uncomplicated
CPT/HCPCS: 36556; 36415; 71045; 80048; 80053; 80061; 81001; 82009; 82803; 82947; 82962; 83036; 83605; 83735; 83930; 84100; 84132; 84484; 85025; 85378; 85610; 87040; 87086; 87430; 87636; 93005; 94640; 94761; 99291; J0131; J0282; J7060

== ENCOUNTER 2023-11-18 14:44 | Outpatient (CLI) | payer OTHER, SELFPAY ==
[2023-11-18 19:19] LABS: Hemoglobin A1C > 14.0 % (4.0-6.0)
== END 2023-11-18 23:59 | disposition home or self-care (01) ==
LOC: LAB 14:45
PROVIDERS: PCP Nurse Practitioner Family; Visit Provider Internal Medicine
DX: I25.10 Atherosclerotic heart disease of native coronary artery without angina pectoris (principal); I50.22 Chronic systolic (congestive) heart failure; E11.69 Type 2 diabetes mellitus with other specified complication; I48.91 Unspecified atrial fibrillation; I27.20 Pulmonary hypertension, unspecified; J44.9 Chronic obstructive pulmonary disease, unspecified; I47.20 Ventricular tachycardia, unspecified; Z72.0 Tobacco use; Z79.4 Long term (current) use of insulin; Z91.199 Patient's noncompliance with other medical treatment and regimen due to unspecified reason
CPT/HCPCS: 36415; 80162; 83036

== ENCOUNTER 2024-05-11 14:22 | Outpatient (CLI) | payer OTHER, SELFPAY ==
[2024-05-11 14:51] LABS: Basophils # 0.2 K/mm3 (0-0.2); Basophils % 1.9 % (0.1-2.0); Eosinophils # 0.2 K/mm3 (0.0-0.4); Eosinophils % 1.9 % (0.1-12.0); Hematocrit 43.5 % (37.0-47.0); Hemoglobin 15.2 g/dL (12.2-16.2); Lymphocytes # 3.6 K/mm3 (0.7-4.5); Lymphocytes % 30.8 % (10-50); Mean Corpuscular HGB Conc 34.8 g/dL (31.8-35.4); Mean Corpuscular Hemoglobin 29.6 pg (27.0-31.2); Mean Corpuscular Volume 85.1 fl (81-99); Mean Platelet Volume 8.1 fl (7.4-10.4); Monocytes # 0.6 K/mm3 (0.1-1.0); Monocytes % 4.9 % (1.7-9.3); Neutrophils # 7.1 K/mm3 (1.8-7.8); Neutrophils % 60.4 % (37.0-80.0); Platelet Count 257 K/mm3 (142-424); Red Blood Count 5.11 M/mm3 (4.20-5.40); Red Cell Distribution Width 15.4 % (11.5-17.5); White Blood Count 11.8 K/mm3 (4.8-10.8)
[2024-05-11 15:46] LABS: Alanine Aminotransferase 17 U/L (12-78); Albumin Level 4.1 g/dl (3.5-5.0); Alkaline Phosphatase 71 U/L (38-126); Anion Gap 11.5 mEq/L (5-15); Aspartate Amino Transferase 18 U/L (14-36); Bilirubin,Direct 0.3 mg/dl (0.0-0.4); Bilirubin,Indirect 0.2 mg/dL (0.0-0.9); Bilirubin,Total 0.5 mg/dl (0.2-1.3); Bilirubin,Unconjugated 0.1 mg/dL (0.0-1.1); Blood Urea Nitrogen 21 mg/dl (7-17); Carbon Dioxide 29 mmol/L (22.0-30.0); Chloride 102 mmol/L (98-107); Chol/HDL Ratio 3.1 (1-3.5); Cholesterol 129 mg/dl (140-200); Estimated Glomerular Filt Rate 39 ml/min (>60); GFR (African American) 48 ML/MIN (>60); Glucose 202 mg/dl (74-100); HDL Cholesterol 41 mg/dl (40-60); Potassium 4.5 mmoL/L (3.5-5.1); Sodium 138 mmol/L (136-145); Total Protein,Serum 6.9 g/dl (6.3-8.2); Triglycerides 340 mg/dl (30-150); VLDL Cholesterol 68 mg/dL (0-40)
[2024-05-11 15:57] LABS: Direct LDL Cholesterol 57.46 mg/dL (100-129)
[2024-05-11 16:02] LABS: Free T4 (Free Thyroxine) 1.33 ng/dl (0.78-2.19)
[2024-05-11 16:16] LABS: Thyroid Stimulating Hormone 2.58 uIU/mL (0.465-4.68)
== END 2024-05-11 23:59 | disposition home or self-care (01) ==
LOC: LAB 14:23
PROVIDERS: Physician Assistant; PCP Nurse Practitioner Family; Visit Provider Nurse Practitioner Family
DX: I50.22 Chronic systolic (congestive) heart failure (principal); I25.10 Atherosclerotic heart disease of native coronary artery without angina pectoris; I27.20 Pulmonary hypertension, unspecified; E66.09 Other obesity due to excess calories; Z68.32 Body mass index [BMI] 32.0-32.9, adult; Z72.0 Tobacco use
CPT/HCPCS: 36415; 80048; 80061; 80076; 84439; 84443; 85025

== ENCOUNTER 2024-06-10 13:14 | Outpatient (CLI) | payer OTHER, SELFPAY ==
--- NOTE | 2024-06-10 13:18 | CA_ITS ---
APPROVED REPORT EXAM: Comprehensive 2D, Doppler, and color-flow Echocardiogram Industrial Engineering Technician: BECCA Peralta, RVS Ht: 5 ft 2 in Wt: 196lbs BSA: 1.90 BP: 113/71 mmHg Rhythm: Atrial Fibrillation Indications: Pacer, CAD-7 stents, HFrEF, Smoker, COPD, CVA, DM, HTN 2D Dimensions Left Atrium 3.12 cm M-Mode Dimensions RVDd 2.82 cm (0.9-2.6) LA Diam 3.12 cm (1.9-4.0) LVDd 4.32 cm (3.5-5.7) LVDs 3.00 cm (3.5-5.7) IVSd 1.00 cm (0.6-1.1) PWd 0.89 cm (0.6-1.1) EF (Teich) 59.40% EPSs 0.54 cm FS 31.40% EDV (Teich) 86.30 mL TAPSE 1.04 (<1.7) ESV (Teich) 35.00 mL LV Diastology E Decel Time 170 (160-240 msec) E/A Ratio 7.60 Aortic Valve AUBREY Index 1.05 cm2/m2 AoV Peak Tremaine. 106.0 (50-130 cm/s) AO Peak GR. 4.50 mmHg AO Mean GR. 2.20 (<5 mmHg) AO VTI 17.0 (18-25 cm) AUBREY (VTI) 2.03 (2.5-4.5 cm2) Mitral Valve MV E Max Tremaine. 98.0 (40-130 cm/s) MV A Velocity 13.0 (40-130 cm/s) E/A Ratio 7.60 MV PHT 50.0 ms Pulmonary Valve PV Peak Velocity 83.0 (50-150 cm/s) Tricuspid Valve TR P. Velocity 196.00 cm/s RAP Estimate 10.00 mmHg RVSP 25.40 mmHg Left Ventricle The left ventricle is normal size. Left ventricular systolic function is mildly to moderately decreased. There is increased LV wall thickness. There is mild to moderate global hypokinesis present. The septum is asynchronous. Diastolic function is indeterminate. LVEF is 40%. Right Ventricle Right ventricle is mildly dilated. The right ventricular systolic function is normal. There is a device lead in the right ventricle. Atria The left atrium is mildly dilated. The right atrium is mildly dilated. No Doppler evidence of interatrial shunt. Aortic Valve The aortic valve opens well. There is no aortic valvular stenosis. No aortic regurgitation is present. Mitral Valve The mitral valve is normal in structure. No evidence of mitral valve stenosis. Trace mitral regurgitation. Tricuspid Valve The tricuspid valve leaflets are thin and pliable. Trace tricuspid regurgitation. There is insufficient TR jet to estimate RVSP. Pulmonic Valve The pulmonary valve is normal in structure. Trace pulmonic regurgitation. Great Vessels The aortic root is normal in size. The ascending aorta is normal in size. IVC is normal in size and collapses >50% with inspiration. Pericardium There is no pericardial effusion. Other Information Study Quality: Fair Conclusion Mildly to moderately reduced LV systolic function (LVEF 40%). Septum is asynchronous. Mild RV dilation with normal RV function. Mild biatrial dilation. Mild TR. Compared to prior study from 08/27/2022, the LVEF is improved, but remains reduced. Electronically signed by : Swati Louis MD 06/20/2024 13:45:33
== END 2024-06-10 23:59 | disposition home or self-care (01) ==
LOC: RT 13:15
PROVIDERS: PCP Nurse Practitioner Family; Visit Provider Physician Assistant
DX: I51.7 Cardiomegaly (principal); I36.1 Nonrheumatic tricuspid (valve) insufficiency; I25.10 Atherosclerotic heart disease of native coronary artery without angina pectoris; I50.22 Chronic systolic (congestive) heart failure; I27.20 Pulmonary hypertension, unspecified; E66.09 Other obesity due to excess calories; Z68.32 Body mass index [BMI] 32.0-32.9, adult
CPT/HCPCS: 93306

== ENCOUNTER 2024-10-04 14:13 | Outpatient (CLI) | payer OTHER, SELFPAY ==
[2024-10-04 19:24] LABS: Basophils # 0.2 K/mm3 (0-0.2); Basophils % 1.4 % (0.1-2.0); Eosinophils # 0.4 K/mm3 (0.0-0.4); Eosinophils % 3.6 % (0.1-12.0); Hematocrit 43.1 % (37.0-47.0); Hemoglobin 14.4 g/dL (12.2-16.2); Lymphocytes # 2.3 K/mm3 (0.7-4.5); Lymphocytes % 20.8 % (10-50); Mean Corpuscular HGB Conc 33.4 g/dL (31.8-35.4); Mean Corpuscular Volume 86.9 fl (81-99); Mean Platelet Volume 11.5 fl (7.4-10.4); Monocytes # 0.6 K/mm3 (0.1-1.0); Neutrophils # 7.6 K/mm3 (1.8-7.8); Neutrophils % 68.9 % (37.0-80.0); Platelet Count 277 K/mm3 (142-424); Red Blood Count 4.96 M/mm3 (4.20-5.40); Red Cell Distribution Width 14.2 % (11.5-17.5); White Blood Count 11.1 K/mm3 (4.8-10.8)
[2024-10-04 21:32] LABS: Alanine Aminotransferase 18 U/L (12-78); Albumin Level 4.2 g/dl (3.5-5.0); Albumin/Globulin Ratio 1.4 (1.1-1.8); Alkaline Phosphatase 70 U/L (38-126); Anion Gap 16.1 mEq/L (5-15); Aspartate Amino Transferase 17 U/L (14-36); Bilirubin,Total 0.8 mg/dl (0.2-1.3); Blood Urea Nitrogen 26 mg/dl (7-17); Calcium 9.9 mg/dl (8.4-10.2); Carbon Dioxide 22 mmol/L (22.0-30.0); Chloride 100 mmol/L (98-107); Chol/HDL Ratio 3.9 (1-3.5); Cholesterol 131 mg/dl (140-200); Estimated Glomerular Filt Rate 36 ml/min (>60); GFR (African American) 44 ML/MIN (>60); Globulin 2.9 g/dL (1.3-3.2); Glucose 315 mg/dl (74-100); HDL Cholesterol 34 mg/dl (40-60); Potassium 5.1 mmoL/L (3.5-5.1); Sodium 133 mmol/L (136-145); Total Protein,Serum 7.1 g/dl (6.3-8.2); Triglycerides 289 mg/dl (30-150); VLDL Cholesterol 58 mg/dL (0-40)
[2024-10-04 21:51] LABS: 25-OH Vitamin D, Total 112 ng/mL (30-100)
[2024-10-04 22:00] LABS: Thyroid Stimulating Hormone 2.29 uIU/mL (0.465-4.68)
[2024-10-06 09:47] LABS: Microalbumin/Creatinine Ratio 68.3
[2024-10-06 10:27] LABS: Creatinine,Urine Random 65 mg/dL (Not Estab.)
== END 2024-10-04 23:59 | disposition home or self-care (01) ==
LOC: LAB.DROPOF 10-05 09:29
PROVIDERS: PCP Nurse Practitioner Family; Visit Provider Nurse Practitioner Family
DX: E11.69 Type 2 diabetes mellitus with other specified complication (principal); E55.9 Vitamin D deficiency, unspecified; Z68.35 Body mass index [BMI] 35.0-35.9, adult; E66.9 Obesity, unspecified; Z79.84 Long term (current) use of oral hypoglycemic drugs; Z79.4 Long term (current) use of insulin
CPT/HCPCS: 80053; 80061; 82043; 82306; 82570; 84443; 85025

== ENCOUNTER 2024-10-09 17:05 | Emergency (ER) | payer OTHER, SELFPAY ==
[2024-10-09 17:11] VITALS: BP 118/50; PULSE 63; RESP 18; TEMP 36.6; O2SAT 97; BMI 35.6
--- NOTE | 2024-10-09 17:14 | ECG_ITS ---
APPROVED REPORT Exam: Resting ECG HR:99 bpm ECG Measurements Heart Rate 99 AXES QRSd 116 QRS -76 QT 335 T 118 QTc 391 Conclusion ELECTRONIC VENTRICULAR PACEMAKER No STEMI Electronically signed by : EJ KEEN, 10/10/2024 02:30:26
--- NOTE | 2024-10-09 17:20 | HMH.EDGENADL ---
Discharge Plan Disposition Patient Disposition: Home, Self-Care Condition: Good Prescriptions Prescriptions: New prednisone 50 mg tablet 50 mg PO DAILY 5 Days Qty: 5 0RF [id number] [Bromfed DM] 2-30-10 mg/5 mL syrup 5 ml PO Q4H PRN (Reason: sinus symptoms) Qty: 118 0RF ondansetron 4 mg tablet,disintegrating 4 mg PO QID PRN (Reason: nausea and vomiting) Qty: 10 0RF No Action (DME) blood-glucose meter [OneTouch Verio Flex meter] Misc See Rx Instructions .ROUTE .MEDSUPPLY Qty: 1 Patient Comments: USE as directed TO test blood sugar Rx Instructions: As directed (DME) lancets [TRUEplus Lancets] 28 gauge misc See Rx Instructions .ROUTE .MEDSUPPLY Qty: 100 Patient Comments: USE as directed TO test blood sugar Rx Instructions: As directed (DME) pen needle, diabetic 31 gauge x 3/16 needle See Rx Instructions .ROUTE .MEDSUPPLY Qty: 1200 Patient Comments: USE 1 pen needle TWICE DAILY DIRECTED Rx Instructions: As directed insulin glargine [Lantus Solostar U-100 Insulin] 100 unit/mL (3 mL) insulin pen 20 unit SQ QPM Qty: 15 3RF Ozempic 0.25 mg or 0.5 mg (2 mg/3 mL) pen injector 0.25 mg SQ WEEKLY Qty: 3 2RF Rx Instructions: for 4 weeks benzonatate 100 mg capsule 100 mg PO TID PRN (Reason: cough) Qty: 30 0RF cefdinir 300 mg capsule 300 mg PO BID 10 Days Qty: 20 0RF (DME) pen needle, diabetic [BD Ultra-Fine Short Pen Needle] 31 gauge x 5/16 needle See Rx Instructions .ROUTE .COMPLEX Qty: 100 6RF Dose Instruction: USE 1 pen needle TWICE DAILY DIRECTED Rx Instructions: USE 1 pen needle TWICE DAILY DIRECTED Entresto 24-26 mg tablet 1 tab PO BID Qty: 60 5RF Combivent Respimat 20-100 mcg/actuation mist See Rx Instructions .ROUTE .COMPLEX Qty: 4 4RF Dose Instruction: INHALE 1 PUFF BY MOUTH FOUR TIMES DAILY Rx Instructions: INHALE 1 PUFF BY MOUTH FOUR TIMES DAILY metoprolol succinate 200 mg tablet extended release 24 hr 200 mg PO DAILY 90 Days Qty: 90 3RF Patient Comments: TAKE ONE TABLET BY MOUTH EVERY DAY furosemide 40 mg tablet 40 mg PO DAILY 90 Days Qty: 90 3RF Patient Comments: TAKE ONE TABLET BY MOUTH EVERY DAY FOR fluid clopidogrel 75 mg tablet 75 mg PO DAILY Qty: 90 3RF Patient Comments: TAKE ONE TABLET BY MOUTH EVERY DAY digoxin 125 mcg (0.125 mg) tablet 125 mcg PO DAILY Qty: 90 3RF Xarelto 15 mg tablet 15 mg PO HS 90 Days Qty: 90 3RF Patient Comments: TAKE ONE TABLET BY MOUTH EVERY EVENING FOR afib spironolactone 25 mg tablet 25 mg PO BID 30 Days Qty: 60 11RF Patient Comments: TAKE ONE TABLET BY MOUTH TWICE DAILY ranolazine 500 mg tablet extended release 12 hr See Rx Instructions .ROUTE .COMPLEX Qty: 60 2RF Dose Instruction: TAKE ONE TABLET BY MOUTH TWICE DAILY Rx Instructions: TAKE ONE TABLET BY MOUTH TWICE DAILY cholecalciferol (vitamin D3) 50 mcg (2,000 unit) capsule See Rx Instructions .ROUTE .COMPLEX Qty: 30 4RF Dose Instruction: TAKE ONE CAPSULE BY MOUTH EVERY DAY Rx Instructions: TAKE ONE CAPSULE BY MOUTH EVERY DAY cholecalciferol (vitamin D3) 1,250 mcg (50,000 unit) capsule See Rx Instructions .ROUTE .COMPLEX Qty: 7 2RF Dose Instruction: TAKE ONE CAPSULE BY MOUTH ONCE A WEEK Rx Instructions: TAKE ONE CAPSULE BY MOUTH ONCE A WEEK albuterol sulfate [Ventolin HFA] 90 mcg/actuation HFA aerosol inhaler See Rx Instructions .ROUTE .COMPLEX Qty: 18 2RF Dose Instruction: INHALE TWO PUFFS BY MOUTH EVERY 4 TO 6 HOURS NEEDED SHORTNESS OF BREATH OR WHEEZING Rx Instructions: INHALE TWO PUFFS BY MOUTH EVERY 4 TO 6 HOURS NEEDED SHORTNESS OF BREATH OR WHEEZING cyclobenzaprine 5 mg tablet See Rx Instructions .ROUTE .COMPLEX Qty: 60 2RF Dose Instruction: TAKE ONE TABLET BY MOUTH TWICE DAILY MAY CAUSE DROWSINESS Rx Instructions: TAKE ONE TABLET BY MOUTH TWICE DAILY MAY CAUSE DROWSINESS ipratropium-albuterol 0.5 mg-3 mg(2.5 mg base)/3 mL solution for nebulization See Rx Instructions .ROUTE .COMPLEX Qty: 360 2RF Dose Instruction: INHALE THE CONTENTS OF 1 VIAL VIA NEBULIZER FOUR TIMES DAILY Rx Instructions: INHALE THE CONTENTS OF 1 VIAL VIA NEBULIZER FOUR TIMES DAILY rosuvastatin 40 mg tablet See Rx Instructions .ROUTE .COMPLEX Qty: 90 2RF Dose Instruction: TAKE ONE TABLET BY MOUTH EVERY DAY AT BEDTIME Rx Instructions: TAKE ONE TABLET BY MOUTH EVERY DAY AT BEDTIME pantoprazole 40 mg tablet,delayed release (DR/EC) See Rx Instructions .ROUTE .COMPLEX Qty: 90 2RF Dose Instruction: TAKE ONE TABLET BY MOUTH EVERY DAY AT BEDTIME Rx Instructions: TAKE ONE TABLET BY MOUTH EVERY DAY AT BEDTIME (DME) Dexcom G7 Sensor Device See Rx Instructions .ROUTE .COMPLEX Qty: 4 4RF Dose Instruction: USE DIRECTED TO TEST BLOOD GLUCOSE LEVEL CHANGE SENSOR EVERY 10 DAYS Rx Instructions: USE DIRECTED TO TEST BLOOD GLUCOSE LEVEL CHANGE SENSOR EVERY 10 DAYS Humulin 70/30 U-100 KwikPen 100 unit/mL (70-30) insulin pen See Rx Instructions .ROUTE .COMPLEX Qty: 15 1RF Dose Instruction: INJECT 40 units SUBCUTANEOUSLY TWICE DAILY Rx Instructions: INJECT 40 units SUBCUTANEOUSLY TWICE DAILY loratadine 10 mg tablet See Rx Instructions .ROUTE .COMPLEX Qty: 30 2RF Dose Instruction: TAKE ONE TABLET BY MOUTH EVERY DAY Rx Instructions: TAKE ONE TABLET BY MOUTH EVERY DAY Referrals Follow up/Referrals: Shahram Barnard APRN [Primary Care Provider] - See instructions Activity Restrictions/Add. Instructions Additional Instructions/Restrictions: I recommend following up with your PCP in 48 hours to make sure that you are getting better. If you have any worsening signs or symptoms come to the ER. I have sent in steroids Zofran to your pharmacy. I have also sent in cough congestion medication to help open up your sinuses. For any worsening signs or symptoms follow-up sooner. Clinical Impressions Clinical Impression: Respiratory tract infection Print Language Print Language: [place] Discharge ED Provider: Oscar Joyner General Adult HPI <JW Hubbard - Last Filed: 10/09/24 20:06> General Chief complaint: Shortness of Breath/Dyspnea Stated complaint: SOA,cough Time Seen by Provider: 10/09/24 17:20 Mode of Arrival: Wheelchair Source of Information: Patient Description of Symptoms (Recalled from ER Triage Doc. by RN): Pt presents with c/o shortness of breath and feeling dizzy since March 18th. Pt states she was recently diagnosed with a sinus infection and right ear infection on the , pt is still taking her antibiotics History of Present Illness HPI narrative: Patient presents for evaluation of shortness of breath. Patient states that she was diagnosed with a sinus infection and ear infection last week and started on Tessalon Perles and an antibiotic. Patient reports that it has not helped and she feels like she may have actually gotten worse since starting those. Patient reports that she does have a history of COPD and is not on chronic oxygen has it available at home but does not use it as she is still an ongoing smoker. Patient also reports that she has been utilizing her nebulizer machine at home without relief. Patient denies fever chills hemoptysis hematochezia melena patient reports that she only gets dizzy or short of breath when trying to ambulate but denies any spinning or loss of consciousness. Related Data Home Medications ?Medication ?Instructions ?Recorded ?Confirmed blood-glucose meter (OneTouch #1 ea 11/17/23 10/09/24 Verio Flex Meter) lancets 28 gauge (TRUEplus Lancets) #100 ea 11/17/23 10/09/24 pen needle, diabetic 31 gauge x #1,200 ea 10/04/24 10/09/2410/02 Previous Rx's ?Medication ?Instructions ?Recorded pen needle, diabetic 31 gauge x #100 ea 12/29/2312/02 (BD Ultra-Fine Short Pen Needle) sacubitril 24 mg-valsartan 26 mg 1 tab PO BID #60 tabs 05/19/24 tablet (Entresto) ipratropium 20 mcg-albuterol 100 See Rx Instructions .Route 07/08/24 mcg/actuation mist for inhalation .COMPLEX #4 grams (Combivent Respimat) clopidogrel 75 mg tablet 75 mg PO DAILY #90 tabs 07/11/24 digoxin 125 mcg (0.125 mg) tablet 125 mcg PO DAILY #90 tabs 07/11/24 furosemide 40 mg tablet 40 mg PO DAILY 90 days #90 tabs 07/11/24 metoprolol succinate 200 mg 200 mg PO DAILY 90 days #90 tabs 07/11/24 tablet,extended release 24 hr rivaroxaban 15 mg tablet (Xarelto) 15 mg PO HS 90 days #90 tabs 07/11/24 spironolactone 25 mg tablet 25 mg PO BID 30 days #60 tabs 07/14/24 cholecalciferol (vitamin D3) 1,250 See Rx Instructions .Route 08/08/24 mcg (50,000 unit) capsule .COMPLEX #7 caps cholecalciferol (vitamin D3) 50 See Rx Instructions .Route 08/08/24 mcg (2,000 unit) capsule .COMPLEX #30 caps ranolazine 500 mg tablet,extended See Rx Instructions .Route 08/08/24 release,12 hr .COMPLEX #60 tabs albuterol sulfate 90 mcg/actuation See Rx Instructions .Route 08/22/24 aerosol inhaler (Ventolin HFA) .COMPLEX #18 grams cyclobenzaprine 5 mg tablet See Rx Instructions .Route 09/05/24 .COMPLEX #60 tabs ipratropium 0.5 mg-albuterol 3 mg See Rx Instructions .Route 09/05/24 (2.5 mg base)/3 mL nebulization .COMPLEX #360 mL soln pantoprazole 40 mg tablet,delayed See Rx Instructions .Route 09/05/24 release .COMPLEX #90 tabs rosuvastatin 40 mg tablet See Rx Instructions .Route 09/05/24 .COMPLEX #90 tabs blood-glucose sensor (Dexcom G7 #4 ea 09/06/24 Sensor device) insulin NPH-regular 70-30 U-100 See Rx Instructions .Route 09/23/24 insulin 100 unit/mL subcutaneous .COMPLEX #15 mL pen (Humulin 70/30 U-100 KwikPen) loratadine 10 mg tablet See Rx Instructions .Route 09/30/24 .COMPLEX #30 tabs benzonatate 100 mg capsule 100 mg PO TID PRN cough #30 caps 10/04/24 cefdinir 300 mg capsule 300 mg PO BID 10 days #20 caps 10/04/24 insulin glargine 100 unit/mL (3 20 unit (0.2 mL) SQ QPM #15 mL 10/04/24 mL) subcutaneous pen (Lantus Solostar U-100 Insulin) semaglutide 0.25 mg or 0.5 mg (2 0.25 mg (0.368 mL) SQ WEEKLY #3 mL 10/04/24 mg/3 mL) subcutaneous pen injector (Ozempic) cufyysmtmfbhhtn-pcfunosmreglyjo-QM 5 ml PO Q4H PRN sinus symptoms 10/09/24 2 mg-30 mg-10 mg/5 mL oral syrup #118 mL (Bromfed DM) ondansetron 4 mg disintegrating 4 mg PO QID PRN nausea and 10/09/24 tablet vomiting #10 tabs prednisone 50 mg tablet 50 mg PO DAILY 5 days #5 tabs 10/09/24 Allergies Allergy/AdvReac Type Severity Reaction Status Date / Time Penicillins (PENICILLINS) Allergy Intermediate I-HIVES Verified 10/04/24 13:31 [facility] <JW Hubbard - Last Filed: 10/09/24 20:06> [facility] Disclaimer: The information contained in this section may have been updated after the patient was seen, as this information can be updated by other users. Medical History Angina pectoris Cardiac pacemaker in situ Chronic HFrEF (heart failure with reduced ejection fraction) Syncope Atrial fibrillation with RVR Edema of both lower extremities Spider bite Dilated cardiomyopathy Hyperlipidemia CAD in [place] artery Left sided numbness Shortness of Breath Chest pain Systolic CHF with reduced left ventricular function, NYHA class 3 Atrial fibrillation with rapid ventricular response Hyperosmolar hyperglycemic state (HHS) Perirectal abscess SIRS (systemic inflammatory response syndrome) Diabetes mellitus Acute bronchitis Nonerosive nonspecific gastritis Chronic atrial fibrillation Chronic renal insufficiency, stage III (moderate) Uncontrolled type 2 DM with hyperosmolar nonketotic hyperglycemia Diabetic acetonemia Renal insufficiency Dysphagia Pulmonary hypertension Tobacco user HTN (hypertension) Type 2 diabetes mellitus Obesity Pneumonia COPD (chronic obstructive pulmonary disease) Surgical History History of esophagogastroduodenoscopy (EGD) History of bladder surgery History of esophageal surgery H/O right coronary artery stent placement H/O: hysterectomy Family History Other Coronary artery disease Social History Smoking Status: Never smoker second hand exposure: Yes alcohol intake: former substance use type: denies use current occupational status: disabled Travel in the last 8 weeks: None household members: spouse and children housing: house current occupational exposures/hazards: No caffeine: Yes Have you lived/traveled outside [place] in past 30 days?: No Contact w/someone who lives/traveled outside US past 30 days?: No Exposure to someone with infectious disease in past 14 days?: No Do you have a fever (greater than 100.4 F or 38 C)?: No Have you tested positive for COVID-19: No Exposed to someone with COVID-19 in past 14 days?: No Do you have a sore throat?: No Do you have a cough?: Yes Do you have any weakness?: No Do you have any diarrhea?: No Are you experiencing any unusual bleeding?: No Do you have any muscle aches/pain?: No Do you have any abdominal pain?: No Are you experiencing loss of taste or smell?: No Other Medical History Have you received the Flu Vaccine for this season: No Have you received the Pneumonia Vaccine: No <JW Hubbard - Last Filed: 10/09/24 20:06> ROS Obtained: Yes Systems reviewed as appropriate & no additional complaints except as documented Physical Exam <JW Hubbard - Last Filed: 10/09/24 20:06> General General appearance: alert and in no apparent distress Respiratory Respiratory exam: Present normal lung sounds bilaterally Cardiovascular Cardiovascular exam: Present regular rate and +S2 Neurological Exam Neurological exam: Present alert and oriented X3 Medical Decision Making <JW Hubbard - Last Filed: 10/09/24 20:06> Medical Records Medical records reviewed: Yes I reviewed the patient's medical records. Screening: Per USPSTF and CDC recommendations, given the prevalence of disease in our region, it is our hospital?s policy to screen for HIV and viral Hepatitis for all patients aged 18 and over and those with ongoing risk factors. Donte Inquiry Pt receiving controlled substance: No Vital Signs: 10/09/24 17:11 10/09/24 17:37 10/09/24 18:01 Temperature 97.9 F Temperature Source Oral Pulse Rate 89 90 Pulse Rate [Right] 63 Respiratory Rate 18 Blood Pressure 131/67 125/76 Blood Pressure [Right Arm] 118/50 L Blood Pressure Mean [Right Arm] 72 Blood Pressure Source Blood Pressure Source [Right Arm] Automatic Cuff Blood Pressure Position Blood Pressure Position [Right Arm] Sitting 02 Sat by Pulse Oximetry 97 95 100 Oxygen Delivery Method Room Air Room Air Room Air 10/09/24 18:30 10/09/24 19:44 Temperature 98.2 F Temperature Source Oral Pulse Rate 70 72 Pulse Rate [Right] Respiratory Rate 20 Blood Pressure 137/70 121/67 Blood Pressure [Right Arm] Blood Pressure Mean [Right Arm] Blood Pressure Source Automatic Cuff Blood Pressure Source [Right Arm] Blood Pressure Position Sitting Blood Pressure Position [Right Arm] 02 Sat by Pulse Oximetry 97 Oxygen Delivery Method Room Air Room Air Lab Data Lab results reviewed: Yes I reviewed the patient's lab results. Lab Results 10/09/24 17:49: Chlamy pneumoniae PCR Not detected, Adenovirus (PCR) Not detected, B. pertussis DNA (PCR) Not detected, Coronavirus OC43 (PCR) Not detected, Coronavirus HKU1 (PCR) Not detected, Coronavirus 229E (PCR) Not detected, SARS-CoV-2 (PCR) Not detected, Coronavirus NL63 (PCR) Not detected, Human Metapneumovir PCR Not detected, Influenza A (H1) PCR Not detected, Influ A (H1N1/09) PCR Not detected, Influenza A (H3) PCR Not detected, Influenza Type A (PCR) Not detected, Influenza Type B (PCR) Not detected, M. pneumoniae (PCR) Not detected, Parainfluenza 1 (PCR) Not detected, Parainfluenza 2 (PCR) Not detected, Parainfluenza 3 (PCR) Not detected, Parainfluenza 4 (PCR) Not detected, RSV (PCR) Not detected, Entero/Rhino (PCR) Not detected Orders (Tests/Meds): ED MEDICATIONS Discontinued Medications Generic Name Dose Route Start Last Admin Trade Name Freq PRN Reason Stop Dose Admin Albuterol/Ipratropium 6 ml 10/09/24 17:42 10/09/24 17:53 Ipratropium/Albuterol 3 Ml [facility] 10/09/24 17:43 6 ml ONCE ONE Administration Prednisone 60 mg 10/09/24 17:42 10/09/24 17:50 Prednisone 20mg Tab PO 10/09/24 17:43 60 mg ONCE ONE Administration ORDERS Category Date Time Status XR chest 2V Stat Exams 10/09/24 17:40 Completed Full Resp Panel w/COVID ([facility]) Routine Lab 10/09/24 17:49 Completed HIV Combo Routine Lab 10/09/24 19:49 Ordered Hepatitis C Ab Qual. W/ RFX Routine Lab 10/09/24 19:49 Ordered Medical Decision Narrative: In summary patient is a 54-year-old female who presents to the emergency department for evaluation of breath. Patient is hemodynamically stable upon arrival, afebrile. Physical exam is markable for normal bilateral tympanic membranes without evidence of effusion, posterior pharynx is patent and normal, no carotid bruits noted, patient is awake alert and oriented person place circumstance [place] Coma Score 15 pupils equal round reactive to light. Breath sounds clear and equal bilaterally to the bases without adventitious sounds or increased work of breathing.. Differential diagnosis includes upper or lower respiratory tract infection versus vertigo versus COPD etc. Initial workup will be conducted with COVID and flu swabs plain film chest x-ray. Initial interventions include DuoNeb Decadron. Initial workup reviewed by me and her COVID and flu swabs are negative in fact I did a full respiratory panel that shows no active organisms, and my informal interpretation of her plain film chest x-ray shows no acute processes. Upon repeat evaluation patient is able to ambulate in the emergency department with no symptoms of dizziness or shortness of breath. Given this patient is appropriate for discharge with a prescription for steroids Zofran and Bromfed with strict return precautions and close follow-up with her PCP. <Oscar Joyner MD - Last Filed: 10/09/24 20:26> Vital Signs: 10/09/24 17:11 10/09/24 17:37 10/09/24 18:01 Temperature 97.9 F Temperature Source Oral Pulse Rate 89 90 Pulse Rate [Right] 63 Respiratory Rate 18 Blood Pressure 131/67 125/76 Blood Pressure [Right Arm] 118/50 L Blood Pressure Mean [Right Arm] 72 Blood Pressure Source Blood Pressure Source [Right Arm] Automatic Cuff Blood Pressure Position Blood Pressure Position [Right Arm] Sitting 02 Sat by Pulse Oximetry 97 95 100 Oxygen Delivery Method Room Air Room Air Room Air 10/09/24 18:30 10/09/24 19:44 Temperature 98.2 F Temperature Source Oral Pulse Rate 70 72 Pulse Rate [Right] Respiratory Rate 20 Blood Pressure 137/70 121/67 Blood Pressure [Right Arm] Blood Pressure Mean [Right Arm] Blood Pressure Source Automatic Cuff Blood Pressure Source [Right Arm] Blood Pressure Position Sitting Blood Pressure Position [Right Arm] 02 Sat by Pulse Oximetry 97 Oxygen Delivery Method Room Air Room Air Lab Data Lab Results 10/09/24 17:49: Chlamy pneumoniae PCR Not detected, Adenovirus (PCR) Not detected, B. pertussis DNA (PCR) Not detected, Coronavirus OC43 (PCR) Not detected, Coronavirus HKU1 (PCR) Not detected, Coronavirus 229E (PCR) Not detected, SARS-CoV-2 (PCR) Not detected, Coronavirus NL63 (PCR) Not detected, Human Metapneumovir PCR Not detected, Influenza A (H1) PCR Not detected, Influ A (H1N1/09) PCR Not detected, Influenza A (H3) PCR Not detected, Influenza Type A (PCR) Not detected, Influenza Type B (PCR) Not detected, M. pneumoniae (PCR) Not detected, Parainfluenza 1 (PCR) Not detected, Parainfluenza 2 (PCR) Not detected, Parainfluenza 3 (PCR) Not detected, Parainfluenza 4 (PCR) Not detected, RSV (PCR) Not detected, Entero/Rhino (PCR) Not detected Orders (Tests/Meds): ED MEDICATIONS Discontinued Medications Generic Name Dose Route Start Last Admin Trade Name Freq PRN Reason Stop Dose Admin Albuterol/Ipratropium 6 ml 10/09/24 17:42 10/09/24 17:53 Ipratropium/Albuterol 3 Ml [facility] 10/09/24 17:43 6 ml ONCE ONE Administration Prednisone 60 mg 10/09/24 17:42 10/09/24 17:50 Prednisone 20mg Tab PO 10/09/24 17:43 60 mg ONCE ONE Administration ORDERS Category Date Time Status XR chest 2V Stat Exams 10/09/24 17:40 Completed Full Resp Panel w/COVID ([facility]) Routine Lab 10/09/24 17:49 Completed HIV Combo Routine Lab 10/09/24 19:49 Ordered Hepatitis C Ab Qual. W/ RFX Routine Lab 10/09/24 19:49 Ordered ECG Data Tracing #1: I reviewed this ECG and interpreted as documented below: (V-paced rhythm 99 bpm with QRS 116, QT 391. Sgarbossa negative. Leftward axis) Medical Decision Narrative: In summary patient is a 54-year-old female who presents to the emergency department for evaluation of breath. Patient is hemodynamically stable upon arrival, afebrile. Physical exam is markable for normal bilateral tympanic membranes without evidence of effusion, posterior pharynx is patent and normal, no carotid bruits noted, patient is awake alert and oriented person place circumstance [place] Coma Score 15 pupils equal round reactive to light. Breath sounds clear and equal bilaterally to the bases without adventitious sounds or increased work of breathing.. Differential diagnosis includes upper or lower respiratory tract infection versus vertigo versus COPD etc. Initial workup will be conducted with COVID and flu swabs plain film chest x-ray. Initial interventions include DuoNeb Decadron. Initial workup reviewed by me and her COVID and flu swabs are negative in fact I did a full respiratory panel that shows no active organisms, and my informal interpretation of her plain film chest x-ray shows no acute processes. Upon repeat evaluation patient is able to ambulate in the emergency department with no symptoms of dizziness or shortness of breath. Given this patient is appropriate for discharge with a prescription for steroids Zofran and Bromfed with strict return precautions and close follow-up with her PCP. I was consulted by the KENNA, and we discussed the complexity of the problems being addressed. I approved the treatment and management plan for this patient's care in the Emergency Department, thus performing a substantive portion of the medical decision making. Oscar Joyner MD Critical Care <JW Hubbard - Last Filed: 10/09/24 20:06> Critical Care Time Critical Care Time: No
[2024-10-09 17:37] VITALS: BP 131/67; PULSE 89; O2SAT 95
--- NOTE | 2024-10-09 17:40 | XR_ITS ---
PROCEDURE INFORMATION: Exam: XR Chest Exam date and time: 10/09/2024 6:01 PM Age: 54 years old Clinical indication: Cough and shortness of breath; Additional info: Cough congestion shortness of breath TECHNIQUE: Imaging protocol: Radiologic exam of the chest. Views: 2 views. COMPARISON: CR XR CHEST PORTABLE 11/05/2023 8:25 PM FINDINGS: Tubes, catheters and devices: A 3 lead internal cardiac device implanted at the left chest with leads extending to the right heart. Lungs: Central opacities with peribronchial cuffing, seen to advantage on the lateral chest radiograph. Pleural spaces: Unremarkable. No pleural effusion. No pneumothorax. Heart/Mediastinum: Unremarkable. No cardiomegaly. Bones/joints: Unremarkable. IMPRESSION: Combination of findings that suggests viral process versus reactive airways without evidence of consolidation.
[2024-10-09] MEDS: predniSONE 20MG TAB 60 MG PO (17:50)
[2024-10-09] MEDS: IPRATROPIUM/ALBUTEROL 3 ML NEB 6 ML IH (17:53)
[2024-10-09 17:57] LABS: Adenovirus,PCR Not Detected (NotDetected); Bordetella Pertussis Not Detected (NotDetected); Chlamydophila Pneumoniae, PCR Not Detected (NotDetected); Coronavirus 19, PCR Not Detected (NotDetected); Coronavirus 229E Not Detected (NotDetected); Coronavirus NL63 Not Detected (NotDetected); Coronavirus OC43 Not Detected (NotDetected); Coronovirus HKU1,PCR Not Detected (NotDetected); Human Metapneumovirus Not Detected (NotDetected); Influenza A, PCR Not Detected (NotDetected); Influenza AH1, 2009 Not Detected (NotDetected); Influenza AH1, PCR Not Detected (NotDetected); Influenza AH3,PCR Not Detected (NotDetected); Influenza B, PCR Not Detected (NotDetected); Parainfluenza 1, PCR Not Detected (NotDetected); Parainfluenza 2, PCR Not Detected (NotDetected); Parainfluenza 3, PCR Not Detected (NotDetected); Parainfluenza 4, PCR Not Detected (NotDetected); Respiratory Syncytial Virus Not Detected (NotDetected); Rhinovirus/Enterovirus Not Detected (NotDetected)
[2024-10-09 17:58] LABS: Mycoplasma Pneumoniae, PCR Not Detected (NotDetected)
[2024-10-09 18:01] VITALS: BP 125/76; PULSE 90; O2SAT 100
[2024-10-09 18:30] VITALS: BP 137/70; PULSE 70; O2SAT 97
[2024-10-09 19:44] VITALS: BP 121/67; PULSE 72; RESP 20; TEMP 36.8; O2SAT 100
== END 2024-10-09 19:50 | disposition home or self-care (01) ==
PROVIDERS: Physician Assistant; Emergency Provider Emergency Medicine; PCP Nurse Practitioner Family
DX: J98.8 Other specified respiratory disorders (principal); R06.02 Shortness of breath; R42 Dizziness and giddiness; Z72.0 Tobacco use
CPT/HCPCS: 71046; 87633; 93005; 99284; J7620

== ENCOUNTER 2024-12-27 08:14 | Day surgery (SDC) | payer OTHER, SELFPAY ==
[2024-12-27] VITALS (9 sets, daily range): BP systolic 106–172; BP diastolic 57–98; PULSE 81–132; RESP 18; TEMP 36.6; O2SAT 90–98; BMI 35.2
--- NOTE | 2024-12-27 07:08 | IR_ITS ---
APPROVED REPORT Patient Location: Outpatient PROCEDURES Left heart catheterization Selective coronary angiogram INDICATION Abnormal Myoview, Angina pectoris, Known coronary artery disease Informed consent was obtained prior to the procedure. COMPLICATIONS NONE Estimated Blood Loss: LESS THAN 10 ML TECHNIQUE One percent lidocaine used to anesthetize the right anterior aspect of the wrist. The right radial artery was accessed via the Seldinger technique. A 6 [place] sheath was placed in the right radial artery. 2.5 mg of Verapamil, 800 mcg of nitroglycerin, 1mg Lidocaine and 5000 U Heparin were given through the arterial sheath. The JL3 catheter was also used to perform left heart catheterization, left ventriculogram and selective coronary angiogram. At the end of the procedure the sheath was removed good hemostasis was achieved using Traclet band, patient was transferred to the postop holding area in stable condition. ANGIOGRAPHIC RESULTS The left main artery Normal The left anterior descending artery Gets this approximately normal and then has an appointment concentric 40% stenosis with an additional concentric 50 to 60% stenosis at a 2 mm diameter mid LAD vessel. The circumflex artery Is nondominant small LAD gives rise to 2 obtuse marginal arteries. Just proximal to the obtuse marginal artery there is a 60 to 70% stenosis which extends into the proximal portion of both the 1st and 2nd obtuse marginal artery. The circumflex artery is 2 mm in diameter with each obtuse marginal artery 1 mm-1.5 mm in diameter The right coronary artery There is a dominant vessel there is a dominant vessel and has proximal mid vessel and distal 40 to 50% calcified stenosis The JOHANSEN ventriculogram reveals Not performed The left ventricular end-diastolic pressure Elevated at 25 mmHg IMPRESSION Coronary artery disease as described above Moderate to severe disease in a small circumflex artery which involves the bifurcation of the first second obtuse marginal artery which is best managed medically as the vessel is too small to bifurcate steny Moderate disease throughout and mid LAD which is also small in caliber and not ideal for stenting as the likelihood for in-stent restenosis remains high Moderate calcific disease throughout the right coronary artery Elevated LVEDP PLAN 1. Aggressive risk factor modification 2. Aggressive treatment of diabetes 3. Maximize antianginal medications 4. Medical management for coronary artery disease Electronically signed by : Jai Gilmore MD 12/27/2024 14:14:50
[2024-12-27 08:46] LABS: Basophils # 0.1 K/mm3 (0-0.2); Basophils % 1.1 % (0.1-2.0); Eosinophils # 0.2 Kmm3 (0.0-0.4); Eosinophils % 1.2 % (0.1-12.0); Hematocrit 45.9 % (37.0-47.0); Hemoglobin 15.2 g/dL (12.2-16.2); Immature Granulocytes # 0.05 10^3uL; Immature Granulocytes % 0.4 %; Lymphocytes # 2.4 K/mm3 (0.7-4.5); Lymphocytes % 20.1 % (10-50); Mean Corpuscular HGB Conc 33.1 g/dL (31.8-35.4); Mean Corpuscular Hemoglobin 28.8 pg (27.0-31.2); Mean Corpuscular Volume 86.9 fl (81-99); Mean Platelet Volume 10.6 fl (7.4-10.4); Monocytes # 0.7 K/mm3 (0.1-1.0); Monocytes % 5.4 % (1.7-9.3); Neutrophils # 8.6 K/mm3 (1.8-7.8); Neutrophils % 71.8 % (37.0-80.0); Nucleated Red Blood Cells # 0 10^3/uL; Nucleated Red Blood Cells % 0 %; Platelet Count 262 K/mm3 (142-424); Red Blood Count 5.28 M/mm3 (4.20-5.40); Red Cell Distribution Width 13.9 % (11.5-17.5); Red Cell Distribution Width-SD 44.4 fL
[2024-12-27 09:05] LABS: Chloride 100 mmol/L (98-107); Potassium 4.9 mmoL/L (3.5-5.1); Sodium 133 mmol/L (136-145)
[2024-12-27 09:08] LABS: Anion Gap 11.9 mEq/L (5-15); Blood Urea Nitrogen 27 mg/dl (7-17); Carbon Dioxide 26 mmol/L (22.0-30.0); Creatinine Clearance Estimated 60 mL/min (50-200); Estimated Glomerular Filt Rate 34 ml/min (>60); GFR (African American) 41 ML/MIN (>60)
[2024-12-27 09:18] LABS: Glucose 426 mg/dl (74-100)
--- NOTE | 2024-12-27 10:28 | SUR.PREOP ---
pt reports taking her insulin this am, recheck fsbs 370.
[2024-12-27 10:45] LABS: POC Glucose,Bedside 370 (70-110)
[2024-12-27] MEDS: HEPARIN 1,000 UNITS/500ML NS (CATH LAB) 3000 UNIT IV (10:53)
[2024-12-27] MEDS: LIDOCAINE 1% 10ML MDV 10 ML IJ (10:54)
[2024-12-27] MEDS: 0.9 % SODIUM CHLORIDE 500 ML 25 ML IV (10:54)
[2024-12-27] MEDS: HEPARIN 1,000 UNITS/ML 10ML VIAL (CATH LAB) 5000 UNIT IV (10:54)
[2024-12-27] MEDS: diphenhydrAMINE 50MG/ML VIAL 50 MG IV (10:54)
[2024-12-27] MEDS: VERAPAMIL 2.5MG/ML 2ML VIAL 2.5 MG IV (10:54)
[2024-12-27] MEDS: NITROGLYCERIN 800MCG/8ML SYR (CATH LAB) 800 MCG IA (10:54)
[2024-12-27] MEDS: MIDAZOLAM HCL 1MG/ML 5ML VIAL 1 MG IV (11:06)
[2024-12-27] MEDS: FENTANYL 100MCG/2ML VIAL 50 MCG IV (11:06)
--- NOTE | 2024-12-27 11:37 | SUR.PHASEII ---
Pt requested breathing treatment, d/t HR being so high, MD stated no albuterol at this time.
--- NOTE | 2024-12-27 11:38 | SUR.PHASEII ---
Dr. Gilmore adjusting patients medications d/t HR. Verbal order to give PO Metoprolol Tartrate 100 mg once at this time and to change patients daily Metoprolol to Metoprolol 200 mg BID.
[2024-12-27] MEDS: METOPROLOL TARTRATE 50MG TABLET 100 MG PO (11:44)
--- NOTE | 2024-12-27 11:47 | SUR.PHASEII ---
[id number], pt states that's good for me at home its 500 or 600.
[2024-12-27 11:52] LABS: POC Glucose,Bedside 354 (70-110)
--- NOTE | 2024-12-27 12:01 | SUR.PHASEII ---
pt sitting up in bed eating lunch.
[2024-12-27] MEDS: IOPAMIDOL-370 (76%);100ML BOTTLE 50 ML IV ×2 (12:20→14:55)
== END 2024-12-27 13:29 | disposition home or self-care (01) ==
PROVIDERS: PCP Nurse Practitioner Family; Visit Provider Internal Medicine
PROC: 4A023N7 Measurement of Cardiac Sampling and Pressure, Left Heart, Percutaneous Approach (ICD-10-PCS; CPT 93452; principal; 2024-12-27 08:15)
DX: I25.118 Atherosclerotic heart disease of native coronary artery with other forms of angina pectoris (principal); R93.1 Abnormal findings on diagnostic imaging of heart and coronary circulation; I48.91 Unspecified atrial fibrillation; E11.22 Type 2 diabetes mellitus with diabetic chronic kidney disease; I13.0 Hypertensive heart and chronic kidney disease with heart failure and stage 1 through stage 4 chronic kidney disease, or unspecified chronic kidney disease; N18.30 Chronic kidney disease, stage 3 unspecified; I50.9 Heart failure, unspecified; J44.9 Chronic obstructive pulmonary disease, unspecified; Z95.0 Presence of cardiac pacemaker; E78.5 Hyperlipidemia, unspecified; E66.9 Obesity, unspecified; Z68.35 Body mass index [BMI] 35.0-35.9, adult; Z77.22 Contact with and (suspected) exposure to environmental tobacco smoke (acute) (chronic); Z79.01 Long term (current) use of anticoagulants; Z79.02 Long term (current) use of antithrombotics/antiplatelets; Z79.85 Long-term (current) use of injectable non-insulin antidiabetic drugs; Z79.52 Long term (current) use of systemic steroids; Z79.4 Long term (current) use of insulin; Z79.899 Other long term (current) drug therapy; Z88.0 Allergy status to penicillin
CPT/HCPCS: 93454; 80048; 82962; 85025; 99152; C1725; C1760; C1769; J1200; J1644; J3010; J7040; Q9967